=== PATIENT | male | born 1955 | race Caucasian/White ===

== ENCOUNTER → 2018-01-16 09:42 | Outpatient (CLI) | payer MEDICARE, SELFPAY | PROVIDERS: PCP Family Medicine; Visit Provider Orthopaedic Surgery | DX: M17.12 Unilateral primary osteoarthritis, left knee (principal) | CPT/HCPCS: 20610; 99213; J7325 ==

== ENCOUNTER 2018-02-22 11:28 | Emergency (ER) | payer MEDICARE, SELFPAY ==
[2018-02-22 11:34] VITALS: BP 185/96; PULSE 82; RESP 18; TEMP 36.7; O2SAT 97
--- NOTE | 2018-02-22 11:48 | DI.CT_ITS ---
SYMPTOM/DIAGNOSIS: ? FLANK PAIN CT RENAL COLIC: Examination was carried out according to the usual protocol without contrast enhancement. The lung bases are unremarkable. The liver, gallbladder, pancreas and spleen are intact. A small cortical cyst involving the lateral border of the left kidney is seen. The kidney is otherwise unremarkable. The adrenals are intact. There is mild right hydronephrosis and hydroureter secondary to a 6 mm distal right ureteral calculus. The bladder is unremarkable. There is no evidence of bowel obstruction. The appendix is not seen but there is no evidence of an acute appendix. There is no evidence of free fluid or free air in the abdomen. The patient is status post ventral hernia repair. There are atherosclerotic changes involving the aorta without evidence of an aneurysm. Degenerative changes involving the lumbar spine include narrowed vacuum discs at L5-S1, L2-3 and L1-2 and associated end plate sclerosis and hypertrophic changes. No acute bony abnormality is identified. SUMMARY: Mild hydronephrosis is noted secondary to an obstructing 6 mm distal ureteral calculus.
--- NOTE | 2018-02-22 11:50 | W.ED.GENAD ---
Discharge Plan Disposition Patient Disposition: HOME Condition: Improving Discharge Details Chief Complaint: Urinary Clinical Impression: Renal colic on right side Primary Care Provider: Rodolfo Penn ED Provider: Serina Stephens Home Meds and New Rx's Prescriptions: New tamsulosin [Flomax] 0.4 mg capsule 0.4 mg PO DAILY Qty: 7 RF: 0 ondansetron [Zofran ODT] 4 mg tablet,disintegrating 4 mg PO QID PRN (Reason: nausea and vomiting) Qty: 10 RF: 0 Continue zmdqlfbscnc-fsxitqzhp-cnj C-Mn 1 EACH tablet 2 tab PO DAILY Qty: 90 RF: 0 acetaminophen [Tylenol Extra Strength] 500 MG tablet 1,000 mg PO TID PRN RF: 0 multivitamin [One Daily] 1 EACH tablet 1 ea PO RF: 0 magnesium oxide 500 MG capsule 500 mg PO DAILY RF: 0 Biotin 10,000 MCG capsule 10,000 mcg PO DAILY RF: 0 zolpidem 10 MG tablet 10 mg PO HS Qty: 90 RF: 1 Discharge Instructions Instructions: Renal Colic (ED) Additional Instructions: Take all your medications as prescribed ibuprofen 600 mg every 6 hours if needed for pain acetaminophen 650 mg every 6 hours if needed for pain, can alternate the two medications every 3 hours Push fluids drinking at least 6-8 glasses of water daily to stay well-hydrated Referrals: Rey Ray MD [ [facility] STAFF PHYSICIAN] - Return if symptoms worsen Medical Decision Making Medical Records case discussed with Dr Ray who recommends outpatient follow up with his office. patient does not have a UTI and is eating and drinking with pain resolved with toradol IV. will provide script for zofran and flomax. patient advised to return sooner for new or worsening symptoms Imaging Data Radiologic Study: Imaging: CT Scan (CT abdomen and pelvis without contrast: 6 mm stone right distal ureter) Lab Data Lab results reviewed: Yes I reviewed the patient's lab results. Patient presents with right-sided flank pain that radiates into his groin. He had the symptoms about a week ago but they did resolve but recurred yesterday. He reports some nausea but no vomiting. He is using Tylenol for pain. Does have a history of renal stones. HPI General Date/Time Provider Initiated Documentation: 02/22/18 11:47. Related Data Home Medications Medication Instructions Recorded Confirmed kgtvvgwjdrj-sjeuskrte-thy C-Mn 2 tab PO DAILY #90 03/14/13 09/27/18 acetaminophen [Tylenol Extra 1,000 mg PO TID PRN tab-cap 04/08/14 02/22/18 Strength] multivitamin [One Daily] 1 ea PO 04/13/16 Biotin 10,000 mcg PO DAILY 03/08/17 02/22/18 magnesium oxide 500 mg PO DAILY 03/08/17 02/22/18 zolpidem 10 mg PO HS #90 tab 08/15/17 02/22/18 ondansetron [Zofran ODT] 4 mg PO QID PRN #10 tab 02/22/18 tamsulosin [Flomax] 0.4 mg PO DAILY #7 cap 02/22/18 Previous Rx's Medication Instructions Recorded zolpidem 10 mg PO HS #90 tab 08/15/17 ondansetron [Zofran ODT] 4 mg PO QID PRN #10 tab 02/22/18 tamsulosin [Flomax] 0.4 mg PO DAILY #7 cap 02/22/18 Allergies Allergy/AdvReac Type Severity Reaction Status Date / Time budesonide [From Symbicort] Allergy Severe RASH Unverified 06/07/17 08:46 formoterol fumarate Allergy Severe RASH Unverified 06/07/17 08:46 [From Symbicort] lisinopril Allergy Intermediate dry cough Unverified 06/07/17 09:10 hydrocodone AdvReac Severe SEVERE GI Unverified 06/07/17 08:46 UPSET atenolol AdvReac Mild headache Unverified 06/07/17 08:46 cyclobenzaprine AdvReac Headache Unverified 06/07/17 08:46 gabapentin AdvReac GI upset Unverified 06/07/17 08:46 hydrochlorothiazide AdvReac Headache Unverified 06/07/17 08:46 morphine AdvReac Headache, Unverified 06/07/17 08:46 Nausea/Vomiting oxycodone AdvReac Headache/Fo Unverified 06/07/17 08:46 rgetfullnes s simvastatin AdvReac muscle/joint Unverified 06/07/17 08:46 pain tramadol AdvReac GI upset Unverified 06/07/17 08:46 General Stated Complaint: Urinary LAI: 3 Review of Systems Review of Systems All systems reviewed & are unremarkable except as noted in HPI and below Constitutional Denies fever(s) Gastrointestinal Reports abdominal pain (Right back pain that radiates into his groin), Reports nausea and Denies vomiting Genitourinary Reports as per HPI PFSH Family History Mother Essential hypertension Hyperlipidemia Father Diabetes Essential hypertension Heart disease Hyperlipidemia Sister COPD (chronic obstructive pulmonary disease) Grandfather Diabetes Grandfather Heart disease Grandmother Diabetes Grandmother No problems noted. Sister No problems noted. Social History Smoking/Tobacco Use Status: Former Tobacco Use Surgical History Arthroplasty of knee (~2010) Arthroscopy Arthroscopy, Shoulder (~2000) Replacement of total knee joint hernia repair (~2005) Exam Const General: cooperative, healthy appearing, comfortable, no acute distress and well developed Nutritional Appearance: overweight Orientation: alert, awake and oriented x3 GI Inspection: normal to inspection and obesity Palpation: soft Auscultation: normal bowel sounds Skin General skin exam: no rashes or lesions noted Neuro General: alert, awake and oriented x3 Course Vital Signs Temperature 36.7 C 02/22/18 11:34 Pulse 82 02/22/18 11:34 Respiratory Rate 18 02/22/18 11:34 Blood Pressure 185/96 H 02/22/18 11:34 Pulse Oximetry 97 02/22/18 11:34 Temperature 36.7 C 02/22/18 11:34 Temperature Source Temporal Artery Scan 02/22/18 11:34 Pulse 82 02/22/18 11:34 Respiratory Rate 18 02/22/18 11:34 Blood Pressure 185/96 H 02/22/18 11:34 Pulse Oximetry 97 02/22/18 11:34 Oxygen Delivery Method Room Air 02/22/18 11:34 Oxygen Flow Rate 0 02/22/18 11:34 Pain Level 7 02/22/18 11:34 Lab/Test Results Lab/Test Results: labs reviewed.
--- NOTE | 2018-02-22 11:54 | ED.GENADUL_ITS ---
Discharge Plan Disposition Patient Disposition: HOME Condition: Improving Discharge Details Chief Complaint: Urinary Clinical Impression: Renal colic on right side Primary Care Provider: Rodolfo Penn ED Provider: Serina Stephens Home Meds and New Rx's Prescriptions: New tamsulosin [Flomax] 0.4 mg capsule 0.4 mg PO DAILY Qty: 7 RF: 0 ondansetron [Zofran ODT] 4 mg tablet,disintegrating 4 mg PO QID PRN (Reason: nausea and vomiting) Qty: 10 RF: 0 Continue jopivukiask-mtfprpwve-slw C-Mn 1 EACH tablet 2 tab PO DAILY Qty: 90 RF: 0 acetaminophen [Tylenol Extra Strength] 500 MG tablet 1,000 mg PO TID PRN RF: 0 multivitamin [One Daily] 1 EACH tablet 1 ea PO RF: 0 magnesium oxide 500 MG capsule 500 mg PO DAILY RF: 0 Biotin 10,000 MCG capsule 10,000 mcg PO DAILY RF: 0 zolpidem 10 MG tablet 10 mg PO HS Qty: 90 RF: 1 Discharge Instructions Instructions: Renal Colic (ED) Additional Instructions: Take all your medications as prescribed ibuprofen 600 mg every 6 hours if needed for pain acetaminophen 650 mg every 6 hours if needed for pain, can alternate the two medications every 3 hours Push fluids drinking at least 6-8 glasses of water daily to stay well-hydrated Referrals: Rey Ray MD [ [facility] STAFF PHYSICIAN] - Return if symptoms worsen Medical Decision Making Medical Records case discussed with Dr Ray who recommends outpatient follow up with his office. patient does not have a UTI and is eating and drinking with pain resolved with toradol IV. will provide script for zofran and flomax. patient advised to return sooner for new or worsening symptoms Imaging Data Radiologic Study: Imaging: CT Scan (CT abdomen and pelvis without contrast: 6 mm stone right distal ureter) Lab Data Lab results reviewed: Yes I reviewed the patient's lab results. Patient presents with right-sided flank pain that radiates into his groin. He had the symptoms about a week ago but they did resolve but recurred yesterday. He reports some nausea but no vomiting. He is using Tylenol for pain. Does have a history of renal stones. HPI General Date/Time Provider Initiated Documentation: 02/22/18 11:47 . Related Data Home Medications Medication Instructions Recorded Confirmed szhtabftwlb-yuwoequxs-qga C-Mn 2 tab PO DAILY #90 03/14/13 09/27/18 acetaminophen [Tylenol Extra 1,000 mg PO TID PRN tab-cap 04/08/14 02/22/18 Strength] multivitamin [One Daily] 1 ea PO 04/13/16 Biotin 10,000 mcg PO DAILY 03/08/17 02/22/18 magnesium oxide 500 mg PO DAILY 03/08/17 02/22/18 zolpidem 10 mg PO HS #90 tab 08/15/17 02/22/18 ondansetron [Zofran ODT] 4 mg PO QID PRN #10 tab 02/22/18 tamsulosin [Flomax] 0.4 mg PO DAILY #7 cap 02/22/18 Previous Rx's Medication Instructions Recorded zolpidem 10 mg PO HS #90 tab 08/15/17 ondansetron [Zofran ODT] 4 mg PO QID PRN #10 tab 02/22/18 tamsulosin [Flomax] 0.4 mg PO DAILY #7 cap 02/22/18 Allergies Allergy/AdvReac Type Severity Reaction Status Date / Time budesonide [From Symbicort] Allergy Severe RASH Unverified 06/07/17 08:46 formoterol fumarate Allergy Severe RASH Unverified 06/07/17 08:46 [From Symbicort] lisinopril Allergy Intermediate dry cough Unverified 06/07/17 09:10 hydrocodone AdvReac Severe SEVERE GI Unverified 06/07/17 08:46 UPSET atenolol AdvReac Mild headache Unverified 06/07/17 08:46 cyclobenzaprine AdvReac Headache Unverified 06/07/17 08:46 gabapentin AdvReac GI upset Unverified 06/07/17 08:46 hydrochlorothiazide AdvReac Headache Unverified 06/07/17 08:46 morphine AdvReac Headache, Unverified 06/07/17 08:46 Nausea/Vomiting oxycodone AdvReac Headache/Fo Unverified 06/07/17 08:46 rgetfullnes s simvastatin AdvReac muscle/joint Unverified 06/07/17 08:46 pain tramadol AdvReac GI upset Unverified 06/07/17 08:46 General Stated Complaint: Urinary LAI: 3 Review of Systems Review of Systems All systems reviewed & are unremarkable except as noted in HPI and below Constitutional Denies fever(s) Gastrointestinal Reports abdominal pain (Right back pain that radiates into his groin), Reports nausea and Denies vomiting Genitourinary Reports as per HPI PFSH Family History Mother Essential hypertension Hyperlipidemia Father Diabetes Essential hypertension Heart disease Hyperlipidemia Sister COPD (chronic obstructive pulmonary disease) Grandfather Diabetes Grandfather Heart disease Grandmother Diabetes Grandmother No problems noted. Sister No problems noted. Social History Smoking/Tobacco Use Status: Former Tobacco Use Surgical History Arthroplasty of knee (~2010) Arthroscopy Arthroscopy, Shoulder (~2000) Replacement of total knee joint hernia repair (~2005) Exam Const General: cooperative, healthy appearing, comfortable, no acute distress and well developed Nutritional Appearance: overweight Orientation: alert, awake and oriented x3 GI Inspection: normal to inspection and obesity Palpation: soft Auscultation: normal bowel sounds Skin General skin exam: no rashes or lesions noted Neuro General: alert, awake and oriented x3 Course Vital Signs Temperature 36.7 C 02/22/18 11:34 Pulse 82 02/22/18 11:34 Respiratory Rate 18 02/22/18 11:34 Blood Pressure 185/96 H 02/22/18 11:34 Pulse Oximetry 97 02/22/18 11:34 Temperature 36.7 C 02/22/18 11:34 Temperature Source Temporal Artery Scan 02/22/18 11:34 Pulse 82 02/22/18 11:34 Respiratory Rate 18 02/22/18 11:34 Blood Pressure 185/96 H 02/22/18 11:34 Pulse Oximetry 97 02/22/18 11:34 Oxygen Delivery Method Room Air 02/22/18 11:34 Oxygen Flow Rate 0 02/22/18 11:34 Pain Level 7 02/22/18 11:34 Lab/Test Results Lab/Test Results: labs reviewed.
[2018-02-22 12:19] LABS: Abs Immature Grans 0.01 k/cumm (0.0-0.09); Absolute Basophil Count 0.05 k/cumm (0.0-0.2); Absolute Eosinophil Count 0.19 k/cumm (0.0-0.7); Absolute Lymphocyte Count 1.62 k/cumm (1.2-3.4); Absolute Monocyte Count 0.64 k/cumm (0.11-0.7); Absolute Neutrophil Count 5.15 k/cumm (1.2-6.7); Basophils % 0.7; Eosinophils % 2.5; HCT 48.3 % (40.0-50.0); HGB 16.2 g/dL (13.5-17.5); Immature Grans % 0.1; Lymphocytes % 21.1; Mean Corp. HGB Concentration 33.5 g/dL (32.0-36.0); Mean Corpuscular Hemoglobin 29.5 pg (27.0-33.0); Mean Platelet Volume 10.9 fL (8.0-11.0); Monocytes % 8.4; Neutrophils % 67.2; Platelet Count 242 x1000/uL (130-400); RBC 5.49 m/cumm (4.50-6.00); RBC Distribution Width 13.4 % (11.8-14.1); White Blood Cell Count 7.66 k/cumm (4.4-10.8)
[2018-02-22] MEDS: Ketorolac 30 MG/ML VIAL IVP (12:20)
[2018-02-22 12:24] LABS: Bilirubin Negative (Negative); Blood Small (Negative); Clarity Clear; Glucose Negative (Negative); Ketones Negative (Negative); Leukocyte Esterase Negative (Negative); Nitrite Negative (Negative); Urobilinogen 0.2 EU/dL (Up TO 0.2)
[2018-02-22 12:33] LABS: Anion Gap 8.1 mmol/L (3-11); BUN 17 mg/dL (7-18); CO2 29.9 mmol/L (21.0-32.0); CREATININE 1.35 mg/dL (0.70-1.30); Calcium 8.9 mg/dL (8.5-10.1); Chloride 101 mmol/L (98-107); Estimated GFR 53.73 (mL/min/1.73m2); Glucose 105 mg/dL (70-100); Potassium 4.3 mmol/L (3.5-5.1); Sodium 139 mmol/L (136-145)
[2018-02-22 12:40] LABS: Bacteria Negative HPF (Negative); C & S Indicated? No; Casts Negative LPF (Negative); Crystals Negative HPF (Negative); Epithelial Cells Negative HPF (Negative); Mucus Negative (Negative); RBC 0-2 (0-2); WBC 0-2 HPF (0-5)
[2018-02-22 13:20] VITALS: BP 161/87; PULSE 89; RESP 16; TEMP 36.4; O2SAT 97
--- NOTE | 2018-02-23 09:08 | PDOC.ERCMPRO ---
Care Management Progress Note 02/23/18-Pt seen on 02/22/18 for renal colic by LEONOR Preston. F/U request faxed to Urology as DR. Ray was consulted and recommended f/u with him.
== END 2018-02-22 13:20 | disposition home or self-care (01) ==
PROVIDERS: Emergency Provider Nurse Practitioner Acute Care; PCP Family Medicine
DX: N23 Unspecified renal colic (principal); N13.2 Hydronephrosis with renal and ureteral calculous obstruction; Z87.442 Personal history of urinary calculi; I10 Essential (primary) hypertension
CPT/HCPCS: 36415; 80048; 96374; 99284; 74176; 81003; 81015; 85025; J1885

== ENCOUNTER → 2018-03-08 10:16 | Outpatient (BNVA) | payer MEDICARE, SELFPAY | PROVIDERS: PCP Family Medicine; Visit Provider Urology | DX: N20.1 Calculus of ureter (principal) | CPT/HCPCS: 99203; 99214 ==

== ENCOUNTER → 2018-05-01 09:22 | Outpatient (BNVA) | payer MEDICARE, SELFPAY | PROVIDERS: PCP Family Medicine; Referring Provider Family Medicine; Visit Provider Orthopaedic Surgery | DX: M75.81 Other shoulder lesions, right shoulder (principal) | CPT/HCPCS: 20610; 99211; 99213; J1040 ==

== ENCOUNTER → 2018-07-19 08:47 | Outpatient (BNVA) | payer MEDICARE, SELFPAY | PROVIDERS: PCP Family Medicine; Visit Provider Orthopaedic Surgery | DX: M17.12 Unilateral primary osteoarthritis, left knee (principal); Z96.652 Presence of left artificial knee joint | CPT/HCPCS: 20610; 99211; 99213; J7325 ==

== ENCOUNTER → 2018-07-31 08:39 | Outpatient (BNVA) | payer MEDICARE, SELFPAY | PROVIDERS: PCP Family Medicine; Referring Provider Family Medicine; Visit Provider Orthopaedic Surgery | DX: M19.011 Primary osteoarthritis, right shoulder (principal) | CPT/HCPCS: 99211; 99213 ==

== ENCOUNTER 2018-08-28 14:34 | Outpatient (CLI) | payer MEDICARE, SELFPAY ==
[2018-08-28 16:03] LABS: CREATININE 0.86 mg/dL (0.70-1.30); Cholesterol 207 mg/dL (50-200); Glucose 114 mg/dL (70-100); HDL Cholesterol 57 mg/dL (40-60); LDL CHOLESTEROL 139 mg/dL (<100); TSH (W/Ref FT4) 1.25 uIU/mL (0.358-3.74); Triglyceride 82 mg/dL (30-150)
[2018-08-29 10:32] LABS: PSA, Screening 0.2 ng/ml (0-4.5)
[2018-08-31 09:23] LABS: Testosterone, Free 10.3 ng/dL (3.67-13.9); Testosterone, Total 642 ng/dL (240-950)
== END 2018-08-28 14:54 ==
PROVIDERS: PCP Family Medicine; Visit Provider Family Medicine
DX: R53.83 Other fatigue (principal); I10 Essential (primary) hypertension; Z12.5 Encounter for screening for malignant neoplasm of prostate
CPT/HCPCS: 36415; 80061; 82947; 83721; 84153; 84402; 84403; 82565; 84443

== ENCOUNTER 2018-09-05 09:16 | Outpatient (CLI) | payer MEDICARE, SELFPAY ==
--- NOTE | 2018-09-05 09:11 | DI.RAD_ITS ---
SYMPTOMS/DIAGNOSIS: RT SHOULDER PAIN RIGHT SHOULDER: Three views. There are mild degenerative changes seen at the acromioclavicular joint. The glenohumeral joint appears well maintained. The bones are intact and normally mineralized. The soft tissues are unremarkable. 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
== END 2018-09-05 09:36 ==
PROVIDERS: PCP Family Medicine; Referring Provider Family Medicine; Visit Provider Student in an Organized Health Care Education/Training Program
DX: M25.511 Pain in right shoulder (principal); M19.011 Primary osteoarthritis, right shoulder
CPT/HCPCS: 20610; 99213; 73030; J1030

== ENCOUNTER → 2018-10-03 08:14 | Outpatient (BNVA) | payer MEDICARE, SELFPAY | PROVIDERS: PCP Family Medicine; Referring Provider Family Medicine; Visit Provider Student in an Organized Health Care Education/Training Program | DX: M19.011 Primary osteoarthritis, right shoulder (principal); S46.111A Strain of muscle, fascia and tendon of long head of biceps, right arm, initial encounter; X58.XXXA Exposure to other specified factors, initial encounter; I10 Essential (primary) hypertension | CPT/HCPCS: 99213 ==

== ENCOUNTER 2018-10-18 00:37 | Outpatient (CLI) | payer MEDICARE, SELFPAY ==
--- NOTE | 2018-10-18 09:20 | DI.RAD_ITS ---
SYMPTOMS/DIAGNOSIS: RT SHOULDER INJECTION, STRAIN OF MUSCLE, S46.111A RIGHT SHOULDER INJECTION: Fluoroscopy Time: 14.3 sec Under fluoroscopic control, Dr. Diaz carried out an injection of the right shoulder. Contrast material is note in the joint. Please see Dr. Diaz's procedure report for further information.
--- NOTE | 2018-10-18 09:39 | OPPNE_ITS ---
Date of service: 10/18/18 Time of Service: 09:39 Procedure Note Date of procedure: 10/18/18 Procedure: Right Shoulder Injection Surgeon/Proceduralist/Physician: Reece Diaz Procedure Indications: Slade has had persistent pain of the RIGHT shoulder. Noninvasive measures have been tried. To serve as both diagnostic and therapeutic, an injection under fluoroscopy was recommended. I had discussed the risks of the procedure and the patient elected to proceed. Procedure Description: Slade was greeted in the flouroscopy room. The correct side was identified and the consent was reviewed with the patient and signed. The patient was then placed in the supine position on the fluoroscopy table. The RIGHT shoulder was then prepped with Chloraprep. The anterior injection starting point was identiifed by bony landmarks and fluoroscopy. The skin and soft tissue in the tract of the injection was anesthetized with 1% Lidocaine. A spinal needle was then inserted deep into the shoulder joint at the level of the recess between the glenoid and superior humeral head. A small amount of Omnipaque solution was injected to confirm intraarticular placement. Once confirmed, the shoulder was injected with 4cc of 0.5% Bupivicaine and 80mg of Depo-Medrol. A bandaid was placed on the injection site. The patient tolerated the procedure well and noted improvement in pre- injection pain.
[2018-10-18] MEDS: Omnipaque 300 MG/ML 10 ML BTL IJ (12:44)
[2018-10-18] MEDS: Bupivacaine 0.5% Pres-Free 10 ML VIAL IJ (12:45)
== END 2018-10-18 00:57 ==
PROVIDERS: PCP Family Medicine; Visit Provider Student in an Organized Health Care Education/Training Program
DX: S46.111A Strain of muscle, fascia and tendon of long head of biceps, right arm, initial encounter (principal); M25.511 Pain in right shoulder
CPT/HCPCS: 20610; 77002

== ENCOUNTER → 2018-11-14 08:21 | Outpatient (BNVA) | payer MEDICARE, SELFPAY | PROVIDERS: PCP Family Medicine; Referring Provider Family Medicine; Visit Provider Student in an Organized Health Care Education/Training Program | DX: S46.111A Strain of muscle, fascia and tendon of long head of biceps, right arm, initial encounter (principal); Z98.890 Other specified postprocedural states; X58.XXXA Exposure to other specified factors, initial encounter; I10 Essential (primary) hypertension | CPT/HCPCS: 99213 ==

== ENCOUNTER 2019-01-18 09:07 | Outpatient (CLI) | payer MEDICARE, SELFPAY ==
--- NOTE | 2019-01-18 08:51 | DI.RAD_ITS ---
SYMPTOM/DIAGNOSIS: KNEE PAIN LEFT KNEE: Three views. No priors. There is moderate narrowing of the medial femorotibial joint space. Periarticular spurring is seen of the posterior patella in the medial femorotibial joint. The bones are intact and normally mineralized. The soft tissues are unremarkable. IMPRESSION: Mild to moderate arthritic changes of the left knee.
== END 2019-01-18 09:27 ==
PROVIDERS: PCP Family Medicine; Referring Provider Family Medicine; Visit Provider Student in an Organized Health Care Education/Training Program
DX: M25.562 Pain in left knee (principal); M17.12 Unilateral primary osteoarthritis, left knee; S46.111A Strain of muscle, fascia and tendon of long head of biceps, right arm, initial encounter; W11.XXXA Fall on and from ladder, initial encounter; M25.511 Pain in right shoulder; M19.011 Primary osteoarthritis, right shoulder; M75.81 Other shoulder lesions, right shoulder
CPT/HCPCS: 20610; 73562; 99213; 99214; J1030; J7325

== ENCOUNTER 2019-01-29 07:40 | Outpatient (CLI) | payer MEDICARE, SELFPAY ==
--- NOTE | 2019-01-29 10:15 | DI.MRI_ITS ---
SYMPTOMS/DIAGNOSIS: RIGHT SHOULDER PAIN, M25.511, WEAKNESS MRI OF THE RIGHT SHOULDER: Comparison is made with plain films dated August, and MRI dated April,. Proton density and fat-suppressed T2 axial and coronal and T1 and fat-suppressed T2 sagittal sequences were performed. There are mild degenerative changes of the AC joint without significant inferior impingement. There is slightly increased signal in the subacromial/subdeltoid bursa, which could indicated mild bursitis. There is no significant fluid. There is a minimal amount of fluid in the subcoracoid bursa. There is no glenohumeral joint effusion. Again, there is a defect at the anterosuperior glenoid labrum, similar to the previous exam. The rotator cuff tendons appear intact. IMPRESSION: No evidence of rotator cuff tear. Question of subacromial/subdeltoid bursitis. No change in appearance of anterosuperior labral tear.
== END 2019-01-29 08:00 ==
PROVIDERS: PCP Family Medicine; Visit Provider Student in an Organized Health Care Education/Training Program
DX: M25.511 Pain in right shoulder (principal); R29.898 Other symptoms and signs involving the musculoskeletal system
CPT/HCPCS: 73221

== ENCOUNTER 2019-03-06 08:58 | Outpatient (CLI) | payer MEDICARE, SELFPAY ==
[2019-03-06 12:12] LABS: C-Reactive Protein 0.24 mg/dL (0.0-0.3)
== END 2019-03-06 09:18 ==
PROVIDERS: PCP Family Medicine; Visit Provider Family Medicine
DX: M25.50 Pain in unspecified joint (principal); R73.01 Impaired fasting glucose
CPT/HCPCS: 36415; 83036; 86140

== ENCOUNTER 2019-07-05 09:36 | Outpatient (CLI) | payer MEDICARE, SELFPAY ==
--- NOTE | 2019-07-05 09:31 | DI.RAD_ITS ---
EXAM: XR KNEE RT 3V AP,LAT,ANSHUL CLINICAL HISTORY: pain right TKA TECHNIQUE: COMPARISON: XR knee LT 3V AP,lat,anshul from 01/18/2019 FINDINGS: Three views were obtained. There is a total knee joint replacement position. Components appear well seated. No other significant bony abnormality seen.
== END 2019-07-05 09:56 ==
PROVIDERS: PCP Family Medicine; Referring Provider Family Medicine; Visit Provider Student in an Organized Health Care Education/Training Program
DX: R69 Illness, unspecified (principal)
CPT/HCPCS: 73562; 99213

== ENCOUNTER 2019-07-05 09:46 | Outpatient (CLI) | payer MEDICARE, SELFPAY ==
[2019-07-05 11:06] LABS: C-Reactive Protein 0.24 mg/dL (0.0-0.3)
== END 2019-07-05 10:06 ==
PROVIDERS: PCP Family Medicine; Visit Provider Student in an Organized Health Care Education/Training Program
DX: M25.561 Pain in right knee (principal); Z96.651 Presence of right artificial knee joint; M19.011 Primary osteoarthritis, right shoulder
CPT/HCPCS: 20610; 36415; 73562; 99213; L1820; 86140; J1030

== ENCOUNTER 2020-05-16 16:32 | Emergency (ER) | payer MEDICARE, SELFPAY ==
[2020-05-16 16:37] VITALS: BP 172/118; PULSE 99; RESP 14; TEMP 36.4; O2SAT 98
--- NOTE | 2020-05-16 16:46 | DI.RAD_ITS ---
EXAM: XR KNEE RT 3V AP,LAT,ANSHUL CLINICAL HISTORY: R anterior/med pain after blunt injury. TECHNIQUE: 2D digital imaging was performed. COMPARISON: CR XR KNEE RT 3V AP,LAT,ANSHUL from 07/05/2019 FINDINGS: BONES: No acute fracture is present. No bony destructive lesion is seen. JOINTS: The knee is normally aligned. No joint effusion is seen. There is a stable right total knee r eplacement. SOFT TISSUE: There is swelling of the anterior and medial soft tissues. IMPRESSION: No acute fracture or dislocation. Intact hardware. DATA REPOSITORY: RADIATION DOSE DELIVERED:
--- NOTE | 2020-05-16 16:47 | ED.GENADUL_ITS ---
Discharge Plan Disposition Patient Disposition: HOME Condition: Improving Discharge Details Clinical Impression: Contusion of knee, right Primary Care Provider: Rodolfo Penn ED Provider: Emanuel Jones Home Meds and New Rx's Prescriptions: Continued Sentry Senior 0.4-300-250 mg-mcg-mcg tablet 1 tab PO DAILY RF: 0 chlorthalidone 25 mg tablet 25 mg PO DAILY Qty: 90 RF: 3 dsrvuilcvxy-wzkmfgygm-aud C-Mn 1 EACH tablet 2 tab PO DAILY Qty: 90 RF: 0 acetaminophen [Tylenol Extra Strength] 500 MG tablet 1,000 mg PO TID RF: 0 ibuprofen 200 mg Tablet 400 mg PO Q6H PRNRF: 0 Discharge Instructions Instructions: Contusion in Adults (ED) Additional Instructions: You will likely have progressive development of bruising over the next few days time. Adam bandage for compression and stability while awake and out of bed. Please avoid use of ibuprofen for 1 to 2 days time. May continue Tylenol as needed for pain. Apply ice to area 20 minutes at a time for the next 24 hours. You then may begin application of heat to area as needed. Follow-up with Dr. Diaz if not improving in 3 to 5 days time. Medical Decision Making 64-year-old male who was carrying a propane wall here and walking backwards when he fell and the heater landed on his right anterior knee. Developed anterior pain and swelling. He has been able to weight-bear and ambulate. He was not injured in any other way. On exam he has right anteromedial hematoma and swelling of the knee. The joint is not unstable. He is referred for x-ray to rule out underlying fracture. The re is soft tissue swelling present, no acute bony findings and prosthesis appears well aligned. Patient placed in Adam bandage for compression. He will develop increased bruising I suspect and is counseled on home management. HPI General Mode of arrival: ambulatory . Date/Time Provider Initiated Documentation: 05/16/20 16:33 . Limitations to Documentation: no limitations . Information obtained by: patient . History of Present Illness 64 year old M presents to the emergency department with the chief complaint of Right knee pain after blunt injury, described as moderate, Quality is described as dull and constant, and is localized to the right and lower extremity. Patient reports no radiation. Patient started experiencing this minute(s) and it has been constant. No relieving factors improve symptom(s), No exacerbating factors reported . Patient notes no other symptoms.. Patient did receive the following treatments prior to arrival, none Related Data Home Medications Medication Instructions Recorded Confirmed rlswzipkisv-oxrkpdbtd-mwy C-Mn 2 tab PO DAILY #90 08/09/12 05/16/20 acetaminophen [Tylenol Extra 1,000 mg PO TID tab-cap 04/08/14 05/16/20 Strength] qdlbpnry-nru-bixst acid 0.4 1 tab PO DAILY 08/28/18 05/16/20 mg-lycopene 300 mcg-lutein 250 mcg tablet chlorthalidone 25 mg tablet 25 mg PO DAILY #90 tab 06/04/19 05/16/20 ibuprofen 400 mg PO Q6H PRN 05/16/20 05/16/20 Previous Rx's Medication Instructions Recorded chlorthalidone 25 mg tablet 25 mg PO DAILY #90 tab 06/04/19 Allergies Allergy/AdvReac Type Severity Reaction Status Date / Time budesonide [From Symbicort] Allergy Severe RASH Verified 05/16/20 16:41 formoterol fumarate Allergy Severe RASH Verified 05/16/20 16:41 [From Symbicort] hydrocodone AdvReac Severe SEVERE GI Verified 05/16/20 16:41 UPSET lisinopril AdvReac Intermediate dry cough Verified 05/16/20 16:41 atenolol AdvReac Mild headache Verified 05/16/20 16:41 cyclobenzaprine AdvReac Headache Verified 05/16/20 16:41 gabapentin AdvReac GI upset Verified 05/16/20 16:41 hydrochlorothiazide AdvReac Headache Verified 05/16/20 16:41 morphine AdvReac Headache, Verified 05/16/20 16:41 Nausea/Vomiting oxycodone AdvReac Headache/Fo Verified 05/16/20 16:41 rgetfullnes s simvastatin AdvReac muscle/joint Verified 05/16/20 16:41 pain tramadol AdvReac GI upset Verified 05/16/20 16:41 General Stated Complaint: Orthopedic LAI: 3 Review of Systems Narrative: No other injury. Denies loss of consciousness. Able to walk. 6 systems reviewed and otherwise negative [facility] Medical History (Updated 05/16/20 @ 17:10 by Emanuel Jones MD) Cervical spondylosis (~10/23/18) [place] [facility] [place] Arthroplasty of knee (~2010) right Arthroscopy wrist Arthroscopy, Shoulder (~2000) left shoulder with labrial debridement and left [place]rom[place]oplasty[place] [place] repair (~2005) History of total right knee replacement (TKR) (02/26/14) Family History Mother Hyperlipidemia Hypertension Father , AGE 83 Diabetes Heart disease Hyperlipidemia Hypertension Sister , AGE 60 COPD (chronic obstructive pulmonary disease) Asthma Maternal Grandfather Diabetes Paternal Grandfather Heart disease Maternal Grandmother Diabetes Sister No problems noted. Social History Smoking/Tobacco Use Status: Former Tobacco Use Quit Date: 05/29/94 Smoking risk assessment performed?: Yes Alcohol Intake: former Year quit: 1998 Drug use: Never Substance use type: does not use Caregiver/Support person: No Household members: none Pets and animals: No Do you think of yourself as: straight/heterosexual Current gender identity: male What is your relationship status?: never How often do you talk on the phone with friends or family?: three or more times per week How often do you get together with friends or relatives?: three or more times per week How often do you attend christianity or gnosticist services?: decline to answer Do you belong to any clubs or organized social groups?: decline to answer Panel score (0-1 are the most socially isolated patients): 1 What type of physical activity do you participate in: bicycling Duration: 15-30 minutes/day Abigail/Baptist: No preference Special abigail needs: No Do you feel safe at home: Yes Do you feel safe in your relationship?: Yes Exam Narrative Exam Narrative: GEN: awake, alert, oriented 3. Pleasant, well groomed, interactive. HEAD: Normocephalic, atraumatic ENT: Mucous membranes moist, oropharynx unremarkable, External ear exam unremarkable EYES: PERRL, EOMI EXT: Full ROM, right anteromedial knee with hematoma and ecchymosis. Tender to palpation. No significant laxity of the joint. Neuro: Grossly normal neurologic exam, conversant, interactive. Psych: Speech fluent, thoughts congruent, affect normal Course Vital Signs Vital signs: Vital Signs Temperature 36.4 C L 05/16/20 16:37 Pulse 99 H 05/16/20 16:37 Respiratory Rate 14 05/16/20 16:37 Blood Pressure 172/118 H 05/16/20 16:37 Pulse Oximetry 98 05/16/20 16:37 Temperature 36.4 C L 05/16/20 16:37 Temperature Source Skin 05/16/20 16:37 Pulse 99 H 05/16/20 16:37 Respiratory Rate 14 05/16/20 16:37 Respiratory Effort Non-Labored 05/16/20 16:41 Blood Pressure 172/118 H 05/16/20 16:37 Blood Pressure Position Sitting 05/16/20 16:37 Pulse Oximetry 98 05/16/20 16:37 Oxygen Delivery Method Room Air 05/16/20 16:37 Oxygen Flow Rate 0 05/16/20 16:37 Pain Level 6 05/16/20 16:37 Comment 05/16/20 16:37
--- NOTE | 2020-05-16 16:53 | NUR.NOTE ---
Ambulated to room 4 with steady gait, R knee pain s/p dropping heater on it. +PP, +CSM. +Bruising and swelling to sight. Right leg elevated, ice applied. Pt declined pain medicine. To xray via stretcher.
--- NOTE | 2020-05-16 17:09 | DI.VRAD_ITS ---
PROCEDURE INFORMATION: Exam: XR Right Knee Exam date and time: 05/16/2020 5:01 PM Age: 64 years old Clinical indication: Injury or trauma; Other: Heater dropped on knee; Blunt trauma; Right; Prior surgery; Surgery date: 6+ months; Patient HX: RT anterior /med pain after blunt injury TECHNIQUE: Imaging protocol: XR Right knee. Views: 3 views. COMPARISON: CR XR KNEE RT 3V AP,LAT,ANSHUL 07/05/2019 9:31 AM FINDINGS: Tubes, catheters and devices: Right knee replacement hardware appears intact with normal alignment. Bones/joints: No acute fracture or dislocation. Soft tissues: Normal. IMPRESSION: No acute fracture or dislocation. Intact hardware Dictated and Authenticated by: Faith Gonzales MD. Ordering:JOSEMANUEL Castellanos MD
[2020-05-16 17:24] VITALS: BP 161/97; PULSE 94; RESP 18; O2SAT 97
--- NOTE | 2020-05-16 17:24 | NUR.NOTE ---
Adam wrap applied by MD Jones. Pt educated on use. Discharge instructions reviewed with verbal understanding. ambulated to exit with steady gait.
== END 2020-05-16 17:20 | disposition home or self-care (01) ==
PROVIDERS: Emergency Provider Emergency Medicine; PCP Family Medicine
DX: S80.01XA Contusion of right knee, initial encounter (principal); W20.8XXA Other cause of strike by thrown, projected or falling object, initial encounter
CPT/HCPCS: 73562; 99283

== ENCOUNTER 2020-05-21 09:58 | Outpatient (CLI) | payer MEDICARE, SELFPAY ==
[2020-05-21 12:28] LABS: CREATININE 1.04 mg/dL (0.70-1.30); Potassium 3.9 mmol/L (3.5-5.1)
[2020-05-21 12:36] LABS: Hemoglobin A1C 7.2 % (<5.7)
== END 2020-05-21 10:18 ==
PROVIDERS: PCP Family Medicine; Visit Provider Family Medicine
DX: I10 Essential (primary) hypertension (principal); R73.9 Hyperglycemia, unspecified
CPT/HCPCS: 36415; 82565; 83036; 84132

== ENCOUNTER 2020-10-09 09:41 | Outpatient (CLI) | payer MEDICARE, SELFPAY ==
[2020-10-09 13:13] LABS: ALT 65 U/L (16-63); AST 49 U/L (15-37); Albumin 4.2 g/dL (3.4-5.0); Alkaline Phosphatase 51 U/L (46-116); Anion Gap 11.1 mmol/L (3-11); BUN 20 mg/dL (7-18); Bilirubin, Total 1.3 mg/dL (0.2-1.0); CO2 28.9 mmol/L (21.0-32.0); CREATININE 0.9 mg/dL (0.70-1.30); Calcium 9.7 mg/dL (8.5-10.1); Chloride 101 mmol/L (98-107); Glucose 139 mg/dL (74-106); Potassium 4.1 mmol/L (3.5-5.1); Sodium 141 mmol/L (136-145); Total Protein 7.5 g/dL (6.4-8.2)
== END 2020-10-09 09:42 | disposition home or self-care (01) ==
PROVIDERS: PCP Family Medicine; Referring Provider Family Medicine; Visit Provider Family Medicine
DX: R10.9 Unspecified abdominal pain (principal)
CPT/HCPCS: 36415; 80053

== ENCOUNTER 2022-01-14 01:01 | Outpatient (CLI) | payer MEDICARE, SELFPAY ==
--- OUTSIDE RECORDS SUMMARY | 2022-01-14 01:04 | XMS_ITS | Encounter Summary ---
:1955 Author Organization [facility] [place] [address] Care Team Providers Name Role Phone Rodolfo Penn MD Primary Care Provider [phone] Reason for Referral Routine Exam (Routine) - Specialty Diagnoses / Procedures Referred By Contact Refer red To Contact Diagnoses Bilateral occipital neuralgia Isak Otero MD Procedures NERVE BLOCK - OCCIPITAL [facility] [place] [address] Referral ID Status Reason Start Date Expiration Visits Visits Date Requested Authorized [id number] Specialty 02/20/2019 02/20/2020 1 1 Service Requested Reason for Visit Reason Comments Pain Management Encounter Details Date Type Department Care Team Description 02/20/2019 Procedure visit Pain and Spine Isak Otero MD Bilateral occipital Center at [facility] MEDICAL neuralgia [facility] [address] PAIN [place] [id number] [phone] Social History Tobacco Use Types Packs/Day Years Used Date Former Smoker Cigarettes 1.5 20 Quit: 11/01/18 96 Smokeless Tobacco: Never Used Alcohol Use Standard Drinks/Week Comments No 0 (1 standard drink = 0.6 oz pure alcoho l) Sex Assigned at Date Recorded Not on file documented as of this encounter Last Filed Vital Signs Vital Sign Reading Time Taken Comments Blood Pressure 151/88 02/20/2019 9:59 AM EDT Pulse 71 02/20/2019 9:59 AM EDT Temperature - - Respiratory Rate - - Oxygen Saturation 97% 02/20/2019 9:59 AM EDT Inhaled Oxygen Concentration - - Weight 131.5 kg (290 lb) 02/20/2019 9:59 AM EDT Height 180.3 cm (5' 11) 02/20/2019 9:59 AM EDT Body Mass Index 40.45 02/20/2019 9:59 AM EDT documented in this encounter Progress Notes Isak Otero MD - 02/20/2019 10:00 AM EDT PREPROCEDURE HISTORY AND PHYSICAL Date of Visit: February 20, 2019 Chief Complaint: Posterior headache that radiates to temples, behind both ears. Prior cervical medial branch nerve block provided little pain relief. HPI: Subjective Joseluis Cain is a 63 y.o. male who presents today for bilateral greater occipital nerve block referred by Natalie Viramontes APRN. The history is obtained from the patient, and I have reviewed medical records provided by the referring physician and located in the electronic medical record to fill in gaps in the patient's recollection of events, treatments and outcomes. LOCATION: bilateral occipital region, up to the temporal and front of scalp PAIN LEVEL AT REST 5/10 PAST MEDICAL HISTORY: Past Medical History: Diagnosis Date ??? Allergic state ??? Allergy Years ago Non specific Alergys . I am ok with food and latex. ??? Arthritis ??? Asthma ??? Breathing problem Due to alergy issues with sinus . ??? Chronic pain Left shoulder , neck and arm. Lower back and knees. ??? Digestive problems Had some colon polypds removed at [facility] , several years back. ??? ENT disease Sinus issues , seems life long. ??? GERD (gastroesophageal reflux disease) ??? Hypertension ??? Musculoskeletal disease Have arthritis in knees , DJD back. Possible gout episodes. ??? Skin disorder I have never had real good skin . ??? Urinary disorder November of 2008 Passed a kindney stone gew years back. PAST SURGICAL HISTORY: Past Surgical History: Procedure Laterality Date ??? PRG UNLISTED DIAGNOSTIC GASTROENTEROLOGY PROCEDURE Navel Hernia surgery , several years ago. ??? PRO COLONOSCOPY, DIAGNOSTIC N/A 10/12/2015 COLONOSCOPY, DIAGNOSTIC performed by Ad Bourne MD at [facility] ??? PRO COLONOSCOPY, REMV LESN, SNARE N/A 10/12/2015 COLONOSCOPY, POLYPECTOMY, REMOVAL LESION BY SNARE performed by Ad Bourne MD at [facility] ??? PRO UNLISTED CRANIO/MAXILLOFACIAL SURG Have several crowns and bridges. ??? PRO UNLISTED PROCEDURE, MUSCULOSKELETAL SYSTEM, GENERAL 2001 Left shoulder and wrist . Right knee surg July 2010 ??? XR FLUORO INJECTION DRAINAGE JOINT LG LEFT Left 04/27/2018 XR Fluoro Guided Joint Injection Large Left 04/27/2018 [facility] RAD XRAY ??? XR FLUORO INJECTION DRAINAGE JOINT LG LEFT Left 10/23/2018 XR Fluoro Guided Joint Injection Large Left 10/23/2018 [facility] RAD XRAY ALLERGIES: Morphine sulfate; Ibuprofen; and Opioids - morphine analogues MEDICATIONS: Current Outpatient Medications on File Prior to Visit Medication Sig Dispense Refill ??? lidocaine (LIDODERM) 5 % Adhesive Patch, Medicated Apply 2-3 patches to left shoulder, on for 12hours then off for 12 hours 90 patch 5 ??? amLODIPine (NORVASC) 10 mg Tablet Take 10 mg by mouth daily. ??? acetaminophen (TYLENOL) 325 mg Tablet Take 650 mg by mouth 2 times daily as needed. ??? biotin 300 mcg Tablet Take by mouth daily. ??? zolpidem (AMBIEN) 10 mg Tablet Take 10 mg by mouth nightly as needed for Sleep. ??? multivitamin (THERAGRAN) tablet Take 1 tablet by mouth daily. ??? omeprazole (PRILOSEC) 20 mg capsule Take 20 mg by mouth daily as needed. Reported on 12/22/2016 ??? GLUC/MICHELLE-MSM#1/VIT C/DANITZA/BOR (YFCIAICSMTP-ETRWD-VYQ COMPLEX ORAL) Take by mouth daily. ??? methylPREDNISolone (MEDROL DOSPACK) 4 mg Tablets, Dose Pack Use as directed on product package. (Patient not taking: Reported on 01/25/2019) 21 tablet 1 ??? FLUARIX QUAD [id number], PF, 60 mcg (15 mcg x 4)/0.5 mL Syringe inject 0.5 milliliter intramuscularly 0 No current facility-administered medications on file prior to visit. FAMILY HISTORY: Family History Problem Relation Age of Onset ??? Thyroid Disease Sister ??? Coronary Artery Disease Father Heart attack and bypass ??? Diabetes Father ??? Heart Disease Father ??? High Blood Pressure Father ??? Cataracts Father ??? Macular Degeneration Father ??? Hypertension Father ??? High Cholesterol Mother ??? Osteoporosis Mother ??? Cataracts Mother ??? Hypertension Mother ??? Cancer Maternal Aunt ??? Cancer Maternal Uncle ??? Macular Degeneration Paternal Aunt ??? Macular Degeneration Paternal Uncle ??? Amblyopia Neg Hx ??? Glaucoma Neg Hx ??? Retinal Detachment Neg Hx ??? Strabismus Neg Hx SOCIAL HISTORY: Social History Socioeconomic History ??? Marital status: Single Spouse name: Not on file ??? Number of children: Not on file ??? Years of education: Not on file ??? Highest education level: Not on file Occupational History ??? Not on file Social Needs ??? Financial resource strain: Not on file ??? Food insecurity: Worry: Not on file Inability: Not on file ??? Transportation needs: Medical: Not on file Non-medical: Not on file Tobacco Use ??? Smoking status: Former Smoker Packs/day: 1.50 Years: 20.00 Pack years: 30.00 Types: Cigarettes Last attempt to quit: 11/02/1995 Years since quittin.3 ??? Smokeless tobacco: Never Used Substance and Sexual Activity ??? Alcohol use: No ??? Drug use: No ??? Sexual activity: Not on file Lifestyle ??? Physical activity: Days per week: Not on file Minutes per session: Not on file ??? Stress: Not on file Relationships ??? Social connections: Talks on phone: Not on file Gets together: Not on file Attends cheondoism service: Not on file Active member of club or organization: Not on file Attends meetings of clubs or organizations: Not on file Relationship status: Not on file ??? Intimate partner violence: Fear of current or ex partner: Not on file Emotionally abused: Not on file Physically abused: Not on file Forced sexual activity: Not on file Other Topics Concern ??? Exercise: Patient reported Yes Comment: I do as much as my kness will allow me to do. Mowing , ect ??? Abuse or Threat: Physical, Sexual, Verbal No ??? Abuse or Threat: Help requested by patient No Social History Narrative ??? Not on file ROS: Denies fever, chills, SOB, abdominal pain, leg weakness/numbnes, arm weakness/numbness, bowel or bladder incontinence, balance issues PHYSICAL EXAM: BP 151/88 Pulse 71 Ht 180.3 cm (5' 11) Wt 131.5 kg (290 lb) SpO2 97% BMI 40.45 kg/m?? Physical Exam Constitutional: He is oriented to person, place, and time. He appears well- developed and well-nourished. HENT: Head: Normocephalic and atraumatic. Musculoskeletal: He exhibits tenderness. Tenderness over bilateral occipital notch and 1cm medial to bilateral to mastoid process which is indicative of greater and lesser occipital nerve irritation. Neurological: He is alert and oriented to person, place, and time. Skin: Skin is warm and dry. Vitals reviewed. ASSESSMENT: Assessment Greater and lesser occipital neuralgia PLAN: - proceed with bilateral greater and occipital nerve block Isak Otero MD documented in this encounter Procedure Notes Isak Otero MD - 02/20/2019 10:00 AM EDTAssociated Order(s): NERVE BLOCK - OCCIPITAL Pre-Procedure Diagnose(s): Bilateral occipital neuralgia OCCIPITAL NERVE BLOCK PROCEDURE NOTE The patient complains of bilateral greater and lesser occipital head pain. Dx: Occipital Neuralgia Mr. Cain was greeted by the nurse who verified patients name and . Mr. Cain was interviewed and the medical record reviewed. There were no medical, pharmacologic, radiographic, or other structural contraindications to attempting Bilateral greater and lesser occipital nerve blocks. Risks and potential side effects were discussed. The potential benefits of the procedure were reviewed with Mr. Cain and his voiced concerns were addressed. After obtaining informed consent, the patient consent form was signed. Standard time- out procedure was performed. Mr. Cain was placed in the prone position on the examination table. The occipital protuberance was palpated. The skin to each side of the occipital protuberance and out 2 inches lateral to the protuberance was thoroughly prepared with an alcohol preparation. Next, I entered the skin to each side of the protuberance with a 1.5 25G spinal needle. Aspiration revealed no blood or other fluid. Next, Iinjected 1.5 cc of 50:50 mixed solution of preservative-free 1% Lidocaine and 0.25% Bupivocaine removed the needle. I then placed the needle 2 inches medial to each side to the mastoid process and entered the skin and advanced the needle to the skull. Next, I injected 1 cc of preservative-free 50:50 mixed solution of 1% Lidocaine and 0.25% bupivocaine to each side and removed the needles. Follow up plans and appointments were discussed with Mr. Cain. Post procedure instruction was given. Having met discharge criteria he was discharged from the [facility]. Post-procedure pain level is 0 out of 10. I personally performed this entire procedure. Isak Otero MD Attending Physician - Pain Management CC: Rodolfo Penn MD [address] [place] [address] [address] documented in this encounter Plan of Treatment Not on filedocumented as of this encounter Procedures Procedure Name Priority Date/Time Associated Diagnosis Comme nts NERVE BLOCK - Routine 02/20/2019 10:00 AM Bilateral occipital Results for this OCCIPITAL EDT neuralgia procedure are i n the results section. documented in this encounter Results NERVE BLOCK - OCCIPITAL (02/20/2019 10:00 AM EDT) Narrative Isak Otero MD - 02/20/2019 10:00 AM ED T Isak Otero MD ? 02/20/2019 ??1:01 PM OCCIPITAL NERVE BLOCK PROCEDURE NOTE The patient complains of bilateral great er and lesser occipital head pain. Dx: Occipital Neuralgia Mr. Cain was greeted by the nurse who verified patients name and . ?? Mr. Cain was interviewed and the [facility] record reviewed. ?? There were no medical, pharmacologic, ra diographic, or other structural contraindications to attempti ng Bilateral greater and lesser occipital nerve blocks. Risks and potential side effects were discussed. ??The potential benefits of the procedure were reviewed with Mr. Cain and his voiced concerns were addressed. After obtaining informed consent, the p atient consent form was signed. ??Standard time-out procedure wa s performed. Mr. Cain was placed in the prone posi tion on the examination table. ??The occipital protuberance was palpated. ?The skin to each side of the occipital protuberance and out 2 inches lateral to the protuberance was thoroughly prepa red with an alcohol preparation. ??Next, I entered the skin to each side of the protuberance with a 1.5 25G spinal need le. ??Aspiration revealed no blood or other fluid. ??Next, I injec alicia 1.5 cc of 50:50 mixed solution of preservative-free 1% Lidocai ne and 0.25% Bupivocaine removed the needle. ??I then placed the needle 2 inches medial to each side to the mastoid process and ent ered the skin and advanced the needle to the skull. ??Next , I injected 1 cc of preservative-free 50:50 mixed solution o f 1% Lidocaine and 0.25% bupivocaine to each side and removed the needles. ? Follow up plans and appointments were di scussed with Mr. Cain. Post procedure instruction was given. ? ?Having met discharge criteria he was discharged from the Pain Management Center. Post-procedure pain level is 0 out of 10 . I personally performed this entire proce durjose. Isak Otero MD Attending Physician - Pain Management CC: Rodolfo Penn MD [address] [place] [address] Isak Otero MD NEUROLOGY ORDERABLES documented in this encounter Visit Diagnoses Diagnosis Bilateral occipital neuralgia Other syndromes affecting cervical regio n documented in this encounter Administered Medications Inactive Administered Medications - up to 3 most recent administrations Medication Order MAR Action Action Date Dose Rate Site BUpivacaine (PF) (MARCAINE) 0.25 % Given 02/20/2019 1:01 PM EDT 15 mg (2.5 mg/mL) injection 15 mg 15 mg, Other, ONCE, 1 dose, On Mon02/20/19 at 1100, 4 mL Wasted, Routine documented in this encounter Care Teams Fisheries Manager Relationship Specialty Start Date End Date Rodolfo Penn MD PCP - General Family Medicine 10/12/[address] [place], [place] [address] documented as of this encounter
--- OUTSIDE RECORDS SUMMARY | 2022-01-14 01:04 | XMS_ITS | Encounter Summary ---
:1955 Author Organization [facility] Address [address] [place] [address] Care Team Providers Name Role Phone Rodolfo Penn MD Primary Care Provider [phone] Reason for Visit Reason Comments Eye Exam Encounter Details Date Type Department Care Team Description 04/04/2019 Office Visit Ophthalmology at [facility] C Jennifer Todd, Age-related nuclear cataract , bilateral; [address] [facility] [address] OD Ocular migraine; [facility] Family history of macular de generation; [place] [address] Refractive error [phone] OPHTHALMOLOGY DEPT [place] [id number] Social History Tobacco Use Types Packs/Day Years Used Date Former Smoker Cigarettes 1.5 20 Quit: 11/01/18 96 Smokeless Tobacco: Never Used Alcohol Use Standard Drinks/Week Comments No 0 (1 standard drink = 0.6 oz pure alcoho l) Sex Assigned at Date Recorded Not on file documented as of this encounter Progress Notes PerezJennifer karimi, OD - 04/04/2019 9:20 AM EST Encounter Diagnoses Name Primary? Age-related nuclear cataract, bilateral ??? Ocular migraine ??? Refractive error Joseluis Cain is a 63 y.o. with the following ophthalmic problems: Assessment and Plan: Resolved Ocular Migraines - Reassurance given. Monitor at [facility] Cataracts OU - Monitor for now, sooner with changes in vision. Refractive Error OU - Rx given today - Findings and concerns discussed with Joseluis and he expressed understanding. -Upon Return [facility] in 1 year, sooner with changes in sx/vision. Eyeglass Final Rx Eyeglass Final Rx Sphere Cylinder [place] Dist VA Add Near VA Right -0.75 +1.00 005 20/20 +2.25 20/20 Left -1.50 +1.25 170 20/20 +2.25 20/20 Expiration Date: 04/04/2021 documented in this encounter Plan of Treatment Not on filedocumented as of this encounter Visit Diagnoses Diagnosis Age-related nuclear cataract, bilateral Senile nuclear sclerosis Ocular migraine Other forms of migraine, without mention of intractable migraine without mention of status migrainosus Family history of macular degeneration Family history of other specified eye di sorder Refractive error Unspecified disorder of refraction and a ccommodation documented in this encounter Care Teams Floor Director Relationship Specialty Start Date End Date Rodolfo Penn MD PCP - General Family Medicine 10/12/[address] [place] [address] documented as of this encounter
--- OUTSIDE RECORDS SUMMARY | 2022-01-14 01:04 | XMS_ITS | Encounter Summary ---
:1955 Author Organization [facility] [place] [address] Care Team Providers Name Role Phone Rodolfo Penn MD Primary Care Provider [phone] Encounter Details Date Type Department Care Team Description 11/19/2019 Telephone Care Management Lola Mckeon [facility] [place] [address] [place] [address] [phone] Social History Tobacco Use Types Packs/Day Years Used Date Former Smoker Cigarettes 1.5 20 Quit: 11/01/18 96 Smokeless Tobacco: Never Used Alcohol Use Standard Drinks/Week Comments No 0 (1 standard drink = 0.6 oz pure alcoho l) Sex Assigned at Date Recorded Not on file documented as of this encounter Miscellaneous Notes Telephone Encounter - Lola Mckeon INSTRUCTOR KNITTING - 11/19/2019 11:21 AM EDT CLAIM #[id number] DOI:04/29/1998 INSURANCE COMAPANY: [employer] CONTACT: TBD WC PHONE:TBD WC FAX:TBD Pt Ballet Soloist: Luci Perez CCM consulted by pain clinic ANSWERER re: pt's request for documentation regarding his disinterest in pursuing a TSA. CCM reviewed edh record w/ pain ANSWERER, and recommended pt contact Ortho PA that had last addressed shoulder tx options re: the above request. P: CCM will be available for f/u intervention related to pt's wc claim PRN, intervening as needed. documented in this encounter Plan of Treatment Not on filedocumented as of this encounter Visit Diagnoses Not on filedocumented in this encounter Care Teams Approver Relationship Specialty Start Date End Date Rodolfo Penn MD PCP - General Family Medicine 10/12/[address] [place], [place] [address] [address] [place] [address] documented as of this encounter
--- OUTSIDE RECORDS SUMMARY | 2022-01-14 01:04 | XMS_ITS | Encounter Summary ---
:1955 Author Organization [facility] [place] [address] Care Team Providers Name Role Phone Rodolfo Penn MD Primary Care Provider [phone] Encounter Details Date Type Department Care Team Description 12/18/2018 Splitting Machine [place] [address] Social History Tobacco Use Types Packs/Day Years Used Date Former Smoker Cigarettes 1.5 20 Quit: 11/01/18 96 Smokeless Tobacco: Never Used Alcohol Use Standard Drinks/Week Comments No 0 (1 standard drink = 0.6 oz pure alcoho l) Sex Assigned at Date Recorded Not on file documented as of this encounter Miscellaneous Notes Telephone Encounter - Noemi Corbett - 12/18/2018 7:50 AM EDT D-H W/C Health Information Release Form for DOI: 04/29/1998 was scanned into Appoint[employer] 12/18/18. documented in this encounter Plan of Treatment Not on filedocumented as of this encounter Visit Diagnoses Not on filedocumented in this encounter Care Teams Changeover Operator Relationship Specialty Start Date End Date Rodolfo Penn MD PCP - General Family Medicine 10/12/[address] [place] [address] documented as of this encounter
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
--- OUTSIDE RECORDS SUMMARY | 2022-01-14 01:04 | XMS_ITS | Encounter Summary ---
:1955 Author Organization [facility] [place] [address] Care Team Providers Name Role Phone Rodolfo Penn MD Primary Care Provider [phone] Reason for Visit Reason Comments Pain Management Encounter Details Date Type Department Care Team Description 06/06/2019 Procedure visit Pain and Spine Isak Otero MD Bilateral occipital Center at [facility] neuralgia [facility] [address] [facility] PAIN MANAGEMENT [place] [phone] Social History Tobacco Use Types Packs/Day Years Used Date Former Smoker Cigarettes 1.5 20 Quit: 11/01/18 96 Smokeless Tobacco: Never Used Alcohol Use Standard Drinks/Week Comments No 0 (1 standard drink = 0.6 oz pure alcoho l) Sex Assigned at Date Recorded Not on file documented as of this encounter Last Filed Vital Signs Vital Sign Reading Time Taken Comments Blood Pressure 140/99 06/06/2019 9:16 AM EST Pulse 78 06/06/2019 9:16 AM EST Temperature - - Respiratory Rate - - Oxygen Saturation 97% 06/06/2019 9:16 AM EST Inhaled Oxygen Concentration - - Weight 132.5 kg (292 lb) 06/06/2019 9:16 AM EST Height 180.3 cm (5' 11) 06/06/2019 9:16 AM EST Body Mass Index 40.73 06/06/2019 9:16 AM EST documented in this encounter Progress Notes Isak Otero MD - 06/06/2019 9:30 AM EST PREPROCEDURE HISTORY AND PHYSICAL Date of Visit: June 06, 2019 Chief Complaint: Posterior headache that radiates to temples, behind both ears. Prior bilateral DWAYNE and FERNANDA block provided good pain relief for headache. HPI: Subjective Joseluis Cain is a 63 y.o. male who presents today for bilateral greater occipital nerve block. The history is obtained from the patient, and I have reviewed medical records provided by the referring physician and located in the electronic medical record to fill in gaps in the patient's recollection of events, treatments and outcomes. LOCATION: bilateral occipital region, up to the temporal and front of scalp PAIN LEVEL AT REST 4/10 PAST MEDICAL HISTORY: Past Medical History: Diagnosis Date ??? Allergic state ??? Allergy Years ago Non specific Alergys . I am ok with food and latex. ??? Arthritis ??? Asthma ??? Breathing problem Due to alergy issues with sinus . ??? Chronic pain Left shoulder , neck and arm. Lower back and knees. ??? Digestive problems Had some colon polypds removed at [facility] , several years back. ??? ENT [...] DIAGNOSTIC performed by Ad Bourne MD at [facility] ??? PRO COLONOSCOPY, REMV LESN, SNARE N/A 10/12/2015 COLONOSCOPY, POLYPECTOMY, REMOVAL LESION BY SNARE performed by Ad Bourne MD at [facility] ??? PRO UNLISTED CRANIO/MAXILLOFACIAL SURG Have several crowns and bridges. ??? PRO UNLISTED PROCEDURE, MUSCULOSKELETAL SYSTEM, GENERAL 2001 Left shoulder and wrist . Right knee surg July 2010 ??? XR FLUORO INJECTION DRAINAGE JOINT LG LEFT Left 04/27/2018 XR Fluoro Guided Joint Injection Large Left 04/27/2018 [facility] RAD XRAY ??? XR FLUORO INJECTION DRAINAGE JOINT LG LEFT Left 10/23/2018 XR Fluoro Guided Joint Injection Large Left 10/23/2018 [facility]RAY ALLERGIES: Morphine sulfate; Ibuprofen; and Opioids - morphine analogues MEDICATIONS: Current Outpatient Medications on File Prior to Visit Medication Sig Dispense Refill ??? chlorthalidone (HYGROTEN) 25 mg Tablet TAKE 1/2 TABLET BY MOUTH ONCE DAILY 1 ??? lidocaine (LIDODERM) 5 % Adhesive Patch, Medicated Apply 2-3 patches to left shoulder, on for 12hours then off for 12 hours 90 patch 5 ??? FLUARIX QUAD [id number], PF, 60 mcg (15 mcg x 4)/0.5 mL Syringe inject 0.5 milliliter intramuscularly 0 ??? acetaminophen (TYLENOL) 325 mg Tablet Take 650 mg by mouth 2 times daily as needed. ??? biotin 300 mcg Tablet Take by mouth daily. ??? multivitamin (THERAGRAN) tablet Take 1 tablet by mouth daily. ??? GLUC/MICHELLE-MSM#1/VIT C/DANITZA/BOR (JUTOUABHFQW-CPLJH-IAD COMPLEX ORAL) Take by mouth daily. ??? zolpidem (AMBIEN) 10 mg Tablet Take 10 mg by mouth nightly as needed for Sleep. ??? omeprazole (PRILOSEC) 20 mg capsule Take 20 mg by mouth daily as needed. Reported on 12/22/2016 No current facility-administered medications on file prior [...] Last attempt to quit: 11/02/1995 Years since quittin.6 ??? Smokeless tobacco: Never Used Substance and Sexual Activity ??? Alcohol use: No ??? Drug use: No ??? Sexual activity: Not on file Lifestyle ??? Physical activity: Days per week: Not on file Minutes per session: Not on file ??? Stress: Not on file Relationships ??? Social connections: Talks on phone: Not on file Gets together: Not on file Attends synagogue service: Not on file Active member of [...] bladder incontinence, balance issues PHYSICAL EXAM: BP (!) 140/99 Pulse 78 Ht 180.3 cm (5' 11) Wt 132.5 kg (292 lb) SpO2 97% BMI 40.73 kg/m?? Physical Exam Constitutional: He [...] with bilateral greater and occipital nerve block - consent obtained on 01/2019 which is good for a year Isak Otero MD OCCIPITAL NERVE BLOCK ?? PROCEDURE NOTE ? The patient complains of bilateral greater and lesser occipital head pain. ?? Dx: Occipital Neuralgia ?? Mr. Cain was greeted by the nurse who verified patients name and . ?? Mr. Cain was interviewed and the medical [...] signed. Standard time- out procedure was performed. ?? Mr. Cain was placed in the prone [...] no blood or other fluid. Next, Iinjected 2 cc of 50:50 mixed solution of preservative-free 1% Lidocaine and 0.25% Bupivocaine with 0.5cc of preservative free dexamethasone (10mg/ml) removed the needle. I then placed the needle 2 inches medial to each side to the mastoid process and entered the skin and advanced the needle to the skull. Next, I injected 1 cc of preservative-free 50:50 mixed solution of 1% Lidocaine and 0.25% bupivocaine with 0.5cc of 10mg preservative free dexamethasone to each side and removed the needles. Total of 1cc of preservative free dexamethasone (10mg/ml) was used for today's procedure. ?? Follow up plans and appointments were discussed with Mr. Cain. Post procedure instruction was given. Having met discharge criteria he was discharged from the [facility]. ?? Post-procedure pain level is 0 out of 10. patient denies lightheadedness, dizziness. ?? I personally performed this entire procedure. ?? Isak Otero MD Attending Physician - Pain Management ? documented in this encounter Plan of Treatment Not on filedocumented as of this encounter Visit Diagnoses Diagnosis Bilateral occipital neuralgia Other syndromes affecting cervical regio n documented in this encounter Care Teams Tin Can Feeder Relationship Specialty Start Date End Date Rodolfo Penn MD PCP - General Family Medicine 10/12/15 [address] [place] [address] documented as of this encounter
--- OUTSIDE RECORDS SUMMARY | 2022-01-14 01:04 | XMS_ITS | Clinical Summary ---
:1955 Author Organization [facility] [place] [address] Care Team Providers Name Role Phone Rodolfo Penn MD Primary Care Provider [phone] Allergies Active Allergy Reactions Severity Noted Date Comments Ibuprofen 11/27/2013 Bloating and we ight gain Morphine Sulfate Nausea And Vomiting Medium N/V , Headache Opioids - Morphine Nausea And Vomiting, 11/27/2013 A ll opiates- messes Analogues Nausea Only, Other with my h ead (See Comments) Medications Medication Sig Dispensed Refills Start Date End Date Status multivitamin Take 1 tablet by 0 Active (THERAGRAN) tablet mouth daily. omeprazole Take 20 mg by mouth 0 Active (PRILOSEC) 20 mg daily as needed. capsule Reported on 12/22/2016 GLUC/MICHELLE-MSM#1/VIT Take by mouth daily. 0 Active C/DANITZA/BOR (XHEGUZPFSCK-ASBET-O SM COMPLEX ORAL) zolpidem (AMBIEN) 10 Take 10 mg by mouth 0 Active mg Tablet nightly as needed for Sleep. biotin 300 mcg Take by mouth daily. 0 Active Tablet acetaminophen Take 650 mg by mouth 0 Active (TYLENOL) 325 mg 2 times daily as Tablet needed. FLUARIX QUAD inject 0.5 milliliter 0 03/28/2018 Active [id number], PF, 60 intramuscularly mcg (15 mcg x 4)/0.5 mL Syringe lidocaine (LIDODERM) Apply 2-3 patches to 90 patch 5 01/26/20 19 Active 5 % Adhesive Patch, left shoulder, on for MedicatedIndications 12 hours then off for : Left shoulder 12 hours pain, unspecified chronicity, Work related injury chlorthalidone TAKE 1/2 TABLET BY 1 03/07/2019 Active (HYGROTEN) 25 mg MOUTH ONCE DAILY Tablet Active Problems Problem Noted Date Bilateral occipital neuralgia 04/19/2019 Head pain 01/25/2019 Work related injury 01/25/2019 Cervical spondylosis 06/06/2018 Pain in left shoulder 07/14/2016 Hypertension 07/14/2016 Hypercholesteremia 07/14/2016 Chronic neck pain 07/14/2016 History of carpal tunnel release, LEFT 07/14/2016 History of arthroscopy of left shoulder, Dr. Tejada. 2001 07/14/2016 Winging of scapula, LEFT 07/14/2016 Degeneration of intervertebral disc of lumbar region 0 11/27/2013 Muscle fasciculation 11/27/2013 Overview: Overview: Right leg Spasm 11/27/2013 Obesity with body mass index 30 or greater 11/27/2013 Osteoarthritis of knee 11/27/2013 OA (osteoarthritis) of knee 01/18/2012 Immunizations Name Administration Dates Next Due Hepatitis B Vaccine, unspecified 10/28/2002, 05/13/2002, 12/2001 formulation Influenza Vaccine, Whole 04/04/2007, 04/27/2006, 03/28/2005 Pneumococcal Polyvalent 23 03/29/2002 Td, adult 06/29/1999 Family History Medical History Relation Comments Cataracts Father Coronary Artery Disease Father Heart attack and bypass Diabetes Father Heart Disease Father High Blood Pressure Father Hypertension Father Macular Degeneration Father Cancer Maternal Aunt Cancer Maternal Uncle Cataracts Mother High Cholesterol Mother Hypertension Mother Osteoporosis Mother Macular Degeneration Paternal Aunt Macular Degeneration Paternal Uncle Thyroid Disease Sister Amblyopia Neg Hx Glaucoma Neg Hx Retinal Detachment Neg Hx Strabismus Neg Hx Relation Status Comments Father Maternal Aunt Maternal Uncle Mother Paternal Aunt Paternal Uncle Sister Alive Social History Tobacco Use Types Packs/Day Years Used Date Former Smoker Cigarettes 1.5 20 Quit: 11/01/18 96 Smokeless Tobacco: Never Used Alcohol Use Standard Drinks/Week Comments No 0 (1 standard drink = 0.6 oz pure alcoho l) Sex Assigned at Date Recorded Not on file Last Filed Vital Signs Vital Sign Reading Time Taken Comments Blood Pressure 140/99 06/06/2019 9:16 AM EST Pulse 78 06/06/2019 9:16 AM EST Temperature - - Respiratory Rate 19 01/25/2019 9:25 AM EDT Oxygen Saturation 97% 06/06/2019 9:16 AM EST Inhaled Oxygen Concentration - - Weight 132.5 kg (292 lb) 06/06/2019 9:16 AM EST Height 180.3 cm (5' 11) 06/06/2019 9:16 AM EST Body Mass Index 40.73 06/06/2019 9:16 AM EST Plan of Treatment Health Maintenance Due Date Last Done Comments Covid-19 Vaccine (#1) 1961 HIV screen 1974 Hepatitis C Screening 1974 Lipid Screening 1974 Tdap adult 08/13/1975 Diabetes Screening (HgbA1C or 1996 Glucose) Zoster vaccine (1 of 2) 2006 Tetanus vaccine 06/29/2009 06/29/1999 Advance Directive 08/13/2011 Pneumoccocal Vaccine: 65+ (1 - PCV) 2021 03/29/2002 Influenza (Flu) vaccine (1 of 1 - 01/27/2022 04/04/2007, , Influenza standard series) 03/28/2005 Colonoscopy 10/11/2025 10/12/2015, 10/12/2015, 10/12/2015 Insurance Payer Benefit Plan / Subscriber ID Effective Dates Phone Addre ss Type Group WORK COMP WC WORK COMP [id number] 1998-Sriram [phone] [address] GENERIC [address]IC [address] [place] [address] MEDICARE MEDICARE PART [id number] 2004-Amos [phone] [facility] [id number] Care Teams Director Athletic Relationship Specialty Start Date End Date Rodolfo Penn MD PCP - General Family Medicine 10/12/[address] [place] [address] (Mkjy)
--- OUTSIDE RECORDS SUMMARY | 2022-01-14 01:04 | XMS_ITS | Encounter Summary ---
:1955 Author Organization [facility] [place] [address] Care Team Providers Name Role Phone Rodolfo Penn MD Primary Care Provider Encounter Details Date Type Department Care Team Description 12/04/2018 Theatre Manager's [place] [address] Social History Tobacco Use Types Packs/Day Years Used Date Former Smoker Cigarettes 1.5 20 Quit: 11/01/18 96 Smokeless Tobacco: Never Used Alcohol Use Standard Drinks/Week Comments No 0 (1 standard drink = 0.6 oz pure alcoho l) Sex Assigned at Date Recorded Not on file documented as of this encounter Miscellaneous Notes Telephone Encounter - Noemi Corbett - 12/05/2018 9:34 AM EDT GEORGE Ramachandran @ [place] requested I assist getting approval for the MRI Brain wo Contrast. Request Insurance [employer] for Preauthorization of Medical Treatment (VTDOL Form P1) was faxed to Damon Bae @ [facility] on 11/26/18 and approval was received on 12/04/18. documented in this encounter Plan of Treatment Not on filedocumented as of this encounter Visit Diagnoses Not on filedocumented in this encounter Care Teams Health And Physical Education Professor Relationship Specialty Start Date End Date Rodolfo Penn MD PCP - General Family Medicine 10/12/[address] [place] [address] documented as of this encounter
--- OUTSIDE RECORDS SUMMARY | 2022-01-14 01:05 | XMS_ITS | Encounter Summary ---
:1955 Author Organization [facility] [place] [address] Care Team Providers Name Role Phone Rodolfo Penn MD Primary Care Provider [phone] Reason for Referral Diagnostic Test (Routine) - Closed Specialty Diagnoses / Procedures Referred By Contact Refer red To Contact Radiology Diagnoses Chronic neck pain Natalie Viramontes APRN [facility] Rad Mri Procedures MRI Cervical Spine wo Contrast (Generic) MRI [place] [address] [place] [address] Referral ID Status Reason Start Date Expiration Date Visits V isits Requested Authorized [id number] Closed Specialty 05/10/2018 05/10/2019 1 1 Service Requested Reason for Visit Diagnostic Test (Routine) - Closed Specialty Diagnoses / Procedures Referred By Contact Refer red To Contact Radiology Diagnoses Chronic neck pain Natalie Viramontes APRN [facility] Rad Mri Procedures MRI Cervical Spine wo Contrast (Generic) MRI [place] [address] [place] [address] Referral ID Status Reason Start Date Expiration Date Visits V isits Requested Authorized [id number] Closed Specialty 05/10/2018 05/10/2019 1 1 Service Requested Encounter Details Date Type Department Care Team Description 06/06/2018 Hospital Encounter MRI at [facility] Natalie Viramontes, Chronic neck pain [facility] [address] [place] [address] [place] [address] [phone] Social History Tobacco Use Types Packs/Day Years Used Date Former Smoker Cigarettes 1.5 20 Quit: 11/01/18 96 Smokeless Tobacco: Never Used Alcohol Use Standard Drinks/Week Comments No 0 (1 standard drink = 0.6 oz pure alcoho l) Sex Assigned at Date Recorded Not on file documented as of this encounter Medications at Time of Discharge Medication Sig Dispensed Refills Start Date End Date FLUARIX QUAD inject 0.5 milliliter 0 03/28/201820170616-8743, PF, 60 mcg intramuscularly (15 mcg x 4)/0.5 mL Syringe acetaminophen Take 650 mg by mouth 2 0 (TYLENOL) 325 mg times daily as needed. Tablet biotin 300 mcg Tablet Take by mouth daily. 0 zolpidem (AMBIEN) 10 Take 10 mg by mouth 0 mg Tablet nightly as needed for Sleep. multivitamin Take 1 tablet by mouth 0 (THERAGRAN) tablet daily. omeprazole (PRILOSEC) Take 20 mg by mouth 0 20 mg capsule daily as needed. Reported on 12/22/2016 GLUC/MICHELLE-MSM#1/VIT Take by mouth daily. 0 C/DANITZA/BOR ([id number]-DPL COMPLEX ORAL) lidocaine (LIDODERM) 5 Apply 1-2 patches to 60 patch 2 01/201901/25/2019 % Adhesive Patch, left shoulder, on for Medicated 12 hours then off for 12 hours RX ADULT COMPOUNDED Apply 2-4 pumps (1-2 g) to affected area s 3-4 times a day 240 each 11 05/10/2018 01/25/2019 MEDICATIONIndications: Dispense # 240 g Left shoulder pain, unspecified chronicity amLODIPine (NORVASC) Take 10 mg by mouth 0 04/04/2019 10 mg Tablet daily. lisinopril-hydrochloro Take 1 tablet by mouth 0 1 10/26/2018 thiazide daily. (PRINZIDE;ZESTORETIC) 10-12.5 mg Tablet magnesium 250 mg Take 250 mg by mouth 0 10/26/2018 Tablet daily. documented as of this encounter Plan of Treatment Not on filedocumented as of this encounter Procedures Procedure Name Priority Date/Time Associated Diagnosis Comme nts MRI CERVICAL SPINE Routine 06/06/2018 8:50 AM Chronic neck kvng n Results for this WO CONTRAST EST procedure are i n the results section. documented in this encounter Results MRI Cervical Spine wo Contrast (Generic) (06/06/2018 8:50 AM EST) Anatomical Region Laterality Modality C-spine Magnetic Resonance Specimen (Source) Anatomical Location Collection Method / Collectio n Time Received Time / Laterality Volume Impressions 06/06/2018 10:31 AM EST 1. Changes of cervical spondylosis described in detail at individual levels the body the report. No significant canal st enosis. No cord signal abnormality.. IMPRESSION: Narrative 06/06/2018 10:31 AM EST EXAMINATION: MRI CERVICAL SPINE WO CONTRAST (GENERIC) CLINICAL HISTORY: chronic neck pain with radiation TECHNIQUE: MRI of the cervical spine performed with out intravenous contrast administration. COMPARISON: None FINDINGS: There is reversal of normal lordosis in the cervical spine. There is disc space degenerative change with disc space narr owing and endplate proliferative and reactive changes C4-5 through C6-C7. Mil d disc space narrowing and proliferative changes at C7-T1. Vertebral bodies are n ormal in height. No aggressive marrow lesions. Mild retrolisthesis of C5 on C6 and minimal retrolisthesis of C6 on C7. Minimal anterolisthesis of C3 on C4. No other segmental alignment abnormality. Prevertebral soft tissues are normal. Co rd signal morphology are normal. Greatest cervical junction is normal. Findings at specific levels: C2-3: No di sc protrusion central stenosis or foraminal narrowing. C3-4: Mild canal narrowing secondary to mild anterolisthesis and minimal central disc protrusion. Mild right and moderate left foraminal narrowing due to asymmetric facet arthropathy and uncinat e proliferative change on the left. C4-5: Mild central disc protrusion with mild effacement of ventral thecal sac. Mild bilateral foraminal narrowing. C5-C6: Retrolisthesis, endplate prolifer ative change and uncinate proliferative change with mild overall canal narrowing . Moderate bilateral foraminal narrowing. C6-C7: Minimal retrolisthesis and mild c entral disc protrusion with mild effacement of the ventral thecal sac. Mi ld bilateral foraminal narrowing. C7-T1: Mild central disc protrusion with out canal stenosis. Mild facet arthropathy. Moderate right and mild lef t foraminal narrowing due to asymmetric facet arthropathy and uncinate prolifera tive change. Procedure Note Fili Dewey MD - 06/06/2018Formatt ing of this note might be different from the original. EXAMINATION: MRI CERVICAL SPINE WO CONTR AST (GENERIC) CLINICAL HISTORY: chronic neck pain with radiation TECHNIQUE: MRI of the cervical spine performed with out intravenous contrast administration. COMPARISON: None FINDINGS: There is reversal of normal lordosis in the cervical spine. There is disc space degenerative change with disc space narr owing and endplate proliferative and reactive changes C4-5 through C6-C7. Mil d disc space narrowing and proliferative changes at C7-T1. Vertebral bodies are n ormal in height. No aggressive marrow lesions. Mild retrolisthesis of C5 on C6 and minimal retrolisthesis of C6 on C7. Minimal anterolisthesis of C3 on C4. No other segmental alignment abnormality. Prevertebral soft tissues are normal. Co rd signal morphology are normal. Greatest cervical junction is normal. Findings at specific levels: C2-3: No di sc protrusion central stenosis or foraminal narrowing. C3-4: Mild canal narrowing secondary to mild anterolisthesis and minimal central disc protrusion. Mild right and moderate left foraminal narrowing due to asymmetric facet arthropathy and uncinat e proliferative change on the left. C4-5: Mild central disc protrusion with mild effacement of ventral thecal sac. Mild bilateral foraminal narrowing. C5-C6: Retrolisthesis, endplate prolifer ative change and uncinate proliferative change with mild overall canal narrowing . Moderate bilateral foraminal narrowing. C6-C7: Minimal retrolisthesis and mild c entral disc protrusion with mild effacement of the ventral thecal sac. Mi ld bilateral foraminal narrowing. C7-T1: Mild central disc protrusion with out canal stenosis. Mild facet arthropathy. Moderate right and mild lef t foraminal narrowing due to asymmetric facet arthropathy and uncinate prolifera tive change. IMPRESSION 1. Changes of cervical spondylosis descr ibed in detail at individual levels the body the report. No significant canal st enosis. No cord signal abnormality.. IMPRESSION: Natalie Viramontes MEDICAL FEE CLERK IMG MRI ORDERABLES documented in this encounter Visit Diagnoses Diagnosis Chronic neck pain Cervicalgia documented in this encounter Care Teams Back Up Machine Operator Relationship Specialty Start Date End Date Rodolfo Penn MD PCP - General Family Medicine 10/12/[address] [place] [address] documented as of this encounter
--- OUTSIDE RECORDS SUMMARY | 2022-01-14 01:05 | XMS_ITS | Encounter Summary ---
:1955 Author Organization [facility] [place] [address] Care Team Providers Name Role Phone Rodolfo Penn MD Primary Care Provider [phone] Reason for Visit Reason Comments Pain Management 3 mth f/u Neck Pain Shoulder Pain Encounter Details Date Type Department Care Team Description 10/26/2018 Office Visit Pain Management at Natalie Viramontes, X[place] ic neck pain; [place] MORTGAGE LOAN OFFICER ORIGINATOR Left shoulder pain, unspecified chronici ty [facility] [address], [place], [place] [address] [phone] Social History Tobacco Use Types Packs/Day Years Used Date Former Smoker Cigarettes 1.5 20 Quit: 11/01/18 96 Smokeless Tobacco: Never Used Alcohol Use Standard Drinks/Week Comments No 0 (1 standard drink = 0.6 oz pure alcoho l) Sex Assigned at Date Recorded Not on file documented as of this encounter Last Filed Vital Signs Vital Sign Reading Time Taken Comments Blood Pressure 162/99 10/26/2018 9:23 AM EDT Pulse 73 10/26/2018 9:23 AM EDT Temperature - - Respiratory Rate - - Oxygen Saturation 99% 10/26/2018 9:23 AM EDT Inhaled Oxygen Concentration - - Weight 133.8 kg (295 lb) 10/26/2018 9:23 AM EDT Height - - Body Mass Index 41.14 07/25/2018 9:48 AM EST documented in this encounter Patient Instructions Patient InstructionsCrNatalie mendoza APRN - 10/26/2018 9:30 AM EDT 1) Continue with Dr. Tejada as directed 2) Order medrol dose ignacia 3) Continue Lidocaine 5%, baclofen 2% and diclofenac 3% 1-2 g to affected area 3-4 times a day whileawake 4) Continue Lidocaine patch 5% to left shoulder on for 12 hours at night, off for 12 hours 5) Continue home TENs unit 6) Continue home stretching and strengthening exercises for left shoulder Follow-up in 12 weeks or sooner as needed documented in this encounter Progress Notes Natalie Viramontes APRN - 10/26/2018 9:30 AM EDT PAIN CLINIC FOLLOW-UP Date of Follow-Up: October 26, 2018 Chief Complaint: Chief Complaint Patient presents with ??? Pain Management 3 mth f/u ??? Neck Pain ??? Shoulder Pain HPI: Subjective Joseluis Cain is a 63 [...] 4 weeks ago. He states that he continues to attend physical therapy for his neck and his left shoulder. PT has been taping his left shoulder which has also seemed to help with his left shoulder pain. Massage therapy has provided him some benefit and he is noticed [...] all day Severity: Neck pain 6/10 now Left shoulder 2/10 Average pain in past week: 4/10 Best pain in the past week: 3/10 Worst pain in the past week: 7/10 Aggravating factors: bending his neck to the left side, twisting neck, using left arm Relieving factors: heat and ice therapy, TENs unit on the shoulder girdle, taping, massage therapy Associated symptoms: numbness in left digits 4 &5, states left arm fatigues easily, no tingling in arms, no radiation of pain from neck to arms. No bowel or bladder incontinence. No lower extremityweakness. ACTIVITY LEVEL: Able to dress independently He [...] exercise Helps with ROM Chiropractic No Massage Awaiting appt to restart massage therapy Yes Yes, helped with pain and ROM of left shoulder Traction No, does not have home traction unit. Yes, cervical traction Was over 10 years ago, recallssome benefit TENs Yes for left shoulder Yes [...] 3-4 times a day Lidocaine 5% patch Topical pain compound - has not yet [...] Joint Injection Left Shoulder 12/30/16 12/26/17 04/27/18 With last injection had 40% improvement in pain EVALUATIONS: TYPE DATE Orthopaedics [address] Isaias Schultz - Dr. Tejada Pain Management Dr. Isak Velasquez Neurology EMG studies done through neurology Rheumatology none DIAGNOSTIC STUDIES: MRI Cervical Spine done earlier today 06/06/18 MRI Left shoulder wo contrast 2017 NCS/EMG UE 07/15/16 Treatment Goals: - wants to be able to go hunting and fishing - improve pain in left shoulder SOCIAL HISTORY: Lives alone Social History Socioeconomic [...] Last attempt to quit: 11/02/1995 Years since quittin.9 ??? Smokeless tobacco: Never Used Substance and Sexual Activity ??? Alcohol use: No ??? Drug use: No ??? Sexual activity: Not on file Lifestyle ??? Physical activity: Days per week: Not on file Minutes per session: Not on file ??? Stress: Not on file Relationships ??? Social connections: Talks on phone: Not on file Gets together: Not on file Attends confucianism service: Not on file Active member of [...] problems Had some colon polypds removed at [facility] , several years back. ??? ENT [...] DIAGNOSTIC performed by Ad Bourne MD at [facility] ENDOSCOPY ??? PRO COLONOSCOPY, REMV LESN, SNARE N/A 10/12/2015 COLONOSCOPY, POLYPECTOMY, REMOVAL LESION BY SNARE performed by Ad Bourne MD at [facility] ENDOSCOPY ??? PRO UNLISTED CRANIO/MAXILLOFACIAL SURG Have several crowns and bridges. ??? PRO UNLISTED PROCEDURE, MUSCULOSKELETAL SYSTEM, GENERAL 2000 Left shoulder and wrist . Right knee surg July 2010 ??? XR FLUORO INJECTION DRAINAGE JOINT LG LEFT Left 04/27/2018 XR Fluoro Guided Joint Injection Large Left 04/27/2018 [facility] RAD XRAY ??? XR FLUORO INJECTION DRAINAGE JOINT LG LEFT Left 10/23/2018 XR Fluoro Guided Joint Injection Large Left 10/23/2018 [facility] RAD XRAY ALLERGIES: Morphine sulfate and Opioids - morphine analogues MEDICATIONS: Medications 10/26/18 0936 Medication Sig Taking? amitriptyline (ELAVIL) 10 mg Tablet TAKE ONE TABLET BY MOUTH AT BEDTIME Yes lidocaine (LIDODERM) 5 % Adhesive Patch, Medicated Apply 1-2 patches to left shoulder, on for 12 hours then off for 12 hours Yes FLUARIX QUAD [id number], PF, 60 mcg (15 mcg x 4)/0.5 [...] needed. Reported on 12/22/2016 Yes GLUC/MICHELLE-MSM#1/VIT C/DANITZA/BOR ([id number]-SVI COMPLEX ORAL) Take by mouth daily. Yes methylPREDNISolone (MEDROL DOSPACK) 4 mg Tablets, Dose Pack Use as directed on product package. ROS: Review of Systems Constitutional: Negative for [...] for sleep disturbance. PHYSICAL EXAM: BP (!) 162/99 Pulse 73 Wt 133.8 kg (295 lb) SpO2 99% BMI 41.14 kg/m?? Physical Exam Constitutional: He is oriented [...] rotation and left and right flexion. Pain with left cervical flexion. Pain to the left shoulder with Spurling's maneuver left. Cardiovascular: Intact distal pulses. Pulmonary/Chest: Effort normal. [...] Diagnoses Name Primary? Chronic neck pain ??? Left shoulder pain, unspecified chronicity 62 yo male patient with ongoing neck and left shoulder pain following work injury on April 29, 2012. He has seen multiple providers for these issues in the past. Cervicalgia treated by Dr. Garrido, no improvement with cervical epidural injection which was done over 10 years ago. No significant benefit from cervical medial branch block left ??C4-5 and C5-6 on 07/09/18. Continues to have midline and left sided neck pain. Worsening in neck pain since last visit. Order medrol dose ignacia (may need to repeat x1). Future considerations include Cervical LAI and low dose naltrexone. Left shoulder pain Had been seen by [...] suprascapular nerve block versus peripheral cutaneous stimulation/neuromodulation. Continue compounded topical pain cream consisting of lidocaine 5%, baclofen 2% and diclofenac 3% 1-2g to affected area 3-4 times a day while awake. Continue lidocaine patch 5% for patient to use at night - on for 12 hours at night and then off for 12 hours. Continue home TENs unit. Continue home exercises. PLAN: 1) Continue with Dr. Tejada as directed 2) Order medrol dose ignacia 3) Continue Lidocaine 5%, baclofen 2% and diclofenac 3% 1-2 g to affected area 3-4 times a day whileawake 4) Continue Lidocaine patch 5% to left shoulder on for 12 hours at night, off for 12 hours 5) Continue home TENs unit 6) Continue home stretching and strengthening exercises for left shoulder Follow-up in 12 weeks or sooner as needed Joseluis Cain had the opportunity to ask questions and indicated that all questions were answered to his satisfaction. Thank you for the opportunity to participate in Joseluis Cain's care. Thank you for this referral, Rodolfo Penn MD [address] [place] [address]. Natalie Viramontes, MSN, GAS METER PROVER- C, MORTGAGE LOAN OFFICER ORIGINATOR Nurse Practitioner [facility] [address] [phone] / [facility] documented in this encounter Plan of Treatment Not on filedocumented as of this encounter Visit Diagnoses Diagnosis Chronic neck pain Cervicalgia Left shoulder pain, unspecified chronici ty documented in this encounter Care Teams Shop Teacher Relationship Specialty Start Date End Date Rodolfo Penn MD PCP - General Family Medicine 10/12/[address] [place] [address] [address] [facility] [address] [place] [address] documented as of this encounter
--- OUTSIDE RECORDS SUMMARY | 2022-01-14 01:05 | XMS_ITS | Encounter Summary ---
:1955 Author Organization [facility] [place] [address] Care Team Providers Name Role Phone Rodolfo Penn MD Primary Care Provider [phone] Encounter Details Date Type Department Care Team Description 10/23/2018 Hospital Encounter XRay at [facility] Fili SchultzCindyMarcos, Chronic pain in left [address] [place] [address] Dr CHAVIRA shoulder [facility] [address] ANTHONY [phone] [place] [address] Social History Tobacco Use Types Packs/Day Years Used Date Former Smoker Cigarettes 1.5 20 Quit: 11/01/18 96 Smokeless Tobacco: Never Used Alcohol Use Standard Drinks/Week Comments No 0 (1 standard drink = 0.6 oz pure alcoho l) Sex Assigned at Date Recorded Not on file documented as of this encounter Discharge Instructions Patient InstructionsGaAwa stevens - 10/23/2018 11:42 AM EDT Post Injection Patient Injections You received an injection by Nina Bourne in the diagnostic section of radiology. Procedure: Left Shoulder Injection In the days following the injection: ??? Low intensity movement and exercise of the affected joint. ??? Avoid movements that worsen pain. During the first 48 hours following the injection you may experience mild discomfort at the injection site. If you experience pain or discomfort in the affected area, do the following: ??? Apply cold compress to the affected area. ??? If allowed by your physician, take an anti-inflammatory medication such as ibuprofen (example: Advil), Acetaminophen 9example: Tylenol) or Aspirin. IMPORTANT The risk of infection exists whenever the skin is punctured. The risk can be minimized by keeping the injection site clean. However, be aware of the following signs of an infection: ??? Redness and swelling at the injection site. ??? Increased pain. ??? Fever and/or chills. ??? Decreased range of motion in the joint near the injection site. If you experience any of the signs of infection listed above, telephone the diagnostic section of radiology at [phone]. documented in this encounter Medications at Time of Discharge Medication Sig Dispensed Refills Start Date End Date FLUARIX QUAD inject 0.5 milliliter 0 03/28/201820173403-4297, PF, 60 mcg intramuscularly (15 mcg x [...] GLUC/MICHELLE-MSM#1/VIT Take by mouth daily. 0 C/DANITZA/BOR (NSLLHDNUKAC-BIOLN-RUS COMPLEX ORAL) amitriptyline (ELAVIL) TAKE ONE TABLET BY 1 09/0501/25/2019 10 mg Tablet MOUTH AT BEDTIME lidocaine (LIDODERM) 5 Apply 1-2 patches to 60 patch 2 01/201901/25/2019 % Adhesive Patch, left shoulder, on for Medicated 12 hours then off for 12 hours RX ADULT COMPOUNDED Apply 2-4 pumps (1-2 g) to affected area s 3-4 times a day 240 each 05/10/2018 01/25/2019 MEDICATIONIndications: Dispense # 240 g [...] Name Priority Date/Time Associated Diagnosis Comme nts XR FLUORO INJECTION Routine 10/23/2018 11:49 AM Chronic pain i n left Results for this DRAINAGE JOINT LG EDT shoulder procedure are in LEFT the results section. documented in this encounter Results XR Fluoro Guided Joint Injection Large Left (10/23/2018 11:49 AM EDT) Anatomical Region Laterality Modality Left Radio Fluoroscopy Specimen (Source) Anatomical Location Collection Method / Collectio n Time Received Time / Laterality Volume Impressions 10/23/2018 12:58 PM EDT Uneventful left shoulder GH joint injection under fluoroscopy. Resident/Fellow: None Attending: There was no attending presen t for this procedure Procedure performed by WILFREDO Banks RN Thank you for letting us participate in the care of this patient. For questions regarding this report, please contact [facility] number below. ? Narrative 10/23/2018 12:58 PM EDT HISTORY: left shoulder pain please inject glenohumeral joint LEFT SHOULDER GH JOINT INJECTION UNDER F LUOROSCOPY TECHNIQUE: After an extensive conversation with the patient regarding risks and benefits, oral and written consent were obtained.? A pre- procedural time-out was performed, including review of the patie nt's relevant electronic medical record and allergies, as per [facility] protocol. The patient was placed supine on the flu oroscopic table. ??The skin overlying the left anterior shoulder was prepped and d raped in the usual aseptic manner. 1% Lidocaine was used to achieve local anes thesia. Under fluoroscopic guidance, 22 gauge 3.5 inch spinal needle was advance d into the joint space. ??Small amount of air was injected to document needle plac ement. ??A mixture of Ropivacaine and triamcinolone acetonide was injected. Al l needles removed at end of procedure. FINDINGS: 1. ??Small amount of injected air in the left shoulder joint space. 2. ??PAIN SCORE: ??Before: 4/10 ??After: 0/10 3. Fluoroscopy time: 0.12 minutes 4. Medications: ??Lidocaine 1% - <5 ml, for subcutaneou s anesthesia ??Ropivacaine HCL ??0.5% - 3 ml ??Triamciolone Acetonide ??- 40 mg COMPLICATIONS: ??None immediate. POST-PROCEDURE CARE: Information regardi ng monitor of infection, post- procedural pain and management of steroi d flare were reviewed with patient. Procedure Note Nina Bourne, EPIDEMIOLOGIST - 10/23/2018Forma tting of this note might be different from the original. HISTORY: left shoulder pain please injec t glenohumeral joint LEFT SHOULDER GH JOINT INJECTION UNDER F LUOROSCOPY TECHNIQUE: After an extensive conversation with the patient regarding risks and benefits, oral and written consent were obtained.? A pre- procedural time-out was performed, including review of the patie nt's relevant electronic medical record and allergies, as per [facility] protocol. The patient was placed supine on the flu oroscopic table. The skin overlying the left anterior shoulder was prepped and d raped in the usual aseptic manner. 1% Lidocaine was used to achieve local anes thesia. Under fluoroscopic guidance, 22 gauge 3.5 inch spinal needle was advance d into the joint space. Small amount of air was injected to document needle plac ement. A mixture of Ropivacaine and triamcinolone acetonide was injected. Al l needles removed at end of procedure. FINDINGS: 1. Small amount of injected air in the l eft shoulder joint space. 2. PAIN SCORE: Before: 4/10 After: 0/10 3. Fluoroscopy time: 0.12 minutes 4. Medications: Lidocaine 1% - <5 ml, for subcutaneous anesthesia Ropivacaine HCL 0.5% - 3 ml Triamciolone Acetonide - 40 mg COMPLICATIONS: None immediate. POST-PROCEDURE CARE: Information regardi ng monitor of infection, post- procedural pain and management of steroi d flare were reviewed with patient. IMPRESSION Uneventful left shoulder GH joint inject ion under fluoroscopy. Resident/Fellow: None Attending: There was no attending presen t for this procedure Procedure performed by WILFREDO Banks RN Thank you for letting us participate in the care of this patient. For questions regarding this report, please contact e number below. Isaias Schultz MD IMG FLUORO ORDERABLES documented in this encounter Visit Diagnoses Diagnosis Chronic pain in left shoulder Pain in joint, shoulder region documented in this encounter Administered Medications Inactive Administered Medications - up to 3 most recent administrations Medication Order MAR Action Action Date Dose Rate Site ROpivacaine (PF) 5 mg/mL (0.5 %) 4 Given 10/23/2018 11:44 AM EDT mL with triamcinolone acetonide 40 mg injection Intra-articular, ONCE, 1 dose, On 10/23/18 at 1200 documented in this encounter Care Teams Power Engineer Relationship Specialty Start Date End Date Rodolfo Penn MD PCP - General Family Medicine 10/12/[address] [place] [address] documented as of this encounter
--- OUTSIDE RECORDS SUMMARY | 2022-01-14 01:05 | XMS_ITS | Encounter Summary ---
:1955 Author Organization [facility] [place] [address] Care Team Providers Name Role Phone Rodolfo Penn MD Primary Care Provider [phone] Encounter Details Date Type Department Care Team Description 12/30/2016 Hospital Encounter [place] [place] [facility] [place] FiliCindyMarcos, Left shoulder pain, [address] CHAVIRA unspecified [place], [place] [facility] chronicity [id number] [place] [phone] [place] [address] Social History Tobacco Use Types Packs/Day Years Used Date Former Smoker Cigarettes 1.5 20 Quit: 11/01/18 96 Smokeless Tobacco: Never Used Alcohol Use Standard Drinks/Week Comments No 0 (1 standard drink = 0.6 oz pure alcoho l) Sex Assigned at Date Recorded Not on file documented as of this encounter Medications at Time of Discharge Medication Sig Dispensed Refills Start Date End Date zolpidem (AMBIEN) 10 mg Take 10 mg by mouth 0 Tablet nightly as needed for Sleep. multivitamin (THERAGRAN) Take 1 tablet by 0 tablet mouth daily. omeprazole (PRILOSEC) 20 Take 20 mg by mouth 0 mg capsule daily as needed. Reported on 12/22/2016 GLUC/MICHELLE-MSM#1/VIT Take by mouth daily. 0 C/DANITZA/BOR ([id number]-WGBUI-RYI COMPLEX ORAL) magnesium 250 mg Tablet Take 250 mg by mouth 0 10/26/2018 daily. losartan (COZAAR) 100 mg Take 100 mg by mouth 0 03/24/2017 Tablet daily. Reported on 12/22/2016 ibuprofen (ADVIL;MOTRIN) Take 800 mg by mouth 0 03/24/2017 200 mg tablet every 6 hours as needed. documented as of this encounter Plan of Treatment Not on filedocumented as of this encounter Procedures Procedure Name Priority Date/Time Associated Diagnosis Comme nts XR FLUORO INJECTION Routine 12/30/2016 11:22 AM Left shoulder pain, Results for this DRAINAGE JOINT LG EDT unspecified procedure are in LEFT chronicity the results section. documented in this encounter Results XR Fluoro Guided Joint Injection Large Left (12/30/2016 11:22 AM EDT) Anatomical Region Laterality Modality Left Radio Fluoroscopy Specimen (Source) Anatomical Location Collection Method / Collectio n Time Received Time / Laterality Volume Impressions 12/30/2016 11:43 AM EDT Uneventful left glenohumeral joint injection under fluoroscopy. Resident/Fellow: None. Attending: Roseanna Mac I performed this procedure. Narrative 12/30/2016 11:43 AM EDT HISTORY: Left shoulder pain, with glenohumeral arthritis on imaging LEFT GLENOHUMERAL JOINT INJECTION UNDER FLUOROSCOPY TECHNIQUE: After an extensive conversati on with the patient regarding risks and benefits, oral and written consent were obtained. ??A pre- procedural time-out was performed as per [facility] protocol. The patient was placed supine on the flu oroscopic table. ??The skin overlying the left shoulder was prepped and draped in the usual aseptic manner. 1% Lidocaine was used to achieve local anesthesia. Un reena fluoroscopic guidance, a 22-gauge 3.5 spinal needle was advanced into the joint space. Approximately 1 mL of Omnipaque 300 was injected to the docume nt needle placement. A mixture of Ropivacaine and triamcinolone acetonide was injected. All needles removed at end of procedure. FINDINGS: 1. ??Small amount of injected contrast i n the left glenohumeral joint space. 2. ??PAIN SCORE: ??Before: 6/10 ??After: 11/05 3. Fluoroscopy time: 0.05 minutes 4. Medications: ??Lidocaine 1% - <5 ml, for subcutaneou s anesthesia ??Ropivacaine HCL ??0.5% - 3 ml ??Triamcinolone Acetonide ??- 40 mg COMPLICATIONS: ??None immediate. POST-PROCEDURE CARE: Information regardi ng monitor of infection, post- procedural pain and management of steroi d flare were reviewed with patient. Procedure Note Roseanna Eller MD - 12/30/2016Formatting o f this note might be different from the original. HISTORY: Left shoulder pain, with glenoh umeral arthritis on imaging LEFT GLENOHUMERAL JOINT INJECTION UNDER FLUOROSCOPY TECHNIQUE: After an extensive conversati on with the patient regarding risks and benefits, oral and written consent were obtained. A pre- procedural time-out was performed as per [facility] protocol. The patient was placed supine on the flu oroscopic table. The skin overlying the left shoulder was prepped and draped in the usual aseptic manner. 1% Lidocaine was used to achieve local anesthesia. Un reena fluoroscopic guidance, a 22-gauge 3.5 spinal needle was advanced into the joint space. Approximately 1 mL of Omnipaque 300 was injected to the docume nt needle placement. A mixture of Ropivacaine and triamcinolone acetonide was injected. All needles removed at end of procedure. FINDINGS: 1. Small amount of injected contrast in the left glenohumeral joint space. 2. PAIN SCORE: Before: 6/10 After: 6/10 3. Fluoroscopy time: 0.05 minutes 4. Medications: Lidocaine 1% - <5 ml, for subcutaneous anesthesia Ropivacaine HCL 0.5% - 3 ml Triamcinolone Acetonide - 40 mg COMPLICATIONS: None immediate. POST-PROCEDURE CARE: Information regardi ng monitor of infection, post- procedural pain and management of steroi d flare were reviewed with patient. IMPRESSION Uneventful left glenohumeral joint injec tion under fluoroscopy. Resident/Fellow: None. Attending: Roseanna Mac I performed this procedure. Isaias Schultz MD IM FLUORO ORDERABLES documented in this encounter Visit Diagnoses Diagnosis Left shoulder pain, unspecified chronici ty documented in this encounter Administered Medications Inactive Administered Medications - up to 3 most recent administrations Medication Order MAR Action Action Date Dose Rate Site ROpivacaine (PF) 5 mg/mL Given 12/30/2016 11:45 03- Shoulder (Left) (0.5 %) 4 mL with AM EDT triamcinolone acetonide 40 mg injection Intra-articular, ONCE, 1 dose, On Mon12/30/16 at 1145 documented in this encounter Care Teams Waste Water Treatment Plant Operator Relationship Specialty Start Date End Date Rodolfo Penn MD PCP - General Family Medicine 10/12/[address] [place] [address] documented as of this encounter
--- OUTSIDE RECORDS SUMMARY | 2022-01-14 01:05 | XMS_ITS | Encounter Summary ---
:1955 Author Organization [facility] [place] [address] Care Team Providers Name Role Phone Rodolfo Penn MD Primary Care Provider [phone] Encounter Details Date Type Department Care Team Description 06/08/2016 Hospital Encounter XRay at [facility] Fili Schultz-Marcos, Chronic left [address] [place] [address] Dr CHAVIRA shoulder pain [facility] [address] [place] [phone] [place] [address] Social History Tobacco Use Types Packs/Day Years Used Date Former Smoker Cigarettes 1.5 20 Quit: 11/01/18 96 Smokeless Tobacco: Never Used Alcohol Use Standard Drinks/Week Comments Not Asked 0 (1 standard drink = 0.6 oz [...] GLUC/MICHELLE-MSM#1/VIT Take by mouth daily. 0 C/DANITZA/BOR ([id number]-VKX COMPLEX ORAL) losartan (COZAAR) 100 mg Take 100 mg by mouth 0 03/24/2017 Tablet daily. Reported on 12/22/2016 ibuprofen (ADVIL;MOTRIN) Take 800 mg by mouth 0 03/24/2017 200 mg tablet every 6 hours as needed. documented as of this encounter Plan of Treatment Not on filedocumented as of this encounter Procedures Procedure Name Priority Date/Time Associated Diagnosis Comme nts XR SHOULDER LEFT Routine 06/08/2016 10:50 AM Chronic left Resu lts for this EST shoulder pain procedure are in the results section. documented in this encounter Results XR Shoulder Left (Generic) (06/08/2016 10:50 AM EST) Anatomical Region Laterality Modality Shoulder Left Digital Radiography Specimen (Source) Anatomical Location Collection Method / Collectio n Time Received Time / Laterality Volume Impressions 06/08/2016 11:55 AM EST 1. ??Calcification tendinosis of the supraspinatus. 2. ??Degenerative arthrosis of the gleno humeral and acromioclavicular joints. Narrative 06/08/2016 11:55 AM EST EXAMINATION: XR SHOULDER LEFT (GENERIC) CLINICAL HISTORY: Left shoulder pain TECHNIQUE: 4 views of the left shoulder COMPARISON: Left shoulder radiographs 10/28/09 FINDINGS: No acute fracture or dislocation. New sm all glenoid and humeral head osteophytes. Unchanged metallic anchor p rojecting over the glenoid process. There is soft calcification projecting o keren the expected location of the distal supraspinatus tendon. Acromioclavicular osteophytes are present. The visualized lung poole are clear. Procedure Note Reece Marie MD - 06/08/2016Format ting of this note might be different from the original. EXAMINATION: XR SHOULDER LEFT (GENERIC) CLINICAL HISTORY: Left shoulder pain TECHNIQUE: 4 views of the left shoulder COMPARISON: Left shoulder radiographs 10/28/09 FINDINGS: No acute fracture or dislocation. New sm all glenoid and humeral head osteophytes. Unchanged metallic anchor p rojecting over the glenoid process. There is soft calcification projecting o keren the expected location of the distal supraspinatus tendon. Acromioclavicular osteophytes are present. The visualized lung poole are clear. IMPRESSION 1. Calcification tendinosis of the supra spinatus. 2. Degenerative arthrosis of the glenohu meral and acromioclavicular joints. Isaias Schultz MD IMG DX ORDERABLES documented in this encounter Visit Diagnoses Diagnosis Chronic left shoulder pain Pain in joint, shoulder region documented in this encounter Care Teams Camera Engineer Relationship Specialty Start Date End Date Rodolfo Penn MD PCP - General Family Medicine 10/12/[address] [place] [address] documented as of this encounter
--- OUTSIDE RECORDS SUMMARY | 2022-01-14 01:05 | XMS_ITS | Encounter Summary ---
:1955 Author Organization [facility] [place] [address] Care Team Providers Name Role Phone Rodolfo Penn MD Primary Care Provider [phone] Reason for Referral Occupational Medicine (Routine) - Canceled Specialty Diagnoses / Procedures Referred By Contact Refer red To Contact Occupational Medicine Diagnoses Chronic left shoulder pain Huong Faulkner [facility] Medicine [address] [place] OR[place]AEDIC SURGERY [address] [place] [address] Referral ID Status Reason Start Date Expiration Date Visits V isits Requested Authorized [id number] Canceled Consult, 11/28/2017 11/28/2018 1 1 Test & Treat Reason for Visit Reason Comments Left Shoulder Pain DOI 04/29/98 Encounter Details Date Type Department Care Team Description 11/28/2017 Office Visit Orthopaedics at [facility] [place] Huong Faulkner Chronic left shoulder [facility] [place] [address] [place] [address] ORTHOPAEDIC SURGERY [place], [place] [address] Social History Tobacco Use Types Packs/Day Years Used Date Former Smoker Cigarettes 1.5 20 Quit: 11/01/18 96 Smokeless Tobacco: Never Used Alcohol Use Standard Drinks/Week Comments No 0 (1 standard drink = 0.6 oz pure alcoho l) Sex Assigned at Date Recorded Not on file documented as of this encounter Last Filed Vital Signs Vital Sign Reading Time Taken Comments Blood Pressure - - Pulse - - Temperature - - Respiratory Rate - - Oxygen Saturation - - Inhaled Oxygen Concentration - - Weight 129.3 kg (285 lb) 11/28/2017 9:01 AM EDT Height 179.1 cm (5' 10.5) 11/28/2017 9:01 AM EDT staed Body Mass Index 40.32 11/28/2017 9:01 AM EDT documented in this encounter Progress Notes Huong Faulkner PA - 11/28/2017 9:00 AM EDT PATIENT NAME: Joseluis Cain AGE: 62 y.o. MR#: [id number] DATE OF VISIT: 11/28/2017 DATE OF INJURY/ONSET: 04/29/1998 (worker's comp) STAFF: Dr. Schultz CHIEF COMPLAINT: follow up for left shoulder pain HISTORY OF PRESENT ILLNESS: Mr. Cain is a 62 y.o. year old male who comes into clinic today for follow up regarding the left shoulder. He was last seen by Annabel Mccormick in 2017. We have been seeing him periodically for his left shoulder which he originally injured in a work-related injury in 1997. He has had a prior labral repair by Dr. Tejada in 2000. He was found to have scapular winging and wasreferred to neurology. 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 He also has had nerve conduction studies and there was some question as to whether there was additional involvement ofthe suprascapular nerve that may be contributing to his shoulder complaints. He has been managing his shoulder pain with cortisone injections. He has had both subacromial and glenohumeral injections. He has noticed increased shoulder pain recently. He states that over the spring he began having pain in the shoulder as he was shoveling sand from his driveway. He has been working on therapy to improve his range of motion, but feels that he has not been making much progress recently. He continues to have significant pain in the periscapular musculature. 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 PHYSICAL EXAM: Mr. Cain is alert and oriented. He is in no acute discomfort and is resting comfortably in the exam room. Inspection: No erythema, ecchymosis, or swelling over the left shoulder. Palpation: He has tenderness and what he describes as a burning pain over the anterior aspect of theshoulder. He is tender over the glenohumeral joint line and also has some tenderness over the coracoid. He also has some posterior subacromial pain. ROM/Strength: He is able to perform active forward flexion to about 150?? with pain at end range. His active and passive external rotation is to about 30??. Internal rotation is to L5. He has pain withresisted range of motion the causes some generalized weakness in all planes, but it feels as though his rotator cuff remains intact. He has persistent scapular winging with forward flexion. Neurovascular: He states that he has some baseline numbness over the lateral aspect of his shoulder and also has had some tingling into his fingertips. Hand is well perfused. DIAGNOSTIC STUDIES: X-rays of the left shoulder were personally reviewed. There has been progressionof his glenohumeral arthritis since his last x-rays. He also has a metallic suture anchor in the glenoid from his previous labral repair. On the axillary view it appears that there is some lucency around the anchor. SURVEY RESPONSES: [facility] Non-surgical Followup Visit 11/27/2017 PROMIS-10 General Health Good PROMIS-10 Quality of Life Good PROMIS-10 Physical Health Fair PROMIS-10 Mental Health Good PROMIS-10 Social Activity Fair PROMIS-10 Everyday Activities Moderately PROMIS-10 Pain 5 PROMIS-10 Fatigue Mild PROMIS-10 Social Roles Fair PROMIS-10 Anxious or Depressed Often PROMIS PHYSICAL SCORE (range 16-68) 39.8 PROMIS MENTAL SCORE (range 21-68) 38.8 Treatments Tried Regular exercise, Heat and ice therapy, Physical therapy, Chiropractic or manipulation, Medicines applied on the skin (topical), Oral natural supplements (e.g chondroitin and glucosamine), Acetaminophen (e.g. Tylenol), Over the counter anti-inflammatory drugs (e.g Advil, Aspirin, Aleve), Electrical stimulation (TENS/Transcutaneous Electrical Nerve Stimulation), Injection of steroids or cortisone Prior Surgery Jun left shoulder and wrist surgery . Satisfaction with Treatment - Choose Same Treatment Again Completely uncertain Orthopeadics [facility] Response 11/27/2017 ASES VAS-LEFT 5 ASES ADL-LEFT ARM 3 ASES LEFT ARM 30 ASSESSMENT: Left shoulder pain with progressive glenohumeral arthritis and persistent scapular winging PLAN: I reviewed the x-rays with the patient today. There has been progression of his glenohumeral arthritis. I would like to review the x-rays with Dr. Schultz to discuss whether there might be any concerns about loosening of the anchor in his glenoid. He is finding that his left shoulder is becoming more symptomatic and is interested in pursuing additional treatment. We discussed that this could rangeanywhere from repeat glenohumeral injections to arthroscopic debridement versus shoulder arthroplasty. I will call him after I had a chance to review his x-rays with Dr. Schultz. He also expressed interest in being referred to occupational medicine for additional management of his workers comp claim. He h as other injuries other than his shoulder complaints that have not been addressed and would like to talk with someone about treatment options as well as to clarify his work status. I will have him follow-up with Dr. Schultz after our phone discussion to review his treatment plan. The patient understands to contact us if they have any other questions or concerns. The above documentation was completed using [employer] voice recognition software. documented in this encounter Plan of Treatment Scheduled Referrals Name Type Priority Associated Order Schedule Diagnoses Referral to Outpatient Referral Routine Chronic left Ordered: Occupational and shoulder pain 11/28/2017 Environmental Medicine documented as of this encounter Visit Diagnoses Diagnosis Chronic left shoulder pain Pain in joint, shoulder region documented in this encounter Care Teams Trainman Relationship Specialty Start Date End Date Rodolfo Penn MD PCP - General Family Medicine 10/12/[address] [place] [address] documented as of this encounter
--- OUTSIDE RECORDS SUMMARY | 2022-01-14 01:05 | XMS_ITS | Encounter Summary ---
:1955 Author Organization [place] [address] Care Team Providers Name Role Phone Rodolfo Penn MD Primary Care Provider [phone] Reason for Visit Reason Comments Pain Management Encounter Details Date Type Department Care Team Description 07/25/2018 Office Visit Pain Management at [facility] Chron ic neck pain; [place] [employer] Osteoarthritis of cervical spine, unspec ified spinal osteoarthritis complication status; [facility] shou lder pain, unspecified chronicity [facility] [address], [place] [phone] Social History Tobacco Use Types Packs/Day Years Used Date Former Smoker Cigarettes 1.5 20 Quit: 11/01/18 96 Smokeless Tobacco: Never Used Alcohol Use Standard Drinks/Week Comments No 0 (1 standard drink = 0.6 oz pure alcoho l) Sex Assigned at Date Recorded Not on file documented as of this encounter Last Filed Vital Signs Vital Sign Reading Time Taken Comments Blood Pressure 152/100 07/25/2018 9:48 AM EST Pulse 112 07/25/2018 9:48 AM EST Temperature - - Respiratory Rate - - Oxygen Saturation 98% 07/25/2018 9:48 AM EST Inhaled Oxygen Concentration - - Weight 134.3 kg (296 lb) 07/25/2018 9:48 AM EST Height 180.3 cm (5' 11) 07/25/2018 9:48 AM EST Body Mass Index 41.28 07/25/2018 9:48 AM EST documented in this encounter Patient Instructions Patient InstructionsCrNatalie mendoza APRN - 07/25/2018 10:00 AM EST 1)Compouneded pain cream lidocaine 5%, ??baclofen 2% and diclofenac 3%??1-2 g to affected area 3-4 times??a day 2-4 pumps (1-2g) to affected area(s) 2)At bedtime apply lidocaine 5% patch 1-2 patches to affected area(s) on for 12 hours and off for 12hours. 3) Continue massage therapy for two body areas, neck and left shoulder, 30 minutes per body area fora total of 60 minutes twice a week 4) continue home exercises and stretching 5) Continue home TENs unit 6) Follow-up in 12 weeks or sooner as needed documented in this encounter Progress Notes [facility] Viramontes APRN - 07/25/2018 10:00 AM EST PAIN CLINIC FOLLOW-UP Date of Follow-Up: July 28, 2018 Chief Complaint: Chief Complaint Patient presents with ??? Pain Management HPI: Subjective Joseluis Cain is a 62 y.o. male who presents today to follow-up [...] neck pain from date of injury 04/29/1998. He was last seen in this clinic for cervical medial branch block left ??C4-5 and C5-6 on 07/09/18. He states that he did have a lot of discomfort/pain with this procedure. He states she had some improvement in his ROM of his neck after the procedure but was unsure how much benefit he had with pain. Due to the pain he had during this procedure he does not wish to proceed with any further cervical interventions at this point. He states that he had some numbness of this left shouldergirdle after this procedure but this has resolved. He states that he continues to attend [...] left shoulder and left shoulder girdle. Patient reports that he received confirmation from his worker's compensation that the compounded pain cream has been approved and he is awaiting starting this. lidocaine 5%, baclofen 2% and diclofenac 3% 1-2 g to affected area 3-4 times a day 2-4 pumps to left shoulder girdle. Onset: DOI: 04/29/1998 Location: Left neck and left shoulder Duration: 20 years Characteristics: Aching burning deep pain in the left side of his neck. He states that he has had increase in pain in the left upper neck and left side of his head- states that he has some massage at physical therapy that has helped with this. Timing: all day Severity: Left neck 3/10 now Left shoulder 4/10 Average pain in past week: 4/10 Best pain in the past week: 3/10 Worst pain in the past week: 5/10 Aggravating factors: bending his neck to the left side, twisting neck, left shoulder use aggrevates the shoulder girdle and neck. Relieving factors: heat and ice therapy, TENs unit on the shoulder girdle, taping, massage therapy Associated symptoms: states left arm fatigues easily, no tingling in arms, no radiation of pain fromneck to arms. No bowel or bladder incontinence. No lower extremity weakness. He felt like the sensation of having something in his throat worsened after the procedure but has returned to what it was like before. ACTIVITY LEVEL: Able to dress independently He is able to clean the home and is independent with ADLs - uses right arm for most things Activities that are limited by Pain: Unable to go hunting or snow mobiling. No longer fishing. Any lifting or prolonged use of the [...] Zanaflex- caused fatigue No ANTIDEPRESSANT None TOPICAL OTC Aspercream Mild beneift Topical pain compound - has not yet been approved by worker's comp. Has never tried Lidocaine patches in the past HERBAL/HOLISTIC None OTHER TENs unit for left shoulder pain Gabapentin - caused dizziness, make him feel out of it PROCEDURES/SURGERY TYPE DATE BENEFIT NOT TRIALED Cervical Epidural Steroid Injection 2001 Does not [...] ??? Highest education level: Not on file Social Needs ??? Financial resource strain: Not on file ??? Food insecurity - worry: Not on file ??? Food insecurity - inability: Not on file ??? Transportation needs - medical: Not on file ??? Transportation needs - non-medical: Not on file Occupational History ??? Not on file Tobacco Use ??? Smoking status: Former Smoker Packs/day: 1.50 Years: 20.00 Pack years: 30.00 Types: Cigarettes Last attempt to quit: 11/02/1995 Years since quittin.7 ??? Smokeless tobacco: Never Used Substance and Sexual Activity ??? Alcohol use: No ??? Drug use: No ??? Sexual activity: Not on file Other Topics Concern [...] problems Had some colon polypds removed at [facility] , several years back. [...] DIAGNOSTIC performed by Ad Bourne MD at [facility] ENDOSCOPY ??? PRO COLONOSCOPY, REMV LESN, SNARE N/A 10/12/2015 COLONOSCOPY, POLYPECTOMY, REMOVAL LESION BY SNARE performed by Ad Bourne MD at [facility] ENDOSCOPY ??? PRO UNLISTED CRANIO/MAXILLOFACIAL SURG Have several crowns and bridges. ??? PRO UNLISTED PROCEDURE, MUSCULOSKELETAL SYSTEM, GENERAL 2000 Left shoulder and wrist . Right knee surg July 2010 ??? XR FLUORO INJECTION DRAINAGE JOINT LG LEFT Left 04/27/2018 XR Fluoro Guided Joint Injection Large Left 04/27/2018 [facility] RAD XRAY ALLERGIES: Morphine sulfate and Opioids - morphine analogues MEDICATIONS: Medications 07/28/18 1443 Medication Sig Taking? lidocaine (LIDODERM) 5 % Adhesive Patch, Medicated Apply 1-2 patches to left shoulder, on for 12 hours then off for 12 hours Yes FLUARIX QUAD 7375-1278, PF, 60 mcg (15 mcg x 4)/0.5 mL Syringe inject 0.5 milliliter intramuscularlyYes amLODIPine (NORVASC) 10 mg Tablet Take 10 mg by mouth daily. Yes acetaminophen (TYLENOL) 325 mg Tablet Take 650 mg by mouth 2 times daily. Yes biotin 300 mcg Tablet Take by mouth. Yes magnesium 250 mg Tablet Take 250 mg by mouth daily. Yes zolpidem (AMBIEN) 10 mg Tablet Take 10 mg by mouth nightly as needed for Sleep. Yes multivitamin (THERAGRAN) tablet Take 1 tablet by mouth daily. Yes omeprazole (PRILOSEC) 20 mg capsule Take 20 mg by mouth daily as needed. Reported on 12/22/2016 Yes GLUC/MICHELLE-MSM#1/VIT C/DANITZA/BOR (AVRSLDUNALL-UNITG-CPP COMPLEX ORAL) Take by mouth daily. Yes RX ADULT COMPOUNDED MEDICATION Apply 2-4 pumps (1-2 g) to affected areas 3-4 times a day Dispense # 240 g Patient not taking: Reported on 07/25/2018 lisinopril-hydrochlorothiazide (PRINZIDE;ZESTORETIC) 10-12.5 mg Tablet Take 1 tablet by mouth daily. ROS: Review of Systems Constitutional: Negative for [...] for sleep disturbance. PHYSICAL EXAM: BP (!) 152/100 Pulse (!) 112 Ht 180.3 cm (5' 11) Wt 134.3 kg (296 lb) SpO2 98% BMI 41.28 kg/m?? Physical Exam Constitutional: He is oriented [...] right flexion. Pain with left cervical flexion. Negative Spurling's maneuver gomez. Cardiovascular: Intact distal pulses. Pulmonary/Chest: Effort normal. No respiratory distress. Musculoskeletal: Left shoulder with 3 small post-operative scars, no erythema, edema or ecchymosis. Hair growth symmetrical, no Winging of the left scapula. Strength grossly intact. Hand grasps equal. Neurological: [...] Diagnoses Name Primary? Chronic neck pain ??? Osteoarthritis of cervical spine, unspecified spinal osteoarthritis complication status ??? Left shoulder pain, unspecified chronicity 62 [...] block left ??C4-5 and C5-6 on 07/09/18. Continue massage therapy for neck 30 minutes twice a week for 12 sessions. Consider physical therapy to work on further stretching and strengthening. Left shoulder pain Had been seen by Dr. Tejada and had arthroscopic subacromial decompression, as well as a repair of the anterior labral tear in 2000. He has been seen by Dr. Schultz for on-going pain in the left shoulderand recently had a Fluoro Guided Joint Injection Left Shoulder with some benefit in left shoulder pain. His past records discuss chronic denervation changes in the left infrascapular muscle due to prior suprascapular nerve injury- UE EMG/NCS done through neurology Dr. Nicolas Vargas July 15, 2016. Patient would like to continue shoulder injections through Dr. Dill office as this givens him some benefit. Start compounded topical pain cream consisting of lidocaine 5%, baclofen 2% and diclofenac 3% 1-2 g to affected area 3-4 times a day while awake. Continue lidocaine patch 5% for patient to use at night- on for 12 hours at night and then off for 12 hours. Continue massage therapy for 30 minutes per body area (left shoulder) twice a week for a total of 12sessions then re-assess. Showing benefit in pain and ROM with this treatment modality. Continue home TENs unit. Continue taping left shoulder. Future considerations include suprascapular nerve block versus peripheral cutaneous stimulation/neuromodulation. PLAN: 1) Contact Dr. Tejada office for further left shoulder joint injections. 2) Re-order massage therapy for left shoulder and neck for 30 minutes per body area for a total of 60 minutes twice a week x12 visits then re-assess. 3) Lidocaine 5%, baclofen 2% and diclofenac 3% 1-2 g to affected area 3-4 times a day while awake 4) Continue home TENs unit 5) Continue Lidocaine patch 5% to left shoulder on for 12 hours at night, off for 12 hours 6) Continue home stretching and strengthening exercises for left shoulder Follow-up in 12 weeks or sooner as needed Joseluis Cain had the opportunity to ask questions and indicated that all questions were answered to his satisfaction. Thank you for the opportunity to participate in Joseluis Cain's care. Thank you for this referral, Rodolfo Penn MD [address] [place] [address]. [facility], MSN, TRAILHEAD MAINTENANCE WORKER- C, [employer] Nurse Practitioner [facility] [address] [address] / [facility] documented in this encounter Plan of Treatment Not on filedocumented as of this encounter Visit Diagnoses Diagnosis Chronic neck pain Cervicalgia Osteoarthritis of cervical spine, unspec ified spinal osteoarthritis complication status Left shoulder pain, unspecified chronici ty documented in this encounter Care Teams Die Finisher Forging Relationship Specialty Start Date End Date Rodolfo Penn MD PCP - General Family Medicine 10/12/15 [address] [place], [place] [id number] documented as of this encounter
--- OUTSIDE RECORDS SUMMARY | 2022-01-14 01:05 | XMS_ITS | Encounter Summary ---
:1955 Author Organization [facility] [address] Care Team Providers Name Role Phone Rodolfo Penn MD Primary Care Provider [phone] Reason for Referral Physical Therapy (Routine) - Specialty Diagnoses / Procedures Referred By Contact Refer red To Contact Physical Therapy Diagnoses Left shoulder pain, unspecified chronicity Isaias Schultz MD [facility] [place] [address] Referral ID Status Reason Start Date Expiration Date Visits V isits Requested Authorized [id number] Evaluate and 03/29/2017 09/25/2017 20 20 Treat Encounter Details Date Type Department Care Team Description 03/29/2017 Orders Only [place] [facility] [place]aias Schultz, Left shoulder pain, [facility] unspecified [facility] [place] [address] ORTHOPAEDIC SURGERY [place], [place] [address] Social History Tobacco Use Types Packs/Day Years Used Date Former Smoker Cigarettes 1.5 20 Quit: 11/01/18 96 Smokeless Tobacco: Never Used Alcohol Use Standard Drinks/Week Comments No 0 (1 standard drink = 0.6 oz pure alcoho l) Sex Assigned at Date Recorded Not on file documented as of this encounter Plan of Treatment Scheduled Referrals Name Type Priority Associated Diagnoses Order S chedule Referral to Outpatient Referral Routine Left shoulder pain, O rdered: Physical Therapy unspecified 03/29/2017 chronicity documented as of this encounter Visit Diagnoses Diagnosis Left shoulder pain, unspecified chronici ty documented in this encounter Care Teams Case Advocate Relationship Specialty Start Date End Date Rodolfo Penn MD PCP - General Family Medicine 10/12/[address] [place] [address] documented as of this encounter
--- OUTSIDE RECORDS SUMMARY | 2022-01-14 01:05 | XMS_ITS | Encounter Summary ---
:1955 Author Organization [facility] [place] [address] Care Team Providers Name Role Phone Rodolfo Penn MD Primary Care Provider [phone] Encounter Details Date Type Department Care Team Description 03/14/2018 Telephone Ophthalmology [facility] Jennifer Todd OD [facility] Toya hyman [facility] [place] [address] OPHTHALMOLOGY DEPT [phone] [place], [place] [address] (Wo rk) Social History Tobacco Use Types Packs/Day Years Used Date Former Smoker Cigarettes 1.5 20 Quit: 11/01/18 96 Smokeless Tobacco: Never Used Alcohol Use Standard Drinks/Week Comments No 0 (1 standard drink = 0.6 oz pure alcoho l) Sex Assigned at Date Recorded Not on file documented as of this encounter Miscellaneous Notes Telephone Encounter - Nika Velasquez - 03/14/2018 12:00 PM EDT Mailed an appt card to Joseluis per request. Telephone Encounter - Nika Velasquez - 03/14/2018 12:00 PM EDT ----- Message from Karolina Black sent at 03/07/2018 11:20 AM EDT ----- Regarding: FW: Appointment Notification ----- Message ----- From: Rossana Regalado Sent: 03/07/2018 8:34 AM To: [facility] Administrator Subject: Appointment Notification Please send an appointment card to Joseluis Cain. His mother, Nae Cain ( , 10/28/36) called and said that her son, Joseluis, has not gotten a notice for his appointment on March 29. (He is her ride and they both have appointments on the same day) She requests that an appointment card or letter be sent to him so that he knows that he has an appointment. Thank you. documented in this encounter Plan of Treatment Not on filedocumented as of this encounter Visit Diagnoses Not on filedocumented in this encounter Care Teams Rotor Coil Taper Relationship Specialty Start Date End Date Rodolfo Penn MD PCP - General Family Medicine 10/12/[address] [place] [address] documented as of this encounter
--- OUTSIDE RECORDS SUMMARY | 2022-01-14 01:05 | XMS_ITS | Encounter Summary ---
:1955 Author Organization [facility] [place] [address] Care Team Providers Name Role Phone Rodolfo Penn MD Primary Care Provider [phone] Encounter Details Date Type Department Care Team Description 05/10/2018 Telephone Pain Management [place] [address] Social History Tobacco Use Types Packs/Day Years [...] on filedocumented in this encounter Care Teams Paraprofessional Interpreter Relationship Specialty Start Date End Date Rodolfo Penn MD PCP - General Family Medicine 10/12/[address] [place] [address] documented as of this encounter
--- OUTSIDE RECORDS SUMMARY | 2022-01-14 01:05 | XMS_ITS | Encounter Summary ---
:1955 Author Organization [facility] [place] [address] Care Team Providers Name Role Phone Rodolfo Penn MD Primary Care Provider [phone] Encounter Details Date Type Department Care Team Description 06/18/2018 Telephone Pain Management at [place], [place] [id number] Social History Tobacco Use Types Packs/Day Years Used Date Former Smoker Cigarettes 1.5 20 Quit: 11/01/18 96 Smokeless Tobacco: Never Used Alcohol Use Standard Drinks/Week Comments No 0 (1 standard drink = 0.6 oz pure alcoho l) Sex Assigned at Date Recorded Not on file documented as of this encounter Miscellaneous Notes Telephone Encounter - Ava Franco RN - 06/18/2018 7:51 AM EST Medication Preauthorization Request Patient: Joseluis Cain [id number] Request received to obtain prior authorization for Lidocaine patch prescribed by Natalie Viramontes . ?? RX insurance plan: [place] Medicare RX insurance telephone: Patient ?? Diagnosis: LEFT SHOULDER/NECK PAIN ?? Previous medications attempted: TYLENOL, ASPERCREME, IBUPROFEN The following action was taken after discussion with the building services engineer: _X_ denied, provider and patient informed _X provider does not wish to appeal denial, patient informed Ava Franco RN documented in this encounter Plan of Treatment Not on filedocumented as of this encounter Visit Diagnoses Not on filedocumented in this encounter Care Teams Arc Cutter Relationship Specialty Start Date End Date Rodolfo Penn MD PCP - General Family Medicine 10/12/15 [address] [place] [address] documented as of this encounter
--- OUTSIDE RECORDS SUMMARY | 2022-01-14 01:05 | XMS_ITS | Encounter Summary ---
:1955 Author Organization [facility] [place] [address] Care Team Providers Name Role Phone Rodolfo Penn MD Primary Care Provider [phone] Reason for Referral Surgical (Routine) - Specialty Diagnoses / Procedures Referred By Contact Refer red To Contact Diagnoses Cervical spondylosis without myelopathy Mechelle Wallace MD Procedures NERVE BLOCK - CERVICAL/THORACIC [facility] [place] [address] Referral ID Status Reason Start Date Expiration Date Visits V isits Requested Authorized [id number] Consult, 07/04/2018 07/04/2019 1 1 Test & Treat Reason for Visit Reason Comments Neck And Shoulder Pain left Surgical (Routine) - Closed Specialty Diagnoses / Procedures Referred By Contact Refer red To Contact Pain Management Diagnoses Cervicalgia Other chronic pain Pain in left shoulder Cramp and spasm left C3-C4, C4-C5, C6-C7 medial branch blocks Huong Faulkner Gellis, Janice E, MD Procedures PRO INJ, DIAG/THERAPEUTIC AGENT, PARAVERTEBRAL FACET JT, CERVICAL/THORACIC, SINGLE PRO INJ, PARAVERTEBRAL FACET JT, W/IMAGE GUIDANCE, CERVICAL/THORACIC, SECOND LEVEL PA [facility] PRO INJ//PARAVERTEBRAL FACET JT, W/IMAGE GUIDANCE, CERVICAL/THORACIC, 3RD OR ADDL LEVL PROCEDURE [address] [place] [address] PAIN CLINIC ORTHOPAEDIC SURGERY [place], [place] [id number] [place] [id number] Referral ID Status Reason Start Date Expiration Date Visits Requ ested Visits Authorized [id number] Closed 07/04/2018 07/04/2019 1 1 Encounter Details Date Type Department Care Team Description 07/04/2018 Procedure visit Pain Management at Mechelle Wallace C ervical [place] [facility] [facility] [address] [place] [address] [place] [address] [phone] Social History Tobacco Use Types Packs/Day Years Used Date Former Smoker Cigarettes 1.5 20 Quit: 11/01/18 96 Smokeless Tobacco: Never Used Alcohol Use Standard Drinks/Week Comments No 0 (1 standard drink = 0.6 oz pure alcoho l) Sex Assigned at Date Recorded Not on file documented as of this encounter Last Filed Vital Signs Vital Sign Reading Time Taken Comments Blood Pressure 142/89 07/04/2018 9:11 AM EST Pulse 88 07/04/2018 9:11 AM EST Temperature - - Respiratory Rate 18 07/04/2018 9:11 AM EST Oxygen Saturation 95% 07/04/2018 9:11 AM EST Inhaled Oxygen Concentration - - Weight 131.5 kg (290 lb) 07/04/2018 8:48 AM EST Height 180.3 cm (5' 11) 07/04/2018 8:48 AM EST Body Mass Index 40.45 07/04/2018 8:48 AM EST documented in this encounter Patient Instructions Patient InstructionsAbner Valdivia RN - 07/04/2018 8:45 AM EST Pain Management Center Discharge Instructions: You were seen by Dr. Mechelle Wallace MD and Dr Gross who performed cervical medial branch block. It is normal that the injection site will be sore for up to 48 hours. You may also experience mild stiffness in the joint near the injection site. [x] You may resume your normal activities: today. You may shower today. DO NOT tub bathe, use whirlpools, hot tubs or pool therapy for 2 days. Remove Band-Aid(s) later today/tomorrow. Do not drive until tomorrow. Use caution walking/climbing stairs as you may be unsteady on your feet. You may use your usual medications, including pain medications, as directed, unless otherwise instructed. You may use an ice pack as needed for the first 24 hours, on for 20 minutes then off for 20 minutes.Do not apply heat today. Attempt to empty your bladder 4-6 hours after your procedure. You received the following medications: Omnipaque (contrast dye) and Bupivacaine. During regular business hours, please phone the Pain Management Center at with any questions or if the following or other troubling symptoms develop: 1) Prolonged dizziness or weakness (more than 1 day). 2) Localized swelling, redness or drainage at the injection site(s). 3) Temperature of 101 degrees that lasts for more than 4 hours. After 5 PM or on weekends, call and ask for Pain Clinic provider on-call. If you are unable to reach the Pain Management Center and have a complication, please call your Primary Care Provider or proceed to your local emergency department. Abner Valdivia RN Special instructions Pain Management Center Post -Procedure Pain Log Patient: Joseluis Cain [id number] It is important for you to keep track of your pain after your procedure that took place 07/04/2018. This information will help your Provider to determine how to help reduce your pain. Today you had a procedure for pain in your left neck pain Your pain level before the procedure in this area was 610. Your pain level immediately after your procedure was /10. Time Pain Score Comments % of relief 1 hour 1030 AM 2 hours 1130 AM 3 hours 1230 PM 4 hours 130 PM Please call the nurse in the Pain Management Center a day or two after your procedureand report the information above. She will assess your response to the procedure, and will recommendappropriate follow-up. documented in this encounter Progress Notes Mechelle Wallace MD - 07/04/2018 8:45 AM EST PREPROCEDURE HISTORY AND PHYSICAL Date of Visit: July 04, 2018 Chief Complaint: Left Neck pain HPI: Subjective Joseluis Cain is a 62 y.o. male who presents today for left cervical MBB, referred by Natalie Viramontes APRN. The history is obtained from the patient, and I have reviewed medical records provided by the referring physician and located in the electronic medical record to fill in gaps in the patient's recollection of events, treatments and outcomes. LOCATION: Left neck pain PAIN LEVEL AT REST 6 with modified kemps testing PAST MEDICAL HISTORY: Past Medical History: Diagnosis Date ??? Allergic state ??? Allergy Years ago Non specific Alergys . I am ok with food and latex. ??? Arthritis ??? Asthma ??? Breathing problem Due to alergy issues with sinus . ??? Chronic pain Left shoulder , neck and arm. Lower back and knees. ??? Digestive problems Had some colon polypds removed at [facility] , several years back. ??? ENT disease [...] DIAGNOSTIC performed by Ad Bourne MD at [facility] ENDOSCOPY ??? PRO COLONOSCOPY, REMV LESN, SNARE N/A 10/12/2015 COLONOSCOPY, POLYPECTOMY, REMOVAL LESION BY SNARE performed by Ad Bourne MD at [facility] ENDOSCOPY ??? PRO UNLISTED CRANIO/MAXILLOFACIAL SURG Have several crowns and bridges. ??? PRO UNLISTED PROCEDURE, MUSCULOSKELETAL SYSTEM, GENERAL 2000 Left shoulder and wrist . Right knee surg July 2010 ??? XR FLUORO INJECTION DRAINAGE JOINT LG LEFT Left 04/27/2018 XR Fluoro Guided Joint Injection Large Left 04/27/2018 [facility] RAD XRAY ALLERGIES: Morphine sulfate and Opioids - morphine analogues MEDICATIONS: Medications 07/04/18 0856 Medication Sig Taking? lidocaine (LIDODERM) 5 % Adhesive Patch, Medicated Apply 1-2 patches to left shoulder, on for 12 hours then off for 12 hours Yes FLUARIX QUAD 2963-1863, PF, 60 mcg (15 mcg x 4)/0.5 mL Syringe inject 0.5 milliliter intramuscularlyYes RX ADULT COMPOUNDED MEDICATION Apply 2-4 pumps (1-2 g) to affected areas 3-4 times a day Dispense # 240 g Yes amLODIPine (NORVASC) 10 mg Tablet Take 10 mg by mouth daily. Yes lisinopril-hydrochlorothiazide (PRINZIDE;ZESTORETIC) 10-12.5 mg Tablet Take 1 tablet by mouth daily.Yes acetaminophen (TYLENOL) 325 mg Tablet Take 650 [...] needed. Reported on 12/22/2016 Yes GLUC/MICHELLE-MSM#1/VIT C/DANITZA/BOR ([id number] COMPLEX ORAL) Take by mouth daily. Yes FAMILY HISTORY: Family History Problem Relation Age [...] History Narrative ??? Not on file ROS: Pt denies recent fever, chills, infection, wounds, hospitalizations, ED visits, use of antibiotics. PHYSICAL EXAM: BP 142/89 Pulse 88 Resp 18 Ht 180.3 cm (5' 11) Wt 131.5 kg (290 lb) SpO2 95% BMI 40.45 kg/m?? Physical Exam Constitutional: He is oriented to person, place, and time. He appears well- developed and well-nourished. Neurological: He is alert and oriented to person, place, and time. Cervical paraspinous tenderness: present, left. positive modified Crawford's testing left. Psychiatric: He has a normal mood and affect. His behavior is normal. Judgment and thought content normal. RADIOLOGIC DATA: reviewed LABS/DX RESULTS: Last 3 wbc, hgb, hct plt No results for input(s): WBC, HGB, HCT, PLATELET in the last 7068 hours. Last 3 Lytes No results for input(s): NA, K, CL, CO2, BUN, CREATININE in the last 7068 hours. Last 3 LFTs No results for input(s): AST, ALT, ALKPHOS, BILITOT, BILIDIR in the last 7068 hours. Last 3 Coags No results for input(s): PT, INR, PTT in the last 168 hours. Last 3 HgbA1C No results for input(s): HA1C in the last 7068 hours. ASSESSMENT: Assessment 1. Cervical spondylosis without myelopathy Joseluis Cain is a 62 y.o. male who presents today for left cervical MBB, referred by Natalie Ocala INSIGHT DIRECTOR. The patient has moderate to severe neck pain that does not not have a strong radicular component, there is no associated associated neurologic deficit. The pain is aggravated by hyperextension of the spine, and there is tenderness to palpation of the spine at the level of the suspected joint. Neck papain is worse than arm pain; pain is primarily axial, not radicular. The patient has trialed physical therapy, NSAID without relief. Based on the above, I am recommending diagnostic medical branch nerve blocks at left C4-5, C5-6. PLAN: left cervical MBB C4-5, C5-6. (correlates most closely with referral pattern of cervical facet joints. Mechelle Wallace MD Truck Engine Assembler of Anesthesiology [facility] [address] [address] / [facility] Abner Valdivia RN - 07/04/2018 8:45 AM EST Pre-Procedure Screening Questions: 1. Status: No 2. Patient states they have a water taxi driver to transport after procedure? Yes 3. Patient taking antibiotics at present? No 4. NPO per Pain Management Center protocol? No 5. Patient diabetic: No Patient routinely taking anticoagulants ? No Patient Vital Signs documented in Doc Flowsheets associated with this encounter. Patient Discharge Instructions were reviewed with patient and copy provided to patient. documented in this encounter Procedure Notes Mechelle Wallace MD - 07/04/2018 8:45 AM ESTAssociated Order(s): NERVE BLOCK - CERVICAL/THORACIC Procedure(s): NERVE BLOCK - CERVICAL/THORACIC Pre-Procedure Diagnose(s): Cervical spondylosis without myelopathy Diagnostic Cervical Medial Branch Nerve Blocks left C4-5 and C5-6 Chief Complaint: left neck pain Diagnosis: 1. Cervical spondylosis without myelopathy Preoperative Note History and Exam Patient demonstrates today moderate to severe non- radicular neck pain without neurologic deficit aggravated by hyperextension yes Neck pain greater than arm pain yes Patient today has tenderness over the suspected joint(s) yes Neck pain associated with suspected motion segment instability or Hypermobility or pseudoarthrosis no Pre-testing pain score: 6/10 Joseluis Cain has been referred to the Pain Management Center for Diagnostic Cervical Medial Branch Nerve Blocks left C-4, C-5 and C-6. (Facet joint levels C4-5 and C5-6 ) Mr. Cain was interviewed and the medical record reviewed. There were no medical, pharmacologic, radiographic or other structural contraindications to attempting fluoroscopically guided injection. Risks and expected side effects as well as potential benefit of the procedure were reviewed with Mr. Cain, and his voiced concerns were addressed. The printed consent form was signed and witnessed. (The procedure, risks, and benefits of Cervical Medial Branch Nerve Blocks were reviewed with the patient, including but not limited to: nerve injury, allergic reaction, infection, transient numbness from spread of local anesthesia to nerve roots. The patient appeared to understand, questions were answered and the patient agreed to proceed.) Standard time-out procedure was performed. Joseluis Cain was greeted by the nurse who verified patients name and . Patient was then taken to the fluoroscopy suite. TECHNIQUE: After informed written consent was obtained, the patient was placed in the prone position. The cervical spine was prepped with chloraprep and draped. Sterile technique was used, vital signs were monitored, time out was done and the left side was marked.. Cap, glove, mask were worn. The skin and subcutaneous structure were anesthetized with lidocaine 1% , to a total volume of 3 ml at each level. Medial Branch Nerves left C-4, C-5 and C-6. In the AP view 25-gauge spinal needles were advanced to the junction of the waste of the articular pillars of C-4, C-5 and C-6. Under lateral view needle position was optimized to the centroid of the articular pillar. Contralateral oblique was obtained (foraminal view) and the needles were outside of the neural foramen. Under lateral view, Omnipaque 240 was injected while visualized with digital subtraction. There was no evidence of intravascular uptake, and there was dye flow across the articular pillar. BUPIVICAINE 0.5% 0.5 ml was administered at each level after negative aspiration. Outcome: The patient tolerated the procedure well and had stable vital signs. The patient noted after getting up after the procedure that their pain was at a 2 out of 10 level. Preprocedure pain level was a 6 out of 10. Follow up plans and appointments were discussed with Joseluis Cain. Mr. Cain was instructed to keep careful note of how the usual pain was modified by these injections. Specifically, he was asked to keep a pain diary for the next 24 hours using a numeric pain scale of 0-10 and report these results at the follow-up visit. The patient was observed in the pain clinic and then discharged after having met discharge criteria to the care of a water taxi driver. The patient received written instructions as documented in nursing records. Based on the medial branches blocked today, if they patient has adequate relief and we are able to proceed to radiofrequency ablation, the treatment should result in the denervation of the left C4-5 and C5-6. We would expect to denervate a total of 2 facets during the radiofrequency ablation. COMMENTS: If criteria met, Mr. Cain will proceed to Cervical medial branch nerve blocks with lidocaine or radiofrequency. The patient will otherwise follow-up with Natalie Viramontes APRN NOTE: use the black cervical platform for the next procedure. I personally performed this entire procedure. Mechelle Wallace MD ABPM-subspecialty board certification in Pain Activity SpecialistTruck Engine Assembler Department of Anesthesiology/Section of Pain Medicine [facility] CC: Rodolfo Penn MD @PCPADD@ documented in this encounter Plan of Treatment Not on filedocumented as of this encounter Procedures Procedure Name Priority Date/Time Associated Diagnosis Comme nts NERVE BLOCK - Routine 07/04/2018 8:45 AM Cervical spondylosis Results for this CERVICAL/THORACIC EST without myelopathy proc edure are in the results section. documented in this encounter Results NERVE BLOCK - CERVICAL/THORACIC (07/04/2018 8:45 AM EST) Narrative Mechelle Wallace MD - 07/04/2018 8:45 A M EST Mechelle Wallace MD ? 07/09/2018 ??6:47 PM Diagnostic Cervical Medial Branch Nerve Blocks left ??C4-5 and C5-6 Chief Complaint: left neck pain Diagnosis: 1. Cervical spondylosis without myelopat hy ?? Preoperative Note History and Exam Patient demonstrates today moderate to s evere non- radicular neck pain without neurologic deficit aggravat ed by hyperextension ??yes Neck pain greater than arm pain ? ye s Patient today has tenderness over the trujillo spected joint(s) ??yes Neck pain associated with suspected alessandra on segment instability or Hypermobility or pseudoarthrosis ? n o Pre-testing pain score: ? 11/05 Joseluis Cain has been referred to [facility] for Diagnostic Cervical Medial Branch Ne rve Blocks ?? left C-4, C-5 and C-6. (Facet joint levels ??C4-5 and C5-6 ) Mr. Cain was interviewed and [facility]. ?? There were no medical, pharmacologic, ra diographic or other structural contraindications to attempti ng fluoroscopically guided injection. ??Risks and expected s onelia effects as well as potential benefit of the procedure were reviewed with Mr. Cain, and his voiced concerns were ad dressed. ??The printed consent form was signed and witnessed. ( The procedure, risks, and benefits of Cervical Medial Branch Nerve Blocks were reviewed with the patient, including but not limi alicia to: nerve injury, allergic reaction, infection, transient numbness from spread of local anesthesia to nerve roots. ??The p atient appeared to understand, questions were answered and the patient agreed to proceed.) Standard time-out procedure wa s performed. Joseluis Cain was greeted by the savanah pisano who verified patients name and . ??Patient was then taken t o the fluoroscopy suite. TECHNIQUE: After informed written consent was obtai maura, the patient was placed in the prone position. ??The cerv ical spine was prepped with chloraprep and draped. ??Sterile te chnique was used, vital signs were monitored, time out was done and the ??left ??side was marked.. Cap, glove, mask were worn. ??T he skin and subcutaneous structure were anesthetized with lidocai ne 1% , to a total volume of 3 ml at each level. ?? Medial Branch Nerves ??left C-4, C-5 and C-6. In the AP view 25-gauge spinal needles were advanced to the junction of the waste of the articular pillars of ??C-4, C-5 and C-6. Under lateral view needle position was o ptimized to the centroid of the articular pillar. Contralateral o blique was obtained (foraminal view) and the needles were ou tside of the neural foramen. Under lateral view, Omnipaque 240 was in jected while visualized with digital subtraction. There was no e vidence of intravascular uptake, and there was dye flow across th e articular pillar. ? BUPIVICAINE 0.5% ??0.5 ml was administer ed at each level after negative aspiration. ? Outcome: The patient tolerated the proce dure well and had stable vital signs. The patient noted after get ting up after the procedure that their pain was at a ??2 o ut of 10 level. ?? Preprocedure pain level was a ??6 out of 10. ?? Follow up plans and appointments were di scussed with Joseluis Cain. Mr. Cain was instructed to k eep careful note of how the usual pain was modified by these inj ections. ??Specifically, he was asked to keep a pain diary for th e next 24 hours using a numeric pain scale of 0-10 and report th mode results at the follow-up visit. ??The patient was obser олег in the pain clinic and then discharged after having met dischar ge criteria ??to the care of a water taxi driver. ??The patient received writ ten instructions as documented in nursing records. ?? Based on the medial branches blocked tod ay, if they patient has adequate relief and we are able to proce ed to radiofrequency ablation, the treatment should result in the denervation of the left C4-5 and C5-6. We would expect to d enervate a total of 2 facets during the radiofrequency ablatio n. COMMENTS: ?? If criteria met, ??Mr. Cain will pro ceed to Cervical medial branch nerve blocks with ?? lidocaine ?? or ??radiof requency. The patient will ?? otherwise follow-up with Natalie VILLALOBOS RN NOTE: use the black cervical platform fo r the next procedure. I personally performed this entire proce dure. Mechelle Wallace MD ABPM-subspecialty board certification in Pain Activity SpecialistTruck Engine Assembler Department of Anesthesiology/Section of Pain Medicine [facility] CC: Rodolfo Penn MD @[email or web address]@ Mechelle Wallace MD PROCEDURE/MINOR SURGICAL ORD ERABLES documented in this encounter Visit Diagnoses Diagnosis Cervical spondylosis without myelopathy documented in this encounter Administered Medications Inactive Administered Medications - up to 3 most recent administrations Medication Order MAR Action Action Date Dose Rate Site BUpivacaine (PF) (MARCAINE) 0.5 % Given 07/04/2018 9:15 AM EST 5 0 mg (5 mg/mL) injection 50 mg 50 mg (10 mL), Subcutaneous, ONCE, 1 dose, On Mon07/04/18 at 0915, Wasted 20 ml, Routine iohexol (OMNIPAQUE) 240 mg/mL solution 0.75 Given 10/2018 9:15 AM EST 0.75 mLs mL 0.75 mL, Epidural, ONCE, 1 dose, On Mon07/04/18 at 0915, 49.25 mL wasted, Routine documented in this encounter Care Teams Cigar Bander Hand Relationship Specialty Start Date End Date Rodolfo Penn MD PCP - General Family Medicine 10/12/[address] [place] [address] documented as of this encounter
--- OUTSIDE RECORDS SUMMARY | 2022-01-14 01:05 | XMS_ITS | Encounter Summary ---
:1955 Author Organization [facility] [place] [address] Care Team Providers Name Role Phone Rodolfo Penn MD Primary Care Provider [phone] Encounter Details Date Type Department Care Team Description 07/05/2018 Telephone Pain Management at [place], [place] [address] Social History Tobacco Use Types Packs/Day Years Used Date Former Smoker Cigarettes 1.5 20 Quit: 11/01/18 96 Smokeless Tobacco: Never Used Alcohol Use Standard Drinks/Week Comments No 0 (1 standard drink = 0.6 oz pure alcoho l) Sex Assigned at Date Recorded Not on file documented as of this encounter Miscellaneous Notes Telephone Encounter - Mabel Vela, YIMI - 07/05/2018 2:56 PM EST Pain Management Center Post-Procedure Phone Note Patient: Joseluis Cain [id number] Post-procedure phone call from patient to report his response to Left the cervical medial branch block procedure performed on 07/04/18 in the Pain Management Center by Mechelle Wallace MD. This is patient's : first medial branch block Patient reports that after the procedure he experienced: __ Patient reported post-block numeric pain scale: 3 /10 (average pain since procedure) x__ Post-procedure pain has been reduced by 50%. (> 80% Medicare/MVP/Medicaid) _ _x_ Pain relief: moderate _x_If pain is reduced, it lasted: Yes 4 hours or greater r. Based on the information provided above and after discussion with the patient, the following actionswill be taken: _x_ Patient meets criteria to proceed to second Left Cervical medial branch block _x_ Patient on anticoagulant medication: No Patient has pacemaker/defibrillator: No Patient has the appropriate phone number and understands that he may contact the Pain Management Center at any time with questions or concerns. Mabel Vela RN documented in this encounter Plan of Treatment Not on filedocumented as of this encounter Visit Diagnoses Not on filedocumented in this encounter Care Teams Bingo Checker Relationship Specialty Start Date End Date Rodolfo Penn MD PCP - General Family Medicine 10/12/[address] [place] [address] [address] [place] [address] documented as of this encounter
--- OUTSIDE RECORDS SUMMARY | 2022-01-14 01:05 | XMS_ITS | Encounter Summary ---
:1955 Author Organization [facility] [place] [address] Care Team Providers Name Role Phone Rodolfo Penn MD Primary Care Provider [phone] Reason for Referral Consultation (Routine) - Closed Specialty Diagnoses / Procedures Referred By Contact Refer red To Contact Neurology Diagnoses Left shoulder pain, unspecified chronicity Tear of left rotator cuff, unspecified tear extent Winging of scapula Dina Campbell APRN [facility] 3c [facility] D R [facility] [place] [address] [place] [address] Referral ID Status Reason Start Date Expiration Date Visits V isits Requested Authorized [id number] Closed Consult, 07/14/2016 07/14/2017 1 1 Test & Treat iagnostic Test (Routine) - Closed Specialty Diagnoses / Procedures Referred By Contact Refer red To Contact Radiology Diagnoses Left shoulder pain, unspecified chronicity Tear of left rotator cuff, unspecified tear extent Dina Campbell APRN [facility] Rad Mri Procedures MRI Shoulder wo Contrast Left (Generic) [facility] [place] [address] [place] [address] Referral ID Status Reason Start Date Expiration Date Visits V isits Requested Authorized [id number] Closed Specialty 07/14/2016 07/14/2017 1 1 Service Requested Reason for Visit Reason Comments Left Shoulder Pain WC DOI 04/29/98 Consultation (Routine) - Closed Specialty Diagnoses / Procedures Referred By Contact Refer red To Contact Orthopaedics Diagnoses Chronic left shoulder pain. Cezar Montanez MD Bell, John-Erik, MD [address] [facility] [address] [place]THOPAEDIC SURGERY [address] [place] [address] Fax: Referral ID Status Reason Start Date Expiration Date Visits V isits Requested Authorized [id number] Closed Consult, 05/13/2016 05/13/2017 1 1 Test & Treat Connection Center Encounter Details Date Type Department Care Team Description 07/14/2016 [place] [facility] [place]ultz, Tear of left rotator cuff, u nspecified tear extent (Primary Dx); [facility] Left shoulder pain, unspecified chronici ty; [address] [facility]; [place] [address] Hollis scapula, LEFT [phone] ORTHOPAEDIC SURGERY [place], [place] [address] Social History Tobacco Use Types [...] Sign Reading Time Taken Comments Blood Pressure 150/96 07/14/2016 8:55 AM EST Pulse 85 07/14/2016 8:55 AM EST Temperature - - Respiratory Rate - - Oxygen Saturation - - Inhaled Oxygen Concentration - - Weight 131.5 kg (290 lb) 07/14/2016 8:55 AM EST verbal Height 180.3 cm (5' 11) 07/14/2016 8:55 AM EST verbal Body Mass Index 40.45 07/14/2016 8:55 AM EST documented in this encounter Progress Notes Dina Campbell, RACEHORSE TRAINER - 07/14/2016 9:15 AM EST This patient was seen in consultation today at the request of PCP. 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 Pertinent Surgical History: Dr. Tejada. 2000. Procedure: 1. Left shoulder arthroscopy with arthroscopic labral debridement and repair. 2. Left arthroscopic acromioplasty. Reason for Consultation: left shoulder pain. Duration: Chronic. STAFF: Dr. Schultz History of Present Condition: Joseluis Cain is a pleasant 60 y.o. year-old male who visits the Orthopaedic clinic alone today with a history of left shoulder pain. He has a long complicated historywith the LEFT shoulder dating back to 1997 with work related injury. 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 He was evaluated by Dr. Tejada who repaired his labrum and performed an acromioplasty. 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 He was also followed by Dr. Duran for a second opinion who recommended non-operative treatment with gabapentin use and PT for scapula stabilization exercises. He has essentiallybeen struggling with LEFT shoulder pain and weakness since then and he is here for definitive managem ent to talk about potential treatment options. The pain has been present for several years and is exacerbated by all ADL's. He has been taking OTC analgesics (Ibuprofen) for the pain and has undergone no recent PT or cortisone injections to address this pain. No interval falls, injuries or infections.No reported post op infections. There is chronic neck pain and tingling in his LEFT hand primarily in the thumb and index finger. Previous CTR reportedly with good outcome. There is occasional tinglingin the 4th and 5th fingers as well. He remains out of work on disability and is here as recommended by his PCP for another surgical opinion. Past Medical History: Active Ambulatory Problems Diagnosis Date Noted ??? OA (osteoarthritis) of knee 01/18/2012 ??? Pain in left shoulder 07/14/2016 ??? Degeneration of intervertebral disc of lumbar region 11/27/2013 ??? Muscle fasciculation 11/27/2013 ??? Spasm 11/27/2013 ??? Obesity with body mass index 30 or greater 11/27/2013 ??? Osteoarthritis of knee 11/27/2013 Resolved Ambulatory Problems Diagnosis Date Noted ??? No Resolved Ambulatory Problems Past Medical History Diagnosis Date ??? Allergic state ??? Allergy Years ago ??? Arthritis ??? Asthma ??? Breathing problem ??? Chronic pain ??? Digestive problems ??? ENT disease ??? GERD (gastroesophageal reflux disease) ??? Hypertension ??? Musculoskeletal disease ??? Skin disorder ??? Urinary disorder November of 2008 Past Surgical History Past Surgical History Procedure Laterality Date ??? Pro unlisted procedure, musculoskeletal system, general 2000 Left shoulder and wrist . Right knee surg July 2010 ??? Pro unlisted diagnostic gastroenterology procedure Navel Hernia surgery , several years ago. ??? Pro unlisted cranio/maxillofacial surg Have several crowns and bridges. ??? Pro colonoscopy, diagnostic N/A 10/12/2015 COLONOSCOPY, DIAGNOSTIC performed by Ad Bourne MD at [facility] ENDOSCOPY ??? 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 History Smoking Status ??? Former Smoker ??? Packs/day: 1.50 ??? Years: 20.00 ??? Types: Cigarettes ??? Quit date: 11/02/1995 Smokeless Tobacco ??? Never Used History Alcohol Use No Family History - his family history is pertinent for Family History Problem Relation Age of Onset [...] Detachment Neg Hx ??? Strabismus Neg Hx . Review of Systems: A thirteen-system review was negative Denies fever, chills, nausea, vomiting, vision change, shortness of breath, chest pain, vision changes, headaches, bowel or bladder problem, ear, nose, sinus problem, neuro or psychiatric, or endocrine disorder not addressed above. There is no history of bleeding disorders. No DVT or PE history. No sleep apnea or CPAP use. There are no reported problems with anesthesia. . Physical Examination: Vitals: BP Readings from Last 1 Encounters: 07/14/16 (!) 150/96 Pulse Readings from Last 1 Encounters: 07/14/16 85 Height: 180.3 cm (5' 11) (verbal) Weight - Scale: (!) 131.5 kg (290 lb) (verbal) Body mass index is 40.45 kg/(m^2). Constitutional- he is alert and oriented to person, place, time, and situation. he is in no apparentdistress. Ears, nose, mouth, throat - his head is Normocephalic, without obvious abnormality, atraumatic Integumentary - in general his skin shows normal coloration and turgor, no rashes, no suspicious skin lesions noted. Psychiatric - his affect was Appropriate. Musculoskeletal examination: Motor exam shows 5/5 strength in lateral deltoid muscles of the upper extremity. C-spine ++ stiff. Negative spurlings test. ++ scapula winging LEFT ?? Shoulder motion Active Passive Strength ?? Abduction 80 90 4/5 ?? Flexion 80 90 4/5 ?? Internal rotation belt line same 5/5 ?? External rotation 40 50 4/5 ?? Special Tests ?? Rotator cuff tests: ?? Amaya' test - Positive ?? Neer's test - Positive ?? Empty can test - Positive ?? Salem's test - N/A ?? Labrum tests ?? O'jf's test - unable to reliably assess due to pain and decreased ROM ?? Biceps tests ?? Speed's test - Positive ?? Yergason's test - Positive ?? AC joint tests ?? AC joint tenderness - Positive ?? Cross-arm test - Negative Imaging Studies: Plain radiographs - LEFT shoulder x-ray reviewed image by image in the office today with previous distal clavicle excision and previous labral repair anchor. Moderate DJD of the GH joint. MRI - none CT - none Impression & Plan: 60 y.o. year-old male with based upon history, physical exam, and imaging studies appears to have LEFT shoulder RTC weakness concerning for a RTC tear and chronic scapula winging. Dr Schultz looked in onthe patient and agrees with above. Treatment options and risks/benefits discussed from least to mostinvasive. Patient understands options. At this time, We recommend further imaging including an MRI scan of the LEFT shoulder and a new Neurology consult to assess the scapula winging including eval of the serratus anterior and reassess for owens's parsonage syndrome. See previous notation in EDH. Pt agrees, questions solicited/answered, will return as scheduled and as needed for concerns or questions. Pt understands they may also call us prn for above. F/u by telephone to discuss results. Pt agrees, questions solicited/answered, will return as scheduled and as needed for concerns or questions. Pt understands they may also call us prn for above. Please copy this note to: Cezar Montanez MD [address] [place] [id number] documented in this encounter Plan of Treatment Scheduled Referrals Name Type Priority Associated Diagnoses Order S chedule Referral to Outpatient Referral Routine Left shoulder pain, O rdered: Neurology unspecified 07/14/2016 chronicity Tear of left rotator cuff, unspecified tear extent Winging of scapula documented as of this encounter Results MRI Shoulder wo Contrast Left (Generic) (07/15/2016 7:18 AM EST) Anatomical Region Laterality Modality Shoulder Left Magnetic Resonance Specimen (Source) Anatomical Location Collection Method / Collectio n Time Received Time / Laterality Volume Impressions 07/15/2016 8:24 AM EST 1. ??Calcific tendinopathy and bursitis. 2. ??Low-grade bursal surface partial-th ickness tearing of the supraspinatus insertion. 3. ??Partial-thickness tearing at the trujillo perior margin of the subscapularis insertion associated with mild biceps trujillo bluxation. 4. ??Bicipital tendinopathy and longitud inal partial thickness tearing. 5. ??Glenohumeral arthropathy. Narrative 07/15/2016 8:24 AM EST EXAMINATION: MRI SHOULDER WO CONTRAST LEFT (GENERIC) CLINICAL HISTORY: Chronic LEFT shoulder pain and weakness. ??known previous labral repair and distal clavicle excisi on. ??Clinical exam is concerning for a Left shoulder RTC tear COMPARISON: X-rays 06/08/2016 TECHNIQUE: Routine noncontrast MR of the Left shoulder was performed. FINDINGS: ROTATOR CUFF OUTLET: A subacromial decompression has been pe rformed. No complication. The rotator cuff outlet is not narrowed. As seen on x-ray there is a deposit of c alcification at the superficial surface of the rotator cuff as seen on coronal i mages 18 and 19. Fluid is present in the adjacent bursa consistent with calcific tendinopathy and bursitis. ROTATOR CUFF: In the supraspinatus portion of the rot ator cuff insertion adjacent to the calcification, there is low-grade bursal surface partial-thickness tearing and tendinopathy. Anterior to the rotator cuff, a partial- thickness tear at the superior margin of the subscapularis insertion is associate d with slight medial subluxation of the biceps tendon. There is no associated muscular atrophy. . BICEPS TENDON: The intra-articular portion the biceps t endon is enlarged and increased in signal intensity consistent with tendino herrera and partial thickness tearing. GLENOHUMERAL JOINT: As seen on x-rays a suture anchor is pr esent at the anterior superior glenoid margin. No bone resorption or anchor dis placement is identified. Glenohumeral arthropathy is present. The re is a joint effusion and synovial proliferation. Marginal osteophytes are present. Multiple large defects in the articular cartilage are seen at both the humeral head and the glenoid. Subchondral cysts are seen at the inferi or and posterior margin of the glenoid. No displaced labral tear is identified. The posterior superior labrum is blunted and deformed consistent with degenerativ e tearing.. Procedure Note Erwin Landon MD - 07/15/2016Forma tting of this note might be different from the original. EXAMINATION: MRI SHOULDER WO CONTRAST LE FT (GENERIC) CLINICAL HISTORY: Chronic LEFT shoulder pain and weakness. known previous labral repair and distal clavicle excisi on. Clinical exam is concerning for a Left shoulder RTC tear COMPARISON: X-rays 06/08/2016 TECHNIQUE: Routine noncontrast MR of the Left shoulder was performed. FINDINGS: ROTATOR CUFF OUTLET: A subacromial decompression has been pe rformed. No complication. The rotator cuff outlet is not narrowed. As seen on x-ray there is a deposit of c alcification at the superficial surface of the rotator cuff as seen on coronal i mages 18 and 19. Fluid is present in the adjacent bursa consistent with calcific tendinopathy and bursitis. ROTATOR CUFF: In the supraspinatus portion of the rot ator cuff insertion adjacent to the calcification, there is low-grade bursal surface partial-thickness tearing and tendinopathy. Anterior to the rotator cuff, a partial- thickness tear at the superior margin of the subscapularis insertion is associate d with slight medial subluxation of the biceps tendon. There is no associated muscular atrophy. . BICEPS TENDON: The intra-articular portion the biceps t endon is enlarged and increased in signal intensity consistent with tendino herrera and partial thickness tearing. GLENOHUMERAL JOINT: As seen on x-rays a suture anchor is pr esent at the anterior superior glenoid margin. No bone resorption or anchor dis placement is identified. Glenohumeral arthropathy is present. The re is a joint effusion and synovial proliferation. Marginal osteophytes are present. Multiple large defects in the articular cartilage are seen at both the humeral head and the glenoid. Subchondral cysts are seen at the inferi or and posterior margin of the glenoid. No displaced labral tear is identified. The posterior superior labrum is blunted and deformed consistent with degenerativ e tearing.. IMPRESSION 1. Calcific tendinopathy and bursitis. 2. Low-grade bursal surface partial-thic kness tearing of the supraspinatus insertion. 3. Partial-thickness tearing at the supe rior margin of the subscapularis insertion associated with mild biceps trujillo bluxation. 4. Bicipital tendinopathy and longitudin al partial thickness tearing. 5. Glenohumeral arthropathy. Isaias Schultz MD [facility] documented in this encounter Visit Diagnoses Diagnosis Tear of left rotator cuff, unspecified t ear extent - Primary Left shoulder pain, unspecified chronici ty Winging of scapula, LEFT Other acquired deformity of other parts of limb Left shoulder pain, unspecified chronici ty Tear of left rotator cuff, unspecified t ear extent documented in this encounter Care Teams [employer] Care Center Manager Relationship Specialty Start Date End Date Rodolfo Penn MD PCP - General Family Medicine 10/12/[address] [place] [address] documented as of this encounter
--- OUTSIDE RECORDS SUMMARY | 2022-01-14 01:05 | XMS_ITS | Encounter Summary ---
:1955 Author Organization [facility] [place] [address] Care Team Providers Name Role Phone Rodolfo Penn MD Primary Care Provider [phone] Reason for Visit Reason Comments Left Shoulder Pain DOI 04/29/[birth year] Encounter Details Date Type Department Care Team Description 09/29/2016 [place] [facility] [place], ing of sc[place]ula, [facility] [place] [address] [place] [address] ORTHOPAEDIC SURGERY [place], [place] [address] Social History Tobacco Use Types [...] Sign Reading Time Taken Comments Blood Pressure 152/80 09/29/2016 10:10 AM EDT Pulse 80 09/29/2016 10:10 AM EDT Temperature - - Respiratory Rate - - Oxygen Saturation - - Inhaled Oxygen Concentration - - Weight 129.3 kg (285 lb) 09/29/2016 10:10 AM EDT stated Height 180.3 cm (5' 11) 09/29/2016 10:10 AM EDT stated Body Mass Index 39.75 09/29/2016 10:10 AM EDT documented in this encounter Progress Notes Annabel Mccormick PA - 09/29/2016 10:20 AM EDT Mr. Cain comes in today for a followup left shoulder pain with scapular winging, workman's comp; date of injury 04/29/98. He had received a subacromial injection last visit, which he states gave him about 25% relief of his pain. He is finding that working with Physical Therapy has improved his range of motion. They are doing needling, which he finds may be helpful also. He does occasionally feel some catching and some clicking and snapping, not always associated with pain, but sometimes it is quite painful. Overall, he does feel that he is doing better. Examination today shows forward elevation to 170 degrees, internal rotation to L4. I did not reassess his scapula winging today or his strength. IMPRESSION: Left shoulder pain, improving post subacromial injection and with physical therapy. TREATMENT: I have recommended that he continue with PT. We did discuss that occasionally we can repeat injections, but no sooner than 4 months if necessary. He is pleased with his progress thus far. We will see him back in 2-3 months for reexamination. We did discuss that after he finishes his course of formal PT, as he has had good result, it is possible that in the future he could benefit from returning to PT periodically. documented in this encounter Plan of Treatment Not on filedocumented as of this encounter Visit Diagnoses Diagnosis Winging of scapula, LEFT Other acquired deformity of other parts of limb documented in this encounter Care Teams Press Supervisor Relationship Specialty Start Date End Date Rodolfo Penn MD PCP - General Family Medicine 10/12/[address] [place] [address] [address] [place] [address] documented as of this encounter
--- OUTSIDE RECORDS SUMMARY | 2022-01-14 01:05 | XMS_ITS | Encounter Summary ---
:1955 Author Organization [facility] [place] [address] Care Team Providers Name Role Phone Rodolfo Penn MD Primary Care Provider [phone] Encounter Details Date Type Department Care Team Description 10/23/2018 Hospital Encounter [facility] [place] [facility] Rodolfo Penn Other shoulder [address] [place] [address] Dr Maddison MD lesions, right [place], [place] [address] [address] [place], [place] [id number] Social History Tobacco Use Types Packs/Day Years [...] Date FLUARIX QUAD inject 0.5 milliliter 0 03/28/2018 [id number], PF, 60 mcg intramuscularly (15 mcg x [...] GLUC/MICHELLE-MSM#1/VIT Take by mouth daily. 0 C/DANITZA/BOR (HFZPCAARLCT-FRFVS-NMD COMPLEX ORAL) amitriptyline (ELAVIL) TAKE ONE TABLET [...] Priority Date/Time Associated Diagnosis Comme nts XR CERVICAL SPINE 2 Routine 10/23/2018 11:10 AM Other shoulder Results for this OR 3 VIEWS EDT lesions, right procedure are in shoulder the results section. documented in this encounter Results XR Cervical Spine 2 Or 3 Views (10/23/2018 11:10 AM EDT) Anatomical Region Laterality Modality C-spine N/A Digital Radiography Specimen (Source) Anatomical Location Collection Method / Collectio n Time Received Time / Laterality Volume Impressions 10/23/2018 1:57 PM EDT Severe cervical spondylosis Thank you for letting us participate in the care of this patient. For questions regarding this report, please contact e number below. ? Narrative 10/23/2018 1:57 PM EDT EXAMINATION: XR CERVICAL SPINE 2 OR 3 VIEWS CLINICAL HISTORY: right shoulder tendoni tis TECHNIQUE: 2 views of the cervical spine COMPARISON: None FINDINGS: There is severe mid and lower cervical s pondylosis with multilevel zjlt-lr-dkqtluct disc space narrowing fr om C3 3 to C7 and large marginal osteophytes on the vertebral bodies. Je tebral body alignment is normal. No acute injury is seen. Large area of hete rotopic ossification in the nuchal ligament posterior to C4-5. Degenerative arthropathy of the C2-3 and C3-4 facet joints in particular. Procedure Note Janneth Heath MD - 10/23/2018Formattin g of this note might be different from the original. EXAMINATION: XR CERVICAL SPINE 2 OR 3 EWS CLINICAL HISTORY: right shoulder tendoni tis TECHNIQUE: 2 views of the cervical spine COMPARISON: None FINDINGS: There is severe mid and lower cervical s pondylosis with multilevel bzlh-dw-rokxsfac disc space narrowing fr om C3 3 to C7 and large marginal osteophytes on the vertebral bodies. Je tebral body alignment is normal. No acute injury is seen. Large area of hete rotopic ossification in the nuchal ligament posterior to C4-5. Degenerative arthropathy of the C2-3 and C3-4 facet joints in particular. IMPRESSION Severe cervical spondylosis Thank you for letting us participate in the care of this patient. For questions regarding this report, please contact e number below. Rodolfo Penn MD IMG DX ORDERABLES documented in this encounter Visit Diagnoses Diagnosis Other shoulder lesions, right shoulder documented in this encounter Care Teams Supervisor Partial Denture Department Relationship Specialty Start Date End Date Rodolfo Penn MD PCP - General Family Medicine 10/12/[address] [place] [address] documented as of this encounter
--- OUTSIDE RECORDS SUMMARY | 2022-01-14 01:05 | XMS_ITS | Encounter Summary ---
:1955 Author Organization [facility] [place] [address] Care Team Providers Name Role Phone Rodolfo Penn MD Primary Care Provider [phone] Encounter Details Date Type Department Care Team Description 07/14/2016 Orders Only Orthopaedics at [facility] [address] Social History Tobacco Use Types Packs/Day [...] on filedocumented in this encounter Care Teams Grain Manager Relationship Specialty Start Date End Date Rodolfo Penn MD PCP - General Family Medicine 10/12/[address] [place] [address] documented as of this encounter
--- OUTSIDE RECORDS SUMMARY | 2022-01-14 01:05 | XMS_ITS | Encounter Summary ---
:1955 Author Organization [facility] [place] [address] Care Team Providers Name Role Phone Rodolfo Penn MD Primary Care Provider [phone] Reason for Visit Reason Onset Date Comments Appointment 03/02/2017 Encounter Details Date Type Department Care Team Description 03/02/2017 Telephone [place] [facility] Isaias Schultz MD Appointment [facility] [place] [address] ORTHOPAEDIC SURGERY [phone] [place], [place] [address] (Wo rk) Social History Tobacco Use Types Packs/Day Years Used Date Former Smoker Cigarettes 1.5 20 Quit: 11/01/18 96 Smokeless Tobacco: Never Used Alcohol Use Standard Drinks/Week Comments No 0 (1 standard drink = 0.6 oz pure alcoho l) Sex Assigned at Date Recorded Not on file documented as of this encounter Miscellaneous Notes Telephone Encounter - Salome Gale - 03/02/2017 12:00 PM EDT Patient received a call from [facility] not sure if it was ortho. Telephone Encounter - Edd Collier - 03/02/2017 8:23 AM EDT Patient called and scheduled a follow up appointment with Dr. Schultz documented in this encounter Plan of Treatment Not on filedocumented as of this encounter Visit Diagnoses Not on filedocumented in this encounter Care Teams Master Cook Relationship Specialty Start Date End Date Rodolfo Penn MD PCP - General Family Medicine 10/12/[address] [place] [address] documented as of this encounter
--- OUTSIDE RECORDS SUMMARY | 2022-01-14 01:05 | XMS_ITS | Encounter Summary ---
:1955 Author Organization [facility] [place] [address] Care Team Providers Name Role Phone Rodolfo Penn MD Primary Care Provider [phone] Reason for Visit Reason Onset Date Comments Injections 10/04/2018 Encounter Details Date Type Department Care Team Description 10/04/[address] [facility] Huong Faulkner PA Injections [facility] D rive [facility] [place] [address] ORTHOPAEDIC SURGERY [phone] [place] [address] (Wo rk) Social History Tobacco Use Types Packs/Day Years Used Date Former Smoker Cigarettes 1.5 20 Quit: 11/01/18 96 Smokeless Tobacco: Never Used Alcohol Use Standard Drinks/Week Comments No 0 (1 standard drink = 0.6 oz pure alcoho l) Sex Assigned at Date Recorded Not on file documented as of this encounter Miscellaneous Notes Telephone Encounter - Ocatvia Garland - 10/04/2018 11:35 AM EDT Left a detailed message about injection on 10/23/18. Unsure if Nina Bourne is available that day tocomplete the injection. Telephone Encounter - Lacy Ryan - 10/04/2018 10:21 AM EDT Best phone # to reach patient for scheduling: Best days/times to schedule the appointment: Patient would like to coordinate this fluoro guided injection with another appointment he has here at [facility] on 10/23/18. Patient said that he has been getting his injections with fluoro done by Dr. Bourne and he would like to request this dr when scheduling with fluoro. Is it acceptable to leave a voicemail message with your appointment if we are unable to reach you directly? Yes Patient requests appointment for injection of the Left shoulder. Patient requests an injection of (product type: cortisone/Synvisc/Monovisc/other): Fluoro documented in this encounter Plan of Treatment Not on filedocumented as of this encounter Results XR Fluoro Guided Joint [...] contact e number below. ? Narrative 10/23/2018 12:58 PM EDT HISTORY: left shoulder pain please inject glenohumeral joint LEFT SHOULDER GH JOINT INJECTION UNDER F LUOROSCOPY TECHNIQUE: After an extensive conversation with the patient regarding risks and benefits, oral and written consent were obtained.? A pre- procedural time-out was performed, including review of the patie nt's relevant electronic medical record and allergies, as per [facility] protocol. The patient was placed supine [...] reviewed with patient. Procedure Note Nina Bourne, CENTER HUMAN RESOURCES MANAGER - 10/23/2018Forma tting of this note might [...] electronic medical record and allergies, as per [facility] protocol. The patient was placed supine [...] left shoulder Pain in joint, shoulder region Chronic pain in left shoulder Pain in joint, shoulder region documented in this encounter Care Teams Transit Coach Operator Relationship Specialty Start Date End Date Rodolfo Penn MD PCP - General Family Medicine 10/12/[address] [place] [address] documented as of this encounter
--- OUTSIDE RECORDS SUMMARY | 2022-01-14 01:05 | XMS_ITS | Encounter Summary ---
:1955 Author Organization [facility] [place] [address] Care Team Providers Name Role Phone Rodolfo Penn MD Primary Care Provider [phone] Reason for Referral Consultation (Routine) - Closed Specialty Diagnoses / Procedures Referred By Contact Refer red To Contact Pain Management Diagnoses Chronic pain in left shoulder Huong Faulkner PA [facility] [address] [place] [address] [facility] [place] [address] [place] [address] Fax: Referral ID Status Reason Start Date Expiration Date Visits V isits Requested Authorized [id number] Closed Consult, 04/27/2018 04/27/2019 1 1 Test & Treat Encounter Details Date Type Department Care Team Description 04/27/2018 Orders Only [place] [facility] Huong Faulkner Chronic pain in left [facility] [place] [address] ORTHOPAEDIC SURGERY [place], [place] [address] Social History Tobacco Use Types [...] Associated Diagnoses Order S chedule Referral to Pain Outpatient Referral Routine Chronic pain in l eft Ordered: Clinic shoulder 04/27/2018 documented as of this encounter Visit Diagnoses Diagnosis Chronic pain in left shoulder Pain in joint, shoulder region documented in this encounter Care Teams Professor Of Chemical Engineering Relationship Specialty Start Date End Date Rodolfo Penn MD PCP - General Family Medicine 10/12/[address] [place] [address] [address] [place] [address] documented as of this encounter
--- OUTSIDE RECORDS SUMMARY | 2022-01-14 01:05 | XMS_ITS | Encounter Summary ---
:1955 Author Organization [facility] [place] [address] Care Team Providers Name Role Phone Rodolfo Penn MD Primary Care Provider [phone] Encounter Details Date Type Department Care Team Description 07/19/2016 External Results Neurology at [facility] Nicolas Vargas MD [facility] [place] [address] [place] [address] [phone] (Wo rk) Social History Tobacco Use Types [...] Name Priority Date/Time Associated Diagnosis Comme nts EMG SCAN Routine 07/15/2016 documented in this encounter Results Scan Doc: EMG (07/15/2016) Narrative This result has an attachment that is no t available. Nicolas Vargas MD MEDIA MGR SCAN EXT ORDR/RSLT documented in this encounter Visit Diagnoses Not on filedocumented in this encounter Care Teams Echo Vascular Tech Relationship Specialty Start Date End Date Rodolfo Penn MD PCP - General Family Medicine 10/12/[address] [place], [place] [address] documented as of this encounter
--- OUTSIDE RECORDS SUMMARY | 2022-01-14 01:05 | XMS_ITS | Encounter Summary ---
:1955 Author Organization [facility] [place] [address] Care Team Providers Name Role Phone Rodolfo Penn MD Primary Care Provider [phone] Reason for Visit Reason Onset Date Comments Appointment 12/01/2017 Encounter Details Date Type Department Care Team Description 12/01/2017 Telephone Orthopaedics at [facility] Huong Faulkner PA Appointment [facility] [place] [address] ORTHOPAEDIC SURGERY [phone] [place] [address] (Wo rk) Social History Tobacco Use Types Packs/Day Years Used Date Former Smoker Cigarettes 1.5 20 Quit: 11/01/18 96 Smokeless Tobacco: Never Used Alcohol Use Standard Drinks/Week Comments No 0 (1 standard drink = 0.6 oz pure alcoho l) Sex Assigned at Date Recorded Not on file documented as of this encounter Miscellaneous Notes Telephone Encounter - Salome Gale - 12/11/2017 8:06 AM EDT 1.) Does patient have any medication allergies?no (yes/no) If the answer is yes, what are they? 2.) Patient???s approximate weight in lbs.285 3.) Does the patient have any contrast/dye allergies?no 4.) Does the patient have a skidder driver for this procedure?yes 5.) Has patient had any procedures in the past 3 months?no 6.) Is this patient ambulatory?yesyes/no) 7.) Is the patient currently taking any blood thinner medications?no 8.) Has this patient has replacement surgery of the area we are performing the procedure on?no Telephone Encounter - Octavia Garland - 12/06/2017 9:11 AM EDT Attempt #2 to call to schedule an injection under fluoro-no answering machine Telephone Encounter - Annabel Strauss - 12/04/2017 10:29 AM EDT Attempt #1 to call to schedule an injection under fluoro-no answering machine Telephone Encounter - Huong Faulkner PA - 12/01/2017 4:22 PM EDT I called Mr. Cain to discuss his treatment options for his left shoulder. I reviewed his most recent x-rays with Dr. Schultz. His arthritis has progressed over the past year. At this point it appears that shoulder arthroplasty would be more reliable for treatment as opposed to arthroscopic debridement. If he finds that cortisone injections provide adequate pain relief he can also continue with injections as needed. He would like to schedule a fluoroscopy guided glenohumeral cortisone injection. These can be repeated up to every 4 months as long as they remain helpful. If he does not have adequate pain relief he should contact the clinic to discuss shoulder replacement in more detail. documented in this encounter Plan of Treatment Not on filedocumented as of this encounter Visit Diagnoses Not on filedocumented in this encounter Care Teams Salon Customer Experience Specialist Relationship Specialty Start Date End Date Rodolfo Penn MD PCP - General Family Medicine 10/12/[address] [place] [address] documented as of this encounter
--- OUTSIDE RECORDS SUMMARY | 2022-01-14 01:05 | XMS_ITS | Encounter Summary ---
:1955 Author Organization [facility] [place] [address] Care Team Providers Name Role Phone Rodolfo Penn MD Primary Care Provider [phone] Reason for Visit Reason Onset Date Comments Medication Refill 06/15/2018 Encounter Details Date Type Department Care Team Description 06/15/2018 Refill Pain Management at [facility] [place] [address] Social History Tobacco Use Types Packs/Day Years Used Date Former Smoker Cigarettes 1.5 20 Quit: 11/01/18 96 Smokeless Tobacco: Never Used Alcohol Use Standard Drinks/Week Comments No 0 (1 standard drink = 0.6 oz pure alcoho l) Sex Assigned at Date Recorded Not on file documented as of this encounter Miscellaneous Notes Telephone Encounter - Abner Valdivia RN - 06/15/2018 9:48 AM EST Medication Preauthorization Request Patient: Joseluis Cain [id number] Request received to obtain prior authorization for Lidocaine patch prescribed by Natalie Viramontes . RX insurance plan: [place] Medicare RX insurance telephone: Patient Diagnosis: LEFT SHOULDER/NECK PAIN Previous medications attempted: TYLENOL, ASPERCREME, IBUPROFEN The following action was taken after discussion with the manager field services: Prior auth sent to [place] Medicare documented in this encounter Plan of Treatment Not on filedocumented as of this encounter Visit Diagnoses Not on filedocumented in this encounter Care Teams Vp Outcomes Relationship Specialty Start Date End Date Rodolfo Penn MD PCP - General Family Medicine 10/12/[address] [place] [address] [address] [place] [address] documented as of this encounter
--- OUTSIDE RECORDS SUMMARY | 2022-01-14 01:05 | XMS_ITS | Encounter Summary ---
:1955 Author Organization [place] [address] Care Team Providers Name Role Phone Rodolfo Penn MD Primary Care Provider [phone] Reason for Visit Reason Onset Date Comments Appointment 12/27/2016 Encounter Details Date Type Department Care Team Description 12/27/2016 Telephone [facility]edics at [facility] Isaias Schultz MD Appointment [facility] [place] [address] ORTHOPAEDIC SURGERY [phone] [place], [place] [address] (Wo rk) Social History Tobacco Use Types Packs/Day Years Used Date Former Smoker Cigarettes 1.5 20 Quit: 11/01/18 96 Smokeless Tobacco: Never Used Alcohol Use Standard Drinks/Week Comments No 0 (1 standard drink = 0.6 oz pure alcoho l) Sex Assigned at Date Recorded Not on file documented as of this encounter Miscellaneous Notes Telephone Encounter - Irma Mcdonald - 12/29/2016 12:40 PM EDT PATIENT SCHEDULED Telephone Encounter - Irma Mcdonald - 12/27/2016 2:55 PM EDT LM#1 to schedule follow up with Dr Schultz in 6 wks (02/02/17) for NXR L SHOULDER PAIN WC DOI 04/29/98. documented in this encounter Plan of Treatment Not on filedocumented as of this encounter Visit Diagnoses Not on filedocumented in this encounter Care Teams Administrative Office Specialist Relationship Specialty Start Date End Date Rodolfo Penn MD PCP - General Family Medicine 10/12/[address] [place] [address] documented as of this encounter
--- OUTSIDE RECORDS SUMMARY | 2022-01-14 01:05 | XMS_ITS | Encounter Summary ---
:1955 Author Organization [facility] [place] [address] Care Team Providers Name Role Phone Rodolfo Penn MD Primary Care Provider [phone] Reason for Visit Reason Onset Date Comments Appointment 02/24/2017 Encounter Details Date Type Department Care Team Description 02/24/2017 Telephone Orthopaedics at [facility] [place] Isaias Schultz MD App[place]ment [place] [address] ORTHOPAEDIC SURGERY [phone] [place], [place] [address] (Wo rk) Social History Tobacco Use Types Packs/Day Years Used Date Former Smoker Cigarettes 1.5 20 Quit: 11/01/18 96 Smokeless Tobacco: Never Used Alcohol Use Standard Drinks/Week Comments No 0 (1 standard drink = 0.6 oz pure alcoho l) Sex Assigned at Date Recorded Not on file documented as of this encounter Miscellaneous Notes Telephone Encounter - Octavia Garland - 03/01/2017 10:09 AM EDT Unable to contact patient. Sent Letter Telephone Encounter - Octavia Garland - 02/27/2017 11:56 AM EDT LM#2 to schedule a follow up appointment with Dr [facility]. Workers' Comp wants him to be seen again at next available. NXR L SHOULDER PAIN WC DOI 04/29/98 Telephone Encounter - Dina Street - 02/24/2017 2:15 PM EDT Images from the original note were not included. Please see note below when speaking to patient Conversation: Appointment (Newest Message First) Sharon Dupree RN to [facility] [place] ?? 02/24/17 2:10 PM This was from Dr. Schultz's last night, We previously discussed with him the potential of arthroscopy for debridement. ??Patient is considering that but would like to try other measures first if possible. ??We did discuss massage therapy, and he would like to try that. ??Referral is given. ??He will go near his home. He believes that this is available to him,at a physical therapy facility near his home. ??He will continue on a home exercise program. ??He may also benefit from acupuncture, but I have asked him to give the massage therapy a couple of months on its own before we add anything different, and he was comfortable with that. ??We left followup on a somewhat p.r.n. basis. ??We said we would give the massage therapy and possible acupuncture about 6 months, and if he is still having problems he will follow up with Dr. Schultz at that time, and we could still consider Arthroscopy.. It appears he wanted to have patient work with therapy and acupuncture for 6 months to see if that helped and then if not consider an arthroscopy. If is requesting patient to be seen again please schedule on a [place] clinic day. Thanks, Leticia A Telephone Encounter - Lior Dietrich - 02/24/2017 1:44 PM EDT Noemi Corbett called and said we have to schedule a follow up appointment for Joseluis for employer work capability. Please advise the next step as this is a work comp claim and they need to know ability and if patient is at medical end point. Any new images needed or an order for OT? documented in this encounter Plan of Treatment Not on filedocumented as of this encounter Visit Diagnoses Not on filedocumented in this encounter Care Teams Supervisor Electrolytic Tinning Relationship Specialty Start Date End Date Rodolfo Penn MD PCP - General Family Medicine 10/12/15 [address] [place] [address] documented as of this encounter
--- OUTSIDE RECORDS SUMMARY | 2022-01-14 01:05 | XMS_ITS | Encounter Summary ---
:1955 Author Organization [facility] Address [address] [place] [address] Care Team Providers Name Role Phone Rodolfo Penn MD Primary Care Provider [phone] Reason for Visit Reason Comments Left Shoulder Pain DOI 04/29/98 Encounter Details Date Type Department Care Team Description 12/22/2016 Office Visit Orthopaedics at [facility] Isaias Schultz, Left shoulder pain, [facility] [address] [place] [address] CENTER [phone] ORTHOPAEDIC SURGERY [place], [place] [address] Social History Tobacco Use Types [...] Sign Reading Time Taken Comments Blood Pressure 173/95 12/22/2016 9:02 AM EDT Pulse 78 12/22/2016 9:02 AM EDT Temperature - - Respiratory Rate - - Oxygen Saturation - - Inhaled Oxygen Concentration - - Weight 131.5 kg (290 lb) 12/22/2016 9:02 AM EDT sated Height 180.3 cm (5' 11) 12/22/2016 9:02 AM EDT sataefd Body Mass Index 40.45 12/22/2016 9:02 AM EDT documented in this encounter Progress Notes Huong Faulkner PA - 12/22/2016 8:55 AM EDT PATIENT NAME: Joseluis Cain AGE: 61 y.o. MR#: [id number] DATE OF VISIT: 12/22/2016 DATE OF INJURY/ONSET: 04/29/1998 (worker's comp) STAFF: Dr. Schultz CHIEF COMPLAINT: follow up left shoulder pain HISTORY OF PRESENT ILLNESS: Mr. Cain is a 61 y.o. year old male who comes into clinic today for follow up regarding the left shoulder. He was last seen in September. At that time shoulder was still feeling good following his subacromial cortisone injection. He has since finished his physical therapy. He states the shoulder pain has now returned. He has very generalized pain that is difficult to localize. He states that more recently he has had pain over the anterior aspect of the shoulder that is also associated with some clicking. He finds that he has increased pain in the shoulder with weightbearingactivity. He continues to remain out of work. PHYSICAL EXAM: Mr. Cain is alert and oriented. He is in no acute discomfort and is resting comfortably in the exam room. Inspection: No erythema, ecchymosis, or swelling over the left shoulder. Palpation: He has multiple areas of tenderness, but does have some pain over the anterior glenohumeral joint line. He also has some pain posteriorly over the infraspinatus. When his symptoms are exacerbated he has pain that radiates to the upper trapezius and into the neck. ROM/Strength: He is able to perform active and passive forward flexion to 150?? with pain at end range. His external rotation is to 45??, internal rotation is to L5. He has 5/5 rotator cuff strength inall planes, but has pain with resisted range of motion. Neurovascular: He has intact sensation over the shoulder. He states that he has tingling extends into his hand and he was found to have median and ulnar neuropathy on his previous nerve conduction studies. Hand is well perfused. DIAGNOSTIC STUDIES: Previous imaging was reviewed. His x-rays and MRI showed some mild glenohumeral arthritis. He also has some posterior labral pathology. There is no obvious full-thickness rotator cuff tear. His nerve conduction studies also suggested that there was compression of the suprascapular nerve based on EMG changes in the infraspinatus. ASSESSMENT: Chronic left shoulder pain with calcific rotator cuff tendinitis and mild glenohumeral arthritis, question of additional suprascapular nerve involvement PLAN: Dr. Schultz also evaluated and spoke with the patient at today's visit. We recommended that he obtain a fluoroscopy guided glenohumeral cortisone injection for diagnostic and therapeutic purposes. His anterior shoulder pain seems to be related more to arthritis. If he has good symptom relief after his glenohumeral injection he could potentially repeat these periodically as needed. We would also consider repeat shoulder arthroscopy for clinical humeral debridement. His worker's comp paperwork was filled out today. He will continue to remain out of work. He will return for follow up in 6 weeks. The patient understands to contact us if they have any other questions or concerns. The above documentation was completed using [employer] voice recognition software. documented in this encounter [...] pre- procedural time-out was performed as per [facility] protocol. The patient was placed supine on [...] space. 2. ??PAIN SCORE: ??Before: 6/10 ??After: 6/10 3. Fluoroscopy time: 0.05 minutes 4. [...] pre- procedural time-out was performed as per [facility] protocol. The patient was placed supine on [...] I performed this procedure. Isaias Schultz MD IMG FLUORO ORDERABLES documented in this encounter Visit Diagnoses Diagnosis Left shoulder pain, unspecified chronici ty Left shoulder pain, unspecified chronici ty documented in this encounter Care Teams Shag Truck Driver Relationship Specialty Start Date End Date Rodolfo Penn MD PCP - General Family Medicine 10/12/[address] [place] [address] documented as of this encounter
--- OUTSIDE RECORDS SUMMARY | 2022-01-14 01:05 | XMS_ITS | Encounter Summary ---
:1955 Author Organization [facility] [place] [address] Care Team Providers Name Role Phone Rodolfo Penn MD Primary Care Provider [phone] Encounter Details Date Type Department Care Team Description 09/05/2018 Telephone Pain Management at Ava Schmitz, [place] [address] Social History Tobacco Use Types Packs/Day Years Used Date Former Smoker Cigarettes 1.5 20 Quit: 11/01/18 96 Smokeless Tobacco: Never Used Alcohol Use Standard Drinks/Week Comments No 0 (1 standard drink = 0.6 oz pure alcoho l) Sex Assigned at Date Recorded Not on file documented as of this encounter Miscellaneous Notes Telephone Encounter - Ava Franco RN - 09/05/2018 7:43 AM EDT Incoming fax from [employer] requesting a prior auth sent twice. Nurse called pharmacy and advisedthis is workers comp and we don't prior auth for workers comp. chemical treatment plant technician states Not sure why you received that as we have workers comp listed also and we will make another note of this just disregard the fax. documented in this encounter Plan of Treatment Not on filedocumented as of this encounter Visit Diagnoses Not on filedocumented in this encounter Care Teams Labor Law Professor Relationship Specialty Start Date End Date Rodolfo Penn MD PCP - General Family Medicine 10/12/[address] [place] [address] documented as of this encounter
--- OUTSIDE RECORDS SUMMARY | 2022-01-14 01:05 | XMS_ITS | Encounter Summary ---
:1955 Author Organization [facility] [address] Care Team Providers Name Role Phone Rodolfo Penn MD Primary Care Provider [phone] Encounter Details Date Type Department Care Team Description 12/26/2017 Hospital Encounter XRay at [facility] Isaias Schultz [facility] [address] [place] arthritis, [facility] [address] [place] [phone] [place] [address] Social History Tobacco Use Types Packs/Day Years Used Date Former Smoker Cigarettes 1.5 20 Quit: 11/01/18 96 Smokeless Tobacco: Never Used Alcohol Use Standard Drinks/Week Comments No 0 (1 standard drink = 0.6 oz pure alcoho l) Sex Assigned at Date Recorded Not on file documented as of this encounter Medications at Time of Discharge Medication Sig Dispensed Refills Start Date End Date acetaminophen (TYLENOL) Take 650 mg by mouth 0 325 mg Tablet 2 times daily as needed. biotin 300 mcg Tablet Take by mouth daily. 0 zolpidem (AMBIEN) 10 mg Take 10 mg by mouth 0 Tablet nightly as needed for Sleep. multivitamin (THERAGRAN) Take 1 tablet by 0 tablet mouth daily. omeprazole (PRILOSEC) 20 Take 20 mg by mouth 0 mg capsule daily as needed. Reported on 12/22/2016 GLUC/MICHELLE-MSM#1/VIT Take by mouth daily. 0 C/DANITZA/BOR ([id number] COMPLEX ORAL) lisinopril-hydrochlorothi Take 1 tablet by 0 02/2610/26/2018 azide mouth daily. (PRINZIDE;ZESTORETIC) 10-12.5 mg Tablet magnesium 250 mg Tablet Take 250 mg by mouth 0 10/26/2018 daily. documented as of this encounter Plan of Treatment Not on filedocumented as of this encounter Procedures Procedure Name Priority Date/Time Associated Diagnosis Comme nts XR FLUORO INJECTION Routine 12/26/2017 10:04 Glenohumeral Resu lts for this DRAINAGE JOINT LG AM EDT arthritis, left procedu re are in LEFT the results section. documented in this encounter Results XR Fluoro Guided Joint Injection Large Left (12/26/2017 10:04 AM EDT) Anatomical Region Laterality Modality Left Radio Fluoroscopy Specimen (Source) Anatomical Location Collection Method / Collectio n Time Received Time / Laterality Volume Impressions 12/26/2017 12:38 PM EDT Uneventful left shoulder GH joint injection under fluoroscopy. Resident/Fellow: None Attending: There was no attending presen t for this procedure Procedure performed by WILFREDO Banks RN Narrative 12/26/2017 12:38 PM EDT HISTORY: Left shoulder pain LEFT SHOULDER GH JOINT INJECTION UNDER F LUOROSCOPY TECHNIQUE: After an extensive conversation with the patient regarding risks and benefits, oral and written consent were obtained.? A pre- procedural time-out was performed, including review of the patie nt's relevant electronic medical record and allergies, as per [facility] protocol. The patient was placed supine on [...] shoulder joint space. 2. ??PAIN SCORE: ??Before: 5/10 ??After: 3/10 3. Fluoroscopy time: 0.07 minutes 4. Medications: ??Lidocaine 1% - <5 ml, for subcutaneou s anesthesia ??Ropivacaine HCL ??0.5% - 3 ml ??Triamciolone Acetonide ??- 40 mg COMPLICATIONS: ??None immediate. POST-PROCEDURE CARE: Information regardi ng monitor of infection, post- procedural pain and management of steroi d flare were reviewed with patient. Procedure Note Nina Bourne, ABSTRACTOR - 12/26/2017Forma tting of this note might be different from the original. HISTORY: Left shoulder pain LEFT SHOULDER GH JOINT INJECTION UNDER F LUOROSCOPY TECHNIQUE: After an extensive conversation with the patient regarding risks and benefits, oral and written consent were obtained.? A pre- procedural time-out was performed, including review of the patie nt's relevant electronic medical record and allergies, as per [facility] protocol. The patient was placed supine on [...] shoulder joint space. 2. PAIN SCORE: Before: 5/10 After: 3/10 3. Fluoroscopy time: 0.07 minutes 4. Medications: Lidocaine 1% - <5 [...] procedure Procedure performed by WILFREDO Banks RN Isaias Schultz MD IMG FLUORO ORDERABLES documented in this encounter Visit Diagnoses Diagnosis Glenohumeral arthritis, left documented in this encounter Administered Medications Inactive Administered Medications - up to 3 most recent administrations Medication Order MAR Action Action Date Dose Rate Site ROpivacaine (PF) 5 mg/mL Given 12/26/2017 10:15 03- Shoulder (Left) (0.5 %) 4 mL with AM EDT triamcinolone acetonide 40 mg injection Intra-articular, ONCE, 1 dose, On Mon12/26/17 at 1030 documented in this encounter Care Teams Core Winder Machine Operator Relationship Specialty Start Date End Date Rodolfo Penn MD PCP - General Family Medicine 10/12/15 [address] [place] [address] documented as of this encounter
--- OUTSIDE RECORDS SUMMARY | 2022-01-14 01:05 | XMS_ITS | Encounter Summary ---
:1955 Author Organization [facility] [place] [address] Care Team Providers Name Role Phone Rodolfo Penn MD Primary Care Provider [phone] Encounter Details Date Type Department Care Team Description 03/22/2017 Telephone Care [place] [address] Social History Tobacco Use Types Packs/Day Years Used Date Former Smoker Cigarettes 1.5 20 Quit: 11/01/18 96 Smokeless Tobacco: Never Used Alcohol Use Standard Drinks/Week Comments No 0 (1 standard drink = 0.6 oz pure alcoho l) Sex Assigned at Date Recorded Not on file documented as of this encounter Miscellaneous Notes Telephone Encounter - Ana Garcia MSW - 03/22/2017 5:35 PM EDT [facility] 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 CLAIM # [id number] DOI: 04/29/98 INSURANCE COMAPANY: [employer] CONTACT: DAWN WC PHONE: DAWN WC FAX: TBD Pt Basket Hand Braider: Luci Perez phone: [phone] CCM returned call from pt geodetic survey director who wonders if insurance requested pt be seen earlier than scheduled by Dr Schultz. CCM reviewed chart and called and left vm for geodetic survey director indicated that Dr Schultz's office indicated return PRN. It is possible that earlier appointment was scheduled per insurance company. documented in this encounter Plan of Treatment Not on filedocumented as of this encounter Visit Diagnoses Not on filedocumented in this encounter Care Teams Spoon Maker Relationship Specialty Start Date End Date Rodolfo Penn MD PCP - General Family Medicine 10/12/15 [address] [place] [address] documented as of this encounter
--- OUTSIDE RECORDS SUMMARY | 2022-01-14 01:05 | XMS_ITS | Encounter Summary ---
:1955 [place] [address] Care Team Providers Name Role Phone Rodolfo Penn MD Primary Care Provider [phone] Reason for Visit Reason Onset Date Comments Pre Procedure Call 07/03/2018 Encounter Details Date Type Department Care Team Description 07/03/2018 Telephone Pain Management at Александр Salcedo, [place] [address] Social History Tobacco Use Types Packs/Day Years Used Date Former Smoker Cigarettes 1.5 20 Quit: 11/01/18 96 Smokeless Tobacco: Never Used Alcohol Use Standard Drinks/Week Comments No 0 (1 standard drink = 0.6 oz pure alcoho l) Sex Assigned at Date Recorded Not on file documented as of this encounter Miscellaneous Notes Telephone Encounter - Александр Salcedo, HOME COORDINATOR - 07/03/2018 1:12 PM EST Joseluis Cain :1955 Contact made with patient: I spoke to Mr. Cain at 1:12 PM regarding his upcoming Left cervical medial branch block scheduledon 07/04/18 (date) scheduled at 8:45 (time) with Dr. Mechelle Wallace MD. Medication and Allergy reconciliation: 1. Changes were made in the telephone encounter per patient; marked as reviewed, and closed. 2. Patient confirmed no IVP dye allergy. 3. Have you had any steroid injections anywhere in your body within the last two weeks? no Arrival time: The patient was instructed to arrive at 8:15 (30 minutes prior to procedure start time - 60 minutes prior for RF patients with a pacemaker) on 07/04/18 (date of procedure). Agriculturist: The patient was reminded that they need to have a farm truck driver accompany them to his procedure who will remain onsite. Antibiotics/Skin assessment/Illness symptoms/Pain level assessment : 1. The patient confirmed that he is not taking antibiotics at this time. 2. The patient confirmed that he does not have any rashes, blisters, or skin breakdown on their body. 3. The patient confirmed that he does not have any active infections. 4. The patient confirmed that he does not have any symptoms of illness: fever, chills, cold, flu, nausea, vomiting. 5. The patient confirmed that he isstill experiencing significant pain. (Significant pain is definedas interfering with performing ADL.) Pain and Anti-anxiety Medications: 1. Nerve Block Procedure Patients: Patient was instructed NOT to take their pain medications on the day of the procedure and anti-anxiety medications are part of their daily medication regiment; they can and should continue taking that medication. 2. All Other Procedure Patients: The patient was instructed that if they take daily pain or anti-anxiety medications, they can and should continue taking on the day of the procedure. Does patient have history of any diagnosed bleeding disorders: No Anticoagulants: No NSAIDs: Does the patient take Aspirin/ASA? No Does the patient take an NSAID? No Diabetic instructions: Patient was advised to inform their PCP regarding safe fasting and the NPO requirements for their upcoming procedure and given the [facility] Nurse Triage Line . Implant: Patient has pacemaker/defibrillator: No Prior to checking in at [employer] Outboard Motorboat Operator, please be sure to empty your bladder. Patient confirmed understanding that if they do not follow the above their instructions, their procedure is likely to be cancelled. LAVERN Longoria documented in this encounter Plan of Treatment Not on filedocumented as of this encounter Visit Diagnoses Not on filedocumented in this encounter Care Teams Fruit Harvest Worker Relationship Specialty Start Date End Date Rodolfo Penn MD PCP - General Family Medicine 10/12/[address] [place], [place] [address]Y [facility] [address] [place] [address] documented as of this encounter
--- OUTSIDE RECORDS SUMMARY | 2022-01-14 01:05 | XMS_ITS | Encounter Summary ---
:1955 Author Organization [facility] [place] [address] Care Team Providers Name Role Phone Rodolfo Penn MD Primary Care Provider [phone] Encounter Details Date Type Department Care Team Description 12/01/2017 Orders Only Orthopaedics at [facility] Huong Faulkner [facility] [place] arthritis, [place] [address] CENTER [phone] ORTHOPAEDIC SURGERY [place] [id number] Social History Tobacco Use Types Packs/Day Years [...] t for this procedure Procedure performed by WILFREOD Banks RN Narrative 12/26/2017 12:38 PM EDT HISTORY: Left shoulder pain LEFT SHOULDER GH JOINT INJECTION UNDER F LUOROSCOPY TECHNIQUE: After an extensive conversation with the patient regarding risks and benefits, oral and written consent were obtained.? A pre- procedural time-out was performed, including review of the patie nt's relevant electronic medical record and allergies, as per [facility] protocol. The patient [...] reviewed with patient. Procedure Note Nina Bourne, DIRECTOR OF HEMOPHILIA - 12/26/2017Forma tting of this note might be different from the original. HISTORY: Left shoulder pain LEFT SHOULDER GH JOINT INJECTION UNDER F LUOROSCOPY TECHNIQUE: After an extensive conversation with the patient regarding risks and benefits, oral and written consent were obtained.? A pre- procedural time-out was performed, including review of the patie nt's relevant electronic medical record and allergies, as per [facility] protocol. The patient [...] encounter Visit Diagnoses Diagnosis Glenohumeral arthritis, left Glenohumeral arthritis, left documented in this encounter Care Teams Distribution Sales Representative Relationship Specialty Start Date End Date Rodolfo Penn MD PCP - General Family Medicine 10/12/15 [address] [place] [address] documented as of this encounter
--- OUTSIDE RECORDS SUMMARY | 2022-01-14 01:05 | XMS_ITS | Encounter Summary ---
:1955 Author Organization [facility] [place] [address] Care Team Providers Name Role Phone Rodolfo Penn MD Primary Care Provider [phone] Reason for Visit Consultation (Routine) - Closed Specialty Diagnoses / Procedures Referred By Contact Refer red To Contact Neurology Diagnoses Left shoulder pain, unspecified chronicity Tear of left rotator cuff, unspecified tear extent Winging of scapula Dina Campbell APRN [facility] Neurology 3c [facility] D R [facility] [place] [address] [place] [address] Referral ID Status Reason Start Date Expiration Date Visits V isits Requested Authorized [id number] Closed Consult, 07/14/2016 07/14/2017 1 1 Test & Treat Encounter Details Date Type Department Care Team Description 07/15/2016 Procedure visit Neurology at [facility] Nicolas Vargas MD Chronic pain in left shoulder; [facility] Suprascap ular nerve injury, left, sequela; [facility] Carpal tunnel syndrome on left; [place], [place] 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 [phone] Social History Tobacco Use Types Packs/Day Years Used Date Former Smoker Cigarettes 1.5 20 Quit: 11/01/18 96 Smokeless Tobacco: Never Used Alcohol Use Standard Drinks/Week Comments No 0 (1 standard drink = 0.6 oz pure alcoho l) Sex Assigned at Date Recorded Not on file documented as of this encounter Last Filed Vital Signs Vital Sign Reading Time Taken Comments Blood Pressure 121/73 07/15/2016 7:43 AM EST Pulse 91 07/15/2016 7:43 AM EST Temperature - - Respiratory Rate - - Oxygen Saturation - - Inhaled Oxygen Concentration - - Weight 138.3 kg (304 lb 12.8 oz) 07/15/2016 7:43 AM EST Height 180.3 cm (5' 11) 07/15/2016 7:43 AM EST reporte d Body Mass Index 42.51 07/15/2016 7:43 AM EST documented in this encounter Progress Notes Nicolas Vargas MD - 07/15/2016 8:30 AM EST NEUROLOGY CLINIC [facility] [place] [address] Facsimile: 07/15/2016 Patient name: Joseluis Cain Date of : 1955 Referring provider: Dina Campbell APRN [facility] [place] [address] HISTORY 60 Y M referred for EMG studies. He has history of left shoulder injury in 1987 while at work when he had to hold onto a heavy metallic object when it slipped. He also had a head impact while working under a vehicle 2 days later. He has rotator cuff issues on left. He has chronic L shoulder issues following that. He is being followed in orthopedics clinic.He had shoulder arthroscopy and acromioplasty done. He also has history of left CTS repair in the past. He has problems suggestive of ulnar neuropathy left elbow. EXAMINATION: Left wrist scar from prior CTSurgery Wasting of left shoulder/ left scapular winging. Weakness with pain of left shoulder abduction, internal rotation. EDX Slowing of ulnar motor velocity across left elbow. Low amplitude median sensory study in hand. Prolonged distal median motor latency left side. EMG shows evidence of chronic denervation changes in the left infrascapular muscle. 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 MRI findings: 1. Calcific tendinopathy and bursitis. 2. Low-grade bursal surface partial-thickness tearing of the supraspinatus insertion. 3. Partial-thickness tearing at the superior margin of the subscapularis insertion associated with mild biceps subluxation. 4. Bicipital tendinopathy and longitudinal partial thickness tearing. 5. Glenohumeral arthropathy. 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 PLAN/RECOMMENDATIONS: Will forward reports to referring. Nicolas Vargas MD Department of Neurology [facility] documented in this encounter Plan of Treatment Scheduled Referrals Name Type Priority Associated Diagnoses Order S chedule Referral to Outpatient Referral Routine Left shoulder pain, O rdered: Neurology unspecified 07/14/2016 chronicity Tear of left rotator cuff, unspecified tear extent Winging of scapula documented as of this encounter Visit Diagnoses Diagnosis Chronic pain in left shoulder Pain in joint, shoulder region Suprascapular nerve injury, left, sequel a Carpal tunnel syndrome on left Carpal tunnel syndrome Ulnar neuropathy at elbow of left upper extremity documented in this encounter Care Teams Laborer Wharf Relationship Specialty Start Date End Date Rodolfo Penn MD PCP - General Family Medicine 10/12/[address] [place] [address] [address] [place] [address] documented as of this encounter
--- OUTSIDE RECORDS SUMMARY | 2022-01-14 01:05 | XMS_ITS | Encounter Summary ---
:1955 Author Organization [facility] [place] [address] Care Team Providers Name Role Phone Rodolfo Penn MD Primary Care Provider Encounter Details Date Type Department Care Team Description 11/28/2017 Hospital Encounter XRay at [facility] Fili Schultz-Marcos, Chronic left [address] [place] [address] Dr CHAVIRA shoulder pain [facility] [id number] [place] [phone] [place] [address] Social History Tobacco Use Types Packs/Day Years [...] GLUC/MICHELLE-MSM#1/VIT Take by mouth daily. 0 C/DANITZA/BOR ([id number] COMPLEX ORAL) lisinopril-hydrochlorothi Take 1 tablet by 0 02/2610/26/2018 azide mouth daily. (PRINZIDE;ZESTORETIC) 10-12.5 mg Tablet magnesium 250 mg Tablet Take 250 mg by mouth 0 10/26/2018 daily. documented as of this encounter Plan of Treatment Not on filedocumented as of this encounter Procedures Procedure Name Priority Date/Time Associated Diagnosis Comme nts XR SHOULDER LEFT Routine 11/28/2017 8:08 AM Chronic left Resul ts for this EDT shoulder pain procedure are in the results section. documented in this encounter Results XR Shoulder Left (Generic) (11/28/2017 8:08 AM EDT) Anatomical Region Laterality Modality Shoulder Left Digital Radiography Specimen (Source) Anatomical Location Collection Method / Collectio n Time Received Time / Laterality Volume Impressions 11/28/2017 10:47 AM EDT Severe glenohumeral joint arthropathy. Calcific tendinopathy. Narrative 11/28/2017 10:47 AM EDT EXAMINATION: XR SHOULDER LEFT (GENERIC) CLINICAL HISTORY: Left Shoulder Pain DOI: 04/29/98 TECHNIQUE: 4 views of the left shoulder COMPARISON: 06/08/2016 FINDINGS: As seen on the previous study a suture a nchor is present at the anterior superior glenoid. It is unchanged in pos ition. Severe glenohumeral joint space narrowin g is present. This is associated with subchondral sclerosis and osteophyte for mation. A focus of calcification again projects at the tuberosity of the proximal humerus are consistent with calcific ten dinopathy at the rotator cuff insertion. No acute injury. Procedure Note Erwin Landon MD - 11/28/2017Forma tting of this note might be different from the original. EXAMINATION: XR SHOULDER LEFT (GENERIC) CLINICAL HISTORY: Left Shoulder Pain WC DOI: 04/29/98 TECHNIQUE: 4 views of the left shoulder COMPARISON: 06/08/2016 FINDINGS: As seen on the previous study a suture a nchor is present at the anterior superior glenoid. It is unchanged in pos ition. Severe glenohumeral joint space narrowin g is present. This is associated with subchondral sclerosis and osteophyte for mation. A focus of calcification again projects at the tuberosity of the proximal humerus are consistent with calcific ten dinopathy at the rotator cuff insertion. No acute injury. IMPRESSION Severe glenohumeral joint arthropathy. Calcific tendinopathy. Isaias Schultz MD IMG DX ORDERABLES documented in this encounter Visit Diagnoses Diagnosis Chronic left shoulder pain Pain in joint, shoulder region documented in this encounter Care Teams Pharmaceutical Officer Relationship Specialty Start Date End Date Rodolfo Penn MD PCP - General Family Medicine 10/12/[address] [place] [address] [address] [place] [address] documented as of this encounter
--- OUTSIDE RECORDS SUMMARY | 2022-01-14 01:05 | XMS_ITS | Encounter Summary ---
:1955 Author Organization [facility] Address [address] [place] [address] Care Team Providers Name Role Phone Rodolfo Penn MD Primary Care Provider [phone] Reason for Visit Reason Comments Blurred Vision DAVE 09/11.?Cataracts OU.?Ocular migraine.?Dad - AMD.?No eye drops used.?No floaters n oted.?Blur OU, intermittent, when tired. He says he sees candido r at 6 to 8 feet without his glasses. Intermediate distance is dif ficult. Encounter Details Date Type Department Care Team Description 12/16/2016 Office Visit Ophthalmology at [facility] C Jennifer Todd, Age-related nuclear cataract , bilateral; [facility] Ocular migraine; [address] [facility] [place] [place] [address] [facility] [phone] OPHTHALMOLOGY DEPT [place], [place] [address] Social History Tobacco Use Types Packs/Day Years Used Date Former Smoker Cigarettes 1.5 20 Quit: 11/01/18 96 Smokeless Tobacco: Never Used Alcohol Use Standard Drinks/Week Comments No 0 (1 standard drink = 0.6 oz pure alcoho l) Sex Assigned at Date Recorded Not on file documented as of this encounter Progress Notes Jennifer Todd, OD - 12/16/2016 9:20 AM EDT Encounter Diagnoses Name Primary? Age-related nuclear cataract, bilateral ??? Ocular migraine ??? Refractive error Joseluis Cain is a 61 y.o. with the following ophthalmic problems: Assessment [...] Final Rx Eyeglass Final Rx Sphere Cylinder [place] Add Right -0.75 +0.50 017 +2.25 Left -1.25 +0.75 167 +2.25 Expiration Date: 12/17/2018 Eyeglass Final Rx #2 Sphere Cylinder [place] Add Right +0.50 +0.50 017 Left [place] +0.75 167 Expiration Date: 12/17/2018 Eyeglass Final Rx Comments Final Rx 2 - Intermediate rx. +/- correct. documented in this encounter Plan of Treatment Not on filedocumented as of this encounter Visit Diagnoses Diagnosis Age-related nuclear cataract, bilateral Senile nuclear sclerosis Ocular migraine Other forms of migraine, without mention of intractable migraine without mention of status migrainosus Refractive error Unspecified disorder of refraction and a ccommodation documented in this encounter Care Teams Import Clerk Relationship Specialty Start Date End Date Rodolfo Penn MD PCP - General Family Medicine 10/12/15 [address] [place] [address] documented as of this encounter
--- OUTSIDE RECORDS SUMMARY | 2022-01-14 01:05 | XMS_ITS | Encounter Summary ---
:1955 Author Organization [facility] [place] [address] Care Team Providers Name Role Phone Rodolfo Penn MD Primary Care Provider Reason for Visit Reason Onset Date Comments Physical Therapy 03/29/2017 Encounter Details Date Type Department Care Team Description 03/29/2017 Telephone Orthopaedics at [facility] Annabel Mccormick PA Physical Therapy [address] [address] [place] [address] [phone] (Wo rk) Social History Tobacco Use Types Packs/Day Years Used Date Former Smoker Cigarettes 1.5 20 Quit: 11/01/18 96 Smokeless Tobacco: Never Used Alcohol Use Standard Drinks/Week Comments No 0 (1 standard drink = 0.6 oz pure alcoho l) Sex Assigned at Date Recorded Not on file documented as of this encounter Miscellaneous Notes Telephone Encounter - Claire Han - 03/29/2017 3:32 PM EDT Generated a new physical therapy, printed it out and gave to an exit racing secretary and handicapper with address to be mailed to Joseluis's home. Telephone Encounter - Edd Collier - 03/29/2017 10:27 AM EDT Received a call from the patient regarding physical therapy orders. Joseluis needs new orders writtenand he would like it mailed to his home address. The best contact number for the patient is [phone] The patient's home address is: [address] [place] [address] documented in this encounter Plan of Treatment Not on filedocumented as of this encounter Visit Diagnoses Not on filedocumented in this encounter Care Teams Peoplesoft Programmer Relationship Specialty Start Date End Date Rodolfo Penn MD PCP - General Family Medicine 10/12/[address] [place] [address] [address] [place], [place] [address] documented as of this encounter
--- OUTSIDE RECORDS SUMMARY | 2022-01-14 01:05 | XMS_ITS | Encounter Summary ---
:1955 Author Organization [facility] Address [address] [facility] [place] [address] Care Team Providers Name Role Phone Rodolfo Penn MD Primary Care Provider [phone] Encounter Details Date Type Department Care Team Description 04/27/2018 Hospital Encounter XRay at [facility] TerrellFili, Left shoulder pain, [address] CHAVIRA unspecified [place], [place] [facility] chronicity [id number] [place] [phone] [place] [address] Social History Tobacco Use Types Packs/Day Years [...] Date FLUARIX QUAD inject 0.5 milliliter 0 03/28/201820178854-1055, PF, 60 mcg intramuscularly (15 mcg x [...] GLUC/MICHELLE-MSM#1/VIT Take by mouth daily. 0 C/DANITZA/BOR ([id number] COMPLEX ORAL) amLODIPine (NORVASC) Take 10 mg by mouth [...] Diagnosis Comme nts XR FLUORO INJECTION Routine 04/27/2018 9:40 AM Left shoulder p ain, Results for this DRAINAGE JOINT LG EST unspecified procedure are in LEFT chronicity the results section. documented in this encounter Results XR Fluoro Guided Joint Injection Large Left (04/27/2018 9:40 AM EST) Anatomical Region Laterality Modality Left Radio Fluoroscopy Specimen (Source) Anatomical Location Collection Method / Collectio n Time Received Time / Laterality Volume Impressions 04/27/2018 10:12 AM EST Uneventful left shoulder GH joint injection under fluoroscopy. Resident/Fellow: None Attending: There was no attending presen t for this procedure Procedure performed by WILFREDO Banks RN Narrative 04/27/2018 10:12 AM EST HISTORY: Left shoulder pain -please inject glenohumeral joint LEFT SHOULDER GH JOINT INJECTION UNDER F LUOROSCOPY TECHNIQUE: After an extensive conversation with the patient regarding risks and benefits, oral and written consent were obtained.? A pre- procedural time-out was performed, including review of the patie nt's relevant electronic medical record and allergies, as per [facility] protocol. The patient was placed supine on [...] reviewed with patient. Procedure Note Nina Bourne, AUTOMATIC SPINNING LATHE OPERATOR - 04/27/2018Forma tting of this note might be different from the original. HISTORY: Left shoulder pain -please inje ct glenohumeral joint LEFT SHOULDER GH JOINT INJECTION UNDER F LUOROSCOPY TECHNIQUE: After an extensive conversation with the patient regarding risks and benefits, oral and written consent were obtained.? A pre- procedural time-out was performed, including review of the patie nt's relevant electronic medical record and allergies, as per [facility] protocol. The patient was placed supine on [...] space. 2. PAIN SCORE: Before: 5/10 After: 08/05 3. Fluoroscopy time: 0.07 minutes 4. Medications: [...] procedure Procedure performed by WILFREDO Banks RN Fili Tejada MD IMG FLUORO ORDERABLES documented in this encounter Visit Diagnoses Diagnosis Left shoulder pain, unspecified chronici ty documented in this encounter Administered Medications Inactive Administered Medications - up to 3 most recent administrations Medication Order MAR Action Action Date Dose Rate Site lidocaine (XYLOCAINE) 10 mg/mL (1 Given 04/27/2018 9:30 AM EST 2 00 mg %) injection 200 mg 200 mg (20 mL), Intra-articular, ONCE, 1 dose, On Mon04/27/18 at 1000, Routine ROpivacaine (PF) 5 mg/mL (0.5 %) 4 mL with Given 04/27/2018 9:31 AM EST triamcinolone acetonide 40 mg injection Intra-articular, ONCE, 1 dose, On Mon04/27/18 at 1000 documented in this encounter Care Teams Pbx Operator Relationship Specialty Start Date End Date Rodolfo Penn MD PCP - General Family Medicine 10/12/[address] [place] [address] [address] [place] [address] documented as of this encounter
--- OUTSIDE RECORDS SUMMARY | 2022-01-14 01:05 | XMS_ITS | Encounter Summary ---
:1955 Author Organization [facility] [place] [address] Care Team Providers Name Role Phone Rodolfo Penn MD Primary Care Provider [phone] Encounter Details Date Type Department Care Team Description 01/10/2017 Telephone Care Management Jose Ana Dale, ENG[employer] [place] [address] Social History Tobacco Use Types Packs/Day Years Used Date Former Smoker Cigarettes 1.5 20 Quit: 11/01/18 96 Smokeless Tobacco: Never Used Alcohol Use Standard Drinks/Week Comments No 0 (1 standard drink = 0.6 oz pure alcoho l) Sex Assigned at Date Recorded Not on file documented as of this encounter Progress Notes GarciaAna, ENGINEER DESIGN AND CONSTRUCTION - 01/10/2017 11:54 AM EDT [employer] SOCIAL WORK CONTINUING FINANCE SPECIALIST ?? CLAIM # TBD DOI: 04/29/98 INSURANCE COMAPANY: [employer] CONTACT: DAWN PHONE: TBToya FAX: TBD Pt Manager Voice: Luci Perez phone: [phone] CALL FROM / TO: Joseluis Cain REASON FOR CALL: [facility] called pt at the request of his [place] attorney. Pt is frustrated that he continues to have difficulty with his shoulder. He feels that Dr Schultz and his team may be frustrated with him as well. We did a careful review of his treatment history and the difficulties he has had. We reviewed the current treatment plan as well. He had an injection about a week ago and notes that he has less discomfort in the shoulder and feelshe has better ROM as well. He continues to have pain in the back of his shoulder and from his shoulder up his neck. He has EMG testing that indicated some nerve issues in the Scapular area. Pt notes that he has settled his claim but wants to continue to pay for needed treatments. He is frustrated that someone cannot say what is wrong with his shoulder. We talked about how he might use the results of his last injection to help communicate with Dr Schultz and his team what the residual symptoms are that he continues to have. He is encouraged to write down his areas of improvement as well as all of his remaining symptoms and any questions he has. I did relay to him that the current plan fits with the need for on going treatments to address the chronic pain he is having. ASSESSMENT: Pt is frustrated with continued difficulty with his shoulder. PLAN: Pt will bring notes to next ortho follow up as discussed above. Pt was very appreciative of the conversation. He is encouraged to call as needed. 01/10/17 1100 Workers' Compensation Type of Visit Initial Is your claim open and active? Yes Work Status OOW Treating Provider Managing WC Yes Managing Provider Name Dr Schultz Receiving Wage Replacement No Is there an united states attorney for Workers' Compensation Yes Manager Voice Name Luci HAYES? Yes documented in this encounter Miscellaneous Notes Telephone Encounter - Ana Garcia MSW - 01/10/2017 11:53 AM EDT See note in chart. documented in this encounter Plan of Treatment Not on filedocumented as of this encounter Visit Diagnoses Not on filedocumented in this encounter Care Teams Young Adult Librarian Relationship Specialty Start Date End Date Rodolfo Penn MD PCP - General Family Medicine 10/12/[address] [place] [address] documented as of this encounter
--- OUTSIDE RECORDS SUMMARY | 2022-01-14 01:05 | XMS_ITS | Encounter Summary ---
:1955 Author Organization [facility] [place] [address] Care Team Providers Name Role Phone Rodolfo Penn MD Primary Care Provider [phone] Encounter Details Date Type Department Care Team Description 07/04/2018 Ancillary Procedure Pain Management at [facility] Mechelle Wallace Pain [place] [address] [facility] [place] [id number] (Wo rk) Social History Tobacco Use Types [...] Name Priority Date/Time Associated Diagnosis Comme nts FILM LIBRARY Routine 11/28/2018 8:02 AM Pain Results f or this STORAGE ONLY PAIN EDT procedure are in CLINIC C [facility] the results section. documented in this encounter Results Film Library- Storage Only pain Clinic [facility] (11/28/2018 8:02 AM EDT) Specimen (Source) Anatomical Location Collection Method / Collectio n Time Received Time / Laterality Volume Narrative WILMER - 11/28/2018 8:02 AM EDT See PACS for result report. Mechelle Wallace MD [facility] FILM LIBRARY ORDERABLES Performing Organization Address City/State/ZIP Code Phon e Number [place], [place] documented in this encounter Visit Diagnoses Diagnosis Pain Generalized pain documented in this encounter Care Teams Supervisor Coin Machine Relationship Specialty Start Date End Date Rodolfo Penn MD PCP - General Family Medicine 10/12/[address] [place] [address] documented as of this encounter
--- OUTSIDE RECORDS SUMMARY | 2022-01-14 01:05 | XMS_ITS | Encounter Summary ---
:1955 Author Organization [facility] [place] [address] Care Team Providers Name Role Phone Rodolfo Penn MD Primary Care Provider [phone] Reason for Referral Consultation (Routine) - Closed Specialty Diagnoses / Procedures Referred By Contact Refer red To Contact Diagnoses Chronic neck pain Left shoulder pain, unspecified chronicity Spasm Natalie Viramontes APRN Unknown [facility] [place] [address] Referral ID Status Reason Start Date Expiration Date Visits V isits Requested Authorized [id number] Closed Consult, 06/06/2018 12/03/2018 12 12 Test & Treat Reason for Visit Reason Comments Pain Management Encounter Details Date Type Department Care Team Description 06/06/2018 Office Visit Pain Management at Natalie Viramontes, Xavi ic neck pain; [place] [facility] Left shoulder pain, unspecified chronici ty; [facility]; [facility] Osteoarthritis of cervical spine, unspec ified spinal osteoarthritis complication status [place] [id number] [phone] [phone] Social History Tobacco Use Types Packs/Day Years Used Date Former Smoker Cigarettes 1.5 20 Quit: 11/01/18 96 Smokeless Tobacco: Never Used Alcohol Use Standard Drinks/Week Comments No 0 (1 standard drink = 0.6 oz pure alcoho l) Sex Assigned at Date Recorded Not on file documented as of this encounter Last Filed Vital Signs Vital Sign Reading Time Taken Comments Blood Pressure 141/98 06/06/2018 9:12 AM EST Pulse 90 06/06/2018 9:12 AM EST Temperature - - Respiratory Rate - - Oxygen Saturation 97% 06/06/2018 9:12 AM EST Inhaled Oxygen Concentration - - Weight 138.3 kg (305 lb) 06/06/2018 9:12 AM EST Height 180.3 cm (5' 11) 06/06/2018 9:12 AM EST Body Mass Index 42.54 06/06/2018 9:12 AM EST documented in this encounter Patient Instructions Patient InstructionsCrNatalie mendoza APRN - 06/06/2018 9:15 AM EST 1) Schedule left C3-C4, C4-C5, C5-C6 medial branch blocks 2) Re-order massage therapy for left shoulder and neck for 30 minutes per body area for a total of 60 minutes twice a week x12 visits then re-assess. 3) Recommend topical arnica to left shoulder and neck 4) Continue home TENs unit 5) Order Lidocaine patch 5% to left shoulder - on for 12 hours, off for 12 hours 6) Continue home stretching and strengthening exercises for left shoulder 7) Consider repeat physical therapy for tapping of the left shoulder and cervical stretching and strengthening after procedure documented in this encounter Progress Notes Natalie Viramontes APRN - 06/06/2018 9:15 AM EST Images from the original note were not included. PAIN CLINIC FOLLOW-UP Date of Follow-Up: June 06, 2018 Chief Complaint: Chief Complaint Patient presents [...] neck pain from date of injury 04/29/1998. Onset: gradual onset 04/29/1998 Location: Left neck Duration: 20 years Characteristics: Aching burning deep pain in the left side of his neck. Sharp aching pain shooting up the left side of his head. Timing: all day Severity: 6/10 now Average pain in past week: 4/10 Best pain in the past week: 3/10 Worst pain in the past week: 7/10 Aggravating factors: twisting, trying to tip his head to the left, left shoulder use aggrevates the shoulder girdle and neck. Relieving factors: mild benefit from heat and ice therapy, TENs unit on the shoulder girdle helps mildly. Associated symptoms: states left arm fatigues easily, no tingling in arms, no radiation of pain fromneck to arms. No bowel or bladder incontinence. No lower extremity weakness. He feels like his throat feels different since he has been injured and he feels something but has been cleared by ENT. Left shoulder pain Continues to have pain in left shoulder, today 6/10. Patient also has pain in the left shoulder due to work injury for the past 20 years. Constant aching and burning pain in the left shoulder. Seatbelt rubbing on left shoulder causes increase in shoulder pain, wearing a heavy winter jacket sometimes increase the pain. Some benefit in right shoulder pain with Fluoro Guided Joint Injection Left Shoulder, Massage therapy - has not yet restarted has appointment next week to restart massage therapy. He has not received compounded pain cream- not yet covered by worker's compensation. Sleep is interrupted by left shoulder pain. ACTIVITY LEVEL: Able to dress independently He [...] today 06/06/18 MRI Left shoulder wo contrast 2016 [facility] UE 07/15/16 Treatment Goals: - wants [...] problems Had some colon polypds removed at [facility] , several years back. ??? [...] 04/27/2018 [facility] RAD XRAY ALLERGIES: Morphine sulfate and Opioids - morphine analogues MEDICATIONS: Medications 06/06/18 0915 Medication Sig Taking? FLUARIX QUAD [id number], PF, 60 mcg (15 mcg x 4)/0.5 [...] needed. Reported on 12/22/2016 Yes GLUC/MICHELLE-MSM#1/VIT C/DANITZA/BOR (XRUURRYELFU-JSLWN-YVW COMPLEX ORAL) Take by mouth daily. Yes lidocaine (LIDODERM) 5 % Adhesive Patch, Medicated Apply 1-2 patches to left shoulder, on for 12 hours then off for 12 hours ROS: Review of Systems Constitutional: Positive for fatigue. Negative for chills and fever. HENT: Negative for ear pain. Eyes: Negative for pain. Respiratory: Negative for chest tightness and shortness of breath. Cardiovascular: Negative for chest pain. Endocrine: Negative. Musculoskeletal: As per HPI Skin: Negative for rash and wound. Allergic/Immunologic: Negative. Neurological: As per HPI Hematological: Negative. Psychiatric/Behavioral: Positive for sleep disturbance. PHYSICAL EXAM: BP (!) 141/98 Pulse 90 Ht 180.3 cm (5' 11) Wt (!) 138.3 kg (305 lb) SpO2 97% BMI 42.54 kg/m?? Physical Exam Constitutional: He is oriented [...] with left cervical flexion. Negative Spurling's maneuver left, negative Spurling's maneuver right. Cardiovascular: Intact distal pulses. Pulmonary/Chest: Effort normal. No respiratory distress. Musculoskeletal: Left shoulder with 3 small post-operative scars, no erythema, edema or ecchymosis. Hair growth symmetrical, no Winging of the left scapula. Limited ROM left shoulder in all directions. Strength grossly intact. Hand grasps equal. Neurological: [...] pain ??? Left shoulder pain, unspecified chronicity ??? Spasm ??? Osteoarthritis of cervical spine, unspecified spinal osteoarthritis complication status 62 yo male patient with ongoing neck and left shoulder pain following work injury on April 29, 2012. He has seen multiple providers for these issues in the past. Cervicalgia treated by Dr. Garrido, no improvement with cervical epidural injection which was done over 10 years ago. Reviewed cervical MRI, cervical spondylosis at multiple levels, patient with primary left neck complaints. He has been to physical therapy, home exercises and stretching, and medication management withlittle to no benefit. Mr. Cain has moderate to severe neck pain that does not not have a strong radicular component and there is no associated neurologic deficit on examination. The pain is aggravated by hyperextension of the spine and flexion to the left. He does not complain of pain pain shootingdown the arms and the pain is primarily axial, not radicular. Mr. Cain complains of neck pain at a level of 6/10. Mr. Cain states that his left-sided neck pain interferes with his life by interfering with activities. There is no surgery anticipated for his neck at this point. It is known that there is a relatively specific pain referral pattern from specific cervical facets as follows: Based on the above, I am recommending diagnostic medical branch nerve blocks at left C3-C4, C4-C5, C6-C7 cervical facet joints for Mr. Cain. A volume of no more than 0.25 cc of local anesthetic injectate will be given to each segmental medial branch to improve diagnostic accuracy. I have recommended to Mr. Cain that no pain medication from home should be taken for at least 4 hours prior to the diagnostic block and for 4 to 6 hours afterward. Also, he understands that no oral,IV, or IM pain or sedative medications will be given at the time of this diagnostic block. There maybe a rare exemption to the use of IV sedation in cases of extreme anxiety at the time of the procedure. Mr. Cain will document pain relief with an instrument (VAS scale), emphasizing the importance of recording the maximum pain relief and maximum duration of pain. He will also keep medication use and activity logs to support subjective reports of better pain control. Diagnostic facet medial branch blocks will not be performed across a previously fused intervertebrallevel. At this time Mr. Cain does not have evidence of a fused cervical intervertebral level. This procedure will not be performed on the same day of treatment as epidural steroid injections or stellate ganglion blocks or sympathetic blocks or trigger point injections as this may lead to improper diagnosis or unnecessary treatment. Mr. Cain has been informed of the potential risks of this procedure which include infection, bleeding, nerve damage, spinal cord damage, spinal fluid leak, and among other risks. If these diagnostic blocks are successful at temporarily blocking a significant portion of his neck pain, I will recommend that we proceed on with radiofrequency ablation at the same medial branches- left C3-C4, C4-C5, C6-C7. Some components of myofacial pain of the left trapezius, left SCM and left scalenes due to his past shoulder pain as below. Also recommend massage therapy for these areas twice a week. Patient recommend to use topical arnica to these area and along with home stretching regime. Consider physical therapy after interventions to work on further stretching and strengthening. [...] neurology Dr. Nicolas Vargas July 15, 2016. Consider suprascapular nerve block versus peripheral cutaneous stimulation/neuromodulation. Patient wishesto procedure with procedure for neck pain, did not discuss further procedures for left shoulder at this visit At last visit I ordered compounded topical pain cream consisting of lidocaine 5%, baclofen 2% and diclofenac 3% 1-2 g to affected area 3-4 times a day - patient has not yet received this, has not been approved by worker's compensation. Will send in lidocaine patch 5% for patient to use at night - on for 12 hours and then off for 12 hours. Additional pharmacologic options to consider include amitriptyline or nortriptyline, Cymbalta, NMDA antagonists i.e memantine or ketamine, antiepileptics such as lamotrigine, topiramate, or carbamazepine. Patient also has myofascial pain of the left shoulder and shoulder girdle for which I have ordered massage therapy for 30 minutes per body area (left shoulder) twice a week for a total of 12 sessions then re-assess. Patient had had benefit from massage therapy in the past. Discussed working with massage therapy on home stretches and self-massage. Cont home TENs unit. Also recommend using topical arnica 3-4 times a day as needed. He states the shoulder felt more stable in the past when it was tapped with physical therapy- discussed this and consider referral to physical therapy to assist with working on a home tapping technique. PLAN: 1) Recommend left C3-C4, C4-C5, C5-C6 medial branch blocks 2) Re-order massage therapy for left shoulder and neck for 30 minutes per body area for a total of 60 minutes twice a week x12 visits then re-assess. 3) Recommend topical arnica to left shoulder and neck- can apply 3-4 times a day as needed for spasms 4) Continue home TENs unit 5) Order Lidocaine patch 5% to left shoulder - on for 12 hours, off for 12 hours 6) Continue home stretching and strengthening exercises for left shoulder Future considerations Radiofrequency ablation at the same medial branches- left C3-C4, C4-C5, C6-C7. Consider repeat physical therapy for tapping of the left shoulder and cervical stretching and strengthening after procedure Interventional options for left shoulder as mentioned above. Joseluis Cain had the opportunity to ask questions and indicated that all questions were answered to his satisfaction. Thank you for the opportunity to participate in Joseluis Cain's care. Thank you for this referral, [place] [address]. Natalie Viramontes, MSN, YARD LABORER- C, BUFFING MACHINE OPERATOR SEMIAUTOMATIC Nurse Practitioner [facility] [address] [phone] / [facility] documented in this encounter Plan of Treatment Scheduled Referrals Name Type Priority Associated Diagnoses Order S chedule Referral for Other Outpatient Referral Routine Chronic n noel pain Ordered: Services Left shoulder pain, 06/06/19 19 unspecified chronicity Spasm documented as of this encounter Visit Diagnoses Diagnosis Chronic neck pain Cervicalgia Left shoulder pain, unspecified chronici ty Spasm Abnormal involuntary movements Osteoarthritis of cervical spine, unspec ified spinal osteoarthritis complication status documented in this encounter Care Teams Mineral Engineer Relationship Specialty Start Date End Date Rodolfo Penn MD PCP - General Family Medicine 10/12/15 [address] [place] [address] documented as of this encounter
--- OUTSIDE RECORDS SUMMARY | 2022-01-14 01:05 | XMS_ITS | Encounter Summary ---
:1955 Author Organization [facility] [place] [address] Care Team Providers Name Role Phone Rodolfo Penn MD Primary Care Provider [phone] Encounter Details Date Type Department Care Team Description 10/12/2015 Surgery Gastroenterology at [facility] Ad Bourne, COLONOSCOPY, [facility] Toya [place] [address] [facility] [phone] GASTROENTEROLOGY DEPT. [place], [place] [address] Social History Tobacco Use Types [...] Sign Reading Time Taken Comments Blood Pressure 144/94 10/12/2015 9:26 AM EDT Pulse 73 10/12/2015 9:26 AM EDT Temperature - - Respiratory Rate 16 10/12/2015 9:26 AM EDT Oxygen Saturation 98% 10/12/2015 9:26 AM EDT Inhaled Oxygen Concentration - - Weight 127 kg (280 lb) 10/12/2015 8:28 AM EDT Height 180.3 cm (5' 11) 10/12/2015 8:28 AM EDT Body Mass Index 39.05 10/12/2015 8:28 AM EDT documented in this encounter Discharge Instructions Discharge Hetal Gregory RN - 10/12/2015 9:28 AM EDT Colonoscopy and polyp removal What to expect after the procedure You may feel a little more gassy or bloated than usual, this is normal. You should expect the return of normal bowel function in the next 2 to 3 days. Because some polyps were removed, you may see a little blood with the next few bowel movements, this should be a small amount ( less than a few tablespoons) and will resolve on it's own. ACTIVITY Because of the sedation that you received Your judgement and reaction time are effected ?? Go home and rest for the remainder for the day. You may resume your normal activities tomorrow ?? Change from one position to the next slowly because you may lose your balance unexpectedly. ?? Be careful on stairs, as you may be unsteady. FOR THE NEXT 24 HRS ?? DO NOT DRIVE OR OPERATE MACHINERY ?? DO NOT DRINK ALCOHOLIC BEVERAGES ?? DO NOT SIGN LEGAL DOCUMENTS ?? If you are a smoker: DO NOT SMOKE WHILE YOU ARE ALONE Diet ?? Start by eating small portions of foods that ordinarily will not upset your stomach, avoid gas producing foods for the next few days. ?? Be gentle with what you choose to start with ?? Drink plenty of fluids ( unless your doctor has told you not to). Medicines Avoid medicines that influence the way your blood clots for the next week. These would include anti-inflammatory medicine, such as ibuprofen( Advil, Motrin) and naproxen ( Aleve). If you need something for discomfort, Tylenol (Acetaminophen) is safe if used as directed. Your Doctor will tell you whento restart your prescribed blood thinners The IV site-- slight tenderness, or redness is normal, you can use warm compresses if you get concerned. If the tenderness +/or redness increases or foul drainage and a red streak occurs, please contact your PCP immediately. When should you call for help? Call 911 anytime you think you may need emergency care. For example If you pass out (loss of consciousness) If you pass maroon or bloody stools If you have severe belly pain Call your healthcare provider or seek immediate medical care if: Your stools are black or tar like Your stools have streaks of blood that is more pronounced with each BM You have belly pain, or your belly is swollen and firm You vomit You have a fever You are very dizzy Watch closely for changes in your health, and be sure to contact your doctor if you have any problems. Your Doctor will let you know when you will need your next colonoscopy. The results of your test andyour risk for colorectal cancer will help your doctor decide how often you need to be checked. Monday-Monday Same Day Endo [phone] Otherwise contact [phone] and ask to speak to the digital media director call worker person Follow up care is a pillai part of your treatment and safety. Be sure to make and go to all appointments, and call your doctor if you are having problems. Discharge instructions reviewed with patient who expresses understanding Patient InstructionsAd Bourne MD - 10/12/2015 9:23 AM EDT Please see Recommendations in the Provation procedure report which is documented in the procedural note in [facility]. documented in this encounter Medications at Time [...] GLUC/MICHELLE-MSM#1/VIT Take by mouth daily. 0 C/DANITZA/BOR (VXQCFEWOWSF-MLWQL-RHA COMPLEX ORAL) losartan (COZAAR) 100 mg Take 100 mg by mouth 0 03/24/2017 Tablet daily. Reported on 12/22/2016 ibuprofen (ADVIL;MOTRIN) Take 800 mg by mouth 0 03/24/2017 200 mg tablet every 6 hours as needed. documented as of this encounter H&P Notes Ad Bourne MD - 10/12/2015 9:04 AM EDT Gastroenterology and Hepatology Pre-Procedure History and Physical Exam Procedure: Colonoscopy: Indication: screening Patient Active Problem List Diagnosis Code ??? OA (osteoarthritis) of knee M17.9 EXAM: HEENT: Airway examined, oropharynx clear Mallampati Score: I (soft palate, uvula, fauces, tonsillar pillars visible) LUNGS: Clear to auscultation HEART: Regular rate and rhythm, normal S1, S2 ABDOMEN: Normal bowel sounds, soft, non tender, non distended, A/P Proceed with the planned endoscopic procedure. ASA 1 - Normal health patient Sedation Plan: moderate (conscious sedation) Risks and benefits of the procedure explained to the patient. Consent signed. documented in this encounter Plan of Treatment Not on filedocumented as of this encounter Procedures Procedure Name Priority Date/Time Associated Comments Diagnosis SURGICAL PATHOLOGY Routine 10/12/2015 9:35 AM Res ults for this REPORT EDT procedure are i n the results section. SPECIMEN TO PATHOLOGY Routine 10/12/2015 9:35 AM Results for this EDT procedure are i n the results section. COLONOSCOPY, 10/12/2015 9:04 AM 10 yr f/u from POLYPECTOMY, REMOVAL EDT 01/10/05 LESION BY SNARE (WRVU 4.67) COLONOSCOPY, 10/12/2015 9:04 AM 10 yr f/u from DIAGNOSTIC EDT 01/10/05 COLONOSCOPY Routine 10/12/2015 8:52 AM Results f or this EDT procedure are i n the results section. documented in this encounter Results Surgical Pathology Report (10/12/2015 9:35 AM EDT) [facility] [place] Method Time Signature Surgical S ? Location: ; [facility]; A [facility] Pathology [place] Report The signing pathologist has (i) examined the relevant preparation(s) for the [facility] specimen(s) and (ii) rendered or confirmed the diagnosis(es) . [facility] . ?Surgic al Pathology DIAGNOSIS Sigmoid colon, ??polypectomy: Tubular adenoma. CR-PX 10/12/15 AAY 10/13/15 Verified by: ? Maria Elena Sharma MD ?Pathologist ?(Electronic Signature ) The attending pathologist whose signature appears on this re port has reviewed all diagnostic slides and has edited the gross and/ or microscopic portion of the report in nkechi dering the final pathologic diagnosis. CLINICAL INFORMATION Specimen Submitted: A - Sigmoid polyp Clinical History: Sigmoid polyp Clinical Diagnosis: Same SPECIMEN PROCESSING A - Labeled/Fixative: Sigmoid polyp, formalin. Quantity/Size: 1, measuring 0.4 x 0.2 x 0.1 cm. Tissue Description: Soft velez-pink tissue. Sections/Processing: (T1) ??mmk Specimen (Source) Anatomical Collection Method Collection Time Re ceived Time Location / / Volume Laterality 10/12/2015 9:35 AM EDT Ad Bourne MD PATHOLOGY/CYTOLOGY ORDERABLE S Performing Organization Address City/State/[place] [address] Specimen to Pathology (surgical or derm) (10/12/2015 9:35 AM EDT) Specimen Anatomical Collection Method Collection Time Receive d Time (Source) Location / / Volume Laterality AP Specimen 10/12/2015 9:35 AM 6 9:35 EDT AM EDT Narrative [facility] - 10/12/2015 9:35 AM EDT Specimen requisition ordered. ??Separate Pathology report to follow Ad Bourne MD PATHOLOGY/CYTOLOGY ORDERABLE S Performing Organization Address City/State/ZIP [facility] [place] [address] COLONOSCOPY (10/12/2015 8:52 AM EDT) [facility] gist Method Time Signature COLONOSCOPY [facility] Endoscopy Patient Name: Joseluis Cain ? Procedure Date: 10/12/2015 8:52 AM ? Date of : 1955 ? Age: 60 ? Order #: [id number] ? Procedure: ? Colonoscopy Indications: ? Screening for colorectal malignant ? neoplasm Providers: ? Ad Bourne MD, Prema Vazquez , ? Bonita GELLER MD: ?Magaly Willis MD Medicines: ? Midazolam 2 mg IV, Fentanyl 100 ? micrograms IV Complications: ? No immediate complications. Procedure: ? Pre-Anesthesia Assessment: ? - ASA Grade Assessment: I - A normal, ? healthy patient. ? - CV Examination: normal. ? - Mental Status Examination: alert ? and oriented. ? - Respiratory Examination: cl ear to ? auscultation. ? The procedure, indications, b enefits, ? risks and alternatives were e xplained ? to the patient. Specifically ? discussed were potential ? complications including, but not ? limited to, bleeding, perfora tion, ? infection, missing a cancer, and ? adverse medication reactions. The ? patient was placed in the lef t ? lateral decubitus position, a nd a ? digital rectal exam was perfo rmed. ? The Colonoscope was inserted in the ? anus and under direct visuali zation, ? advanced to. Careful inspecti on was ? made as the colonoscope was ? withdrawn. The colonoscopy wa s ? performed without difficulty. The ? patient tolerated the procedu re well. ? The quality of the bowel prep aration ? was excellent. ? Findings: ? A 3 mm polyp was found in the sigmoid colon. The ? polyp was sessile. The polyp was removed with a cold ? snare. Resection and retrieval were complete. ? The exam was otherwise without abnormality. ? No additional abnormalities were found on ? retroflexion. ? Impression: ?- One 3 mm polyp in the sigmoid ? colon. Resected and retrieved . ? - The examination was otherwi se ? normal. Recommendation: ?- Await pathology results. ? Ad Bourne MD 10/12/2015 9:26 AM This report has been signed electronically. Number of Addenda: 0 Note Initiated On: 10/12/2015 8:52 AM Specimen (Source) Anatomical Collection Method Collection Time Re ceived Time Location / / Volume Laterality 10/12/2015 8:52 AM EDT Magaly Willis MD GENERAL SURGICAL ORDERABLES Performing Organization Address City/State/ZIP Code Phon e Number [facility] documented in this encounter Visit Diagnoses Not on filedocumented in this encounter Administered Medications Inactive Administered Medications - up to 3 most recent administrations Medication Order MAR Action Action Date Dose Rate Site fentaNYL 50 mcg/mL multi-dose Given 10/12/2015 9:10 AM EDT 50 mc g injection ONCE PRN, Starting on Mon10/12/15 at 0908, Until Mon10/12/15 at 1143, Intra-Operative (Intra-Procedure), Routine Given 10/12/2015 9:08 AM EDT 50 mcg lactated ringers infusion New Bag 10/12/2015 8:45 AM EDT 100 mL/hr 100 mL/hr 100 mL/hr, Intravenous, CONTINUOUS, Starting on Mon10/12/15 at 0845, Until Mon10/12/15 at 1143, Endoscopy (Intra-Procedure) midazolam (PF) (VERSED) 1 mg/mL multi-dose Given 10/12/2015 9:10 AM EDT 1 mg injection ONCE PRN, Starting on Mon10/12/15 at 0908, Until Mon10/12/15 at 1143, Intra-Operative (Intra-Procedure), Routine Given 10/12/2015 9:08 AM EDT 1 mg documented in this encounter Active and Recently Administered Medications Times are shown in EDT. Continuous Medication Order 10/10/2015 10/11/2015 10/12/2015 lactated ringers infusion 0845 ( New Bag - Provider: Eneida Childress RN) 100 mL/hr, at 100 mL/hr, Intravenous, CO NTINUOUS, Starting Mon10/12/15 at 0845, Until Mon10/12/15 at 1143, Endo (Intra-Procedure) PRN Medication Order 10/10/2015 10/11/2015 10/12/2015 fentaNYL 50 mcg/mL multi-dose injection (CANCELED) 0908 (Given - Provider: Prema Vazquez RN)0910 (Given - Provider: Prema Vazquez, RN) ONCE PRN, Starting Mon10/12/15 at 0908, Until Mon10/12/15 at 1143, Intra- Operative (Intra-Procedure), Routine midazolam (PF) (VERSED) 1 mg/mL multi-dose injection (CANCELED) 907 (Given - Provider: Prema Vazquez RN)0910 (Given - Provider: Prema Vazquez, YIMI) ONCE PRN, Starting Mon10/12/15 at 0908, Until Mon10/12/15 at 1143, Intra- Operative (Intra-Procedure), Routine documented in this encounter Care Teams [employer] Relationship Specialty Start Date End Date Rodolfo Penn MD PCP - General Family Medicine 10/12/[address] [place] [address] documented as of this encounter
--- OUTSIDE RECORDS SUMMARY | 2022-01-14 01:05 | XMS_ITS | Encounter Summary ---
:1955 Author Organization [facility] [address] Care Team Providers Name Role Phone Rodolfo Penn MD Primary Care Provider [phone] Encounter Details Date Type Department Care Team Description 05/10/2018 Telephone Care Management Ana Garcia, [employer] PROPERTY [place] [address] Social History Tobacco Use Types Packs/Day Years Used Date Former Smoker Cigarettes 1.5 20 Quit: 11/01/18 96 Smokeless Tobacco: Never Used Alcohol Use Standard Drinks/Week Comments No 0 (1 standard drink = 0.6 oz pure alcoho l) Sex Assigned at Date Recorded Not on file documented as of this encounter Progress Notes Ana Garcia, CONDOMINIUM PROPERTY MANAGER - 05/10/2018 1:11 PM EST [facility] FOLLOW UP CONTINUING CARE MANAGEMENT SOCIAL WORK CLAIM #[id number] DOI:04/29/1998 INSURANCE COMAPANY: [employer] CONTACT: D PHONE:D FAX:TBD Pt Rental Coordinator: Luci Perez S/O Joseluis Cain was seen in Pain with Natalie Viramontes APRN. Please see provider note for ov details. [facility] was asked by this pt's associate attorney to co-attend this ov. Pt notes he does have one bill that went to his Medicare insurance. [facility] sent note to Wade to request this be re-billed to . Pt understands that PA will likely need to be submitted in order for coverage of massage and compounded cream as well as repeat MRI to occur. [facility] will prepare the PA paperwork for INSERT CUTTER to sign. Pt is on SSDI for back injury. 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 He has chronic pain in his neck and shoulder and is hoping today's suggestions for pain management will help. He lives alone and is able to care for himself, but is unable to do the recreational activities he enjoyed prior to his injury such as fly fishing. He understands from Ortho that his only option for his shoulder from a surgical perspective is TSA. He would like to avoid this. He is also concerned about his likely recovery from TSA because of the nerve damage to his shoulder. A/ Pt is very pleased that there may be some options for pain control for him. He seems to have adjusted to the limitations of his work injury and would appreciate any help with pain management. P/ CCM will get wc info from pt's associate attorney and will assist INSERT CUTTER in sending PA for compounded pain cream, massage therapy and repeat MRI. 05/10/18 1300 Care Coordination Collaboration/communication to external/internal parties Patient;Provider Facilitating Appts ie: Internal (comment type of visit);External (comment type of visit) Prior Authorization Initiation Date/Date Pending/Date Resolution Yes Referrals External Workers' Compensation Type of Visit Initial Is your claim open and active? Yes Work Status OOW Are there bills not covered by Workers' Compensation? Yes Is there an associate attorney for Workers' Compensation Yes Rental Coordinator Name Luci Perez FREDDY? No Released to work No documented in this encounter Plan of Treatment Not on filedocumented as of this encounter Visit Diagnoses Not on filedocumented in this encounter Care Teams Manager Subway Relationship Specialty Start Date End Date Rodolfo Penn MD PCP - General Family Medicine 10/12/[address] [place] [address] documented as of this encounter
--- OUTSIDE RECORDS SUMMARY | 2022-01-14 01:05 | XMS_ITS | Encounter Summary ---
:1955 Author Organization [facility] Address [facility] [address] [place] [address] Care Team Providers Name Role Phone Rodolfo Penn MD Primary Care Provider [phone] Reason for Referral Physical Therapy (Routine) - Specialty Diagnoses / Procedures Referred By Contact Refer red To Contact Physical Therapy Diagnoses Left shoulder pain, unspecified chronicity Winging of scapula Pain in joint of left shoulder Dina Campbell APRN [facility] [place] [address] Referral ID Status Reason Start Date Expiration Date Visits V isits Requested Authorized [id number] Evaluate and 08/18/2016 02/14/2017 24 24 Treat Reason for Visit Reason Comments Left Shoulder Pain DOI 04/29/98 DOS scope [address], MANOLO Encounter Details Date Type Department Care Team Description 08/18/2016 [place] [facility] [place]ai[place]ultz, Carpal tunnel syndrome on le ft (Primary Dx); [facility] Left shoulder pain, unspecified chronici ty; [facility] Winging of scapula, LEFT; [place] [address] CENTER Pain in joint of left shoulder [phone] ORTHOPAEDIC SURGERY [place], [place] [address] Social History Tobacco Use Types [...] Sign Reading Time Taken Comments Blood Pressure 164/86 08/18/2016 8:01 AM EDT Pulse 95 08/18/2016 8:01 AM EDT Temperature - - Respiratory Rate - - Oxygen Saturation - - Inhaled Oxygen Concentration - - Weight 131.5 kg (290 lb) 08/18/2016 8:01 AM EDT stated Height 180.3 cm (5' 11) 08/18/2016 8:01 AM EDT stated Body Mass Index 40.45 08/18/2016 8:01 AM EDT documented in this encounter Progress Notes Dina Campbell, TUBE WORKER - 08/18/2016 8:15 AM EDT Chief Complaint: Planned f/u for LEFT shoulder pain. Work Related : YES Date of Injury: 04/29/1998 Occupation: [employer]. Pertinent Surgical History: Dr. Tejada. 2000. Procedure: 1. Left shoulder arthroscopy with arthroscopic labral debridement and repair. 2. Left arthroscopic acromioplasty. Duration: Chronic. STAFF: Dr. Schultz History of Present Condition: Joseluis Cain is a pleasant 61 y.o. year-old male who is here in f/u for LEFT shoulder pain. As well described in my note from a few weeks ago he does have a long complicated history with the LEFT shoulder dating back to 1997 with work related injury. Please see my previous HPI regarding this problem which will not be repeated here. His LEFT shoulder symptoms have unchanged. There is LEFT pain, weakness, scapula winging and numbness and tingling of the hand. He did have the LEFT shoulder MRI and EMG/NCS and he is here to discuss results and treatment options. His health is reportedly stable otherwise and he is here for definitive management. ROS: A thirteen-system review was negative Denies fever, chills, nausea, vomiting, vision change, shortness of breath, chest pain, vision changes, headaches, bowel or bladder problem, ear, nose, sinus problem, neuro or psychiatric, or endocrine disorder not addressed above. Patient's medications, allergies, past medical, surgical, social and family histories were reviewed and updated as appropriate. . Physical Examination: Vitals: BP Readings from Last 1 Encounters: 08/18/16 164/86 Pulse Readings from Last 1 Encounters: 08/18/16 95 Height: 180.3 cm (5' 11) (stated) Weight - Scale: (!) 131.5 kg (290 lb) (stated) Body mass index is 40.45 kg/(m^2). General: he is alert and oriented to person, place, time, and situation. he is in no apparent distress. LEFT Shoulder exam: + posture is rounded and is asymmetric. Motor exam shows 5/5 strength in lateral deltoid muscles of the upper extremity. No change in the cervical spine stiffness. Negative spurlings test. NO change inthe ++ scapula winging LEFT. Skin is warm and dry. ?? Shoulder motion Active Passive Strength ?? Abduction 80 90 4/5 ?? Flexion 80 90 4/5 ?? Internal rotation belt line same 5/5 ?? External rotation 40 50 5-noted improved from last visit/5 ?? Special Tests ?? Rotator cuff tests: ?? Amaya' test - Positive ?? Neer's test - Positive ?? Empty can test - Positive ?? Mikel's test - N/A ?? Labrum tests ?? O'jf's test - unable to reliably assess due to pain and decreased ROM ?? Biceps tests ?? Speed's test - Positive ?? Yergason's test - Positive ?? AC joint tests ?? AC joint tenderness - Positive ?? Cross-arm test - Negative Imaging Studies: Plain radiographs - Previous LEFT shoulder x-ray with distal clavicle excision and previous labral repair anchor. Moderate DJD of the GH joint. LEFT shoulder MRI scan reviewed image by image in the office today reveals a partial RTC tear, subacromial bursitis, calcific tendinopathy, biceps tendinopathy and moderate GH OA. Formal report from [facility] as follows: MRI - IMPRESSION 1. Calcific tendinopathy and bursitis. 2. Low-grade bursal surface partial-thickness tearing of the supraspinatus insertion. 3. Partial-thickness tearing at the superior margin of the subscapularis insertion associated with mild biceps subluxation. 4. Bicipital tendinopathy and longitudinal partial thickness tearing. 5. Glenohumeral arthropathy. ?? CT - none Neurology Consult from [facility]: [facility] Slowing of ulnar motor velocity across left elbow. Low amplitude median sensory study in hand. Prolonged distal median motor latency left side. EMG shows evidence of chronic denervation changes in the left infrascapular muscle. 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 Impression & Plan: 61 y.o. year-old male with a LEFT shoulder work related injury with chronic moderate to severe painwith a partial RTC tear and chronic scapula winging. MRI scan reveals a partial RTC tear, proximal biceps tendinopathy and GH arthropathy. We can offer him a subacromial cortisone injection. He would like to proceed see procedure below. We will also start a PT program closer to home for scapula dyskinesia. LEFT elbow HEELBO and LEFT wrist volar splint for LEFT upper extremity neuritis median and ulnanerve symptoms. Finally, Dr. Schultz will consult with Dr. Tejada regarding the aforementioned suprascapular nerve injury in regards to any further TX recommendations. [facility] [place] forms, No work at this time. Pt agrees, questions solicited/answered, will return as scheduled and as needed for concerns or questions. Pt understands they may also call us prn for above. Procedure: LEFT shoulder subacromial cortisone injection Prior to beginning conversation was held regarding the risks and benefits of cortisone injection. A timeout was held confirming the correct side and medication. After which using appropriate sterile technique, with betadine and methyl chloride spray was used to anesthetize the skin. This was followed by injection of 4 ml of 1 % Lidocaine plain, and 40 mg of Kenalog. The patient tolerated this procedure well. documented in this encounter Plan of Treatment Scheduled Referrals Name Type Priority Associated Diagnoses Order S chedule Referral to Outpatient Referral Routine Left shoulder pain, O rdered: Physical Therapy unspecified 08/18/2016 chronicity Winging of scapula, LEFT Pain in joint of left shoulder documented as of this encounter Visit Diagnoses Diagnosis Carpal tunnel syndrome on left - Primary Carpal tunnel syndrome Left shoulder pain, unspecified chronici ty Winging of scapula, LEFT Other acquired deformity of other parts of limb Pain in joint of left shoulder Pain in joint, shoulder region documented in this encounter Administered Medications Inactive Administered Medications - up to 3 most recent administrations Medication Order MAR Action Action Date Dose Rate Site lidocaine (XYLOCAINE) 20 mg/mL (2 Given 08/18/2016 8:29 AM EDT 8 0 mg %) injection 80 mg 80 mg, Subdermal, ONCE, 1 dose, On Valeria 08/18/16 at 0845, In-Office injection into the subacromial space of the shoulder., Routine triamcinolone acetonide (KENALOG-40) injection Given 0 08/18/2016 8:29 AM EDT 40 mg 40 mg 40 mg, Intra-articular, ONCE, 1 dose, On Valeria 08/18/16 at 0845, Routine documented in this encounter Care Teams Merchandiser Retail Representative Relationship Specialty Start Date End Date Rodolfo Penn MD PCP - General Family Medicine 10/12/[address] [place] [address] [address] [place] [address] documented as of this encounter
--- OUTSIDE RECORDS SUMMARY | 2022-01-14 01:05 | XMS_ITS | Encounter Summary ---
:1955 Author Organization [facility] [place] [address] Care Team Providers Name Role Phone Rodolfo Penn MD Primary Care Provider [phone] Reason for Visit Reason Onset Date Comments Injections 04/02/2018 Encounter Details Date Type Department Care Team Description 04/02/2018 Telephone [place] [facility] [place]ong Faulkner [place] Injections [facility] [address] ORTHOPAEDIC SURGERY [phone] [place] [address] (Wo rk) Social History Tobacco Use Types Packs/Day Years Used Date Former Smoker Cigarettes 1.5 20 Quit: 11/01/18 96 Smokeless Tobacco: Never Used Alcohol Use Standard Drinks/Week Comments No 0 (1 standard drink = 0.6 oz pure alcoho l) Sex Assigned at Date Recorded Not on file documented as of this encounter Miscellaneous Notes Telephone Encounter - Octavia Garland - 04/02/2018 11:53 AM EST Left a detailed message of when his injection appointment is on 11:30 for 8:45am check in for 9:00aminjection time. Also sent a [facility] message. Telephone Encounter - Serina Hebert - 04/02/2018 10:37 AM EST Patient's request for injection appointment of the Left shoulder has been reviewed by Clinical Support. Is it too soon for patient to have this injection? Yes, schedule after 04/27 Date of last injection? 12/26/17 Is this a synvisc/orthovisc injection? no Enter [employer] Prior Auth if Synvisc or Orthovisc injection. Does this injection need to be scheduled in radiology under fluoro? yes Have orders been placed? yes Injection within 3 months prior to joint arthroplasty or arthroscopy is associated with increased rates of postoperative infection: this includes, hip, knee, and shoulder. Please schedule 04/27 or later Telephone Encounter - Hilary Bender I - 04/02/2018 9:11 AM EST This is a W/C DOI-[id number] Telephone Encounter - Hilary Bender I - 04/02/2018 8:39 AM EST Best phone # to reach patient for [phone]-I did the Fluoro questions with him see below Best days/times to schedule the appointment: Mornings are good with him any day he said to go ahead and schedule he can be reached by - as well. Any cancellations call him please. Is it acceptable to leave a voicemail message with your appointment if we are unable to reach you directly? Yes If no, what is an alternative phone number to call? No Patient requests appointment for injection of the Left shoulder. Patient requests an injection of (product type: cortisone/Synvisc/Monovisc/other): Fluoro I will send this request to the Clinical Support team for review. Some injections require prior authorization, special orders, or an appointment somewhere other than our clinic, so knowing this in advance will help us to better meet your needs. If the injection requires prior authorization, it may take 14 or more business days before we can schedule your appointment. As soon as this service approved by the clinical support team, we will call you to schedule the appointment. 1.) Does patient have any medication allergies? Yes in his chart all updated 2.) Patient???s approximate weight in lbs. 285 3.) Does the patient have any contrast/dye allergies? No 4.) Does the patient have a regional intermodal truck driver for this procedure? Yes 5.) Has patient had any procedures in the past 3 months? 7.31.18 6.) Is this patient ambulatory? Yes 7.) Is the patient currently taking any blood thinner medications? No 8.) Has this patient has replacement surgery of the area we are performing the procedure on? Yes Jun-2000 Scope procedure . documented in this encounter Plan of Treatment [...] electronic medical record and allergies, as per [facility] protocol. The patient was placed supine on [...] shoulder joint space. 2. ??PAIN SCORE: ??Before: 10/05 ??After: 08/05 3. Fluoroscopy time: 0.07 minutes 4. Medications: ??Lidocaine 1% - <5 ml, for subcutaneou s anesthesia ??Ropivacaine HCL ??0.5% - 3 ml ??Triamciolone Acetonide ??- 40 mg COMPLICATIONS: ??None immediate. POST-PROCEDURE CARE: Information regardi ng monitor of infection, post- procedural pain and management of steroi d flare were reviewed with patient. Procedure Note Nina Bourne, CLERK MANAGER - 04/27/2018Forma tting of this note might [...] electronic medical record and allergies, as per [facility] protocol. The patient was placed supine on [...] ty documented in this encounter Care Teams Crm Consultant Relationship Specialty Start Date End Date Rodolfo Penn MD PCP - General Family Medicine 10/12/[address] [place] [address] documented as of this encounter
--- OUTSIDE RECORDS SUMMARY | 2022-01-14 01:05 | XMS_ITS | Encounter Summary ---
:1955 Author Organization [place] [address] Care Team Providers Name Role Phone Rodolfo Penn MD Primary Care Provider [phone] Reason for Visit Reason Onset Date Comments Appointment 04/27/2018 Encounter Details Date Type Department Care Team Description 04/27/2018 Telephone [place] [facility] Ralph Faulkner PA Appointment [place] [address] ORTHOPAEDIC SURGERY [phone] [place] [address] (Wo rk) Social History Tobacco Use Types Packs/Day Years Used Date Former Smoker Cigarettes 1.5 20 Quit: 11/01/18 96 Smokeless Tobacco: Never Used Alcohol Use Standard Drinks/Week Comments No 0 (1 standard drink = 0.6 oz pure alcoho l) Sex Assigned at Date Recorded Not on file documented as of this encounter Miscellaneous Notes Telephone Encounter - Annabel Strauss - 05/03/2018 6:51 AM EST No response from patient, letter sent Telephone Encounter - Octavia Garland - 05/01/2018 10:00 AM EST Images from the original note were not included. LM #2 to call to schedule a follow-up appointment in Dr. Tejada's or [facility] team schedule with a new xray for his left shoulder. ?? FVE: XR-LEFT SHOULDER PAIN, DISCUSS POSSIBLE TSA ?? ALSO, PLEASE NOTE RALPH'S MESSAGE BELOW-PLEASE INFORM THE PATIENT: ?? Orthopaedics Rayne ?? 04/27/18 11:22 AM I put in a pain clinic referral for this patient. He also could consider follow up in ortho to discuss shoulder replacement surgery, but seeing the pain clinic to discuss nonoperative pain management is an option. -Ralph ?? Telephone Encounter - Annabel Strauss - 04/27/2018 1:22 PM EST Images from the original note were not included. LM #1 to call to schedule a follow-up appointment in Dr. Tejada's or [facility] team schedule with a new xray for his left shoulder. FVE: XR-LEFT SHOULDER PAIN, DISCUSS POSSIBLE TSA ALSO, PLEASE NOTE RALPH'S MESSAGE BELOW-PLEASE INFORM THE PATIENT: Orthopaedics Director Of Epidemiology ?? 04/27/18 11:22 AM I put in a pain clinic referral for this patient. He also could consider follow up in ortho to discuss shoulder replacement surgery, but seeing the pain clinic to discuss nonoperative pain management is an option. -Ralph Telephone Encounter - Lizbeth Gilmore RN - 04/27/2018 10:07 AM EST Will forward to aCri Faulkner to advise. Telephone Encounter - Irma Dupont - 04/27/2018 9:51 AM EST Who is calling: Joseluis Was this a new injury? no Have you had Surgery?yes If so when?2001 Who was the Surgeon?Dr Tejada What is the question: patient is wondering if he can have a referral to pain management for his leftshoulder and neck Best number to reach the caller: [phone] documented in this encounter Plan of Treatment Not on filedocumented as of this encounter Visit Diagnoses Not on filedocumented in this encounter Care Teams Lead Mechanic Relationship Specialty Start Date End Date Rodolfo Penn MD PCP - General Family Medicine 10/12/15 [address] [place] [address] documented as of this encounter
--- OUTSIDE RECORDS SUMMARY | 2022-01-14 01:05 | XMS_ITS | Encounter Summary ---
:1955 Author Organization [facility] [place] [address] Care Team Providers Name Role Phone Rodolfo Penn MD Primary Care Provider [phone] Reason for Visit Reason Onset Date Comments Bumped Appointment 06/06/2016 Encounter Details Date Type Department Care Team Description 06/06/2016 Telephone Orthopaedics at [facility] Isaias Schultz MD [place] [address] ORTHOPAEDIC SURG [place], [place] [address] (Wo rk) Social History Tobacco Use Types Packs/Day Years Used Date Former Smoker Cigarettes 1.5 20 Quit: 11/01/18 96 Smokeless Tobacco: Never Used Alcohol Use Standard Drinks/Week Comments Not Asked 0 (1 standard drink = 0.6 oz pure alcoho l) Sex Assigned at Date Recorded Not on file documented as of this encounter Miscellaneous Notes Telephone Encounter - Lior Dietrich - 06/07/2016 8:01 AM EST Rescheduled. Telephone Encounter - Annabel Strauss - 06/06/2016 8:[address] Schultz's clinic on 06/09-LMOM #1 to call to reschedule appointment- first available FUV (NEW) in Dr. Schultz's schedule documented in this encounter Plan of Treatment Not on filedocumented as of this encounter Visit Diagnoses Not on filedocumented in this encounter Care Teams Freight Broker Agent Relationship Specialty Start Date End Date Rodolfo Penn MD PCP - General Family Medicine 10/12/[address] [place] [address] documented as of this encounter
--- OUTSIDE RECORDS SUMMARY | 2022-01-14 01:05 | XMS_ITS | Encounter Summary ---
:1955 Author Organization [facility] [place] [address] Care Team Providers Name Role Phone Rodolfo Penn MD Primary Care Provider [phone] Reason for Referral Diagnostic Test (Routine) - Closed Specialty Diagnoses / Procedures Referred By Contact Refer red To Contact Radiology Diagnoses Left shoulder pain, unspecified chronicity Tear of left rotator cuff, unspecified tear extent Dina Campbell APRN [facility] Procedures MRI Shoulder wo Contrast Left (Generic) [facility] [place] [address] [place] [address] Referral ID Status Reason Start Date Expiration Date Visits V isits Requested Authorized [id number] Closed Specialty 07/14/2016 07/14/2017 1 1 Service Requested Reason for Visit Diagnostic Test (Routine) - Closed Specialty Diagnoses / Procedures Referred By Contact Refer red To Contact Radiology Diagnoses Left shoulder pain, unspecified chronicity Tear of left rotator cuff, unspecified tear extent Dina Campbell APRN [facility] Procedures MRI Shoulder wo Contrast Left (Generic) [facility] [place] [address] [place] [address] Referral ID Status Reason Start Date Expiration Date Visits V isits Requested Authorized [id number] Closed Specialty 07/14/2016 07/14/2017 1 1 Service Requested Encounter Details Date Type Department Care Team Description 07/15/2016 Hospital Encounter MRI at [facility] Isaias Schultz, Left shoulder pain, unspecif ied chronicity; [facility] Tear of left rotator cuff, unspecified t ear extent [address] [place], [place] [address] ORTHOPAEDIC [phone] [place] [address] Social History Tobacco Use Types Packs/Day Years [...] GLUC/MICHELLE-MSM#1/VIT Take by mouth daily. 0 C/DANITZA/BOR ([id number] COMPLEX ORAL) magnesium 250 mg Tablet Take [...] Priority Date/Time Associated Diagnosis Comme nts MRI SHOULDER LEFT Routine 07/15/2016 7:18 AM Left shoulder kvng n, Results for this WO CONTRAST EST unspecified procedure are i n chronicity the results Tear of left rotator section . cuff, unspecified tear extent documented in this encounter Results MRI Shoulder wo Contrast [...] tearing. 5. Glenohumeral arthropathy. Isaias Schultz MD IMG MRI ORDERABLES documented in this encounter Visit Diagnoses Diagnosis Left shoulder pain, unspecified chronici ty Tear of left rotator cuff, unspecified t ear extent documented in this encounter Care Teams Paper Gluing Operator Relationship Specialty Start Date End Date Rodolfo Penn MD PCP - General Family Medicine 10/12/[address] [place] [address] [address] [place] [address] documented as of this encounter
--- OUTSIDE RECORDS SUMMARY | 2022-01-14 01:05 | XMS_ITS | Encounter Summary ---
:1955 Author Organization [facility] [place] [address] Care Team Providers Name Role Phone Rodolfo Penn MD Primary Care Provider [phone] Encounter Details Date Type Department Care Team Description 12/28/2016 Notes Only Care [place] [address] Social History Tobacco Use Types Packs/Day Years Used Date Former Smoker Cigarettes 1.5 20 Quit: 11/01/18 96 Smokeless Tobacco: Never Used Alcohol Use Standard Drinks/Week Comments No 0 (1 standard drink = 0.6 oz pure alcoho l) Sex Assigned at Date Recorded Not on file documented as of this encounter Progress Notes Ana Garcia MSW - 12/28/2016 3:16 PM EDT [facility] SOCIAL WORK CONTINUING ENGINEERING INSPECTION 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 CCM called and left for pt documented in this encounter Plan of Treatment Not on filedocumented as of this encounter Visit Diagnoses Not on filedocumented in this encounter Care Teams Panama Hat Smearer Relationship Specialty Start Date End Date Rodolfo Penn MD PCP - General Family Medicine 10/12/[address] [place] [address] documented as of this encounter
--- OUTSIDE RECORDS SUMMARY | 2022-01-14 01:05 | XMS_ITS | Encounter Summary ---
:1955 Author Organization [facility] [place] [address] Care Team Providers Name Role Phone Rodolfo Penn MD Primary Care Provider [phone] Reason for Referral Diagnostic Test (Routine) - Closed Specialty Diagnoses / Procedures Referred By Contact Refer red To Contact Radiology Diagnoses Chronic neck pain Natalie Viramontes APRN [facility] Rad Mri Procedures MRI Cervical Spine wo Contrast (Generic) MRI [place]erv[place] [address] [place] [address] Referral ID Status Reason Start Date Expiration Date Visits V isits Requested Authorized [id number] Closed Specialty 05/10/2018 05/10/2019 1 1 Service Requested Consultation (Routine) - Specialty Diagnoses / Procedures Referred By Contact Refer red To Contact Diagnoses Left shoulder pain, unspecified chronicity [place] [address] Referral ID Status Reason Start Date Expiration Date Visits V isits Requested Authorized [id number] Consult, 05/10/2018 11/06/2018 12 12 Test & Treat Reason for Visit Reason Comments Pain Pain, Chronic Consultation (Routine) - Closed Specialty Diagnoses / Procedures Referred By Contact Refer red To Contact Pain Management Diagnoses Chronic pain in left shoulder Huong Faulkner PA [facility] D [facility] [place] [address] [place] [address] Fax: Referral ID Status Reason Start Date Expiration Date Visits V isits Requested Authorized [id number] Closed Consult, 04/27/2018 04/27/2019 1 1 Test & Treat Encounter Details Date Type Department Care Team Description 05/10/2018 Office Visit Pain Management at Natalie Viramontes Chron ic neck pain; [place] CUSTOMER QUALITY SPECIALIST Winging of scapula, LEFT; [facility] Lef t shoulder pain, unspecified chronicity Drive [place], [place], [place] [phone] Social History Tobacco Use Types Packs/Day Years Used Date Former Smoker Cigarettes 1.5 20 Quit: 11/01/18 96 Smokeless Tobacco: Never Used Alcohol Use Standard Drinks/Week Comments No 0 (1 standard drink = 0.6 oz pure alcoho l) Sex Assigned at Date Recorded Not on file documented as of this encounter Last Filed Vital Signs Vital Sign Reading Time Taken Comments Blood Pressure 176/88 05/10/2018 8:43 AM EST Pulse 90 05/10/2018 8:43 AM EST Temperature - - Respiratory Rate - - Oxygen Saturation 100% 05/10/2018 8:43 AM EST Inhaled Oxygen Concentration - - Weight 133.4 kg (294 lb 3.2 oz) 05/10/2018 8:43 AM EST Height 180.3 cm (5' 11) 05/10/2018 8:43 AM EST Body Mass Index 41.03 05/10/2018 8:43 AM EST documented in this encounter Patient Instructions Patient InstructionsCrNatalie mendoza APRN - 05/10/2018 8:45 AM EST 1) Schedule cervical MRI 2) Topical pain cream 3-4 times a day 3) Follow-up with Orthopedics as scheduled 4) Massage therapy as ordered 5) Follow-up after cervical MRI documented in this encounter Progress Notes Natalie Viramontes APRN - 05/10/2018 8:45 AM EST PAIN CLINIC CONSULTATION Date of Consultation: May 10, 2018 I am seeing Mr. Cain at the request of Huong Faulkner for my opinion and recommendations regarding chronic left shoulder pain due to work injury. Chief Complaint: Chief Complaint Patient presents with ??? Pain ??? Pain, Chronic HPI: Subjective Joseluis Cain is a 62 y.o. male who presents today for consult for pain management evaluation for chronic left shoulder pain due to work injury. Onset: gradual onset 04/29/1998 States he was holding a part over his head that was over [address], the part started to fall and he grabbed it with his left arm and pulled his arm forward. He felt a sudden tearing sensation in his shoulder. Also had sudden onset of neck pain from date of injury 04/29/1998. Location: Left shoulder Duration: 20 years Characteristics: Constant aching and burning pain in the left shoulder Timing: all day Severity: 4/10 now Average pain in past week: 4/10 Best pain in the past week: 2/10 Worst pain in the past week: 5/10 Aggravating factors: use of right shoulder causes increase in pain in his left shoulder, Seatbelt rubbing on left shoulder causes increase in shoulder pain, wearing a heavy winter jacket sometimes increase the pain. Relieving factors: some benefit in right shoulder pain with Fluoro Guided Joint Injection Left Shoulder, Massage therapy Associated symptoms: states he gets tingling pain in his middle 3 fingers; he feels like his shoulder blade pops out with use of his left arm; left arm fatigues easily. Denies color changes of the left shoulder, he denies noting that the left shoulder is hotter than the right, denies noting any hair growth abnormalities of the left shoulder. Neck pain He states that he has pain in his neck that is also due to the work injury on 04/29/18. He has pain in neck 4/10 all the time in his Aching burning deep pain in the left side of his neck. Sharp aching pain shooting up the left side of his head. He has injections done in the past with Dr. Fischer, he does not recall home much benefit he had fromthis in the past. ACTIVITY LEVEL: Able to dress independenetly He is able to clean the home and is independent with ADLs - uses right arm for most thinds Activities that are limited by Pain: Any lifting or prolonged use of the [...] TRIALED DATE BENEFIT NOT TRIALED Physical Therapy No Yes Home Exercises Yes, continues home antione system Helps with ROM Chiropractic No Massage No Yes Yes, helped with pain and ROM Traction No TENs Yes Yes Acupuncture No Had dry needling and cupping done through physical therapy Unsure CBT / Meditation No No MEDICATIONS: CURRENT HELPFUL? TRIALED HELPFUL? NOT TRIALED OTC acetaminophen 650 mg PO PRN pain Mild benefit NSAID Was told not to take IBU by his PCP due to elevated blood pressure IBU Yes OPIOIDS None Tramadol, oxycodone/apap, Oxycontin - caused poor mental clarity and memory issues, also caused stomach upset and nausea MUSCLE RELAXANT None Cyclobenzaprine Zanaflex- caused fatigue No ANTIDEPRESSANT None TOPICAL OTC Aspercream Mild beneift HERBAL/HOLISTIC None OTHER As above TENs unit helps Gabapentin - caused dizziness, make him feel out of it PROCEDURES/SURGERY TYPE DATE BENEFIT NOT TRIALED Cervical Epidural Steroid Injection 2001 Left shoulder Laral repair - Dr. Tejada 2000 Fluoro Guided Joint Injection Left Shoulder 12/30/16 12/26/17 04/27/18 With last injection had 40% improvement in pain EVALUATIONS: TYPE DATE Orthopaedics [address] Isaias Schultz - Dr. Tejada Pain Management Dr. Isak Velasquez Neurology EMG studies done through neurology Rheumatology none DIAGNOSTIC STUDIES: MRI Left shoulder wo contrast 2017 Pt unsure when he last had imaging of the cervical spine NCS/EMG UE 07/15/16 Treatment Goals: - wants [...] Last attempt to quit: 11/02/1995 Years since quittin.5 ??? Smokeless tobacco: Never Used Substance and [...] problems Had some colon polypds removed at [facility] , several years back. ??? ENT disease [...] DIAGNOSTIC performed by Ad Bourne MD at [facility] ENDOSCOPY ??? PRO COLONOSCOPY, REMV LESN, SNARE N/A 10/12/2015 COLONOSCOPY, POLYPECTOMY, REMOVAL LESION BY SNARE performed by Ad Bourne MD at [facility] ENDOSCOPY ??? PRO UNLISTED CRANIO/MAXILLOFACIAL SURG Have several crowns and bridges. ??? PRO UNLISTED PROCEDURE, MUSCULOSKELETAL SYSTEM, GENERAL 2000 Left shoulder and wrist . Right knee surg July 2010 ??? XR FLUORO INJECTION DRAINAGE JOINT LG LEFT Left 04/27/2018 XR Fluoro Guided Joint Injection Large Left 04/27/2018 [facility] RAD XRAY ALLERGIES: Morphine sulfate and Opioids - morphine analogues MEDICATIONS: Medications 05/10/18 0900 Medication Sig Taking? FLUARIX QUAD 4653-4510, PF, 60 mcg (15 mcg x 4)/0.5 [...] tablet by mouth daily. Yes GLUC/MICHELLE-MSM#1/VIT C/DANITZA/BOR (HAEJCTPOVKA-XWYXS-DTH COMPLEX ORAL) Take by mouth daily. Yes RX ADULT COMPOUNDED MEDICATION Apply 2-4 pumps (1-2 g) to affected areas 3-4 times a day Dispense # 240 g lisinopril-hydrochlorothiazide (PRINZIDE;ZESTORETIC) 10-12.5 mg Tablet Take 1 tablet by mouth daily. omeprazole (PRILOSEC) 20 mg capsule Take 20 mg by mouth daily as needed. Reported on 12/22/2016 ROS: Review of Systems Constitutional: Positive for fatigue. Negative for chills and fever. HENT: Negative for ear pain. Eyes: Negative for pain. Respiratory: Negative for chest tightness and shortness of breath. Cardiovascular: Negative for chest pain. Endocrine: Negative. PHYSICAL EXAM: BP 176/88 Pulse 90 Ht 180.3 cm (5' 11) Wt 133.4 kg (294 lb 3.2 oz) SpO2 100% BMI 41.03 kg/m?? Physical Exam Constitutional: He is oriented to person, place, and time. He appears well- developed and well-nourished. HENT: Head: Normocephalic. Eyes: Conjunctivae are normal. Right eye exhibits no discharge. Left eye exhibits no discharge. Neck: No JVD present. No tracheal deviation present. No erythema or ecchymosis, no post-operative scarring. Hypertonicity left trapezius, SCM and scalenes with tenderness. Full cervical flexion and extension, limited left and right rotation and left [...] and oriented to person, place, and time. Diminished sensation left anterior shoulder approx to clavicle and posterior to scapula. Otherwise LE sensation intact. Skin: Skin is warm and dry. Psychiatric: He has a normal mood and affect. RADIOLOGIC DATA: MRI Left Shoulder 07/15/16 EXAMINATION: MRI SHOULDER [...] Diagnoses Name Primary? Chronic neck pain ??? Winging of scapula, LEFT ??? Left shoulder pain, unspecified chronicity 62 yo male patient with ongoing neck and left shoulder pain following work injury on April 29, 2012. He has seen multiple providers for these issues in the past. Cervicalgia treated by Dr. Garrido, no improvement with cervical epidural injection which was done over 10 years ago. Limited cervical ROM and radiation of pain to head and left neck. Order updated cervical MRI, patient to follow-up to discuss MRI results and options for interventional pain options. Left shoulder pain Had been seen by Dr. Tejada and had arthroscopic subacromial decompression, as well as a repair of the anterior labral tear in 2000. He has been seen by Dr. Schultz for on-going pain in the left shoulderand recently had a Fluoro Guided Joint Injection Left Shoulder with some benefit in left shoulder pain did not improve the burning pain that he has in left shoulder. His past records discuss chronic denervation changes in the left infrascapular muscle due to prior suprascapular nerve injury- UE EMG/NCS done through neurology Dr. Nicolas Vargas July 15, 2016. Consider suprascapular nerve block versus peripheral cutaneous stimulation/neuromodulation. Treatment options for the neuropathic aspect of his chronic shoulder pain include calcium channel blockers i.e. gabapentin, tricyclic antidepressants i.e. amitriptyline, SNRI???s i.e. Cymbalta. Patientdid not tolerate gabapentin in the past and thus I recommend starting a compounded topical pain cream consisting of lidocaine 5%, baclofen 2% and diclofenac 3% 1-2 g to affected area 3-4 times a day - ordered through compounding pharmacy. Additional pharmacologic options to consider include NMDA antagonists i.e memantine or ketamine, antiepileptics [...] massage therapy on home stretches and self-massage. PLAN: 1) Order cervical MRI wo contrast 2) Topical pain cream - lidocaine 5%, baclofen 2% and diclofenac 3% 1-2 g to affected area 3-4 timesa day 3) Order Massage therapy for 30 minutes twice a week for 12 sessions then re-assess 4) Follow-up with Orthopedics as scheduled 5) Follow-up after cervical MRI Joseluis Cain had the opportunity to ask questions and indicated that all questions were answered to his satisfaction. Thank you for the opportunity to participate in Joseluis Cain's care. Thank you for this referral, SJ Almeida [facility] [place] [address]. Natalie Viramontes, MSN, EDITORIAL MANAGER- C, CUSTOMER QUALITY SPECIALIST Nurse Practitioner [facility] [place] [phone] / [facility] documented in this encounter Plan of Treatment Scheduled Referrals Name Type Priority Associated Diagnoses Order S chedule Referral for Other Outpatient Referral Routine Left shoulder p ain, Ordered: Services unspecified 05/10/2018 chronicity documented as of this encounter Results MRI Cervical Spine wo [...] No cord signal abnormality.. IMPRESSION: Natalie Viramontes APRN IMG MRI ORDERABLES documented in this encounter Visit Diagnoses Diagnosis Chronic neck pain Cervicalgia Winging of scapula, LEFT Other acquired deformity of other parts of limb Left shoulder pain, unspecified chronici ty Chronic neck pain Cervicalgia documented in this encounter Care Teams Furniture Mechanic Relationship Specialty Start Date End Date Rodolfo Penn MD PCP - General Family Medicine 10/12/[address] [place] [address] documented as of this encounter
--- OUTSIDE RECORDS SUMMARY | 2022-01-14 01:05 | XMS_ITS | Encounter Summary ---
:1955 Author Organization [facility] [place] [address] Care Team Providers Name Role Phone Rodolfo Penn MD Primary Care Provider [phone] Reason for Referral Physical Therapy (Routine) - Specialty Diagnoses / Procedures Referred By Contact Refer red To Contact Physical Therapy Diagnoses Left shoulder pain, unspecified chronicity Annabel Mccormick, PA [address] [place] [id number] Referral ID Status Reason Start Date Expiration Date Visits V isits Requested Authorized [id number] Evaluate and 02/10/2017 08/09/2017 12 12 Treat Reason for Visit Reason Comments Left Shoulder Pain Encounter Details Date Type Department Care Team Description 02/10/2017 Office Visit Orthopaedics [place] [facility] Isaias Schultz, Left shoulder pain, [facility] [address] [place] [address] C[facility] [phone] ORTHOPAEDIC SURGERY [place], [place] [address] Social History Tobacco Use Types [...] Sign Reading Time Taken Comments Blood Pressure 160/81 02/10/2017 8:44 AM EDT Pulse 82 02/10/2017 8:44 AM EDT Temperature - - Respiratory Rate - - Oxygen Saturation - - Inhaled Oxygen Concentration - - Weight 131.5 kg (290 lb) 02/10/2017 8:44 AM EDT verbal Height 179.1 cm (5' 10.5) 02/10/2017 8:44 AM EDT samira wang Body Mass Index 41.02 02/10/2017 8:44 AM EDT documented in this encounter Progress Notes Annabel Mccormick PA - 02/10/2017 9:00 AM EDT This 61-year-old gentleman comes in today for a followup of left shoulder pain with calcific tendonitis and glenohumeral arthritis, Workmen's Comp, date of injury 04/29/98. He did have a fluoroscopy-guided glenohumeral injection since we last saw him. He does feel that that helped his shoulder pain some. Unfortunately, he did not feel well and had a significant headache and neck ache following that. He is not sure if it was due to the injection or just a coincidence though. He did get some overall relief of his shoulder pain and he is probably back to baseline at this point, though it has worn off. He has previously had a subacromial injection which has given him some good temporary relief also. He felt that his pain was less and his motion was better after the injection. Examination today shows him to be in no acute distress, active forward elevation to about 100 degrees. I can get him to about 100 degrees. I can get him to 170 passively but with discomfort at end motion. Internal rotation at L3. External rotation about 60. Strength is 5-/5, some discomfort with impingement testing today. New imaging not indicated. IMPRESSION: Left shoulder pain with calcific tendonitis and glenohumeral arthritis. Workmen's Comp, date of injury 04/29/98. TREATMENT: We previously discussed with him the potential of arthroscopy for debridement. Patient is considering that but would like to try other measures first if possible. We did discuss massage therapy, and he would like to try that. Referral is given. He will go near his home. He believes that this is available to him,at a physical therapy facility near his home. He will continue on a home exercise program. He may also benefit from acupuncture, but I have asked him to give the massage therapy a couple of months on its own before we add anything different, and he was comfortable with that. We left followup on a somewhat p.r.n. basis. We said we would give the massage therapy and possible acupuncture about 6 months, and if he is still having problems he will follow up with Dr. Schultz at that time, and we could still consider arthroscopy. documented in this encounter Plan of Treatment Scheduled Referrals Name Type Priority Associated Diagnoses Order S chedule Referral to Outpatient Referral Routine Left shoulder pain, O rdered: Physical Therapy unspecified 02/10/2017 chronicity documented as of this encounter Visit Diagnoses Diagnosis Left shoulder pain, unspecified chronici ty documented in this encounter Care Teams Resident Services Supervisor Relationship Specialty Start Date End Date Rodolfo Penn MD PCP - General Family Medicine 10/12/15 [address] [place] [address] documented as of this encounter
--- OUTSIDE RECORDS SUMMARY | 2022-01-14 01:06 | XMS_ITS | Encounter Summary ---
:1955 Author Organization [facility] Address [address] [facility] [place] [address] Care Team Providers Name Role Phone Magaly Willis MD Primary Care Provider Reason for Visit Reason Comments Eye Exam DAVE: 7 - 8 years Blurred Vision jagged, sizzling line OU, which last ~ 20 min Dry Eye OU Encounter Details Date Type Department Care Team Description 08/03/2015 Office Visit Ophthalmology [facility] Jennifer Todd, Ocular migraine; [facility] OD Age-related nuclear cataract, bilateral; Drive [facility] [place] [address] CENTER [phone] OPHTHALMOLOGY DEPT [place], [place] [address] Social History Tobacco Use Types Packs/Day Years Used Date Former Smoker Cigarettes 1.5 20 Quit: 11/01/18 96 Smokeless Tobacco: Never Used Alcohol Use Standard Drinks/Week Comments No 0 (1 standard drink = 0.6 oz pure alcoho l) Sex Assigned at Date Recorded Not on file documented as of this encounter Progress Notes Jennifer Todd, OD - 08/03/2015 9:05 AM EST Encounter Diagnoses Name Primary? Ocular migraine ??? Age-related nuclear cataract, bilateral ??? Refractive error Joseluis Cain is a 59 y.o. with the following ophthalmic problems: Assessment and Plan: Ocular Migraine - Reassurance given. Monitor at [facility] Cataracts OU - Monitor for now, sooner with changes in vision. Refractive Error OU - Rx given today - Findings and concerns discussed with Joseluis and he expressed understanding. -Upon Return [facility] in 1 year, sooner with changes in sx/vision. Eyeglass Final Rx Eyeglass Final Rx Sphere Cylinder [place] Add Right -1.25 +0.75 023 +2.50 Left -1.00 +0.75 171 +2.50 Expiration Date: 08/03/2017 documented in this encounter Plan of Treatment Not on filedocumented as of this encounter Visit Diagnoses Diagnosis Ocular migraine Other forms of migraine, without mention of intractable migraine without mention of status migrainosus Age-related nuclear cataract, bilateral Senile nuclear sclerosis Refractive error Unspecified disorder of refraction and a ccommodation documented in this encounter Care Teams Compensation Business Partner Relationship Specialty Start Date End Date Magaly Willis MD PCP - General 04/20/10 10/11/15 [address] [place] [address] documented as of this encounter
--- OUTSIDE RECORDS SUMMARY | 2022-01-14 01:06 | XMS_ITS | Encounter Summary ---
:1955 Author Organization [facility] [place] [address] Care Team Providers Name Role Phone Magaly Willis MD Primary Care Provider Reason for Visit Reason Comments Bilateral Knee Pain Encounter Details Date Type Department Care Team Description 01/18/2012 Office Visit Orthopaed[place] [facility] Delmar Monreal PA [facility] [place] [address] OA (osteoarthritis) [facility] Brice Watkins MD [facility] [place] [address] of knee (Primary Dx) [place] [phone] Social History Tobacco Use Types Packs/Day Years Used Date Former Smoker Cigarettes 1.5 20 Quit: 11/01/18 96 Smokeless Tobacco: Never Used Alcohol Use Standard Drinks/Week Comments No 0 (1 standard drink = 0.6 oz pure alcoho l) Sex Assigned at Date Recorded Not on file documented as of this encounter Last Filed Vital Signs Vital Sign Reading Time Taken Comments Blood Pressure 130/92 01/18/2012 11:17 AM EDT Pulse 77 01/18/2012 11:17 AM EDT Temperature - - Respiratory Rate - - Oxygen Saturation - - Inhaled Oxygen Concentration - - Weight 128.4 kg (283 lb) 01/18/2012 11:17 AM EDT Height 179.1 cm (5' 10.5) 01/18/2012 11:17 AM EDT pt s tated Body Mass Index 40.03 01/18/2012 11:17 AM EDT documented in this encounter Progress Notes Delmar Monreal PA - 01/18/2012 1:22 PM EDT HPI: 56 yo male presents for evaluation of his right knee. He has had approximately 15 years of symptoms. He has had progressively increasing medial pain. There has been swelling to the knee and leg. He has had no injuries to the joint. He had an arthroscopic surgery which included chondroplasty 6 months ago. The surgery did not help. He has had injections of Synvisc as well as cortisone. Aside from the knee he has felt well. He has some symptoms to the left knee which are milder. He denies chest pain or SOB. Physical Exam: 56 yo male, ambulatory without assist or antalgia. There is varus deformity to the right knee. There is small effusion to the right knee. He is able to straight leg raise without lag. There is psuedolaxity with MCL testing but a firm endpoint. Flexion to 115. Calves soft and nontender without edema. I have made the following determinations: Knee Exam: Right Prior surgery on this joint: Yes Gait Abnormality: Normal Knee ROM: Extension:0 Flexion: 115 Alignment: 5-10 degrees Varus Stability: A/P Translation <5mm. Varus (lateral stability) <5mm Valgus (medial stability) 5-10mm Extension La degrees or less Radiographic evidence of joint damage: [0= normal; 1=minimal ; 2= some osteophytes , some narrowing ; 3= moderate osteophytes, significant narrowing, mild deformity; 4= large osteophytes, marked narrowing, obvious deformity]: 4= large osteophytes, marked narrowing, obvious deformity Patella Tracking: Normal Skin Integrity: Normal Pulses Palpable: Right PT: Yes Right DP:Yes Motor/Sensory: Distal Motor: Normal Distal Sensory: Normal Quadriceps Strength: 5 X-rays: There is complete loss of the medial jointspace with subchondral sclerosis. No signficant osteophytes are seen. No evidence of fracture or dislocation. Milder changes to the left knee. Assessment: Right knee OA Plan: We discussed his x-rays and the relevant anatomy. The progressive course of OA and the elective nature of intervention was stressed. We discussed indications for TKA. The risk of the procedure was reviewed as well long-term implications. We'll plan to see him again as needed. documented in this encounter Plan of Treatment Not on filedocumented as of this encounter Visit Diagnoses Diagnosis OA (osteoarthritis) of knee - Primary Osteoarthrosis, unspecified whether gene ralized or localized, lower leg documented in this encounter Care Teams Hogshead Cooper Relationship Specialty Start Date End Date Magaly Willis MD PCP - General 04/20/10 10/11/15 [address] [place] [address] documented as of this encounter
--- OUTSIDE RECORDS SUMMARY | 2022-01-14 01:06 | XMS_ITS | Encounter Summary ---
:1955 Author Organization [facility] [place] [address] Care Team Providers Name Role Phone Magaly Willis MD Primary Care Provider Reason for Visit Reason Onset Date Comments Appointment 06/30/2015 Patient called to wi vale appointment on 08/03/15 anytime after 8:30AM as he will be here with father. Encounter Details Date Type Department Care Team Description 06/30/2015 Telephone Ophthalmology at [facility] C Delmar Robertson Appointment (Patient [facility] MD Linda called to schedule [facility] [place] [address] OPHTHALMOLOGY DEPT. 08/03/15 anytime after [phone] [place], [place] [address] 8:30AM as he will be [phone] (Wo rk) here with father.) Social History Tobacco Use Types Packs/Day Years Used Date Former Smoker Cigarettes 1.5 20 Quit: 11/01/18 96 Smokeless Tobacco: Never Used Alcohol Use Standard Drinks/Week Comments No 0 (1 standard drink = 0.6 oz pure alcoho l) Sex Assigned at Date Recorded Not on file documented as of this encounter Miscellaneous Notes Telephone Encounter - Magaly Boyer COT - 06/30/2015 10:41 AM EST Patient contacted and wanting to establish eye care here as he brings parents for appointment frequently. Call given to Juan Manuel to schedule on 08/03/15 at patient convenience with optom. Telephone Encounter - Magaly Boyer COT - 06/30/2015 10:22 AM EST Patient left message on triage line requesting an appointment for 08/03/2015 anytime after 8:30AM as he will be here with his father. He reports this is the 4th time he has called to schedule appointmentand has e-mailed as well with no response. No email or telephone encounter's found. His concern is for 3 episodes of visual disturbance effecting both eyes and lasting about 15-20 minutes each time, then resolving. Describes bright, wavy lines in both eyes that come quickly then resolve. documented in this encounter Plan of Treatment Not on filedocumented as of this encounter Visit Diagnoses Not on filedocumented in this encounter Care Teams Hazardous Substances Engineer Relationship Specialty Start Date End Date Magaly Willis MD PCP - General 04/20/10 10/11/15 [address] [place] [address] documented as of this encounter
--- OUTSIDE RECORDS SUMMARY | 2022-01-14 01:06 | XMS_ITS | Encounter Summary ---
:1955 Author Organization [facility] [place] [address] Care Team Providers Name Role Phone Magaly Willis MD Primary Care Provider Encounter Details Date Type Department Care Team Description 01/18/2010 Orders Only Orthopaedics at [facility] Delmar Monreal PA [facility] [place] [address] ORTHOPAEDIC SURGERY [phone] [place], [place] [address] (Wo rk) Social History Tobacco Use Types Packs/Day Years Used Date Never Assessed Sex Assigned at Date Recorded Not on file documented as of this encounter Plan of Treatment Not on filedocumented as of this encounter Procedures Procedure Name Priority Date/Time Associated Diagnosis Comme nts FILM LIBRARY Routine 01/18/2010 10:19 AM Results for this STORAGE ONLY DX EDT procedure ar e in KNEE the results section. documented in this encounter Results FILM LIBRARY- STORAGE ONLY DX KNEE (01/18/2010 10:19 AM EDT) Specimen (Source) Anatomical Collection Method Collection Time Re ceived Time Location / / Volume Laterality 01/18/2010 10:19 AM EDT Narrative RAD - 12/10/2013 10:18 AM EDT This is a non-reportable exam. Procedure Note Yeyo Ny - 12/10/2013Formatti ng of this note might be different from the original. This is a non-reportable exam. Delmar GUSTAFSON Monae FILM LIBRARY ORDERABLES Performing Organization Address City/State/ZIP Code Phon e Number RAD RAD [address] [place] [address] documented in this encounter Visit Diagnoses Not on filedocumented in this encounter Care Teams Machine Stuffer Automatic Relationship Specialty Start Date End Date Magaly Willis MD PCP - General 04/20/10 10/11/[address] [place] [address] documented as of this encounter
--- OUTSIDE RECORDS SUMMARY | 2022-01-14 01:06 | XMS_ITS | Encounter Summary ---
:1955 Author Organization [facility] [place] [address] Care Team Providers Name Role Phone Magaly Willis MD Primary Care Provider Encounter Details Date Type Department Care Team Description 06/16/2010 Orders Only Orthopaedics at [facility] Delmar Monreal PA [facility] [place] [address] ORTHOPAEDIC SURGERY [phone] [place], [place] [address] (Wo rk) Social History Tobacco Use Types Packs/Day Years Used Date Never Assessed Sex Assigned at Date Recorded Not on file documented as of this encounter Plan of Treatment Not on filedocumented as of this encounter Procedures Procedure Name Priority Date/Time Associated Diagnosis Comme nts FILM LIBRARY Routine 06/16/2010 10:18 AM Results for this STORAGE ONLY MR EST procedure ar e in KNEE the results section. documented in this encounter Results FILM LIBRARY- STORAGE ONLY MR KNEE (06/16/2010 10:18 AM EST) Anatomical Region Laterality Modality Other Specimen (Source) Anatomical Collection Method Collection Time Re ceived Time Location / / Volume Laterality 06/16/2010 10:18 AM EST Narrative 07/16/2013 6:32 PM EST This is a non-reportable exam. Procedure Note Guanako Ny - 07/16/2013Formatting of t his note might be different from the original. This is a non-reportable exam. Delmar GUSTAFSON Monae FILM LIBRARY ORDERABLES documented in this encounter Visit Diagnoses Not on filedocumented in this encounter Care Teams Safety Sitter Relationship Specialty Start Date End Date Magaly Willis MD PCP - General 04/20/10 10/11/15 [address] [place] [address] documented as of this encounter
--- OUTSIDE RECORDS SUMMARY | 2022-01-14 01:06 | XMS_ITS | Encounter Summary ---
:1955 Author Organization [facility] [place] [address] Care Team Providers Name Role Phone Magaly Willis MD Primary Care Provider Encounter Details Date Type Department Care Team Description 01/18/2012 Hospital Encounter XRay at [facility] Bilateral knee pain [address] [place] [address] Social History Tobacco Use Types Packs/Day [...] Sig Dispensed Refills Start Date End Date multivitamin (THERAGRAN) Take 1 tablet by 0 tablet mouth daily. omeprazole (PRILOSEC) 20 Take 20 mg by mouth 0 mg capsule daily as needed. Reported on 12/22/2016 GLUC/MICHELLE-MSM#1/VIT Take by mouth daily. 0 C/DANITZA/BOR (NSGQMXQUSTA-XYEVP-GLR COMPLEX ORAL) zolpidem (AMBIEN) 5 mg Take 5 mg by mouth 0 08/03/2015 tablet nightly as needed. Lutein 6 mg Cap Take 1 capsule by 0 mouth daily. ibuprofen (ADVIL;MOTRIN) Take 800 mg by mouth 0 03/24/2017 200 mg tablet every 6 hours as needed. azelastine (ASTELIN) 137 2 Lampe(s) each 0 200908/03/2015 mcg nasal spray nostril, Nasal, Twice daily documented as of this encounter Plan of Treatment Not on filedocumented as of this encounter Procedures Procedure Name Priority Date/Time Associated Diagnosis Comme nts XR JOINT TEAM Routine 01/18/2012 10:34 AM Bilateral knee pain Results for this ALIGNMENT AP LAT EDT procedure a re in SCHUSS SKYLINE the results section. documented in this encounter Results XR JOINT TEAM ALIGNMENT AP LAT [place]USS SKYLINE (01/18/2012 10:34 AM EDT) Anatomical Region Laterality Modality N/A Radiographic Imaging Specimen (Source) Anatomical Collection Method Collection Time Re ceived Time Location / / Volume Laterality 01/18/2012 10:34 AM EDT Narrative 01/18/2012 11:35 AM EDT Examination JOINT TEAM STANDING ALIGNMENT AP LAT CALLI USS SKYLINE/BILAT Clinical History BILAT KNEE DJD Comparison Right knee x-rays 01/18/2010. Technique Separate images of the pelvis, knees and feet were acquired in the AP projection with the patient standing. In addition to routine views of the knee, these images were stitched together to f orm a composite image of the pelvis and legs allowing for evaluation of lower ex tremity alignment in the weight bearing position. AP standing alignment, 4 views bilateral knees. Findings AP standing alignment: ??There is approx imately 3.9 cm medial deviation mechanical axis on the right and 2.1 cm medial deviation mechanical axis on the left. Bilateral knees: At the right knee, ther e is severe medial compartment joint space narrowing with accompanying subcho ndral sclerosis small marginal osteophytes. ??Additional osteophyte for mation at the patellofemoral compartment and to a lesser degree the lateral agatha rtment compatible with osteoarthritis. ?? There is mild lateral patellar tilt and subluxation as well as a moderate knee joint effusion. At the left knee, there is mild medial c ompartment joint space narrowing without accompanying osteophytosis. ??Ti ny marginal osteophytes patellofemoral compartment. ??No joint effusion or frac ture is observed. ??There is mild patellar tilt on the sunrise view. Impression ? 1. Medial deviation of the mechan ical axis bilaterally right greater than left. ? 2. Tricompartmental osteoarthriti s of the right knee most pronounced at the medial and patellofemoral compartmen ts with a moderate knee joint effusion. ? 3. Mild medial compartment joint space narrowing of the left knee and tiny left patellofemoral compartment osteophy lucas. Procedure Note Brice Watkins MD - 01/18/2012Formatti ng of this note might be different from the original. Examination JOINT TEAM STANDING ALIGNMENT AP LAT CALLI USS SKYLINE/BILAT Clinical History BILAT KNEE DJD Comparison Right knee x-rays 01/18/2010. Technique Separate images of the pelvis, knees and feet were acquired in the AP projection with the patient standing. In addition to routine views of the knee, these images were stitched together to f orm a composite image of the pelvis and legs allowing for evaluation of lower ex tremity alignment in the weight bearing position. AP standing alignment, 4 views bilateral knees. Findings AP standing alignment: There is approxim ately 3.9 cm medial deviation mechanical axis on the right and 2.1 cm medial deviation mechanical axis on the left. Bilateral knees: At the right knee, ther e is severe medial compartment joint space narrowing with accompanying subcho ndral sclerosis small marginal osteophytes. Additional osteophyte forma tion at the patellofemoral compartment and to a lesser degree the lateral agatha rtment compatible with osteoarthritis. There is mild lateral patellar tilt and subluxation as well as a moderate knee joint effusion. At the left knee, there is mild medial c ompartment joint space narrowing without accompanying osteophytosis. Tiny marginal osteophytes patellofemoral compartment. No joint effusion or fractu re is observed. There is mild patellar tilt on the sunrise view. Impression 1. Medial deviation of the mechanical a xis bilaterally right greater than left. 2. Tricompartmental osteoarthritis of t he right knee most pronounced at the medial and patellofemoral compartmen ts with a moderate knee joint effusion. 3. Mild medial compartment joint space narrowing of the left knee and tiny left patellofemoral compartment osteophy lucas. Isreal Velásquez MD IMG DX ORDERABLES documented in this encounter Visit Diagnoses Diagnosis Bilateral knee pain Pain in joint, lower leg documented in this encounter Care Teams Consumer Science Teacher Relationship Specialty Start Date End Date Magaly Willis MD PCP - General 04/20/10 10/11/15 [address] [place] [address] documented as of this encounter
--- OUTSIDE RECORDS SUMMARY | 2022-01-14 01:06 | XMS_ITS | Encounter Summary ---
:1955 Author Organization [facility] [place] [address] Care Team Providers Name Role Phone Rodolfo Penn MD Primary Care Provider [phone] Encounter Details Date Type Department Care Team Description 10/12/2015 Hospital Encounter Gastroenterology at [facility] [place] [address] [place] [address] [facility] [place], [place] [address] Social History Tobacco Use Types [...] to be checked. Monday-Monday Same Day Endo [phone] [id number]-8p Otherwise contact [phone] and ask to speak to the securities dealer electronics production supervisor Follow up care is a pillai part [...] GLUC/MICHELLE-MSM#1/VIT Take by mouth daily. 0 C/DANITZA/BOR (GEZHUYEMZYQ-DZVDB-BGQ COMPLEX ORAL) losartan (COZAAR) 100 mg Take [...] Surgical Pathology Report (10/12/2015 9:35 AM EDT) [facility] Method Time Signature Surgical ? Location: ; [facility] Pathology [place] Report The signing pathologist has (i) examined the relevant preparation(s) for the [facility] specimen(s) and (ii) rendered or confirmed the diagnosis(es) . HOSPITAL LABORATORY . ?Surgic al Pathology DIAGNOSIS Sigmoid colon, ??polypectomy: Tubular adenoma. CR-PX 10/12/15 AAY 10/13/15 Verified by: ? Zachary CHAVIRA, Maria Elena Lao ?Pathologist ?(Electronic Signature ) The attending pathologist [...] MD PATHOLOGY/CYTOLOGY ORDERABLE S Performing Organization Address City/[facility]/[place] [address] Specimen to Pathology (surgical or derm) (10/12/2015 9:35 AM EDT) Specimen Anatomical Collection Method Collection Time Receive d Time (Source) Location / / Volume Laterality AP Specimen 10/12/2015 9:35 AM 6 9:35 EDT AM EDT Narrative [facility] - 10/12/2015 9:35 AM EDT Specimen requisition ordered. ??Separate Pathology report to follow Ad Bourne MD PATHOLOGY/CYTOLOGY ORDERABLE S Performing Organization Address City/State/ZIP [facility] [address] COLONOSCOPY (10/12/2015 8:52 AM EDT) [facility] gist Method Time Signature COLONOSCOPY [facility] Endoscopy Patient Name: Joseluis Cain ? Procedure Date: 10/12/2015 8:52 AM ? Date of : 1955 ? Age: 60 ? Order #: [id number] ? Procedure: ? Colonoscopy Indications: ? Screening for colorectal malignant ? neoplasm Providers: ? Ad Bourne MD, Prema Vazquez , ? YIMI, Bonita Camp MD: ?Magaly Willis MD Medicines: ? Midazolam [...] MAR Action Action Date Dose Rate Site lactated ringers infusion New Bag 10/12/2015 8:45 AM EDT 100 mL/hr 100 mL/hr 100 mL/hr, Intravenous, CONTINUOUS, Starting on 10/12/15 at 0845, Until 10/12/15 at 1143, Endoscopy (Intra-Procedure) documented in this encounter Active and Recently Administered Medications Times are shown in EDT. Continuous Medication Order 10/10/2015 10/11/2015 10/12/2015 lactated ringers infusion 0845 ( New Bag - Provider: Eneida Childress RN) 100 mL/hr, at 100 mL/hr, Intravenous, CO NTINUOUS, Starting 10/12/15 at 0845, Until 10/12/15 at 1143, Endo (Intra-Procedure) PRN Medication Order 10/10/2015 10/11/2015 10/12/2015 fentaNYL 50 mcg/mL multi-dose injection (CANCELED) 907 (Given - Provider: Prema Vazquez RN)909 (Given - Provider: Prema Vazquez, YIMI) ONCE PRN, Starting 10/12/15 at 0908, Until 10/12/15 at 1143, Intra- Operative (Intra-Procedure), Routine midazolam (PF) (VERSED) 1 mg/mL multi-dose injection (CANCELED) 907 (Given - Provider: Prema Vazquez RN)909 (Given - Provider: Prema Vazquez RN) ONCE PRN, Starting 10/12/15 at 0908, Until 10/12/15 at 1143, Intra- Operative (Intra-Procedure), Routine documented in this encounter Care Teams Qual Research Manager Relationship Specialty Start Date End Date Rodolfo Penn MD PCP - General Family Medicine 10/12/[address] [place] [address] documented as of this encounter
--- OUTSIDE RECORDS SUMMARY | 2022-01-14 01:06 | XMS_ITS | Encounter Summary ---
:1955 Author Organization [facility] Address [facility] [place] [address] Care Team Providers Name Role Phone Magaly Willis MD Primary Care Provider Encounter Details Date Type Department Care Team Description 01/10/2012 Orders Only Orthopaedics at [facility] Isreal Velásquez MD Bilateral knee pain [facility] (Pr imary Dx) [place] [address] ORTHOPAEDIC [phone] SURG[place] [id number] Social History Tobacco Use Types Packs/Day Years Used Date Never Assessed Sex Assigned at Date Recorded Not on file documented as of this encounter Plan of Treatment Not on filedocumented as of this encounter Results XR JOINT TEAM ALIGNMENT [...] encounter Visit Diagnoses Diagnosis Bilateral knee pain - Primary Pain in joint, lower leg Bilateral knee pain Pain in joint, lower leg documented in this encounter Care Teams Special Education Secretary Relationship Specialty Start Date End Date Magaly Willis MD PCP - General 04/20/10 10/11/15 [address] [place] [address] documented as of this encounter
--- OUTSIDE RECORDS SUMMARY | 2022-01-14 01:06 | XMS_ITS | Encounter Summary ---
:1955 Author Organization [facility] [place] [address] Care Team Providers Name Role Phone Magaly Willis MD Primary Care Provider Reason for Visit Reason Comments Blurred Vision OD distance with new lens Encounter Details Date Type Department Care Team Description 08/31/2015 Office Visit Ophthalmology [facility] Jennifer Todd, Refractive error [facility] [place] [address] [facility] [phone] DR OPHTHALMOLOGY DE PT [place], [place] [address] (Wo rk) Social History Tobacco Use Types Packs/Day Years Used Date Former Smoker Cigarettes 1.5 20 Quit: 11/01/18 96 Smokeless Tobacco: Never Used Alcohol Use Standard Drinks/Week Comments No 0 (1 standard drink = 0.6 oz pure alcoho l) Sex Assigned at Date Recorded Not on file documented as of this encounter Progress Notes Jennifer Todd, OD - 08/31/2015 1:25 PM EDT Encounter Diagnosis Name Primary? Refractive error Joseluis Cain is a 60 y.o. with the following ophthalmic problems: Assessment and Plan: Refractive Error OU, small rx change only. - Rx given today. - Findings and concerns discussed with Joseluis and he expressed understanding. -Upon Return CEE in 1 year, sooner with changes in sx/vision. Eyeglass Final Rx Eyeglass Final Rx Sphere Cylinder Morehouse Add Right -1.00 +0.50 013 +2.50 Left -1.25 +0.75 170 +2.50 Expiration Date: 08/31/2017 documented in this encounter Plan of Treatment Not on filedocumented as of this encounter Visit Diagnoses Diagnosis Refractive error Unspecified disorder of refraction and a ccommodation documented in this encounter Care Teams Reconditioning Associate Relationship Specialty Start Date End Date Magaly Willis MD PCP - General 04/20/10 10/11/[address] [place] [address] documented as of this encounter
--- OUTSIDE RECORDS SUMMARY | 2022-01-14 01:06 | XMS_ITS | Encounter Summary ---
:1955 Author Organization [facility] [place] [address] Care Team Providers Name Role Phone Magaly Willis MD Primary Care Provider Reason for Visit Reason Onset Date Comments Referral 01/29/2014 Encounter Details Date Type Department Care Team Description 01/29/2014 Telephone Orthopaedics at [facility] [place] [address] Social History Tobacco Use Types Packs/Day Years Used Date Former Smoker Cigarettes 1.5 20 Quit: 11/01/18 96 Smokeless Tobacco: Never Used Alcohol Use Standard Drinks/Week Comments No 0 (1 standard drink = 0.6 oz pure alcoho l) Sex Assigned at Date Recorded Not on file documented as of this encounter Miscellaneous Notes Telephone Encounter - Lior Dietrich - 01/29/2014 1:37 PM EDT Appointment 03.25.14 Dr. Arteaga, added to wait list. Ask patient to verify the following: Full name: Joseluis Cain : 1955 Phone number: [phone] (home) Mailing address: [place] [address] AGE: 58 y.o. REASON FOR APPOINTMENT: BILATERAL KNEE PAIN RIGHT IS WORST How long have you had these symptoms? (days, weeks, months, years) Is this WORKERS COMP? If YES ? YEARS NONE Records Retrieval What? When? (m/d/y) Where? (facility) Who? Notes: Checklist Physical exam w/in last year? 04.08.14 pending [facility]/ [place], [place] Dr. Willis Last physical was in the past spring. X-rays 11.27.2013 KOTA Corrales [place], [place] PH: [phone] FAX: [phone] NO PUSH MRI none CT Scan none Physical Therapy none Injection none Other diagnostic studies none Other therapies none Other Specialist(s) none If 2nd (+) opinion get info on previous; book with MD only ? 11.27.13 KOTA Corrales [place], [place] PH: [phone] FAX: [phone] NO PUSH-Dr. Spangler Mr. Monreal in 2011. Have you had any surgeries for this issue? noneOperative report Did surgery include placement of implant/hardware or fixation of any kind? noneImplant stickers Do you have a MyDH account? Yes. If ???NO?? deploy dotphrase: MYDHPATIENTINSTRUCTIONS documented in this encounter Plan of Treatment Not on filedocumented as of this encounter Visit Diagnoses Not on filedocumented in this encounter Care Teams Survey Crew Chief Relationship Specialty Start Date End Date Magaly Willis MD PCP - General 04/20/10 10/11/15 [address] [place] [address] documented as of this encounter
--- OUTSIDE RECORDS SUMMARY | 2022-01-14 01:07 | XMS_ITS | Encounter Summary ---
:1955 Author Organization [facility] Address [address] [place] [address] Care Team Providers Name Role Phone Magaly Willis MD Primary Care Provider Reason for Visit Reason Comments Knee Pain Right knee Encounter Details Date Type Department Care Team Description 11/27/2013 Office Visit [facility] Dax Spangler Obesity (BMI 30-39.9) (Primary Dx); [facility] Osteoarthritis of right knee; - Shani WATTS MA Muscle spasm of both lower l egs; [address] [id number] Fasciculations of muscle; [place], [place] [phone] Degenerati ve lumbar disc [address] (Work) [phone] Social History Tobacco Use Types Packs/Day Years Used Date Former Smoker Smokeless Tobacco: Never Used Tobacco Cessation: Counseling Given: No Sex Assigned at Date Recorded Not on file documented as of this encounter Last Filed Vital Signs Vital Sign Reading Time Taken Comments Blood Pressure - - Pulse - - Temperature - - Respiratory Rate - - Oxygen Saturation - - Inhaled Oxygen Concentration - - Weight 122.5 kg (270 lb) 11/27/2013818 EDT Height 180.3 cm (5' 11) 11/27/2013818 EDT Body Mass Index 37.66 11/27/2013 08 EDT documented in this encounter Discharge Diagnoses Diagnosis 278.00 OBESITY NOS[ICD-9-CM] 715.96 OSTEOARTHROS NOS-L/LEG[ICD-9-CM] 728.85 SPASM OF MUSCLE[ICD-9-CM] 781.0 ABN INVOLUN MOVEMENT NEC[ICD-9-CM] 722.52 LUMB/LUMBOSAC DISC DEGEN[ICD-9-CM ] 719.46 JOINT PAIN-L/LEG[ICD-9-CM] V71.89 OBSERVATION FOR OTHER SPECIFIED S USPECTED CONDITIONS[ICD-9-CM] documented in this encounter Patient Instructions Patient InstructionsDax Spangler MD - 11/27/2013 11:00 EDT INSTRUCTIONS FOR KNEE ARTHRITIS CARE: 1) Home exercise program including low impact aerobic exercise - www.[employer].org Walking for exercise three times a week if tolerable (cycling or swimming as alternatives) 2) Modest weight reduction (5% goal) if your weight is more than 10% above your ideal body weight ... Discuss with your primary care physician. 3) May use over the counter pain arthritis relievers (Acetaminophen and/or Aleve), taken with food in your stomach & do not exceed dosing written on the container. Be aware of the potential side effects! 4) Consider knee injection(s) here in my office if the medication(s) do not address your symptoms oryou have side effects that interfere with taking the arthritis pain relievers 4) Follow-up with your Primary Care Provider for routine health maintenance. 5) I encourage you to learn about your joint problems and here are suggested high quality on-line information sources: www.orthoinfo.aaos.org/informedPatient.cfm - Review total knee module Http://www.[employer].org/health_information - search osteoarthrtis www.saveyourknees.org 6) I encourage you to learn about your joint problems and recommend this book: Heal Your Knees: How to Prevent Knee Surgery and What to Do If You Need It by Dr. Jake Ochoa 7) Consider calling for a follow-up visit if your symptoms of pain and/or limited functional are notadequately addressed with the non-operative therapies described above. documented in this encounter Discharge Disposition Disposition Code Departure Means Destination Auto Discharge documented in this encounter Progress Notes Dax Spangler MD - 11/27/2013 0834 EDT New knee pain visit; Chief Complaint Patient presents with ??? Knee Pain Right knee Patient Active Problem List Diagnosis ??? Degenerative lumbar disc ??? Fasciculations of muscle ??? Muscle spasm of both lower legs ??? Osteoarthritis of right knee ??? Obesity (BMI 30-39.9) HPI: Joseluis Cain is a 58 y.o. patient whom I am seeing in as a new patient requested by with a history of atraumatic chronic right knee pain, swelling and instability that began approximately several years ago and has worsened over the last 3 years particularly despite formal medical and non-arthroplasty surgical management. He was seen last week by Dr. Seals 3 years status post arthroscopic debridement at [facility]. He reports activity related pain that limits his function on daily basis and intermittent night and rest pain. He does tell me that he has been taking the maximum dose of ibuprofen and noticed bilateral lower leg swelling. He stop the ibuprofen last week and has lost 7 pounds in his lower leg swelling has resolved. Best interest if specifically discussed this promptly with his primary care physician is including the role for potential diagnostic laboratories. He also reports chronic lumbar disc disease with right lower leg muscle fasciculations and intermittent bilateral lower leg cramping. Recently started on oral magnesium by Dr. Seals. 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 He is currently unemployed and on Social Security disability. He reports pain located primarily in the knee and denies ipsilateral groin/hip/buttock pain and denies ipsilateral lower leg/ankle/foot complaints. The pain description includes: Character: dull, burning and mechanical Timing: constant during ADL's and intermittent while at rest and at night Radiation: He denies radiation of symptoms to the foot Pain: 6/10 today Aggravated by: walking, position changes, pivoting, sitting and driving Alleviated by: rest and medication Causes difficulty with: putting on shoes Interferes with sleep: awakes from sleep with movement Limits ambulation: all the time Ambulates without suppor He does not report any constitutional symptoms. Emery Knee Score: 13 K.O.O.S: N/A Present activity level: UCLA score: 3 (1-10) Other providers involved prior to this evaluation: primary care provider and orthopaedic surgeon Other tests performed to evaluate this condition: X-Rays Prior treatment has included: Self-care: activity modification, neutriceuticals and ice Medications: OTC NSAID analgesics Physical therapy: none Injection therapy: None for this joint Surgical: None for this joint He has had no prior knee problems as a child or young adult. Outside reports reviewed: none available Comprehensive health database form (including 10 system review) was completed with the patient, reviewed, signed and scanned into EMR system. Medication reconciliation was completed. Past Medical History: reviewed as documented in PRISM chart No past surgical history on file. Occupation: unemployed PHYSICALEXAM: A Level 5 single system orthopedic exam was conducted on both lower extremities. This included: General: Well-appearing male in no acute distress. Mood and affect appropriate. Vital Signs: Ht 180.3 cm (71) Wt 122.471 kg (270 lb) BMI 37.67 kg/m2 A and O x3. Station and Gait: Arises from seated position with knee pain, normal station with level pelvis in standing position. Gait is antalgic on the right. Respiratory: No difficulties noted Pelvis and Hips: No tenderness or masses, hip ROM is symmetric without reproduction of patient's presenting leg complaint(s) RIGHT KNEE: Skin: Intact to inspection and palpation. Healed non-tender portal incisions/scars 1+ effusion. Standing alignment: genu varum, 6 degrees ROM +10 to 120 Manual muscle testing: Knee extension 5-/5 and knee flexion 5-/5 He does not have tenderness over the medial compartment, does not have tenderness over the lateral compartment and does not have tenderness over the patellofemoral compartment. He does have a positive Yonathan. He does a palpable Andre's cyst. IKDC-A Junie. IKDC-A posterior drawer. IKDC-A medial opening at 20 degrees, IKDC-A lateral opening at 20 degrees. LEFT KNEE: Skin: Intact to inspection and palpation. No prior incisions/scars 1+ effusion. Standing alignment: genu varum, 2 degrees ROM +5 to 120 Manual muscle testing: Knee extension 5/5 and knee flexion 5/5 He does not have tenderness over the medial compartment, does not have tenderness over the lateral compartment and does not have tenderness over the patellofemoral compartment. He does not have a positive Yonathan. He does not a palpable Andre's cyst. IKDC-A Junie. IKDC-A posterior drawer. IKDC-A medial opening at 20 degrees, IKDC-A lateral openingat 20 degrees. Lower leg and ankles/feet: normal skin integrity and functional ROM. Neurologic: Intact sensation and reflexes in both lower extremities. Normal symmetric strength in lower legs, ankle and feet Lymphadenopathy: none noted Vascular: Right - DP 2+ PT 2+ Left - DP 2+ PT 2+ REVIEW OF IMAGING: Weight bearing arthritis series including bilateral AP knees and lateral knee(s) are personally reviewed revealing: Right knee: Kellgren-Rajesh grade 4 medial tibiofemoral & grade 2 lateral tibiofemoral changes Kellgren-Rajesh grade 3 patellofemoral changes. No loose bodies or ectopic calcifications seen. Normal soft tissue patterns Left knee: Kellgren-Rajesh grade 2 medial tibiofemoral & grade 1 lateral tibiofemoral changes No loose bodies or ectopic calcifications seen. Normal soft tissue patterns Advanced imaging: none ASSESSMENT: right knee end-stage osteoarthritis resulting in moderate to severe pain, decreased range of motion and functional limitations negatively impacting on the activities of daily living despite self-care and primary interventions. Patient Active Problem List Diagnosis ??? Degenerative lumbar disc ??? Fasciculations of muscle ??? Muscle spasm of both lower legs ??? Osteoarthritis of right knee ??? Obesity (BMI 30-39.9) MEDICAL DECISION-MAKING and PLAN: Patient Education: Over the course of today's office visit, we discussed the diagnosis, differential diagnosis, normalanatomy, the pathoanatomy and this patient???s pertinent comorbidities.The patient may use oral non-narcotic analgesics for pain. The role for intra-articular injection therapies was discussed. The nishi ent may also use an assistive aid, and if using a cane or single crutch, it should generally be usedin the hand opposite the most symptomatic knee. We also discussed the spectrum of non-operative and operative treatment options per the 2009 A.A.O.S. clinical practice guideline for the care of the osteoarthritic knee using infomed decision-making techniques, printed educational materials and/or A.A.O.S. online decision support tools. Also discussed the importance of risk reduction. The patient's questions were solicited and responded to with the patient's verbalized satisfaction. Diagnostic: As a result of our discussion, we have agreed to proceed with the following diagnostic plan: No additional studies at this time Non-operative treatment plan: An appropriate informed choice non-operative treatment discussion was completed and we have collectively agreed to proceed with the following therapeutic plan: Continued activity modification to limit symptoms Prescription NSAID trial (with drug interactions and GI precautions discussed) via PCP if OTC medications do not relieve symptoms adequately Home exercise program for core & lower extremity strengthening/balance Pool program recommended Intra-articular cortisteroid/bupivicaine injection offered but with limited goals Hyaluronic acid injection trial not indicated because of severity of OA disease Assistive device for ambulation offered Surgical options: We did discuss that this patient would be a candidate for a total knee arthroplasty if his symptoms could not be controlled with a comprehensive non- operative management plan. DISPOSITION: follow-up in [facility] prn at his request ngie Rios - 11/27/2013 0835 EDT Emery knee score 13 (right knee) Angie Bailey 8:36 documented in this encounter Plan of Treatment Not on filedocumented as of this encounter Visit Diagnoses Diagnosis Obesity (BMI 30-39.9) - Primary Obesity, unspecified Osteoarthritis of right knee Osteoarthrosis, unspecified whether gene ralized or localized, lower leg Muscle spasm of both lower legs Spasm of muscle Fasciculations of muscle Abnormal involuntary movements Degenerative lumbar disc Degeneration of lumbar or lumbosacral in tervertebral disc documented in this encounter Historical Medications This list may reflect changes made after this encounter. Medication Sig Dispensed Refills Start Date End Date Magnesium 250 mg tablet Take 250 mg by mouth 0 daily. GLUC PRICE 2KCL/CHONDR/VIT Take by mouth daily 0 C/DANITZA Unsure dosage, 2 tabs (MEAWLNYU-[id number]-HKB once a day . C-MN ORAL) zolpidem (AMBIEN) 10 mg Take 10 mg by mouth at 0 tablet bedtime as needed for Sleep. added in this encounter Care Teams Automobile Body Repair Supervisor Relationship Specialty Start Date End Date Magaly Willis MD PCP - General 11/20/[address] [place] [address] [place] [address] documented as of this encounter
--- OUTSIDE RECORDS SUMMARY | 2022-01-14 01:07 | XMS_ITS | Encounter Summary ---
:1955 Author Organization [facility] Address [address] [place] [address] Care Team Providers Name Role Phone Magaly Willis MD Primary Care Provider Encounter Details Date Type Department Care Team Description 05/11/2017 Results Only [facility]- Yuri Santos MD [phone] [place] [address] [address] [place], [place] [id number] (Wo rk) Social History Tobacco Use Types Packs/Day Years Used Date Former Smoker Smokeless Tobacco: Never Used Sex Assigned at Date Recorded Not on file documented as of this encounter Plan of Treatment Not on filedocumented as of this encounter Procedures Procedure Name Priority Date/Time Associated Diagnosis Comme [facility] SURGICAL PATHOLOGY Routine 05/11/2017 8:24 EST Re sults for this procedure are i n the results section. documented in this encounter Results SURGICAL PATHOLOGY (05/11/2017 8:24 EST) Pathology Report: SURGICAL PATHOLOGY REPORT [facility] Reports generated via electronic interface contain dennis ginal data; LABORATORY however they are lacking the format of the original re port. SERVICES Caution should be taken when reading/interpreting unfo rmatted reports. Name: ? DOMINICK CAIN ? Accession #: ? [id number] ? : ? 1955 (Age: 7 0) ??M ? Collect Date: ? 05/11/2017 ? Location: ? [facility] ? Receive Date: ? 017 ? Provider: YURI BECK MD Copy to: JAIMIE FARR MD ? Final Pathologic Diagnosis: NASAL MUCOSA, RIGHT SEPTUM, LESION, BIOPSY: - Hyperplastic squamous mucosa with parakeratosis, acu te inflammation and reactive changes. See comment. - PAS amylase stain is negative for fungal organisms. ?? - Negative for dysplasia. Comment: Deeper levels have been examined. Document reviewed and electronically signed by: VERNELL PEREZ MD Report ??Date: 05/17/2017 16:52 By the signature above, the attending physician certif ies that he/she has personally conducted a gross and/or microscopic examin ation of the described specimens and rendered or confirmed the above diagnosi s. Specimen(s) Received: Biopsy Clinical History: Rt nasal septal lesion Gross Description: ? Received in formalin labelled with proper patient identification (initials I, B) and right nasal septa l lesion are two white tissues (0.2 x 0.1 x 0.1 cm and 0.1 x 0.1 x 0.1 cm). Entirely submitted in 1. Art Morales 05/12/2017 9:34 AM End of Report Specimen Performing Organization Address City/State/ZIP Code Phon e Number [facility] [address] [place] [address] SERVICES documented in this encounter Visit Diagnoses Not on filedocumented in this encounter Care Teams Adjunct Physics Instructor Relationship Specialty Start Date End Date Magaly Willis MD PCP - General 11/20/[address] [place] [address] [place], [place] [id number] documented as of this encounter
--- OUTSIDE RECORDS SUMMARY | 2022-01-14 01:07 | XMS_ITS | Clinical Summary ---
:1955 Author Organization [facility] Address [address] [place] [address] Care Team Providers Name Role Phone Magaly Willis MD Primary Care Provider Allergies Active Allergy Reactions Severity Noted Date Comments Ibuprofen 11/27/2013 Bloating and we ight gain Opioids - Morphine Nausea Only, Headaches 11/27/2013 Analogues Medications Medication Sig Dispensed Refills Start Date End Date Status zolpidem (AMBIEN) 10 Take 10 mg by 0 Active mg tablet mouth at bedtime as needed for Sleep. GLUC PRICE Take by mouth 0 Active 2KCL/CHONDR/VIT C/DANITZA daily Unsure (GLUCOSAM-CHONDROITIN- dosage, 2 tabs VIT C-MN ORAL) once a day . Magnesium 250 mg Take 250 mg by 0 Active tablet mouth daily. Active Problems Problem Noted Date Degenerative lumbar disc 11/27/2013 Fasciculations of muscle 11/27/2013 Overview: Right leg Muscle spasm of both lower legs 11/27/2013 Osteoarthritis of right knee 11/27/2013 Obesity (BMI 30-39.9) 11/27/2013 Social History Tobacco Use Types Packs/Day Years [...] 11) 11/27/2013818 EDT Body Mass Index 37.66 11/27/2013818 EDT Plan of Treatment Not on file Advance Directives For more information, please contact: [phone] Documents on File Type Date Recorded Patient Incident Response Lead Explanati on Advance Directives and Living Will Power of Shipbuilding Draftsperson Care Teams Tube Molder Fiberglass Relationship Specialty Start Date End Date Magaly Willis MD PCP - General 11/20/[address] [place] [address] [place] [address]
--- OUTSIDE RECORDS SUMMARY | 2022-01-14 01:07 | XMS_ITS | Encounter Summary ---
:1955 Author Organization [facility] Address [address] [place] [address] Care Team Providers Name Role Phone Magaly Willis MD Primary Care Provider Reason for Visit Reason Onset Date Comments Leg Cramps (Night) 12/12/2013 Encounter Details Date Type Department Care Team Description 12/12/2013 Orders Only [facility] Emma Salmeron LPN Muscle fasciculation (Primary Dx); [facility] [address] [place] [address] [place], [place] [id number] Social History Tobacco Use Types Packs/Day Years Used Date Former Smoker Smokeless Tobacco: Never Used Sex Assigned at Date Recorded Not on file documented as of this encounter Plan of Treatment Not on filedocumented as of this encounter Visit Diagnoses Diagnosis Muscle fasciculation - Primary Abnormal involuntary movements Leg cramps Cramp of limb documented in this encounter Care Teams Maintenance Department Technician Relationship Specialty Start Date End Date Magaly Willis MD PCP - General 11/20/[address] [place] [address] [address] [place], [place] [id number] documented as of this encounter
--- OUTSIDE RECORDS SUMMARY | 2022-01-14 01:07 | XMS_ITS | Encounter Summary ---
:1955 Author Organization [facility] Address [address] [place] [address] Care Team Providers Name Role Phone Magaly Willis MD Primary Care Provider Reason for Visit Reason Onset Date Comments Appointment Related 12/02/2013 [facility] X -ray Encounter Details Date Type Department Care Team Description 12/02/2013 Orders Only [facility] Dax Spangler OA (osteoarthritis) of [facility] - [address] [place] [address] RD knee (Primary Dx) Shani WATTS MA [facility] [address] [phone] [place] [address] Social History Tobacco Use Types Packs/Day Years Used Date Former Smoker Smokeless Tobacco: Never Used Sex Assigned at Date Recorded Not on file documented as of this encounter Plan of Treatment Not on filedocumented as of this encounter Visit Diagnoses Diagnosis OA (osteoarthritis) of knee - Primary Osteoarthrosis, unspecified whether gene ralized or localized, lower leg documented in this encounter Care Teams Helmet Hat Brim Cutter Relationship Specialty Start Date End Date Magaly Willis MD PCP - General 11/20/[address] [place] [address] [address] [place], [place] [id number] documented as of this encounter
--- OUTSIDE RECORDS SUMMARY | 2022-01-14 01:08 | XMS_ITS | Encounter Summary ---
:1955 Author Organization [facility] Address [address] [place] [address] Care Team Providers Name Role Phone Magaly Willis MD Primary Care Provider Reason for Referral Radiology Services (Routine) - Closed Specialty Diagnoses / Procedures Referred By Contact Refer red To Contact Diagnoses Knee pain Dax Spangler Procedures KNEE 1 OR 2 VIEWS 1 [place] [address] Referral ID Status Reason Start Date Expiration Date Visits Requ ested Visits Authorized [id number] Closed 11/25/2013 1 1 adiology Services (Routine) - Closed Specialty Diagnoses / Procedures Referred By Contact Refer red To Contact Diagnoses Knee pain Dax Spangler Procedures KNEE 1 OR 2 VIEWS 1 [facility] [place] [address] Referral ID Status Reason Start Date Expiration Date Visits Requ ested Visits Authorized [id number] Closed 11/25/2013 1 1 Encounter Details Date Type Department Care Team Description 11/22/2013 Orders Only [facility] Dax Spangler Knee pain (Primary Dx) Total Joint Program - 1 [facility] [address] [place] [place], [place] [address] [phone] [place] [address] Social History Tobacco Use Types Packs/Day Years Used Date Never Assessed Sex Assigned at Date Recorded Not on file documented as of this encounter Plan of Treatment Not on filedocumented as of this encounter Procedures Procedure Name Priority Date/Time Associated Diagnosis Comme nts KNEE 1 OR 2 VIEWS Routine 11/27/2013 8:04 EDT Knee pain Res ults for this procedure are i n the results section. KNEE 1 OR 2 VIEWS Routine 11/27/2013 8:04 EDT Knee pain Res ults for this procedure are i n the results section. documented in this encounter Results KNEE 1 OR 2 VIEWS (11/27/2013 8:04 EDT) Anatomical Region Laterality Modality Other Specimen Narrative [facility] RADIOLOGY - 12/2013 8:08 EDT KNEE 1 OR 2 VIEWS, KNEE 1 OR 2 VIEWS ??11/27/2013 8:04 AM Signs and Symptoms/Comments: ?? 719.46-Pain in joint, lower qii-RRT-2-CM ; right knee pain Comparison: None. Findings: Right knee: AP and lateral weight-bearin g views of the right knee show no evidence of acute fracture, ther e is however a small suprapatellar right knee joint effusion. In addition, there are severe degenerative changes in the media l femorotibial compartment, moderate degenerative changes in the pat ellofemoral compartment, and milder degenerative changes in the later al femorotibial compartment. Left knee: AP weightbearing view of the left knee shows no acute osseous abnormality, the lack of a later al view limits the assessment for left knee joint effusion. There are moderately severe degenerative changes in the medial femor otibial compartment and mild degenerative changes in the lateral femo rotibial compartment. Procedure Note 12/03/2013 KNEE 1 OR 2 VIEWS, KNEE 1 OR 2 VIEWS 11/27 8:04 AM Signs and Symptoms/Comments: 719.46-Pain in joint, lower iih-MNN-6-CM ; right knee pain Comparison: None. Findings: Right knee: AP and lateral weight-bearin g views of the right knee show no evidence of acute fracture, ther e is however a small suprapatellar right knee joint effusion. In addition, there are severe degenerative changes in the media l femorotibial compartment, moderate degenerative changes in the pat ellofemoral compartment, and milder degenerative changes in the later al femorotibial compartment. Left knee: AP weightbearing view of the left knee shows no acute osseous abnormality, the lack of a later al view limits the assessment for left knee joint effusion. There are moderately severe degenerative changes in the medial femor otibial compartment and mild degenerative changes in the lateral femo rotibial compartment. Performing Organization Address City/State/ZIP Code Phon e Number [facility] RADIOLOGY [facility] KNEE 1 OR 2 VIEWS (11/27/2013 8:04 EDT) Anatomical Region Laterality Modality Other Specimen Narrative [facility] RADIOLOGY - 12/2013 8:08 EDT KNEE 1 OR 2 VIEWS, KNEE 1 OR 2 VIEWS ??11/27/2013 8:04 AM Signs and Symptoms/Comments: ?? 719.46-Pain in joint, lower nqy-TSR-8-CM ; right knee pain Comparison: None. Findings: Right knee: AP and lateral weight-bearin g views of the right knee show no evidence of acute fracture, ther e is however a small suprapatellar right knee joint effusion. In addition, there are severe degenerative changes in the media l femorotibial compartment, moderate degenerative changes in the pat ellofemoral compartment, and milder degenerative changes in the later al femorotibial compartment. Left knee: AP weightbearing view of the left knee shows no acute osseous abnormality, the lack of a later al view limits the assessment for left knee joint effusion. There are moderately severe degenerative changes in the medial femor otibial compartment and mild degenerative changes in the lateral femo rotibial compartment. Procedure Note 12/03/2013 KNEE 1 OR 2 VIEWS, KNEE 1 OR 2 VIEWS 11/27 8:04 AM Signs and Symptoms/Comments: 719.46-Pain in joint, lower qte-MXE-8-CM ; right knee pain Comparison: None. Findings: Right knee: AP and lateral weight-bearin g views of the right knee show no evidence of acute fracture, ther e is however a small suprapatellar right knee joint effusion. In addition, there are severe degenerative changes in the media l femorotibial compartment, moderate degenerative changes in the pat ellofemoral compartment, and milder degenerative changes in the later al femorotibial compartment. Left knee: AP weightbearing view of the left knee shows no acute osseous abnormality, the lack of a later al view limits the assessment for left knee joint effusion. There are moderately severe degenerative changes in the medial femor otibial compartment and mild degenerative changes in the lateral femo rotibial compartment. Performing Organization Address City/State/ZIP Code Phon e Number [facility] RADIOLOGY [facility] documented in this encounter Visit Diagnoses Diagnosis Knee pain - Primary Pain in joint, lower leg documented in this encounter Care Teams Count Room Clerk Relationship Specialty Start Date End Date Magaly Willis MD PCP - General 11/20/[address] [place] [address] [place] [address] documented as of this encounter
--- OUTSIDE RECORDS SUMMARY | 2022-01-14 01:08 | XMS_ITS | Encounter Summary ---
:1955 Author Organization [facility] Address [address] [place] [address] Care Team Providers Name Role Phone Unavailable Primary Care Provider Unavailable Encounter Details Date Type Department Care Team Description 03/03/2000 Results Only [facility] - Joesph Mckenzie MD conversion [address] [facility] [address] [place] [address] [place] [address] [phone] Social History Tobacco Use Types Packs/Day Years Used Date Never Assessed Sex Assigned at Date Recorded Not on file documented as of this encounter Plan of Treatment Not on filedocumented as of this encounter Procedures Procedure Name Priority Date/Time Associated Diagnosis Comme nts SURGICAL PATHOLOGY Routine 03/03/2000 0:00 EDT Re sults for this procedure are i n the results section. documented in this encounter Results SURGICAL PATHOLOGY (03/03/2000 0:00 EDT) Pathology Report: SURGICAL PATHOLOGY REPORT KOTA MUNOZ Reports generated via electronic interface contain dennis ginal data; LAB however they are lacking the format of the original re port. Caution should be taken when reading/interpreting unfo rmatted reports. Name: ? DOMINICK CAIN ? Accession #: ? [id number] ? : ? 1955 (Age: 44) ??M ? Collect Date: ? 03/03/2000 ? Location: ? [facility] ? Receive Date: ? 000 ? Provider: JOESPH CRAVEN MD Copy to: GONZALO DORSEY MD ? Final Pathologic Diagnosis: ? Tonsil, left, tonsillectomy: 1. ?Squamous mu cosa with chronic inflammation suggestive of benign squamous-lined cyst. 2. ?No evidence of malignancy. Document reviewed and electronically signed by: JOÃO EPSTEIN MD Report ??Date: 03/07/2000 16:05 By the signature above, the attending physician certif ies that he/she has personally conducted a gross and/or microscopic examin ation of the described specimens and rendered or confirmed the above diagnosi s. Specimen(s) Received: ? L tonsil lesion Clinical History: ? cyst; clinical diagnosis code 239.0 Gross Description: ? Received in formalin labelled [place] and L tonsil are two fragments of white-velez tissue measuring 0.5 x 0.4 x 0.3 cm and 0.3 x 0.2 x 0.1 cm. ??The specimen is entirely submitted in one cassette. ??(Dr. Jimenez-[place])/[facility] End of Report Specimen Performing Organization Address City/State/ZIP Code Phon e Number [facility] [address] [place] [address] [facility] [address] [place] [address] documented in this encounter Visit Diagnoses Not on filedocumented in this encounter
[2022-01-14 12:53] LABS: C-Reactive Protein 0.18 mg/dL (0.0-0.3); ESR 6 mm/hr (0-20); Uric Acid 7.7 mg/dL (3.5-7.2)
[2022-01-17 10:17] LABS: Lyme Ab w Rflx to Lyme Confirm Negative (Negative)
[2022-01-17 13:06] LABS: Tissue Transglutaminase Ab IgA 2.5 U/mL; Tissue Transglutaminase Ab IgG 1.5 U/mL
== END 2022-01-14 01:02 | disposition home or self-care (01) ==
LOC: LOS 01:01
PROVIDERS: PCP Family Medicine; Visit Provider Family Medicine
DX: K52.9 Noninfective gastroenteritis and colitis, unspecified (principal); M25.50 Pain in unspecified joint; M10.9 Gout, unspecified; R41.89 Other symptoms and signs involving cognitive functions and awareness
CPT/HCPCS: 36415; 85652; 83516; 84550; 86140; 86618

== ENCOUNTER → 2022-01-21 08:23 | Outpatient (BNVA) | payer MEDICARE, SELFPAY | PROVIDERS: PCP Family Medicine; Referring Provider Family Medicine; Visit Provider Student in an Organized Health Care Education/Training Program | DX: M17.12 Unilateral primary osteoarthritis, left knee (principal) | CPT/HCPCS: 20610; J1040 ==

== ENCOUNTER 2022-05-05 15:06 | Outpatient (CLI) | payer MEDICARE, SELFPAY ==
[2022-05-05 15:26] LABS: COMMENT (LAB VIEW ONLY) 138.76 mg/dL; Microalb ug/mg Crea 26.3 ug/mg Cr
[2022-05-05 16:03] LABS: CREATININE 0.9 mg/dL (0.70-1.30); Calculated LDL 132 mg/dL (<100); Cholesterol 215 mg/dL (<200); Estimated GFR 94.78 (mL/min/1.73m2); HDL Cholesterol 63 mg/dL (40-60); Potassium 4.6 mmol/L (3.5-5.1); Triglyceride 100 mg/dL (<150)
== END 2022-05-05 15:07 | disposition home or self-care (01) ==
LOC: LBO 15:07
PROVIDERS: PCP Family Medicine; Visit Provider Family Medicine
DX: E11.9 Type 2 diabetes mellitus without complications (principal); I10 Essential (primary) hypertension; E78.5 Hyperlipidemia, unspecified
CPT/HCPCS: 36415; 80061; 82043; 82565; 82570; 84132

== ENCOUNTER → 2022-06-23 08:33 | Outpatient (BNVA) | payer MEDICARE, SELFPAY | PROVIDERS: PCP Family Medicine; Referring Provider Family Medicine; Visit Provider Student in an Organized Health Care Education/Training Program | DX: M17.12 Unilateral primary osteoarthritis, left knee (principal) | CPT/HCPCS: 20610; J1040 ==

== ENCOUNTER → 2022-10-05 12:48 | Outpatient (BNVA) | payer MEDICARE, SELFPAY | PROVIDERS: PCP Family Medicine; Referring Provider Family Medicine; Visit Provider Physician Assistant | DX: M17.12 Unilateral primary osteoarthritis, left knee (principal) | CPT/HCPCS: 20610; J1040 ==

== ENCOUNTER 2023-01-04 11:18 | Outpatient (CLI) | payer MEDICARE, SELFPAY ==
[2023-01-04 12:26] LABS: Abs Immature Grans 0.02 10^3/uL (0.0-0.06); Absolute Basophil Count 0.09 10^3/uL (0.0-0.2); Absolute Eosinophil Count 0.34 10^3/uL (0.0-0.7); Absolute Lymphocyte Count 1.81 10^3/uL (1.2-3.4); Absolute Neutrophil Count 3.07 10^3/uL (1.2-6.7); Basophils % 1.5; Eosinophils % 5.8; HCT 49.6 % (40.0-50.0); HGB 16.4 g/dL (13.5-17.5); Immature Grans % 0.3; MCH 28.4 pg (27.0-33.0); MCHC 33.1 % (32.0-36.0); MCV 86 fL (80-95); MPV 11.6 fL (8.0-11.0); Monocytes % 8.6; Neutrophils % 52.8; Platelet Count 280 10^3/uL (130-400); RBC 5.77 10^6/uL (4.36-5.78); RDW 13.2 % (11.8-14.1); RDW-SD 40.9 fL; WBC 5.83 10^3/uL (4.4-10.8)
[2023-01-04 12:38] LABS: Anion Gap 9.9 mmol/L (3-11); BUN 23 mg/dL (7-18); CO2 29.1 mmol/L (21.0-32.0); Calcium 9.9 mg/dL (8.5-10.1); Chloride 104 mmol/L (98-107); Estimated GFR 83.01 (mL/min/1.73m2); Glucose 147 mg/dL (74-106); Potassium 5.3 mmol/L (3.5-5.1); Sodium 143 mmol/L (136-145)
== END 2023-01-04 11:19 | disposition home or self-care (01) ==
LOC: LOS 11:19
PROVIDERS: PCP Family Medicine; Referring Provider Family Medicine; Visit Provider Family Medicine
DX: D64.9 Anemia, unspecified (principal); E87.1 Hypo-osmolality and hyponatremia
CPT/HCPCS: 36415; 80048; 85025

== ENCOUNTER 2023-01-04 18:18 | Outpatient (CLI) | payer MEDICARE, SELFPAY ==
--- NOTE | 2023-01-04 11:30 | DI.RAD_ITS ---
Exam(s) XR CHEST 2V PA LATERAL EXAM: XR CHEST 2V PA LATERAL CLINICAL HISTORY: persistent cough, chronic cough, R05.3 TECHNIQUE: 2D digital imaging was performed. COMPARISON: CR CHEST 2 VIEWS PA,LAT from 10/06/2014 FINDINGS: HEART: Normal size. Aorta: Mildly tortuous. PULMONARY VASCULATURE: Normal. LUNGS: Clear. No visible emphysematous or interstitial changes. PLEURAL SPACE: No pleural effusion or pneumothorax. BONE:Unremarkable for age. IMPRESSION: No acute abnormality. DATA REPOSITORY: RADIATION DOSE DELIVERED:
== END 2023-01-04 18:38 ==
LOC: DI 18:19
PROVIDERS: PCP Family Medicine; Visit Provider Family Medicine
DX: R05.3 Chronic cough (principal)
CPT/HCPCS: 36415; 80048; 71046; 85025

== ENCOUNTER 2023-01-24 03:16 | Outpatient (CLI) | payer MEDICARE, SELFPAY ==
[2023-01-24 13:02] LABS: Potassium 4.1 mmol/L (3.5-5.1); Vitamin B12 403 pg/mL (193-986)
== END 2023-01-24 03:17 | disposition home or self-care (01) ==
LOC: LOS 03:17
PROVIDERS: PCP Family Medicine; Visit Provider Family Medicine
DX: D64.9 Anemia, unspecified (principal); I10 Essential (primary) hypertension; R05.3 Chronic cough; E11.9 Type 2 diabetes mellitus without complications; E87.1 Hypo-osmolality and hyponatremia; Z86.39 Personal history of other endocrine, nutritional and metabolic disease
CPT/HCPCS: 36415; 82607; 84132

== ENCOUNTER → 2023-10-05 14:09 | Outpatient (BNVA) | payer MEDICARE, SELFPAY | PROVIDERS: PCP Family Medicine; Referring Provider Family Medicine | DX: M17.12 Unilateral primary osteoarthritis, left knee (principal) | CPT/HCPCS: 20610; J1010 ==

== ENCOUNTER 2024-02-15 09:32 | Outpatient (CLI) | payer MEDICARE, SELFPAY ==
[2024-02-15 12:55] LABS: Hemoglobin A1C 7.1 % (<5.7)
[2024-02-15 13:09] LABS: Calculated LDL 79 mg/dL (<100); Cholesterol 159 mg/dL (<200); Estimated GFR 82.49 (mL/min/1.73m2); HDL Cholesterol 58 mg/dL (40-60); Potassium 4.5 mmol/L (3.5-5.1); Triglyceride 114 mg/dL (<150)
== END 2024-02-15 09:33 | disposition home or self-care (01) ==
LOC: LOS 09:32
PROVIDERS: PCP Family Medicine; Referring Provider Family Medicine; Visit Provider Family Medicine
DX: E11.51 Type 2 diabetes mellitus with diabetic peripheral angiopathy without gangrene (principal); I70.209 Unspecified atherosclerosis of native arteries of extremities, unspecified extremity; I10 Essential (primary) hypertension; E78.5 Hyperlipidemia, unspecified
CPT/HCPCS: 36415; 80061; 82565; 83036; 84132

== ENCOUNTER 2024-07-21 10:31 | Inpatient (IN) | payer MEDICARE, SELFPAY ==
[2024-07-21] VITALS (48 sets, daily range): BP systolic 130–173; BP diastolic 60–99; PULSE 62–147; RESP 2–52; TEMP 36.4–37.2; O2SAT 86–97
--- NOTE | 2024-07-21 10:45 | DI.RAD_ITS ---
Exam(s) XR PORTABLE CHEST AP EXAM: XR PORTABLE CHEST AP CLINICAL HISTORY: Hypoxia, SOB TECHNIQUE: 2D digital imaging was performed of the chest. One image was obtained. An AP view was ob tained. COMPARISON: CR XR CHEST 2V PA LATERAL from 01/04/2023 FINDINGS: MEDIASTINUM: Normal. HEART: Normal. PULMONARY VASCULATURE: Normal. LUNGS: Bilateral pulmonary opacities are present, particularly in the lung bases. PLEURAL SPACE: No pleural effusion or pneumothorax. BONE:Within normal limits for the patient's age. OTHER FINDINGS:Normal. IMPRESSION: Bilateral pulmonary infiltrates. This may represent atelectasis, pneumonia or edema. Please correla te clinically. DATA REPOSITORY: RADIATION DOSE DELIVERED:
--- NOTE | 2024-07-21 11:11 | ED.GENADUL_ITS ---
Discharge Plan Disposition Patient Disposition: Admit to [facility] Condition: Serious Discharge Details Clinical Impression: Bilateral pneumonia, Influenza A Primary Care Provider: Rodolfo Penn ED Provider: Regina Crar Home Meds and New Rx's Prescriptions: No Action (DME) blood-glucose meter [OneTouch UltraMini] Kit See Rx Instructions .ROUTE .MEDSUPPLY Qty: 1 0RF Rx Instructions: As directed (DME) lancets [OneTouch Delica Plus Lancet] 33 gauge misc See Rx Instructions .ROUTE .MEDSUPPLY Qty: 100 3RF Rx Instructions: test once/day (DME) OneTouch Ultra Blue Test Strip Strip See Rx Instructions .ROUTE .MEDSUPPLY Qty: 100 3RF Rx Instructions: test daily (DME) lancets [Onetouch Delica Safety Lancet] 30 gauge misc See Rx Instructions .Route Qty: 200 3RF Rx Instructions: test 1-2 times/day omeprazole 40 mg capsule,delayed release(DR/EC) 40 mg PO DAILY PRN (Reason: acid reflux) Qty: 90 3RF acetaminophen [Tylenol Extra Strength] 500 MG tablet 1,000 mg PO TID (DME) lancing device with lancets [OneTouch Delica Plus Lanc Dev] Kit See Rx Instructions .Route Qty: 1 0RF Rx Instructions: As directed use daily irbesartan 150 mg tablet 150 mg PO DAILY Qty: 90 3RF dapagliflozin propanediol [Farxiga] 10 mg tablet 10 mg PO DAILY Qty: 90 3RF ibuprofen 200 mg Tablet 400 mg PO Q6H PRN HPI General Mode of arrival: ambulatory . Date/Time Provider Initiated Documentation: 07/21/24 10:36 . Limitations to Documentation: no limitations . Information obtained by: patient, RN notes reviewed and old records reviewed . HPI Narrative: 68-year-old male presents to the ER with approximately 10 days of upper respiratory symptoms, reports chills, hot flashes, nausea vomiting diarrhea body aches. He did take some btcw-jdg-nuifzdi tussive type medication this morning. He does have some expiratory wheezes noted on auscultation. He is short of breath. Denies any chest pain. He is satting 89 to 90% on room air. He is not normally on oxygen. Related Data Home Medications ?Medication ?Instructions ?Recorded ?Confirmed acetaminophen 500 mg tablet 1,000 mg PO TID 04/08/14 07/21/24 (Tylenol Extra Strength) ibuprofen 200 mg tablet 400 mg PO Q6H PRN 05/16/20 07/21/24 blood-glucose meter (OneTouch #1 ea 11/11/20 02/15/24 UltraMini kit) blood sugar diagnostic #100 ea 01/12/22 02/15/24 lancets 33 gauge (OneTouch Delica #100 ea 01/12/22 02/15/24 Plus Lancet) lancets 30 gauge (Onetouch Delica #200 ea 09/28/22 02/15/24 Safety Lancet) lancing device with lancets kit #1 ea 09/30/22 02/15/24 (TrenDemonTouch Delica Plus Lancing Device kit) omeprazole 40 mg capsule,delayed 40 mg PO DAILY PRN acid reflux #90 01/04/23 07/21/24 release caps irbesartan 150 mg tablet 150 mg PO DAILY #90 tabs 02/12/24 07/21/24 dapagliflozin propanediol 10 mg 10 mg PO DAILY #90 tabs 06/08/24 07/21/24 tablet (Farxiga) Previous Rx's ?Medication ?Instructions ?Recorded blood-glucose meter (OneTouch #1 ea 11/11/20 UltraMini kit) blood sugar diagnostic #100 ea 01/12/22 lancets 33 gauge (OneTouch Delica #100 ea 01/12/22 Plus Lancet) lancets 30 gauge (Onetouch Delica #200 ea 09/28/22 Safety Lancet) lancing device with lancets kit #1 ea 09/30/22 (TrenDemonTouch Delica Plus Lancing Device kit) omeprazole 40 mg capsule,delayed 40 mg PO DAILY PRN acid reflux #90 01/04/23 release caps irbesartan 150 mg tablet 150 mg PO DAILY #90 tabs 02/12/24 dapagliflozin propanediol 10 mg 10 mg PO DAILY #90 tabs 06/08/24 tablet (Farxiga) Allergies Allergy/AdvReac Type Severity Reaction Status Date / Time budesonide (From Symbicort) Allergy Severe RASH Verified 07/21/24 10:48 formoterol fumarate (From Allergy Severe RASH Verified 07/21/24 10:48 Symbicort) hydrocodone AdvReac Severe SEVERE GI Verified 07/21/24 10:48 UPSET chlorthalidone AdvReac Intermediate gout Verified 07/21/24 10:48 lisinopril AdvReac Intermediate dry cough Verified 07/21/24 10:48 losartan AdvReac Intermediate tachycardia Verified 07/21/24 10:48 metformin AdvReac Intermediate Diarrhea Verified 07/21/24 10:48 atenolol AdvReac Mild headache Verified 07/21/24 10:48 cyclobenzaprine AdvReac Headache Verified 07/21/24 10:48 gabapentin AdvReac GI upset Verified 07/21/24 10:48 hydrochlorothiazide AdvReac Headache Verified 07/21/24 10:48 morphine AdvReac Headache, Verified 07/21/24 10:48 Nausea/Vomiting oxycodone AdvReac Headache/Fo Verified 07/21/24 10:48 rgetfullnes s simvastatin AdvReac muscle/joint Verified 07/21/24 10:48 pain tramadol AdvReac GI upset Verified 07/21/24 10:48 General Stated Complaint: RespSymp LAI: 3 Review of Systems All systems reviewed & are unremarkable except as noted in HPI and below ENT Ears, Nose, Mouth, and Throat: Reports as per HPI Cardiovascular Cardiovascular: Denies chest pain, Denies pedal edema, Reports dyspnea and Reports dyspnea on exertion Respiratory Respiratory: Reports chest congestion, Reports cough, Reports dyspnea, Reports dyspnea on exertion and Reports wheezing Gastrointestinal Gastrointestinal: Denies abdominal pain, Reports diarrhea, Reports nausea and Reports vomiting Allergic/Immunologic Allergic/Immunologic: Reports wheezing Exam Narrative Exam Narrative: Constitutional: Alert and oriented x3. Appears stated age. Obese body habitus. Head: Normocephalic, no trauma. Eyes: Pupils PERRL, Red reflex noted, EOM's intact. Eyelids symmetrical without lesions, discharge, or swelling. ENT: Bilateral TM's WNL, External ear normal to inspection, no mastoid TTP, swelling, or erythema, Nasal turbinates WNL, no nasal discharge. Normal dentition, Posterior pharynx WNL, no exudate. Chest: RRR, Normal S1, S2, distal pulses intact. Resp: Patient does have some increased work of breathing, wheezes auscultated bilaterally, diminished in the bases. He is able to speak in broken sentences. Abdomen: Soft, non-distended, Normoactive bowel sounds all 4 quads. Musculoskeletal: Normal gait, Moves all 4 extremities without difficulty. Skin: No suspicious rashes or lesions. Capillary refill less than 2 sec. Neurologic: Cranial nerves II-XII intact. Alert and oriented x 3. Motor: No deficits noted. Sensory: Intact bilaterally all 4 extremities. Hematologic/Lymphatic: No ecchymosis, no lymphadenopathy. Course Vital Signs Vital signs: Vital Signs Temperature 37.2 C 07/21/24 10:41 Pulse 106 H 07/21/24 10:41 Respiratory Rate 24 07/21/24 10:41 Blood Pressure 154/87 H 07/21/24 10:41 Pulse Oximetry 89 L 07/21/24 10:41 Temperature 37.2 C 07/21/24 10:46 Pulse 106 H 07/21/24 10:46 Respiratory Rate 24 07/21/24 10:46 Blood Pressure 154/87 H 07/21/24 10:46 Blood Pressure Position Sitting 07/21/24 10:46 Pulse Oximetry 89 L 07/21/24 10:46 Oxygen Delivery Method Room Air 07/21/24 10:46 Oxygen Flow Rate 0 07/21/24 10:46 Pain Level 7 07/21/24 10:46 Lab/Test Results Lab/Test Results: 07/21/24 10:48 Blood Blood Culture - Pending 07/21/24 10:48 Blood Blood Culture - Pending Medical Decision Making 68-year-old male presents to the ER with approximately 10 days of upper respiratory symptoms, reports chills, hot flashes, nausea vomiting diarrhea body aches. He did take some cvcu-ery-rcgseuz tussive type medication this morning. He does have some expiratory wheezes noted on auscultation. He is short of breath. Denies any chest pain. He is satting 89 to 90% on room air. He is not normally on oxygen. Workup ordered including Fluvid, chest x-ray, oxygen, Solu-Medrol and DuoNeb. CBC CMP blood cultures x 2 and a lactate. Differential diagnosis includes melanoma to pneumonia, viral illness, COVID Patient has received 1 DuoNeb and methylprednisolone 125 mg, informed by ED staff that patient is complaining of increased shortness of breath and is requesting additional DuoNeb, orders placed. Lactate is elevated at 2.6. EKG ordered and serial troponins. 2 troponins within normal limits. CBC shows white blood cell count of 13.62, absolute neutrophils 11.44, lactate 2.6 sodium 133 potassium 3.5 chloride 95 glucose 278 bilirubin is 1.3 alk phos 119 albumin 2.7, influenza A positive. He does have bilateral pneumonia. Informed by ED staff that patient desats to 86% on room air with ambulation he did get up to the bathroom. He was placed back on 2 L nasal cannula. On patient reevaluation he reports he is feeling much better after the 2 DuoNebs. Will give him 1 more DuoNeb and then a room air trial. He is not normally on oxygen I did discuss possible admission with him he states he would prefer to go home if able. Will give doxycycline, Rocephin and Tamiflu here in the department and additional neb and room air trial. 1413: 3rd nebulizer is being given now. Will attempt another room air trial after the third neb. Patient sitting in the stretcher as he talks he does desat to 86-89% on room air. On medical record review he does normally run around 96 to 97%. They are agreeable to be admitted. Hospitalist alexsander. Will recheck lactate and VBG. 1448: Spoke with Dr. Christopher who is on for hospitalist he agrees to accept patient for admission for influenza A and bilateral pneumonia. At the time of this dictation awaiting room assignment. This text was generated using Ai2 UKation system, please disregard any oddities of phrase or misspellings. Medical Records Medical records reviewed: Yes I reviewed the patient's medical records. Imaging Data Radiologic Study: Imaging: X-Ray Radiologist's impression: TECHNIQUE: Imaging protocol: Radiologic exam of the chest. Views: 1 view. COMPARISON: CR XR CHEST 2V PA LATERAL 01/04/2023 11:54 AM FINDINGS: Lungs: Opacities in both bases may represent atelectasis or pneumonia. Pleural spaces: Unremarkable. No pleural effusion. No pneumothorax. Heart/Mediastinum: Unremarkable. No cardiomegaly. Bones/joints: Unremarkable. IMPRESSION: Opacities in both bases may represent atelectasis or pneumonia. Thank you for allowing us to participate in the care of your patient. Dictated and Authenticated by: Mary Fernandes MD Lab Data Lab results reviewed: Yes I reviewed the patient's lab results. Labs: 07/21/24 12:45 Blood Blood Culture - Pending 07/21/24 12:19 Blood Blood Culture - Pending Laboratory Tests Range/Units 07/21/24 07/21/24 07/21/24 11:26 11:38 12:19 WBC (4.4-10.8) 10^3/uL 13.62 H RBC (4.36-5.78) 10^6/uL 5.97 H Hgb (13.5-17.5) g/dL 16.7 Hct (40.0-50.0) % 50.6 H MCV (80-95) fL 85 MCH (27.0-33.0) pg 28.0 MCHC (32.0-36.0) % 33.0 RDW (11.8-14.1) % 12.7 Plt Count (130-400) 10^3/uL 399 MPV (8.0-11.0) fL 10.5 Immature Gran % See Differential Neutrophils % % 84.0 Lymphocytes % % 7.0 Monocytes % % 8.0 Eosinophils % % 0.0 Basophils % % 0.0 Metamyelocytes % 1 Nucleated RBC % (0.0-0.3) % 0.0 Absolute Neutrophils (1.2-6.7) 10^3/uL 11.44 H Absolute Lymphocytes (1.2-3.4) 10^3/uL 0.95 L Absolute Monocytes (0.1-0.8) 10^3/uL 1.09 H Absolute Eosinophils (0.0-0.7) 10^3/uL 0.00 Absolute Basophils (0.0-0.2) 10^3/uL 0.00 RBC Morphology Normal VBG Lactate (<or=2.0) mmol/L 2.6 H* Sodium (136-145) mmol/L 133 L Potassium (3.5-5.1) mmol/L 3.5 Chloride (98-107) mmol/L 95 L Carbon Dioxide (21.0-32.0) mmol/L 29.5 Anion Gap (3-11) mmol/L 8.5 BUN (7-18) mg/dL 15 Creatinine (0.70-1.30) mg/dL 1.3 Est GFR (CKD-EPI 2020) (mL/min/1.73m2) 60.21 Glucose (74-106) mg/dL 278 H Calcium (8.5-10.1) mg/dL 9.5 Total Bilirubin (0.2-1.0) mg/dL 1.30 H AST (15-37) U/L 36 ALT (16-63) U/L 58 Alkaline Phosphatase (46-116) U/L 119 H Troponin I (<or=76) ng/L 15 16 Total Protein (6.4-8.2) g/dL 8.4 H Albumin (3.4-5.0) g/dL 2.7 L COVID-19 Source Nasopharynx SARS-CoV-2 (PCR) (Negative) Negative Influenza Type A (PCR) (Negative) Positive A Influenza Type B (PCR) (Negative) Negative RSV (PCR) (Negative) Negative Range/Units 07/21/24 14:56 WBC (4.4-10.8) 10^3/uL RBC (4.36-5.78) 10^6/uL Hgb (13.5-17.5) g/dL Hct (40.0-50.0) % MCV (80-95) fL MCH (27.0-33.0) pg MCHC (32.0-36.0) % RDW (11.8-14.1) % Plt Count (130-400) 10^3/uL MPV (8.0-11.0) fL Immature Gran % Neutrophils % % Lymphocytes % % Monocytes % % Eosinophils % % Basophils % % Metamyelocytes % Nucleated RBC % (0.0-0.3) % Absolute Neutrophils (1.2-6.7) 10^3/uL Absolute Lymphocytes (1.2-3.4) 10^3/uL Absolute Monocytes (0.1-0.8) 10^3/uL Absolute Eosinophils (0.0-0.7) 10^3/uL Absolute Basophils (0.0-0.2) 10^3/uL RBC Morphology VBG Lactate (<or=2.0) mmol/L Sodium (136-145) mmol/L Potassium (3.5-5.1) mmol/L Chloride (98-107) mmol/L Carbon Dioxide (21.0-32.0) mmol/L Anion Gap (3-11) mmol/L BUN (7-18) mg/dL Creatinine (0.70-1.30) mg/dL Est GFR (CKD-EPI 2020) (mL/min/1.73m2) Glucose (74-106) mg/dL Calcium (8.5-10.1) mg/dL Total Bilirubin (0.2-1.0) mg/dL AST (15-37) U/L ALT (16-63) U/L Alkaline Phosphatase (46-116) U/L Troponin I (<or=76) ng/L Cancelled Total Protein (6.4-8.2) g/dL Albumin (3.4-5.0) g/dL COVID-19 Source SARS-CoV-2 (PCR) (Negative) Influenza Type A (PCR) (Negative) Influenza Type B (PCR) (Negative) RSV (PCR) (Negative) Quality:SDOH Health Related Social Needs: No Data to Display PFSH All Active Problems (Updated 07/21/24 @ 14:50 by Regina Carr NP) Influenza A (Acute) Bilateral pneumonia (Acute) Chronic cough (Acute) Tachycardia (Acute) Bronchitis (Acute) Osteoarthritis of left knee (Acute) DEPO MEDROL 06/23/2022 Fatigue (Acute) Abdominal bloating (Acute) Arthralgia (Acute) Diabetes mellitus (Chronic) Podagra (Acute) Bronchospasm (Acute) Well adult (Acute) History of total right knee replacement (TKR) (Acute 02/26/14) Cervical spondylosis (Acute ~10/23/18) 10/23/18 [facility] [place] Depressive disorder (Acute) History of arthroscopy (Acute) History of arthroscopy of knee (Acute) History of tobacco use (Acute) Status post arthroscopy of shoulder (Acute) Umbilical hernia (Acute) Rupture of right long head biceps tendon (Chronic) Injected: 10/18/2018 Osteoarthritis of right AC (acromioclavicular) joint (Chronic) AC joint injection: 07/05/2019; 09/05/2018 Primary osteoarthritis of left knee (Chronic) Right shoulder tendonitis (Chronic) Obesity (Acute) Neck pain on left side (Acute 06/25/15) Nasal vestibulitis (Acute 04/13/17) Low back pain (Acute) Left shoulder pain (Acute 06/25/15) Lumbago (Acute) Knee pain, right (Acute 03/03/14) DJD, 03/11 TKR ([place]) Insomnia (Acute 03/29/13) Injury of neck (Acute) A) work injury B) DISABILITY C) left neck and shoulder pain and nerve damage D) C5-6 AND 6-7 DDD E) R C5-6 FORAMINAL NARROWING F) MRI T/L SPINE 04/04 MULTILEVEL DDD Impaired fasting glucose (Acute 04/09/15) Hemorrhoids (Acute 03/29/13) Gout (Acute 10/03/14) Gilbert's syndrome (Acute 03/29/13) chronic, mild elevated Bili Gastroesophageal reflux disease (Acute 03/29/13) Essential hypertension (Acute 03/28/13) Episodic lightheadedness (Acute 04/09/15) Chronic left shoulder pain (Acute 06/25/15) Allergic rhinitis (Acute 03/29/13) chronic sinus congestion Nephrolithiasis (Chronic ~01/2018) With 6 mm stone in right ureter Osteoarthritis of knee (Acute 02/26/14) Presence of right artificial knee joint (Acute 02/26/14) H/O surgical procedure (Chronic) a. Right knee arthroscopy 07/2010 b. Left shoudler athroscopy c. Umbilical hernia repair d. Open right carpal tunnel release e. TKR 02/26/2014 Borderline hypertension (Chronic) Overweight (Chronic) Hx of urinary stone (Chronic) Chronic sinusitis (Chronic) Hyperlipidemia (Chronic) Gilbert syndrome (Chronic) Medical History Pneumonia Surgical History hernia repair (~2005) Arthroscopy, Shoulder (~2000) left shoulder with labrial debridement and left acromioplasty-[facility] [place] Arthroplasty of knee (~2010) right Arthroscopy wrist Family History Mother Hyperlipidemia Hypertension Father , AGE 83 Diabetes Heart disease Hyperlipidemia Hypertension Sister , AGE 60 COPD (chronic obstructive pulmonary disease) Asthma Maternal Grandfather Diabetes Paternal Grandfather Heart disease Maternal Grandmother Diabetes Sister No problems noted. Social History Smoking/Tobacco Use Status: Former Tobacco Use Quit Date: 05/29/94 Smoking risk assessment performed?: Yes Alcohol Intake: former Year quit: 1998 Drug use: Never Substance use type: does not use Caregiver/Support person: No Household members: none Housing: house Pets and animals: No Do you think of yourself as: straight/heterosexual Current gender identity: male What is your relationship status?: never How often do you talk on the phone with friends or family?: three or more times per week How often do you get together with friends or relatives?: three or more times per week How often do you attend orthodox or catholic services?: decline to answer Do you belong to any clubs or organized social groups?: decline to answer Panel score (0-1 are the most socially isolated patients): 1 What type of physical activity do you participate in: bicycling Duration: 15-30 minutes/day Abigail/Yarsani: No preference Special abigail needs: No Do you feel safe at home: Yes Do you feel safe in your relationship?: Yes
[2024-07-21] MEDS: methylPREDNISolone SUCC 125 MG VIAL IVP (11:33)
[2024-07-21] MEDS: Albuterol/Ipratropium 3 ML UPD VIAL UPD ×4 (11:33→20:33)
[2024-07-21 11:40] LABS: Abs Immature Grans 0.26 10^3/uL (0.0-0.06); HCT 50.6 % (40.0-50.0); HGB 16.7 g/dL (13.5-17.5); MCV 85 fL (80-95); MPV 10.5 fL (8.0-11.0); Platelet Count 399 10^3/uL (130-400); RBC 5.97 10^6/uL (4.36-5.78); RDW 12.7 % (11.8-14.1); RDW-SD 39.3 fL; WBC 13.62 10^3/uL (4.4-10.8)
[2024-07-21 11:42] LABS: Lactate 2.6 mmol/L (<or=2.0)
--- NOTE | 2024-07-21 11:45 | RT.EKG_ITS ---
APPROVED REPORT Exam: Resting ECG Reason for Exam: SOB Patient Location: E HR:106 bpm ECG Measurements Heart Rate 106 AXIS MT 168 P 38 QRSd 86 QRS 3 QT 369 T 34 QTc 475 Conclusion Sinus tachycardia, rate 106 PACs and PVCs Q waves III, V1, V2, no priors available for comparison No STEMI
[2024-07-21 11:58] LABS: ALT 58 U/L (16-63); AST 36 U/L (15-37); Albumin 2.7 g/dL (3.4-5.0); Alkaline Phosphatase 119 U/L (46-116); Anion Gap 8.5 mmol/L (3-11); BUN 15 mg/dL (7-18); CO2 29.5 mmol/L (21.0-32.0); CREATININE 1.3 mg/dL (0.70-1.30); Calcium 9.5 mg/dL (8.5-10.1); Chloride 95 mmol/L (98-107); Estimated GFR 60.21 (mL/min/1.73m2); Glucose 278 mg/dL (74-106); Potassium 3.5 mmol/L (3.5-5.1); Sodium 133 mmol/L (136-145); Total Protein 8.4 g/dL (6.4-8.2)
[2024-07-21 11:59] LABS: Absolute Lymphocyte Count 0.95 10^3/uL (1.2-3.4); Absolute Monocyte Count 1.09 10^3/uL (0.1-0.8); Absolute Neutrophil Count 11.44 10^3/uL (1.2-6.7)
[2024-07-21 12:00] LABS: Diff Comment Manual Differential; Metamyelocytes % 1; RBC Morphology Normal
--- NOTE | 2024-07-21 12:02 | DI.VRAD_ITS ---
PROCEDURE INFORMATION: Exam: XR Chest Exam date and time: 07/21/2024 11:52 AM Age: 68 years old Clinical indication: Other: Hypoxia, SOB TECHNIQUE: Imaging protocol: Radiologic exam of the chest. Views: 1 view. COMPARISON: CR XR CHEST 2V PA LATERAL 01/04/2023 11:54 AM FINDINGS: Lungs: Opacities in both bases may represent atelectasis or pneumonia. Pleural spaces: Unremarkable. No pleural effusion. No pneumothorax. Heart/Mediastinum: Unremarkable. No cardiomegaly. Bones/joints: Unremarkable. IMPRESSION: Opacities in both bases may represent atelectasis or pneumonia. Dictated and Authenticated by: Mary Fernandes MD. Orderin Lilly Tapia MD
[2024-07-21 12:23] LABS: COVID-19 PCR Negative (Negative); Influenza A PCR Positive (Negative); Influenza B PCR Negative (Negative); RSV PCR Negative (Negative)
[2024-07-21 12:42] LABS: Troponin I 15 ng/L (<or=76)
[2024-07-21 12:47] LABS: Source Nasopharynx
[2024-07-21 12:57] LABS: Troponin I 16 ng/L (<or=76)
[2024-07-21] MEDS: cefTRIAXone 1 GM/50 ML BAG IVPB (13:53)
[2024-07-21] MEDS: Doxycycline Hyclate 100 MG CAP PO ×2 (13:55→20:09)
[2024-07-21] MEDS: Oseltamivir 75 MG CAP PO ×2 (13:55→20:10)
--- NOTE | 2024-07-21 14:54 | W.PM.HP.N ---
Date of service: 07/21/24 Time of Service: 14:54 Assessment and Plan Assessment and plan (1) Severe sepsis: Status: Acute Assessment and plan: -Patient meets severe sepsis criteria with initial heart rate of 106, respiratory rate in the mid 20s, source of infection being combination of influenza and bilateral bacterial pneumonia, lactic acid of 2.6 -Patient was started on ceftriaxone and doxycycline -Will continue with p.o. doxycycline and p.o. cefpodoxime -Will follow-up repeat lactic acid (2) Bilateral pneumonia: Status: Acute Assessment and plan: - Likely postviral given patient's flu a positive status -Continue treatment as noted above (3) Influenza A: Status: Acute Assessment and plan: - Positive in the emergency room -Started on Tamiflu in the emergency department, will continue -Started on IV methylprednisolone, transition to p.o. prednisone beginning tomorrow morning 07/22/2024 (4) Acute respiratory failure with hypoxia: Status: Acute Assessment and plan: - Secondary to severe sepsis, bilateral postviral pneumonia and flu a positive as noted above -Can currently on 2 L nasal cannula, wean as tolerated (5) Essential hypertension: Status: Acute Assessment and plan: - Continue home antihypertensive regimen History of Present Illness History of Present Illness Chief Complaint: chills, N/V SOB Narrative: 68-year-old gentleman with a past medical history of hypertension, chronic cough without mention of pulmonary function tests, who presents to the emergency department complaints of shortness of breath, chills, nausea and vomiting for 9 days. Patient states that for the last 9 days he has had increasing cough, chills, hot flash as well as intermittent nausea and vomiting as well as body aches. Prior to this he was in his usual state health though he does have a history of a chronic cough without mention or documentation of PFTs. In the emergency department the patient was noted as being tachycardic with heart rate of 106, respiratory rate in the mid 20s, pulse ox in the mid 80s requiring 2 L nasal cannula. His physical exam is notable for some expiratory wheezing and coarse breath sounds in bilateral lung poole. CBC showed white blood cell count of 13.6, CMP was unremarkable though initial lactic acid was 2.6 for which the patient received 1 L bolus of normal saline. Patient was found to be flu a positive, and chest x-ray showed bilateral pneumonia. Additionally, the patient was given doxycycline, ceftriaxone, IV methylprednisolone, Tamiflu and 3 DuoNebs. After which time patient was ambulated without oxygen but desaturated down to 84% requiring replacement of the 2 L nasal cannula. At which time emergency room PA paged hospitalist for admission for patient with flu likely resulting in post viral pneumonia resulting in severe sepsis and acute hypoxic respiratory failure. Review of Systems All systems reviewed & are unremarkable except as noted in HPI and below PFSH All Active Problems (Updated 07/21/24 @ 15:02 by Arik Christopher MD) Acute respiratory failure with hypoxia (Acute) Severe sepsis (Acute) Influenza A (Acute) Bilateral pneumonia (Acute) Chronic cough (Acute) Tachycardia (Acute) Bronchitis (Acute) Osteoarthritis of left knee (Acute) DEPO MEDROL 06/23/2022 Fatigue (Acute) Abdominal bloating (Acute) Arthralgia (Acute) Diabetes mellitus (Chronic) Podagra (Acute) Bronchospasm (Acute) Well adult (Acute) History of total right knee replacement (TKR) (Acute 02/26/14) Cervical spondylosis (Acute ~10/23/18) [place] [facility] [place] disorder (Acute) History of arthroscopy (Acute) History of arthroscopy of knee (Acute) History of tobacco use (Acute) Status post arthroscopy of shoulder (Acute) Umbilical hernia (Acute) Rupture of right long head biceps tendon (Chronic) Injected: 10/18/2018 Osteoarthritis of right AC (acromioclavicular) joint (Chronic) AC joint injection: 07/05/2019; 09/05/2018 Primary osteoarthritis of left knee (Chronic) Right shoulder tendonitis (Chronic) Obesity (Acute) Neck pain on left side (Acute 06/25/15) Nasal vestibulitis (Acute 04/13/17) Low back pain (Acute) Left shoulder pain (Acute 06/25/15) Lumbago (Acute) Knee pain, right (Acute 03/03/14) DJD, 03/11 TKR (Tarik) Insomnia (Acute 03/29/13) Injury of neck (Acute) A) work injury B) DISABILITY C) left neck and shoulder pain and nerve damage D) C5-6 AND 6-7 DDD E) R C5-6 FORAMINAL NARROWING F) MRI T/L SPINE 04/04 MULTILEVEL DDD Impaired fasting glucose (Acute 04/09/15) Hemorrhoids (Acute 03/29/13) Gout (Acute 10/03/14) Gilbert's syndrome (Acute 03/29/13) chronic, mild elevated Bili Gastroesophageal reflux disease (Acute 03/29/13) Essential hypertension (Acute 03/28/13) Episodic lightheadedness (Acute 04/09/15) Chronic left shoulder pain (Acute 06/25/15) Allergic rhinitis (Acute 03/29/13) chronic sinus congestion Nephrolithiasis (Chronic ~01/2018) With 6 mm stone in right ureter Osteoarthritis of knee (Acute 02/26/14) Presence of right artificial knee joint (Acute 02/26/14) H/O surgical procedure (Chronic) a. Right knee arthroscopy 07/2010 b. Left shoudler athroscopy c. Umbilical hernia repair d. Open right carpal tunnel release e. TKR 02/26/2014 Borderline hypertension (Chronic) Overweight (Chronic) Hx of urinary stone (Chronic) Chronic sinusitis (Chronic) Hyperlipidemia (Chronic) Gilbert syndrome (Chronic) Medical History Pneumonia Surgical History hernia repair (~2005) Arthroscopy, Shoulder (~2000) left shoulder with labrial debridement [place] [place]plasty of knee (~2010) right Arthroscopy wrist Family History Mother Hyperlipidemia Hypertension Father , AGE 83 Diabetes Heart disease Hyperlipidemia Hypertension Sister , AGE 60 COPD (chronic obstructive pulmonary disease) Asthma Maternal Grandfather Diabetes Paternal Grandfather Heart disease Maternal Grandmother Diabetes Sister No problems noted. Social History Smoking/Tobacco Use Status: Former Tobacco Use Quit Date: 05/29/94 Smoking risk assessment performed?: Yes Alcohol Intake: former Year quit: 1998 Drug use: Never Substance use type: does not use Caregiver/Support person: No Household members: none Housing: house Pets and animals: No Do you think of yourself as: straight/heterosexual Current gender identity: male What is your relationship status?: never How often do you talk on the phone with friends or family?: three or more times per week How often do you get together with friends or relatives?: three or more times per week How often do you attend nondenominational or latter day services?: decline to answer Do you belong to any clubs or organized social groups?: decline to answer Panel score (0-1 are the most socially isolated patients): 1 What type of physical activity do you participate in: bicycling Duration: 15-30 minutes/day Abigail/Advent: No preference Special abigail needs: No Do you feel safe at home: Yes Do you feel safe in your relationship?: Yes Meds Allergies and Home Medications Allergies Allergy/AdvReac Type Severity Reaction Status Date / Time budesonide (From Symbicort) Allergy Severe RASH Verified 07/21/24 10:48 formoterol fumarate (From Allergy Severe RASH Verified 07/21/24 10:48 Symbicort) hydrocodone AdvReac Severe SEVERE GI Verified 07/21/24 10:48 UPSET chlorthalidone AdvReac Intermediate gout Verified 07/21/24 10:48 lisinopril AdvReac Intermediate dry cough Verified 07/21/24 10:48 losartan AdvReac Intermediate tachycardia Verified 07/21/24 10:48 metformin AdvReac Intermediate Diarrhea Verified 07/21/24 10:48 atenolol AdvReac Mild headache Verified 07/21/24 10:48 cyclobenzaprine AdvReac Headache Verified 07/21/24 10:48 gabapentin AdvReac GI upset Verified 07/21/24 10:48 hydrochlorothiazide AdvReac Headache Verified 07/21/24 10:48 morphine AdvReac Headache, Verified 07/21/24 10:48 Nausea/Vomiting oxycodone AdvReac Headache/Fo Verified 07/21/24 10:48 rgetfullnes s simvastatin AdvReac muscle/joint Verified 07/21/24 10:48 pain tramadol AdvReac GI upset Verified 07/21/24 10:48 Home Medications ?Medication ?Instructions ?Recorded ?Confirmed ?Type acetaminophen 500 mg tablet 1,000 mg PO TID 04/08/14 07/21/24 History (Tylenol Extra Strength) ibuprofen 200 mg tablet 400 mg PO Q6H PRN 05/16/20 07/21/24 History blood-glucose meter ([employer]uch #1 ea 11/11/20 02/15/24 Rx UltraMini kit) blood sugar diagnostic #100 ea 01/12/22 02/15/24 Rx lancets 33 gauge (OneTouch Delica #100 ea 01/12/22 02/15/24 Rx Plus Lancet) lancets 30 gauge (Onetouch Delica #200 ea 09/28/22 02/15/24 Rx Safety Lancet) lancing device with lancets kit #1 ea 09/30/22 02/15/24 Rx (OneTouch Delica Plus Lancing Device kit) omeprazole 40 mg capsule,delayed 40 mg PO DAILY PRN acid reflux #90 01/04/23 07/21/24 Rx release caps irbesartan 150 mg tablet 150 mg PO DAILY #90 tabs 02/12/24 07/21/24 Rx dapagliflozin propanediol 10 mg 10 mg PO DAILY #90 tabs 06/08/24 07/21/24 Rx tablet (Farxiga) Exam Narrative Exam Narrative: Well-appearing older gentleman in mild respiratory distress laying in bed, 2 L nasal cannula in place, heart regular rhythm, lungs with diffuse moderate expiratory wheezing throughout bilateral lung poole, abdomen soft, nontender, nondistended Results Labs 07/21/24 11:26 07/21/24 11:26 Labs: Laboratory Results - last 24 hr 07/21/24 07/21/24 07/21/24 11:26 11:38 12:19 WBC 13.62 H RBC 5.97 H Hgb 16.7 Hct 50.6 H MCV 85 MCH 28.0 MCHC 33.0 RDW 12.7 Plt Count 399 MPV 10.5 Immature Gran % See Differential Neutrophils % 84.0 Lymphocytes % 7.0 Monocytes % 8.0 Eosinophils % 0.0 Basophils % 0.0 Metamyelocytes % 1 Nucleated RBC % 0.0 Absolute Neutrophils 11.44 H Absolute Lymphocytes 0.95 L Absolute Monocytes 1.09 H Absolute Eosinophils 0.00 Absolute Basophils 0.00 RBC Morphology Normal VBG Lactate 2.6 H* Sodium 133 L Potassium 3.5 Chloride 95 L Carbon Dioxide 29.5 Anion Gap 8.5 BUN 15 Creatinine 1.3 Est GFR (CKD-EPI 2020) 60.21 Glucose 278 H Calcium 9.5 Total Bilirubin 1.30 H AST 36 ALT 58 Alkaline Phosphatase 119 H Troponin I 15 16 Total Protein 8.4 H Albumin 2.7 L COVID-19 Source Nasopharynx SARS-CoV-2 (PCR) Negative Influenza Type A (PCR) Positive A Influenza Type B (PCR) Negative RSV (PCR) Negative 07/21/24 14:56 WBC RBC Hgb Hct MCV MCH MCHC RDW Plt Count MPV Immature Gran % Neutrophils % Lymphocytes % Monocytes % Eosinophils % Basophils % Metamyelocytes % Nucleated RBC % Absolute Neutrophils Absolute Lymphocytes Absolute Monocytes Absolute Eosinophils Absolute Basophils RBC Morphology VBG Lactate Sodium Potassium Chloride Carbon Dioxide Anion Gap BUN Creatinine Est GFR (CKD-EPI 2020) Glucose Calcium Total Bilirubin AST ALT Alkaline Phosphatase Troponin I Cancelled Total Protein Albumin COVID-19 Source SARS-CoV-2 (PCR) Influenza Type A (PCR) Influenza Type B (PCR) RSV (PCR) Last Vital Signs Temp 98.9 F 07/21/24 10:46 Pulse 106 H 07/21/24 10:46 Resp 26 H 07/21/24 11:58 BP 154/87 H 07/21/24 10:46 Pulse Ox 92 07/21/24 11:58 Time Spent Time spent with Patient: >75 minutes Time was spent: preparing to see the patient(eg.review tests), obtaining and/or reviewing separately otained hiistory, ordering medications,tests, procedures, referring, communicating with other health rn urgent care, indepentently interpreting results, counseling the patient and care coordination
[2024-07-21] MEDS: Normal Saline 500 ML 1000 ML IV (15:30)
--- NOTE | 2024-07-21 15:35 | W.PC.ACHO ---
Registration Status: Primary Language: Preferred Language: ED Information & Data Chief Complaint RespSymp 07/21/24 11:13 Triage Note Pt reports respiratory 07/21/24 10:41 symptoms for 9 days and is not getting any better- SOB, productive cough, fatigue, chills, hot flashes, body aches, diarrhea- Cold/ flu medications this morning Medical / Surgical History (Last Reviewed 07/21/24 @ 11:12 by Regina Carr NP) Pneumonia (Last Reviewed 07/21/24 @ 11:12 by Regina Carr NP) hernia repair (~2005) Arthroscopy, Shoulder (~2000) Arthroplasty of knee (~2010) Arthroscopy Most Recent Vital Signs Temperature 37.2 C 07/21/24 10:46 Pulse 106 H 07/21/24 10:46 Respiratory Rate 26 H 07/21/24 11:58 Blood Pressure 154/87 H 07/21/24 10:46 Blood Pressure Position Sitting 07/21/24 10:46 Pulse Oximetry 92 07/21/24 11:58 Oxygen Delivery Method Nasal Cannula 07/21/24 11:58 Oxygen Flow Rate 2 07/21/24 11:58 Pain Level 7 07/21/24 10:46 Allergies budesonide (From Symbicort) Allergy (Severe, Verified 07/21/24 10:48) RASH formoterol fumarate (From Symbicort) Allergy (Severe, Verified 07/21/24 10:48) RASH hydrocodone Adverse Reaction (Severe, Verified 07/21/24 10:48) SEVERE GI UPSET chlorthalidone Adverse Reaction (Intermediate, Verified 07/21/24 10:48) gout lisinopril Adverse Reaction (Intermediate, Verified 07/21/24 10:48) dry cough losartan Adverse Reaction (Intermediate, Verified 07/21/24 10:48) tachycardia muscle cramps metformin Adverse Reaction (Intermediate, Verified 07/21/24 10:48) Diarrhea Diarrhea (w/ intermittent incontinency) and stomach pains. atenolol Adverse Reaction (Mild, Verified 07/21/24 10:48) headache cyclobenzaprine Adverse Reaction (Verified 07/21/24 10:48) Headache gabapentin Adverse Reaction (Verified 07/21/24 10:48) GI upset hydrochlorothiazide Adverse Reaction (Verified 07/21/24 10:48) Headache morphine Adverse Reaction (Verified 07/21/24 10:48) Headache, Nausea/Vomiting oxycodone Adverse Reaction (Verified 07/21/24 10:48) Headache/Forgetfullness simvastatin Adverse Reaction (Verified 07/21/24 10:48) muscle/joint pain tramadol Adverse Reaction (Verified 07/21/24 10:48) GI upset Precautions Isolation Standard precaution 07/21/24 10:46 IV IV Catheter Type [Left Saline Lock Antecubital] IV Catheter Gauge [Left 18 Antecubital] Diagnostics 07/21/24 07/21/24 07/21/24 Range/Units 14:56 14:39 12:19 WBC (4.4-10.8) 10^3/uL RBC (4.36-5.78) 10^6/uL Hgb (13.5-17.5) g/dL Hct (40.0-50.0) % MCV (80-95) fL MCH (27.0-33.0) pg MCHC (32.0-36.0) % RDW (11.8-14.1) % Plt Count (130-400) 10^3/uL MPV (8.0-11.0) fL Immature Gran % Neutrophils % % Lymphocytes % % Monocytes % % Eosinophils % % Basophils % % Metamyelocytes % Nucleated RBC % (0.0-0.3) % Absolute Neutrophils (1.2-6.7) 10^3/uL Absolute Lymphocytes (1.2-3.4) 10^3/uL Absolute Monocytes (0.1-0.8) 10^3/uL Absolute Eosinophils (0.0-0.7) 10^3/uL Absolute Basophils (0.0-0.2) 10^3/uL RBC Morphology VBG pH Pending VBG pCO2 Pending VBG pO2 Pending VBG HCO3 Pending VBG Total CO2 Pending VBG O2 Saturation Pending VBG Base Excess Pending VBG Lactate Pending (<or=2.0) mmol/L Sodium (136-145) mmol/L Potassium (3.5-5.1) mmol/L Chloride (98-107) mmol/L Carbon Dioxide (21.0-32.0) mmol/L Anion Gap (3-11) mmol/L BUN (7-18) mg/dL Creatinine (0.70-1.30) mg/dL Est GFR (CKD-EPI 2020) (mL/min/1.73m2) Glucose (74-106) mg/dL Calcium (8.5-10.1) mg/dL Total Bilirubin (0.2-1.0) mg/dL AST (15-37) U/L ALT (16-63) U/L Alkaline Phosphatase (46-116) U/L Troponin I Cancelled 16 (<or=76) ng/L Total Protein (6.4-8.2) g/dL Albumin (3.4-5.0) g/dL COVID-19 Source SARS-CoV-2 (PCR) (Negative) Influenza Type A (PCR) (Negative) Influenza Type B (PCR) (Negative) RSV (PCR) (Negative) 07/21/24 07/21/24 Range/Units 11:38 11:26 WBC 13.62 H (4.4-10.8) 10^3/uL RBC 5.97 H (4.36-5.78) 10^6/uL Hgb 16.7 (13.5-17.5) g/dL Hct 50.6 H (40.0-50.0) % MCV 85 (80-95) fL MCH 28.0 (27.0-33.0) pg MCHC 33.0 (32.0-36.0) % RDW 12.7 (11.8-14.1) % Plt Count 399 (130-400) 10^3/uL MPV 10.5 (8.0-11.0) fL Immature Gran % See Differential Neutrophils % 84.0 % Lymphocytes % 7.0 % Monocytes % 8.0 % Eosinophils % 0.0 % Basophils % 0.0 % Metamyelocytes % 1 Nucleated RBC % 0.0 (0.0-0.3) % Absolute Neutrophils 11.44 H (1.2-6.7) 10^3/uL Absolute Lymphocytes 0.95 L (1.2-3.4) 10^3/uL Absolute Monocytes 1.09 H (0.1-0.8) 10^3/uL Absolute Eosinophils 0.00 (0.0-0.7) 10^3/uL Absolute Basophils 0.00 (0.0-0.2) 10^3/uL RBC Morphology Normal VBG pH VBG pCO2 VBG pO2 VBG HCO3 VBG Total CO2 VBG O2 Saturation VBG Base Excess VBG Lactate 2.6 H* (<or=2.0) mmol/L Sodium 133 L (136-145) mmol/L Potassium 3.5 (3.5-5.1) mmol/L Chloride 95 L (98-107) mmol/L Carbon Dioxide 29.5 (21.0-32.0) mmol/L Anion Gap 8.5 (3-11) mmol/L BUN 15 (7-18) mg/dL Creatinine 1.3 (0.70-1.30) mg/dL Est GFR (CKD-EPI 2020) 60.21 (mL/min/1.73m2) Glucose 278 H (74-106) mg/dL Calcium 9.5 (8.5-10.1) mg/dL Total Bilirubin 1.30 H (0.2-1.0) mg/dL AST 36 (15-37) U/L ALT 58 (16-63) U/L Alkaline Phosphatase 119 H (46-116) U/L Troponin I 15 (<or=76) ng/L Total Protein 8.4 H (6.4-8.2) g/dL Albumin 2.7 L (3.4-5.0) g/dL COVID-19 Source Nasopharynx SARS-CoV-2 (PCR) Negative (Negative) Influenza Type A (PCR) Positive A (Negative) Influenza Type B (PCR) Negative (Negative) RSV (PCR) Negative (Negative) 07/21/24 12:45 Blood Culture - Pending Blood 07/21/24 12:19 Blood Culture - Pending Blood Intake and Output - 24 Hour Total 07/21/24 10:31 thru 07/21/24 10:41 Weight 119.295 kg Problems (Last Reviewed 07/21/24 @ 11:12 by Regina Carr NP) Acute respiratory failure with hypoxia (Acute) Severe sepsis (Acute) Influenza A (Acute) Bilateral pneumonia (Acute) Essential hypertension (Acute 03/28/13) v v v v v v v v v Sending and/or Receiving Nurses: Please use comment section below to note any information pertinent to the patient hand-off not included above. Information / Comments: Pt A&Ox4, NSR at times w/ some arrhythmias and PVCs on tele, Tachy on admission, Lung sounds dim bases w/ expiratory wheezing, tachypnic, independent with mobility, requiring 2L w/ ambulation, does not use O2 at home. Went to PCP requesting tamiflu and they did not do any testing, now here for incresed WOB and SOB, Flu A+, Pneumonia bilateral base infiltrates, Elevated Lactate and WBC, started ABX, steroids, and tamiflu in ER, given one bolus of 500NS. 18G LAC Report received from: Eren GELLER in ER at [id number]
[2024-07-21 16:26] LABS: BE (Venous) 1 mmol/L (-2-3); HCO3 (Venous) 25 mmol/L (23-28); pCO2 (Venous) 36 mmHg (41-51); pH (Venous) 7.46 (7.31-7.41); pO2 (Venous) 150 mmHg
[2024-07-21 16:30] LABS: Lactate 2.5 mmol/L (<or=2.0); O2 Sat (Venous) > 99 %
[2024-07-21] MEDS: Insulin Aspart 300 UNITS/3 ML PEN SC ×2 (17:24→21:50)
[2024-07-21] MEDS: Cefpodoxime 200 MG TAB PO (20:09)
[2024-07-21] MEDS: Normal Saline Flush 10 ML SYR IVP (20:10)
[2024-07-22] VITALS (11 sets, daily range): BP systolic 123–150; BP diastolic 79–90; PULSE 68–85; RESP 3–20; TEMP 36.2–36.8; O2SAT 91–95
[2024-07-22] MEDS: Albuterol/Ipratropium 3 ML UPD VIAL UPD (04:15)
[2024-07-22 06:39] LABS: HCT 43.6 % (40.0-50.0); HGB 14.7 g/dL (13.5-17.5); MCH 28.1 pg (27.0-33.0); MCHC 33.7 % (32.0-36.0); MCV 83 fL (80-95); MPV 10.6 fL (8.0-11.0); Platelet Count 381 10^3/uL (130-400); RBC 5.24 10^6/uL (4.36-5.78); RDW 12.8 % (11.8-14.1); RDW-SD 38.9 fL; WBC 14.38 10^3/uL (4.4-10.8)
[2024-07-22] MEDS: Benzocaine/Menthol LOZG 15/BOX 1 EACH SUC (06:41)
[2024-07-22 06:57] LABS: Anion Gap 6.4 mmol/L (3-11); BUN 18 mg/dL (7-18); CO2 30.6 mmol/L (21.0-32.0); CREATININE 1.1 mg/dL (0.70-1.30); Calcium 9.3 mg/dL (8.5-10.1); Chloride 100 mmol/L (98-107); Estimated GFR 73.58 (mL/min/1.73m2); Glucose 278 mg/dL (74-106); Magnesium 2.4 mg/dL (1.8-2.4); Potassium 3.4 mmol/L (3.5-5.1); Sodium 137 mmol/L (136-145)
[2024-07-22] MEDS: Cefpodoxime 200 MG TAB PO ×2 (08:45→20:13)
[2024-07-22] MEDS: predniSONE 20 MG TAB 40 MG PO (08:45)
[2024-07-22] MEDS: Doxycycline Hyclate 100 MG CAP PO ×2 (08:45→20:13)
[2024-07-22] MEDS: Enoxaparin 40 MG/0.4 ML SYR SC (08:46)
[2024-07-22] MEDS: Normal Saline Flush 10 ML SYR IVP ×2 (08:46→20:13)
[2024-07-22] MEDS: Oseltamivir 75 MG CAP PO ×2 (08:46→20:13)
[2024-07-22] MEDS: Insulin Aspart 300 UNITS/3 ML PEN SC ×4 (08:46→22:58)
[2024-07-22] MEDS: Irbesartan 75 MG TAB 150 MG PO (09:38)
--- NOTE | 2024-07-22 13:26 | W.PM.PROGNOT ---
Date of Service Date of service: 07/22/24 Time of Service: 13:26 Assessment and Plan Assessment and plan (1) Acute respiratory failure with hypoxia: Status: Acute Assessment and plan: - remains on 2L NC, does not typically use O2 at home - continue to treat underlying causes as detailed below (2) Severe sepsis: Status: Acute Assessment and plan: - met sepsis criteria on admission - IVF given in ER - again, treatment of underlying causes as noted below (3) Influenza A: Status: Acute Assessment and plan: - currently on Tamiflu 75mg PO BID starting 07/21 - may be a component of reactive airway, was given IV steroids in ER. continue prednisone 40mg PO daily for now - continue albuterol/duonebs prn as ordered (4) Pneumonia: Assessment and plan: - question of bacterial superinfection - started on cefpodoxime and doxycycline on admission, will continue these another 24h and monitor for clinical response - follow CBC, leukocytosis (5) Diabetes mellitus: Status: Chronic Assessment and plan: - farxiga held on presentation. - BGs may be worse while patient is on steroids. did require extra dose of aspart yesterday evening - for now, continue SSI as ordered - check check [id number] Subjective Subjective Interval history since last seen: Seen and examined this AM. Tells me he is feeling better but still very symptomatic. Loose cough, some production. Remais on supplemental O2 at 2L. Using IS quite a bit which he feels has helped. Also just had a neb treatment which he feels was also effective. Exam Const General: cooperative, comfortable and no acute distress Chest Chest: normal inspection of the chest Resp Effort & Inspection: normal respiratory effort Auscultation: rhonchi and wheezes (pronounced, scattered b/l) Cardio Rate: regular rate Rhythm: regular rhythm Heart Sounds: S1 normal and S2 normal GI Inspection: normal to inspection Palpation: soft Auscultation: normal bowel sounds Skin General skin exam: no rashes or lesions noted Neuro General: patient alert, patient awake and patient oriented x3 Extrem General: no pedal edema Objective Last Vital Signs Temp 36.4 C L 07/22/24 12:06 Pulse 83 07/22/24 12:06 Resp 14 07/22/24 12:06 BP 123/79 07/22/24 12:06 Pulse Ox 91 L 07/22/24 12:06 Laboratory Results - last 24 hr 07/21/24 07/22/24 16:20 06:25 WBC 14.38 H RBC 5.24 Hgb 14.7 D Hct 43.6 MCV 83 MCH 28.1 MCHC 33.7 RDW 12.8 Plt Count 381 MPV 10.6 VBG pH 7.46 H VBG pCO2 36 L VBG pO2 150 VBG HCO3 25 VBG Total CO2 VBG O2 Saturation > 99 VBG Base Excess 1 VBG Lactate 2.5 H* Sodium 137 Potassium 3.4 L Chloride 100 Carbon Dioxide 30.6 Anion Gap 6.4 BUN 18 Creatinine 1.1 Est GFR (CKD-EPI 2020) 73.58 Glucose 278 H Calcium 9.3 Magnesium 2.4 PAWSS Have you Been Recently Intoxicated or Drunk Within the Last 30 days?: No Have you Ever Experienced Previous Episodes of Alcohol Withdrawal?: No Have you ever Experienced Withdrawal Seizures?: No Have you ever Experienced Delirium Tremens(DT)s?: No Have you ever undergone Alcohol Rehabilitation Treatment (i.e, inpt ot outpatient treatment programs)?: No Have you ever Experienced Blackouts?: No Have you ever Combined Alcohol with other Downers within the last 90 days?: No Have you ever Combined Alcohol with any other Substance of Abuse during the last 90 days?: No Positive Blood Alcohol level on Presentation? [PCS.BAL]: No Evidence of Increased Autonomic Activity (i.e. HR>120, tremor, sweating, agitation, nausea)?: No Result: 0 Time Spent with Patient Time Spent with Patient: <25 minutes Time was spent: preparing to see the patient(eg.review tests), ordering medications,tests, procedures, referring, communicating with other health continuum of care manager and care coordination
--- NOTE | 2024-07-22 16:17 | PDOC.CMIN ---
Date of service: 07/22/24 Time of Service: 14:00 Care Management Initial Assmt Initial Assessment Reason for Hospitalization: sepsis, pneumonia, flu Functional Status/Living Situation Patient Presentation: Joseluis presented to the ER yesterday morning with c/o 10 days of respiratory symptoms, hot flashes, chills, n/v diarrhea and body aches. He was found to have some wheezing, RA O2 sat was only 89-90%. He was found to have bilateral pneumonia and flu A. Today Slade was sitting up on the bed when CM met with him. He was very pleasant. He was wearing 1L O2, and stated that RT was planning to give him a RA trial later this afternoon. Slade is hoping to go home tomorrow. He stated that he feels so much better already. He is using both his IS and his acapela. 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) Instrumental Activities of Daily Living (ADLs): Independent Medications Medication Management: No Issues/Barriers identified Advance Directives Advance Directives: Do you have an Advance Directive: N 02/11/13 16:09 AD On File at [facility]: N 02/11/13 16:09 Date Asked 07/21/24 07/21/24 10:40 AD Date Reviewed COLST On File at [facility] COLST Date Scanned Code Status Resuscitation Status Full Code Insurance Coverage/Financial Issues Insurance: Medicare A&B and financial assistance 100% Care Team Visit Care Team Role Provider Type Evelio Banuelos DO MD [facility] STAFF PHYSICIAN Rodolfo Penn MD Primary Care Provider [facility] STAFF PHYSICIAN Regina Carr, [place] Emergency Provider NURSE PRACTITIONER Arik Christopher MD Admit Provider [facility] STAFF PHYSICIAN Attending Provider Discharge Potential Discharge Needs: PCP F/U Appt Anticipated Barriers to Discharge: None Identified Patient/Family Education Needs: Review discharge instructions, discuss Ask Me Three Transportation: Private vehicle (Slade will be driving himself home) Plan: Anticipate that Joseluis will be discharged tomorrow with no new services. He will f/u with his PCP and will continue per his plan of care. Slade will drive himself home, as his car is in the ER parking lot. CM will continue to follow. Social Determinants of Health Screening Social Determinants of Health last assessed: 07/22/24 Will the Patient Participate in the Screening?: Yes Do you worry about having a steady place to live?: no Problems where you live: no known problems In the past 12 months, have you had to go without electric, gas, oil or water in your home?: no Have you or anyone in your house had to go without enough food to eat?: no Has lack of transportation kept you from medical appointments or from doing things needed for daily living?: no Has anyone in your life made you feel unsafe or unsupported?: no How hard is it for you to pay for the very basics like food, housing, medical care, and heating? Would you say it is:: Not hard at all Do you want help finding or keeping work or a job?: I do not need or want help If for any reason you need help with day-to-day activities such as bathing, preparing meals, shopping, managing finances, etc., do you get the help you need?: I don?t need any help How often do you feel lonely or isolated from those around you?: Never Do you speak a language other than Malay at home?: No Does the patient want assistance with any of the above?: No PFSH All Active Problems (Updated 07/21/24 @ 15:02 by Arik Christopher MD) Acute respiratory failure with hypoxia (Acute) Severe sepsis (Acute) Influenza A (Acute) Bilateral pneumonia (Acute) Chronic cough (Acute) Tachycardia (Acute) Bronchitis (Acute) Osteoarthritis of left knee (Acute) DEPO MEDROL 06/23/2022 Fatigue (Acute) Abdominal bloating (Acute) Arthralgia (Acute) Diabetes mellitus (Chronic) Podagra (Acute) Bronchospasm (Acute) Well adult (Acute) History of total right knee replacement (TKR) (Acute 02/26/14) Cervical spondylosis (Acute ~10/23/18) [place] [facility] [place] (Acute) History of arthroscopy (Acute) History of arthroscopy of knee (Acute) History of tobacco use (Acute) Status post arthroscopy of shoulder (Acute) Umbilical hernia (Acute) Rupture of right long head biceps tendon (Chronic) Injected: 10/18/2018 Osteoarthritis of right AC (acromioclavicular) joint (Chronic) AC joint injection: 07/05/2019; 09/05/2018 Primary osteoarthritis of left knee (Chronic) Right shoulder tendonitis (Chronic) Obesity (Acute) Neck pain on left side (Acute 06/25/15) Nasal vestibulitis (Acute 04/13/17) Low back pain (Acute) Left shoulder pain (Acute 06/25/15) Lumbago (Acute) Knee pain, right (Acute 03/03/14) DJD, 03/11 TKR (Tarik) Insomnia (Acute 03/29/13) Injury of neck (Acute) A) work injury B) DISABILITY C) left neck and shoulder pain and nerve damage D) C5-6 AND 6-7 DDD E) R C5-6 FORAMINAL NARROWING F) MRI T/L SPINE 04/04 MULTILEVEL DDD Impaired fasting glucose (Acute 04/09/15) Hemorrhoids (Acute 03/29/13) Gout (Acute 10/03/14) Gilbert's syndrome (Acute 03/29/13) chronic, mild elevated Bili Gastroesophageal reflux disease (Acute 03/29/13) Essential hypertension (Acute 03/28/13) Episodic lightheadedness (Acute 04/09/15) Chronic left shoulder pain (Acute 06/25/15) Allergic rhinitis (Acute 03/29/13) chronic sinus congestion Nephrolithiasis (Chronic ~01/2018) With 6 mm stone in right ureter Osteoarthritis of knee (Acute 02/26/14) Presence of right artificial knee joint (Acute 02/26/14) H/O surgical procedure (Chronic) a. Right knee arthroscopy 07/2010 b. Left shoudler athroscopy c. Umbilical hernia repair d. Open right carpal tunnel release e. TKR 02/26/2014 Borderline hypertension (Chronic) Overweight (Chronic) Hx of urinary stone (Chronic) Chronic sinusitis (Chronic) Hyperlipidemia (Chronic) Gilbert syndrome (Chronic) Medical History Pneumonia Surgical History hernia repair (~2005) Arthroscopy, Shoulder (~2000) left shoulder with labrial [place]brid[place] [place] of knee (~2010) right Arthroscopy wrist Family History Mother Hyperlipidemia Hypertension Father , AGE 83 Diabetes Heart disease Hyperlipidemia Hypertension Sister , AGE 60 COPD (chronic obstructive pulmonary disease) Asthma Maternal Grandfather Diabetes Paternal Grandfather Heart disease Maternal Grandmother Diabetes Sister No problems noted. Social History Smoking/Tobacco Use Status: Former Tobacco Use Quit Date: 05/29/94 Smoking risk assessment performed?: Yes Alcohol Intake: former Year quit: 1998 Drug use: Never Substance use type: does not use Caregiver/Support person: No Household members: none Housing: house Pets and animals: No Do you think of yourself as: straight/heterosexual Current gender identity: male What is your relationship status?: never How often do you talk on the phone with friends or family?: three or more times per week How often do you get together with friends or relatives?: three or more times per week How often do you attend jainism or nondenominational services?: decline to answer Do you belong to any clubs or organized social groups?: decline to answer Panel score (0-1 are the most socially isolated patients): 1 What type of physical activity do you participate in: bicycling Duration: 15-30 minutes/day Abigail/Religious: No preference Special abigail needs: No Do you feel safe at home: Yes Do you feel safe in your relationship?: Yes Readmission Within the Past 30 Days Yes or No: No
[2024-07-23 03:09] VITALS: BP 132/83; PULSE 72; RESP 18; TEMP 36.1; O2SAT 93
[2024-07-23 07:09] LABS: Anion Gap 7.2 mmol/L (3-11); BUN 26 mg/dL (7-18); CO2 30.8 mmol/L (21.0-32.0); CREATININE 1.1 mg/dL (0.70-1.30); Calcium 9.3 mg/dL (8.5-10.1); Chloride 99 mmol/L (98-107); Estimated GFR 73.58 (mL/min/1.73m2); Glucose 262 mg/dL (74-106); Potassium 3.5 mmol/L (3.5-5.1); Sodium 137 mmol/L (136-145)
[2024-07-23 07:17] LABS: HCT 44.9 % (40.0-50.0); HGB 14.8 g/dL (13.5-17.5); Immature Grans % 1.6 %; MCH 27.9 pg (27.0-33.0); MCV 85 fL (80-95); MPV 10.8 fL (8.0-11.0); Platelet Count 407 10^3/uL (130-400); RBC 5.31 10^6/uL (4.36-5.78); RDW-SD 40.3 fL; WBC 14.77 10^3/uL (4.4-10.8)
[2024-07-23 07:53] LABS: Absolute Basophil Count 0.15 10^3/uL (0.0-0.2); Absolute Lymphocyte Count 2.22 10^3/uL (1.2-3.4); Absolute Monocyte Count 0.74 10^3/uL (0.1-0.8); Absolute Neutrophil Count 11.67 10^3/uL (1.2-6.7); Atypical Lymphocytes % 1 %; Bands % 1 %; Diff Comment Manual Differential; RBC Morphology Normal
[2024-07-23 08:00] VITALS: RESP 18; O2SAT 96
[2024-07-23 08:04] VITALS: BP 140/90; PULSE 72; RESP 18; TEMP 36.8; O2SAT 92
[2024-07-23] MEDS: Insulin Aspart 300 UNITS/3 ML PEN SC ×2 (08:18→11:56)
[2024-07-23] MEDS: Enoxaparin 40 MG/0.4 ML SYR SC (08:19)
[2024-07-23] MEDS: predniSONE 20 MG TAB 40 MG PO (08:20)
[2024-07-23] MEDS: Cefpodoxime 200 MG TAB PO (08:20)
[2024-07-23] MEDS: Irbesartan 75 MG TAB 150 MG PO (08:20)
[2024-07-23] MEDS: Doxycycline Hyclate 100 MG CAP PO (08:20)
[2024-07-23] MEDS: Oseltamivir 75 MG CAP PO (08:21)
[2024-07-23] MEDS: Normal Saline Flush 10 ML SYR IVP (08:25)
[2024-07-23 11:35] VITALS: BP 155/93; PULSE 84; RESP 18; TEMP 36.6; O2SAT 95
--- NOTE | 2024-07-23 13:23 | DSE_ITS ---
Date of service: 07/23/24 Time of Service: 13:23 DS: Diagnosis Discharge Diagnosis (1) Acute respiratory failure with hypoxia: Status: Acute (2) Severe sepsis: Status: Acute (3) Influenza A: Status: Acute (4) Pneumonia: (5) Diabetes mellitus: Status: Chronic Discharge Plan Disposition Patient Disposition: Home Condition: Improving Discharge Details Reason For Visit: Severe Sepsis,CAP, Flu A,Acute Hypoxic Resp Failur Admit Date/Time: 07/21/24 14:54 Admit Provider: Arik Christopher Attending Provider: Arik Christopher Primary Care Provider: Rodolfo Penn Hospital Course Hospital Course: H+P: 68-year-old gentleman with a past medical history of hypertension, chronic cough without mention of pulmonary function tests, who presents to the emergency department complaints of shortness of breath, chills, nausea and vomiting for 9 days. Patient states that for the last 9 days he has had increasing cough, chills, hot flash as well as intermittent nausea and vomiting as well as body aches. Prior to this he was in his usual state health though he does have a history of a chronic cough without mention or documentation of PFTs. In the emergency department the patient was noted as being tachycardic with heart rate of 106, respiratory rate in the mid 20s, pulse ox in the mid 80s requiring 2 L nasal cannula. His physical exam is notable for some expiratory wheezing and coarse breath sounds in bilateral lung poole. CBC showed white blood cell count of 13.6, CMP was unremarkable though initial lactic acid was 2.6 for which the patient received 1 L bolus of normal saline. Patient was found to be flu a positive, and chest x-ray showed bilateral pneumonia. Additionally, the patient was given doxycycline, ceftriaxone, IV methylprednisolone, Tamiflu and 3 DuoNebs. After which time patient was ambulated without oxygen but desaturated down to 84% requiring replacement of the 2 L nasal cannula. At which time emergency room PA paged hospitalist for admission for patient with flu likely resulting in post viral pneumonia resulting in severe sepsis and acute hypoxic respiratory failure. Patient was influenza A positive, was started on Tamiflu at presentation. Conc yaquelin for CAP as well, was started on PO doxycyline and cefpodoxime. Prednisone 40mg daily was also started. Patient had a slow wean to get off supplemental O2 but was much improved with minimal cough and tolerating RA by the AM of 2/25. Remained afebrile. Plan will be to discharge home. Will provide Tamiflu to finish 5 day course as well as 7 days of cefpodoxime and doxycyline to finish 7 days. Patient had multiple questions regarding warning signs and medications which I answered at time of d/c. Can follow with PCP or return to ER if he has more significant symptoms. Home Meds and New Rx's Prescriptions: New doxycycline hyclate 100 mg Capsule 100 mg PO BID 5 Days Qty: 10 0RF cefpodoxime 200 mg Tablet 200 mg PO BID 5 Days Qty: 10 0RF Oseltamivir [Tamiflu] 75 mg PO BID 2 Days Qty: 4 0RF prednisone 10 mg tablet See Taper PO DIRECTED Qty: 10 0RF Taper: Prednisone 10mg taper 40 mg Daily for 1 Day and 0 Hour 30 mg Daily for 1 Day and 0 Hour 20 mg Daily for 1 Day and 0 Hour 10 mg Daily for 1 Day and 0 Hour Rx Instructions: see taper instructions oseltamivir [Tamiflu] 75 mg capsule 75 mg PO BID 2 Days Qty: 4 0RF Continued (DME) blood-glucose meter [OBMedicaluch UltraMini] Kit See Rx Instructions .ROUTE .MEDSUPPLY Qty: 1 0RF Rx Instructions: As directed (DME) lancets [OneTouch Delica Plus Lancet] 33 gauge misc See Rx Instructions .ROUTE .MEDSUPPLY Qty: 100 3RF Rx Instructions: test once/day (DME) blood sugar diagnostic Strip See Rx Instructions .ROUTE .MEDSUPPLY Qty: 100 3RF Rx Instructions: test daily (DME) lancets [Onetouch Delica Safety Lancet] 30 gauge misc See Rx Instructions .Route Qty: 200 3RF Rx Instructions: test 1-2 times/day omeprazole 40 mg capsule,delayed release(DR/EC) 40 mg PO DAILY PRN (Reason: acid reflux) Qty: 90 3RF acetaminophen [Tylenol Extra Strength] 500 MG tablet 1,000 mg PO TID (DME) lancing device with lancets [OneTouch Delica Plus Lanc Dev] Kit See Rx Instructions .Route Qty: 1 0RF Rx Instructions: As directed use daily irbesartan 150 mg tablet 150 mg PO DAILY Qty: 90 3RF dapagliflozin propanediol [Farxiga] 10 mg tablet 10 mg PO DAILY Qty: 90 3RF ibuprofen 200 mg Tablet 400 mg PO Q6H PRN Discharge Instructions Referrals: Rodolfo Penn MD [Primary Care Provider] - Activity:: Activity as Tolerated Equipment/Supplies:: No Equipment Needed Diet:: As Tolerated Discharge Orders Discharge Orders: Discharge Order (Routine); Ordered 07/23/24 Ordered By: Evelio Banuelos DS: Summary Time Spent with Patient providing and/or coordinating discharge services: Greater than 30 minutes Status at Discharge Functional status at discharge: independent ambulation Overall status at discharge: patient is back to baseline Mental Status: mental status grossly normal Speech and Movement: speech and movement normal Mood: congruent mood Affect: normal affect Quality:SDOH Health Related Social Needs: No Data to Display Exam Const General: cooperative, comfortable and no acute distress Orientation: alert, awake and oriented x3 Chest Chest: normal inspection of the chest Resp Effort & Inspection: normal respiratory effort Auscultation: no rales, rhonchi (fine, scattered, greatly improved from yest erday) and no wheezes Cardio Rate: regular rate Rhythm: regular rhythm Heart Sounds: S1 normal and S2 normal GI Inspection: normal to inspection Palpation: soft and not firm Percussion: normal to percussion Auscultation: normal bowel sounds Skin General skin exam: no rashes or lesions noted Neuro General: patient alert and patient awake Cranial Nerves: CN's II-XI intact bilaterally Cognition: normal cognition Psych Mental Status: mental status grossly normal Speech and Movement: speech and movement normal Mood: congruent mood Affect: normal affect DS: Data Vitals/I&O Vitals and I&O: Vital Signs Temperature 36.6 C 07/23/24 11:35 Temperature Source Temporal Artery Scan 07/23/24 11:35 Pulse 84 07/23/24 11:35 Pulse Rhythm Regular 07/21/24 15:45 Pulse 115 H 07/21/24 14:50 Respiratory Rate 18 07/23/24 11:35 Respiratory Effort Short of Breath 07/21/24 15:45 Respiratory Depth Normal 07/21/24 15:45 Respiratory Pattern Tachypnea 07/21/24 15:45 Blood Pressure 155/93 H 07/23/24 11:35 Blood Pressure Mean 119 07/21/24 13:01 Blood Pressure Position Sitting 07/21/24 10:46 Pulse Oximetry 95 07/23/24 11:35 Oxygen Delivery Method Room Air 07/23/24 11:35 Oxygen Flow Rate 0 07/23/24 11:35 Pain Level 0 07/23/24 12:34 Comment MAP 97 07/23/24 03:09 Intake & Output 07/22/24 07/23/24 07/23/24 23:59 11:59 23:59 Intake Total 410 / 860 450 / 450 Balance 410 / 860 450 / 450 Intake: IV Oral 400 / 850 440 / 440 Other: Comment independently voids, unmeasurable pT stated that he voided Stool Size Moderate Stool Characteristics Formed Brown Data Completed and Pending Labs on day of discharge: Labs from last 24 hours 07/23/24 06:20 WBC 14.77 H RBC 5.31 Hgb 14.8 Hct 44.9 MCV 85 MCH 27.9 MCHC 33.0 RDW 13.0 Plt Count 407 H MPV 10.8 Immature Gran % 1.6 Neutrophils % 78.0 Band Neutrophils % 1 Lymphocytes % 14.0 Atypical Lymphs % 1 Monocytes % 5.0 Eosinophils % 0.0 Basophils % 1.0 Nucleated RBC % 0.0 Absolute Neutrophils 11.67 H Absolute Lymphocytes 2.22 Absolute Monocytes 0.74 Absolute Eosinophils 0.00 Absolute Basophils 0.15 RBC Morphology Normal Sodium 137 Potassium 3.5 Chloride 99 Carbon Dioxide 30.8 Anion Gap 7.2 BUN 26 H Creatinine 1.1 Est GFR (CKD-EPI 2020) 73.58 Glucose 262 H Hemoglobin A1c Pending Calcium 9.3 Preliminary micro results at discharge 07/21/24 12:45 Blood Culture - Preliminary Blood NO GROWTH 24 HOURS 07/21/24 12:19 Blood Culture - Preliminary Blood NO GROWTH 24 HOURS PFSH All Active Problems (Updated 07/21/24 @ 15:02 by Arik Christopher MD) Acute respiratory failure with hypoxia (Acute) Severe sepsis (Acute) Influenza A (Acute) Bilateral pneumonia (Acute) Chronic cough (Acute) Tachycardia (Acute) Bronchitis (Acute) Osteoarthritis of left knee (Acute) DEPO MEDROL 06/23/2022 Fatigue (Acute) Abdominal bloating (Acute) Arthralgia (Acute) Diabetes mellitus (Chronic) Podagra (Acute) Bronchospasm (Acute) Well adult (Acute) History of total right knee replacement (TKR) (Acute 02/26/14) Cervical spondylosis (Acute ~10/23/18) 10/23/18 [facility] [place] Depressive disorder (Acute) History of arthroscopy (Acute) History of arthroscopy of knee (Acute) History of tobacco use (Acute) Status post arthroscopy of shoulder (Acute) Umbilical hernia (Acute) Rupture of right long head biceps tendon (Chronic) Injected: 10/18/2018 Osteoarthritis of right AC (acromioclavicular) joint (Chronic) AC joint injection: 07/05/2019; 09/05/2018 Primary osteoarthritis of left knee (Chronic) Right shoulder tendonitis (Chronic) Obesity (Acute) Neck pain on left side (Acute 06/25/15) Nasal vestibulitis (Acute 04/13/17) Low back pain (Acute) Left shoulder pain (Acute 06/25/15) Lumbago (Acute) Knee pain, right (Acute 03/03/14) DJD, 03/11 TKR (Tarik) Insomnia (Acute 03/29/13) Injury of neck (Acute) A) work injury B) DISABILITY C) left neck and shoulder pain and nerve damage D) C5-6 AND 6-7 DDD E) R C5-6 FORAMINAL NARROWING F) MRI T/L SPINE 04/04 MULTILEVEL DDD Impaired fasting glucose (Acute 04/09/15) Hemorrhoids (Acute 03/29/13) Gout (Acute 10/03/14) Gilbert's syndrome (Acute 03/29/13) chronic, mild elevated Bili Gastroesophageal reflux disease (Acute 03/29/13) Essential hypertension (Acute 03/28/13) Episodic lightheadedness (Acute 04/09/15) Chronic left shoulder pain (Acute 06/25/15) Allergic rhinitis (Acute 03/29/13) chronic sinus congestion Nephrolithiasis (Chronic ~01/2018) With 6 mm stone in right ureter Osteoarthritis of knee (Acute 02/26/14) Presence of right artificial knee joint (Acute 02/26/14) H/O surgical procedure (Chronic) a. Right knee arthroscopy 07/2010 b. Left shoudler athroscopy c. Umbilical hernia repair d. Open right carpal tunnel release e. TKR 02/26/2014 Borderline hypertension (Chronic) Overweight (Chronic) Hx of urinary stone (Chronic) Chronic sinusitis (Chronic) Hyperlipidemia (Chronic) Gilbert syndrome (Chronic) Medical History Pneumonia Surgical History hernia repair (~2005) Arthroscopy, Shoulder (~2000) left shoulder with labrial debridement and left acromioplasty[place] [place] Arthroplasty of knee (~2010) right Arthroscopy wrist Family History Mother Hyperlipidemia Hypertension Father , AGE 83 Diabetes Heart disease Hyperlipidemia Hypertension Sister , AGE 60 COPD (chronic obstructive pulmonary disease) Asthma Maternal Grandfather Diabetes Paternal Grandfather Heart disease Maternal Grandmother Diabetes Sister No problems noted. Social History Smoking/Tobacco Use Status: Former Tobacco Use Quit Date: 05/29/94 Smoking risk assessment performed?: Yes Alcohol Intake: former Year quit: 1998 Drug use: Never Substance use type: does not use Caregiver/Support person: No Household members: none Housing: house Pets and animals: No Do you think of yourself as: straight/heterosexual Current gender identity: male What is your relationship status?: never How often do you talk on the phone with friends or family?: three or more times per week How often do you get together with friends or relatives?: three or more times per week How often do you attend jewish or baptist services?: decline to answer Do you belong to any clubs or organized social groups?: decline to answer Panel score (0-1 are the most socially isolated patients): 1 What type of physical activity do you participate in: bicycling Duration: 15-30 minutes/day Abigail/Yazidism: No preference Special abigail needs: No Do you feel safe at home: Yes Do you feel safe in your relationship?: Yes Time Spent with Patient Time Spent with Patient: <45 minutes Time was spent: preparing to see the patient(eg.review tests), obtaining and/or reviewing separately otained hiistory, indepentently interpreting results and counseling the patient
--- NOTE | 2024-07-23 13:58 | PDOC.CMDIS ---
Date of service: 07/23/24 Time of Service: 13:58 LACE Index Scoring Tool Questions: Length of Stay (in days): 2 Was the patient admitted via the E.D.?: Yes Comorbidities: Diabetes w/o Complication E.D. Visits: 1 Answers: Total Score: 7 Risk of Readmission: Low Risk Care Management Discharge Plan Reason for Hospitalization: flu with O2 requirement Discharge Plan: Slade is discharged home today with no new services. He has new prescriptions for antibiotics, Tamiflu and a prednisone taper. Slade will f/u with his PCP and continue per his plan of care. Slade will drive himself home today, and feels comfortable doing so. Patient/Family Education Needs: Review of discharge instructions, activity, limitations and discuss ask me 3. SDOH Health Related Social Needs: No Data to Display
[2024-07-23 18:00] LABS: Hemoglobin A1C 8.8 % (<5.7)
== END 2024-07-23 13:58 | disposition home or self-care (01) | DRG 871 ==
LOC: ER 14:50 → MS 15:41
PROVIDERS: Admitting Provider Family Medicine; Emergency Provider Registered Nurse Emergency; PCP Family Medicine; Responsible Provider Hospitalist; Visit Provider Family Medicine
DX: A41.9 Sepsis, unspecified organism (principal); J10.00 Influenza due to other identified influenza virus with unspecified type of pneumonia; J18.9 Pneumonia, unspecified organism; J96.01 Acute respiratory failure with hypoxia; R65.20 Severe sepsis without septic shock; I10 Essential (primary) hypertension; E11.9 Type 2 diabetes mellitus without complications; R05.3 Chronic cough; Z87.891 Personal history of nicotine dependence; F32.A Depression, unspecified; E66.9 Obesity, unspecified; G47.00 Insomnia, unspecified; E80.4 Gilbert syndrome; Z96.651 Presence of right artificial knee joint; E78.5 Hyperlipidemia, unspecified; Z79.84 Long term (current) use of oral hypoglycemic drugs
CPT/HCPCS: 00123; 36415; 80048; 80053; 82805; 85027; 87040; 87637; 93005; 94640; 96365; 96375; 99285; J1650; 71045; 83036; 83605; 83735; 84484; 85025; 93010; 94667; 94760; 99223; 99231; 99239; J0696; J1815; J2919; J7512; J7620

== ENCOUNTER 2024-08-01 10:41 | Outpatient (CLI) | payer MEDICARE, SELFPAY ==
[2024-08-01 12:28] LABS: HCT 48.4 % (40.0-50.0); HGB 15.6 g/dL (13.5-17.5); MCH 28.1 pg (27.0-33.0); MCHC 32.2 % (32.0-36.0); MCV 87 fL (80-95); MPV 10.7 fL (8.0-11.0); Platelet Count 416 10^3/uL (130-400); RBC 5.56 10^6/uL (4.36-5.78); RDW 13.6 % (11.8-14.1); RDW-SD 43.4 fL; WBC 7.14 10^3/uL (4.4-10.8)
[2024-08-01 12:45] LABS: Anion Gap 5.7 mmol/L (3-11); CO2 32.3 mmol/L (21.0-32.0); Chloride 101 mmol/L (98-107); Potassium 5.6 mmol/L (3.5-5.1); Sodium 139 mmol/L (136-145)
[2024-08-01 14:00] LABS: BUN 20 mg/dL (7-18); CREATININE 1.1 mg/dL (0.70-1.30); Calcium 9.4 mg/dL (8.5-10.1); Estimated GFR 73.58 (mL/min/1.73m2); Glucose 192 mg/dL (74-106); TSH (W/Ref FT4) 1.88 uIU/mL (0.36-3.74)
[2024-08-01 14:51] LABS: NT-proBNP 119 pg/mL (<300)
== END 2024-08-01 10:42 | disposition home or self-care (01) ==
PROVIDERS: PCP Family Medicine; Referring Provider Nurse Practitioner Family; Visit Provider Nurse Practitioner Family
DX: R06.02 Shortness of breath (principal); R53.83 Other fatigue; R05.3 Chronic cough; E11.9 Type 2 diabetes mellitus without complications; R00.0 Tachycardia, unspecified; I10 Essential (primary) hypertension
CPT/HCPCS: 36415; 80048; 85027; 83880; 84443

== ENCOUNTER 2024-08-08 10:55 | Outpatient (RCR) | payer MEDICARE, SELFPAY ==
--- NOTE | 2024-08-13 09:34 | W.HOLTRPT ---
Date of service: 08/13/24 Time of Service: 09:34 Holter Monitor Report Referring Provider:: Rosalba Krishnamurthy Indications:: Tachycardia Holter Monitor Note: This is a 49-year-old Holter monitor. Rhythm throughout was sinus with an average heart rate of 85. Minimum was 43, maximum 124. There were rare isolated ventricular ectopic beats. There are moderately frequent atrial premature beats which comprised 15% of total. Self-limited atrial runs occurred. The longest of these was 6 seconds in duration There was no atrial fibrillation, no high-grade AV block, no pauses greater than 3 seconds. No symptoms were reported
== END 2024-08-26 23:59 | disposition home or self-care (01) ==
LOC: CARDOPNVT 10:55
PROVIDERS: PCP Family Medicine; Visit Provider Internal Medicine Cardiovascular Disease
DX: R00.0 Tachycardia, unspecified (principal); R06.02 Shortness of breath; I48.0 Paroxysmal atrial fibrillation
CPT/HCPCS: 93227; 93225; 93226

== ENCOUNTER 2024-08-29 10:15 | Outpatient (CLI) | payer MEDICARE, SELFPAY ==
[2024-08-29 12:57] LABS: Potassium 4.2 mmol/L (3.5-5.1)
== END 2024-08-29 10:16 | disposition home or self-care (01) ==
PROVIDERS: PCP Family Medicine; Referring Provider Family Medicine; Visit Provider Family Medicine
DX: I10 Essential (primary) hypertension (principal); J18.9 Pneumonia, unspecified organism; K21.9 Gastro-esophageal reflux disease without esophagitis; E66.9 Obesity, unspecified; E11.9 Type 2 diabetes mellitus without complications; E87.5 Hyperkalemia
CPT/HCPCS: 36415; 84132

== ENCOUNTER 2024-08-30 11:35 | Outpatient (CLI) | payer MEDICARE, SELFPAY ==
--- NOTE | 2024-08-30 14:10 | DI.RAD_ITS ---
Exam(s) XR CHEST 2V PA LATERAL EXAM: XR CHEST 2V PA LATERAL CLINICAL HISTORY: reassess gomez infiltrates, bilat pneumonia, j18.9. TECHNIQUE: 2D digital imaging was performed. COMPARISON: CR,XR XR PORTABLE CHEST AP from 07/21/2024 FINDINGS: 2 views: Mild increased markings noted in the lung bases but with some proved when compared to 07/01/2024. There are no new areas of infiltrate and no pleural effusions. IMPRESSION: Improvement when compared to 07/21/2024. DATA REPOSITORY: RADIATION DOSE DELIVERED:
== END 2024-08-30 11:55 ==
LOC: DI 11:36
PROVIDERS: PCP Family Medicine; Visit Provider Family Medicine
DX: J18.9 Pneumonia, unspecified organism (principal)
CPT/HCPCS: 71046

== ENCOUNTER 2024-11-27 02:28 | Outpatient (CLI) | payer MEDICARE, SELFPAY ==
--- NOTE | 2024-11-27 07:30 | DI.US_ITS ---
APPROVED REPORT EXAM: Comprehensive 2D, Doppler, and color-flow Echocardiogram Patient Location: Out-Patient Feed Project Engineer: Isabella Hollingsworth RDCS (AE) Indications: SOB, Edema,Irregular rhythm, HTN Other Information Study Quality: Fair. Technically limited study due to body habitus. Conclusion Normal left ventricular wall thickness and chamber size. Ejection fraction is 55 to 60%. Wall motion is normal Normal right ventricular size and function Both atria are normal in size There is no structural or hemodynamically significant valvular disease Ascending aorta measures 4.22 cm Wall motion Left Ventricle The left ventricle is normal size. The left ventricular systolic function is normal. The left ventricular ejection fraction is within the normal range. There is normal left ventricular wall thickness. There is normal LV segmental wall motion. There is no ventricular septal defect visualized. LVEF is 58%. Right Ventricle The right ventricle is normal size. The right ventricular systolic function is normal. Atria The left atrium size is normal. The right atrium size is normal. The interatrial septum is intact with no evidence for an atrial septal defect. Aortic Valve The aortic valve is normal in structure. Aortic valve is trileaflet. There is no aortic valvular stenosis. No aortic regurgitation is present. Mitral Valve The mitral valve is normal in structure. No evidence of mitral valve stenosis. Trace mitral regurgitation. Tricuspid Valve The tricuspid valve is normal in structure. There is no tricuspid valve stenosis. Trace tricuspid regurgitation. Unable to assess PA pressure. Pulmonic Valve The pulmonary valve is normal in structure. Trace pulmonic regurgitation. Great Vessels The aortic root is normal in size. The ascending aorta is moderately dilated. Aortic arch is normal in caliber. IVC is normal in size and collapses >50% with inspiration. Pericardium There is no pericardial effusion. 2D Dimensions IVSD d PLAX 1.00 cm M: 0.6-1.2 Ao Root d 3.70 cm M: 3.1 - 3.7 LVPW d PLAX 1.00 cm M: 0.6 - 1.2 Ao Asc Diam d 4.22 cm M: 2.6 - 3.4 LVID d PLAX 5.20 cm M: 4.2 - 5.8 LVDs 3.54 cm M: 2.5 - 4.0 LV EF Teichholz 59.0 % FS 31.50 % LV EDV (Teich) 128.0 mL LV ESV (Teich) 52.4 mL M-Mode TAPSE 1.84 cm (M/F) >1.7 Auto EF LV EDV A4C 184.2 mL LV EDV A2C 143.9 mL LV EDV BP 164.4 mL LV ESV A4C 76.9 mL LV ESV A2C 60.3 mL LV ESV BP 68.7 mL LVEF(%) A4C 58.2 % LVEF(%) A2C 58.1 % LVEF(%) BP 58.2 % LV SV A4C 107.3 ml LV SV A2C 83.6 ml LV SV BP 95.7 ml LV CO A4C 7.0 L/min LV CO A2C 5.3 L/min LV CO BP 6.1 L/min HR A4C 64.98 BPM HR A2C 62.83 BPM LV EDV Index (BP) LA Volume LA Length A4C 6.0 cm LA Length A2C 5.7 cm LA Area A4C s 20.25 cm2 LA Area A2C s 22.39 cm2 LA Vol A4C A-L 58.25 mL LA Vol A2C A-L 74.58 mL LA Vol Biplane A-L 67.5 mL LA Vol/BSA A4C A-L LA Vol/BSA A2C A-L LA Vol/BSA BP A-L 27.4 mL/m2 LA Vol A4C MOD 55.7 mL LA Vol A2C MOD 69.9 mL LA Vol BP MOD 63.8 mL RA Volume RA Area A4C 15.9 cm2 RA ESV A4C (A-L) 37.4mL RA Vol/BSA A4C A-L RA Length A4C 5.7 cm RA ESV A4C (MOD) 34.9mL LV Diastology MV E' medial 0.058 (>0.07 m/s) MV E Vmax 0.58 (0.4-1.3 m/s) MV E/E' MED 10.07 (<14) MV A Vmax 1.10 (0.4-1.3 m/s) MV E' lateral 0.051 (>0.1 m/s) E/A Ratio 0.5 MV E/E' LAT 11.49 (<14) MV E' Average 0.054 m/s MV E/E'(average) 10.73 Aortic Valve AoV Vmax 1.22 m/s LVOT Vmax 0.99 m/s AoV Peak Grad 6.0 mmHg LVOT Peak Grad 3.9 mmHg AoV Area (Vmax) 2.72 cm2 LVOT VTI 0.209 m AoV VTI 0.286 m LVOT Mean Grad 1.8 mmHg AoV Mean Ramsey. 0.84 m/s LVOT SV 70.50 mL AoV Mean Grad 3.2 mmHg LVOT Diam s 2.05 cm AoV Area (VTI) 2.46 cm2 AV Regurg Peak Gr. 5.98 mmHg Velocity Ratio 0.81 Mitral Valve MV DT 373 (160-240 msec) MV Vmax TIPS 1.08 m/s MV Mean Grad 1.5 (<2mmHg) MV VTI 0.334 m Pulmonary Valve PV Vmax 1.06 (0.5-1.5 m/s) RVOT Vmax 0.66 m/s PV Peak Grad 4.5 mmHg RVOT Peak Gr. 1.8 mmHg PV Mean Ramsey 0.69 m/s RVOT VTI 0.156 m PV Mean Grad 2.2 mmHg RVOT Mean Gr. 0.9 mmHg Tricuspid Valve RA Pressure 3.00 mmHg TV S' 0.15 m/s
== END 2024-11-27 02:48 ==
PROVIDERS: PCP Family Medicine; Visit Provider Internal Medicine Cardiovascular Disease
DX: I10 Essential (primary) hypertension (principal)
CPT/HCPCS: 93306

== ENCOUNTER 2024-12-09 03:19 | Outpatient (CLI) | payer MEDICARE, SELFPAY ==
[2024-12-09] MEDS: Albuterol HFA 18 GM 200 PUFF INH IH (17:12)
[2024-12-09] MEDS: Methacholine 100 MG VIAL IH (17:12)
[2024-12-09] MEDS: Inhaler, Assist Device 1 EACH MC (17:12)
--- NOTE | 2024-12-23 11:13 | W.PFT ---
Date of service: 12/09/24 Time of Service: 14:46 Pulmonary Function Test Result Indications: Pneumonia Impression 1. Good patient effort was noted. ATS standards for reproducibility were met. 2. Normal spirometry. 3. At 16 mg/mL methacholine, there was only a 12% fall in FEV1. Conclusion: - negative methacholine challenge testing
== END 2024-12-09 03:20 | disposition home or self-care (01) ==
PROVIDERS: PCP Family Medicine; Referring Provider Nurse Practitioner Family; Visit Provider Internal Medicine Pulmonary Disease
DX: R05.3 Chronic cough (principal)
CPT/HCPCS: 94070; 94726; 94729; 95070; J7674

== ENCOUNTER 2025-02-06 10:35 | Outpatient (CLI) | payer MEDICARE, SELFPAY ==
[2025-02-06 17:38] LABS: Calculated LDL 107 mg/dL (<100); Cholesterol 181 mg/dL (<200); HDL Cholesterol 56 mg/dL (>or=40); Triglyceride 91 mg/dL (<150)
== END 2025-02-06 10:36 | disposition home or self-care (01) ==
PROVIDERS: PCP Family Medicine; Referring Provider Family Medicine; Visit Provider Family Medicine
DX: E10.69 Type 1 diabetes mellitus with other specified complication (principal); E78.5 Hyperlipidemia, unspecified; Z13.220 Encounter for screening for lipoid disorders
CPT/HCPCS: 36415; 80061

== ENCOUNTER → 2025-05-15 11:12 | Outpatient (CLI) | payer MEDICARE, SELFPAY ==
--- NOTE | 2025-05-15 11:00 | DI.RAD_ITS ---
Exam(s) XR CHEST 2V PA LATERAL EXAM: XR CHEST 2V PA LATERAL CLINICAL HISTORY: Pneumonia, PRODUCTIVE COUGH, R05.8 TECHNIQUE: 2D digital imaging was performed of the chest. Two images were obtained. PA and lateral views were obtained. COMPARISON: CR XR CHEST 2V PA LATERAL from 01/04/2023 CR XR CHEST 2V PA LATERAL from 08/30/2024 FINDINGS: MEDIASTINUM: Normal. HEART: Normal. PULMONARY VASCULATURE: Normal. LUNGS: Clear. PLEURAL SPACE: No pleural effusion or pneumothorax. BONE:Within normal limits for the patient's age. OTHER FINDINGS:Normal. IMPRESSION: No acute pulmonary findings. DATA REPOSITORY: RADIATION DOSE DELIVERED:
== END ==
LOC: DI 11:12
PROVIDERS: PCP Family Medicine; Visit Provider Physician Assistant Medical
DX: R05.8 Other specified cough (principal)
CPT/HCPCS: 71046

== ENCOUNTER 2025-05-23 09:38 | Outpatient (CLI) | payer MEDICARE, SELFPAY ==
[2025-05-23 14:14] LABS: Anion Gap 9.2 mmol/L (3-11); BUN 17 mg/dL (9-23); CO2 27.8 mmol/L (20.0-31.0); Calcium 9.7 mg/dL (8.3-10.6); Chloride 103 mmol/L (98-107); Cholesterol 163 mg/dL (<200); Glucose 105 mg/dL (74-106); HDL Cholesterol 74 mg/dL (>or=40); Potassium 4.5 mmol/L (3.5-5.1); Sodium 140 mmol/L (136-145)
== END 2025-05-23 09:39 | disposition home or self-care (01) ==
LOC: LBO 09:39
PROVIDERS: PCP Family Medicine; Visit Provider Family Medicine
DX: E78.5 Hyperlipidemia, unspecified (principal); Z13.220 Encounter for screening for lipoid disorders; E87.1 Hypo-osmolality and hyponatremia
CPT/HCPCS: 36415; 80048; 80061